=== PATIENT | male | born 1945 | race Caucasian/White ===

== ENCOUNTER → 2016-03-11 | Outpatient (CLI) | payer MEDICARE, OTHER ==
[2016-03-11 16:41] LABS: ALBUMIN 4.3 g/dL (3.5-5.0); BILIRUBIN,TOTAL 1.5 mg/dL (0.2-1.3); TOTAL PROTEIN 7.8 g/dL (6.3-8.2)
== END ==
LOC: OD 15:19
PROVIDERS: ATTEND Internal Medicine Gastroenterology
DX: R94.5 Abnormal results of liver function studies (principal)
CPT/HCPCS: 36415; 80076

== ENCOUNTER 2016-06-10 03:48 | Inpatient (IN) | payer MEDICARE, OTHER ==
[2016-06-10] MEDS ORDERED: NITROGLYCERIN/D5W 50 MG/250 ML RTUINJ IV ONE (04:00)
[2016-06-10] MEDS ORDERED: IPRATROPIUM/ALBUTEROL 0.5-2.5 MG/3 ML AMPUL NEB ONE ×4 (04:01→07:59)
[2016-06-10] MEDS ORDERED: NITROGLYCERIN/D5W 250 ML IV PRN (04:04)
[2016-06-10] MEDS ORDERED: MAGNESIUM SULFATE/D5W 2 GM/200 ML RTUPB IV ONE (04:05)
--- NOTE | 2016-06-10 04:08 | ER Document Report ---
ED Respiratory Problem - General Time seen by provider: 04:00 TRAVEL OUTSIDE OF THE [place] IN LAST 30 DAYS: No <MALCOLM CALDWELL - Last Filed: 06/10/16 07:53> <ROGERIO GALLEGOS - Last Filed: 06/10/16 14:49> - General Stated Complaint: BREATHING DIFFICULTY Notes: Patient is a 71-year-old male with a history of CHF and chronic kidney disease that comes emergency department by EMS for chief complaint of respiratory distress. Patient found with initial pulse oxygenation of 85% on room air. Patient reporting some cough, no fever, states that he rapidly started to become short of breath over the past few hours. He denies chest pain, vomiting. He denies history of pneumonia. He is a former smoker. He states he has been taking his diuretics. He denies ever being intubated. (MALCOLM CALDWELL) - Related Data Allergies/Adverse Reactions: adhesive [Adhesive] Adverse Reaction (Severe, Verified 06/10/16 09:16) Blisters Past Medical History - General Information source: Emergency Med Personnel - Social History Smoking Status: Former Smoker Lives with: Family Family History: CAD, Other - Past Medical History Cardiac Medical History: Reports: Hx Congestive Heart Failure, Hx Heart Attack - 2014 Bypass sugery, Hx Hypercholesterolemia, Hx Hypertension Denies: Hx Coronary Artery Disease Pulmonary Medical History: Denies: Hx Asthma, Hx Bronchitis, Hx COPD, Hx Pneumonia Neurological Medical History: Denies: Hx Cerebrovascular Accident, Hx Seizures Endocrine Medical History: Reports: Hx Diabetes Mellitus Type 2 Musculoskeltal Medical History: Denies Hx Arthritis Psychiatric Medical History: Denies: Hx Depression Past Surgical History: Reports: Hx Cardiac Surgery - bypass, Hx Oral Surgery - Immunizations Hx Diphtheria, Pertussis, Tetanus Vaccination: Yes Hx Pneumococcal Vaccination: 02/11/12 <MALCOLM CALDWELL - Last Filed: 06/10/16 07:53> Review of Systems - Review of Systems Constitutional: No symptoms reported EENT: No symptoms reported Cardiovascular: See HPI Respiratory: See HPI Gastrointestinal: No symptoms reported Genitourinary: No symptoms reported Male Genitourinary: No symptoms reported Musculoskeletal: No symptoms reported Skin: No symptoms reported Hematologic/Lymphatic: No symptoms reported Neurological/Psychological: No symptoms reported <MALCOLM CALDWELL - Last Filed: 06/10/16 07:53> Physical Exam - Vital signs Interpretation: Normal - General General appearance: Anxious In distress: Severe - Patient pale, diaphoretic, and obvious severe respiratory distress - HEENT Head: Normocephalic, Atraumatic Eyes: Normal Eyelashes: Normal Pupils: PERRL Pharynx: Normal Neck: Normal - Respiratory Respiratory status: Respiratory distress - Severe respiratory distress with tachypnea and very labored breathing Breath sounds: Decreased air movement, Rales, Rhonchi - Cardiovascular Rhythm: Regular Heart sounds: Normal auscultation, S1 appreciated, S2 appreciated Murmur: No - Abdominal Inspection: Normal Distension: No distension Bowel sounds: Normal Tenderness: Nontender. No: Tender, Guarding Organomegaly: No organomegaly - Back Back: Normal, Nontender - Extremities General upper extremity: Normal inspection, Nontender, Normal color, Normal ROM , Normal temperature General lower extremity: Normal inspection, Nontender, Normal color, Normal ROM , Normal temperature, Normal weight bearing. No: Juan's sign - Neurological Neuro grossly intact: Yes Cognition: Normal Orientation: AAOx4 [place] Coma Scale Eye Opening: Spontaneous Annemarie Coma Scale Verbal: Oriented [place] Coma Scale Motor: Obeys Commands [place] Coma Scale Total: 15 Speech: Normal Motor strength normal: LUE, RUE, LLE, RLE Sensory: Normal - Psychological Associated symptoms: Anxious - Skin Skin Moisture: Diaphoretic Skin Color: Pale <MALCOLM CALDWELL - Last Filed: 06/10/16 07:53> Course - Laboratory Result Diagrams: 06/10/16 04:00 06/10/16 04:00 <MALCOLM CALDWELL - Last Filed: 06/10/16 07:53> - Laboratory Result Diagrams: 06/10/16 04:00 06/10/16 04:00 <ROGERIO GALLEGOS N - Last Filed: 06/10/16 14:49> - Re-evaluation Re-evalutation: On initial evaluation patient diaphoretic, pale, in obvious respiratory distress. Patient hypertensive. Lungs with rhonchi and rales with decreased breath sounds throughout. Patient immediately placed on BiPAP, initiated nitroglycerin drip, starting magnesium and DuoNeb treatments, given Solu- Medrol. Patient is in critical condition, will monitor very closely. EKG showing borderline ST elevation in lead 2 in the inferior lead, this is isolated, no other ischemic findings. Workup pending. Reviewed with Dr. Gallegos. Dr. Gallegos updated and evaluated the patient at bedside. Patient is a 30 improving significantly on reevaluation, respirations decreased , respiratory effort has decreased, patient is still hypoxic. Chest x-ray with questionable pneumonia, Rales and rhonchi on exam initially consistent with flash pulmonary edema. No leukocytosis, chemistry generally at baseline, cardiac enzymes indeterminate. ABG obtained, shows respiratory acidosis with pH of only 7.19. On reevaluation again patient is significantly improved, respiratory distress is almost completely resolved, patient is stating that he feels much better. Antibiotics given, cultures pending. Patient reevaluated again, now has no respiratory distress, is comfortable appearing. Called and spoke with Dr. Lind, he states Dr. Velázquez will be taking call for the patient. Spoke with Dr. Velázquez, patient will be admitted to the hospital. (MALCOLM CALDWELL) 06/10/16 14:43 Late entry. I evaluated this patient at bedside in the ER. Patient initially pale, diaphoretic, and in significant respiratory distress with bilateral rales and also sounding somewhat tight with expiratory wheezes scattered throughout. Pt placed on BiPap and nitro drip, and neb treatments initiated, with rapid clinical improvement. Clinical history and exam/presentation most consistent with flash pulmonary edema, which patient has experienced in the past, yet cxr also concerning for R sided pneumonia and antibiotics initiated. Pt to be admitted to Dr. Velázquez. (ROGERIO GALLEGOS) - Vital Signs Vital signs: Temp Pulse Resp BP Pulse Ox 98.1 F 69 16 158/84 H 96 06/10/16 10:45 06/10/16 14:13 06/10/16 14:13 06/10/16 10:45 06/10/16 14:13 - Laboratory Laboratory results interpreted by ak: 06/10/16 06/10/16 06/10/16 04:00 04:00 04:00 Hgb 13.1 L RDW 14.5 H Carbonic Acid 1.60 H ABG pH 7.19 L* ABG pCO2 53.3 H ABG pO2 70.8 L ABG HCO3 19.7 L ABG Total CO2 21.3 L ABG O2 Saturation 89.9 L Sodium 145.6 H Potassium 5.2 H Chloride 109 H Carbon Dioxide 21 L BUN 35 H Creatinine 1.69 H Est GFR ( Amer) 49 L Est GFR (Non-Af Amer) 40 L Glucose 282 H Total Bilirubin 1.4 H Direct Bilirubin 0.8 H AST 81 H Alkaline Phosphatase 147 H Total Protein 9.0 H Critical Care Note - Critical Care Note Total time excluding time spent on procedures (mins): 45 - respiratory distress , pulmonary edema, pneumonia, respiratory acidosis <MALCOLM CALDWELL - Last Filed: 06/10/16 07:53> <ROGERIO GALLEGOS - Last Filed: 06/10/16 14:49> - Critical Care Note Comments: Please allow 45 minutes of critical care time for evaluation and treatment of patient with respiratory distress, treatment with BiPAP, nitroglycerin drip, magnesium, steroids, DuoNeb's, antibiotics, Lasix. Multiple re-evaluations, consultation and admission to the hospital. (MALCOLM CALDWELL) Discharge - Discharge Admitting Provider: [facility] Unit Admitted: IMCU <MALCOLM CALDWELL - Last Filed: 06/10/16 07:53> <ROGERIO GALLEGOS - Last Filed: 06/10/16 14:49> - Discharge Clinical Impression: Respiratory distress, Respiratory acidosis CHF exacerbation Qualifiers: Congestive heart failure type: unspecified congestive heart failure type Qualified Code(s): I50.9 - Heart failure, unspecified Pneumonia Qualifiers: Pneumonia type: due to unspecified organism Laterality: right Lung location: lower lobe of lung Qualified Code(s): J18.1 - Lobar pneumonia, unspecified organism Condition: Stable Disposition: ADMITTED INPATIENT
[2016-06-10] MEDS ORDERED: METHYLPREDNISOLONE INJ 125 MG/2 ML SDV IV ONE (04:15)
[2016-06-10] MEDS: MAGNESIUM SULFATE/D5W 100 ML IV SCH ×2 (04:18→04:23)
[2016-06-10 04:26] LABS: ARTERIAL BLOOD BASE EXCESS -8.9 mmol/L; ARTERIAL BLOOD O2 SATURATION 89.9 % (94-98)
[2016-06-10 04:27] LABS: ABSOLUTE BASOPHILS # (AUTO) 0.1 10^3/uL (0.0-0.2); ABSOLUTE EOSINOPHILS # (AUTO) 0.3 10^3/uL (0.0-0.6); ABSOLUTE MONOCYTES (AUTO) 0.8 10^3/uL (0.1-1.4); ABSOLUTE NEUT (AUTO) 4.4 10^3/uL (1.7-8.2); BASOPHILS % (AUTO) 0.8 % (0-2); HEMOGLOBIN 13.1 g/dL (13.5-17.0); HGB HCT DIFFERENCE 0.3; MEAN CORPUSCULAR HEMOGLOBIN 29.2 pg (27.0-33.4); MEAN CORPUSCULAR HGB CONC 33.5 g/dL (32.0-36.0); MEAN CORPUSCULAR VOLUME 87 fl (80-97); MONOCYTES % (AUTO) 8.4 % (3-13); RED BLOOD COUNT 4.47 10^6/uL (4.35-5.55); RED CELL DISTRIBUTION WIDTH 14.5 % (11.5-14.0); SEGMENTED NEUTROPHILS % (AUTO) 45.8 % (42-78); WHITE BLOOD COUNT 9.5 10^3/uL (4.0-10.5)
[2016-06-10] MEDS ORDERED: CEFTRIAXONE 1 GM/D5W RTU 50 ML IV ONE (04:31)
[2016-06-10] MEDS ORDERED: AZITHROMYCIN INJ 500 MG VIAL IV ONE (04:31)
[2016-06-10 04:37] LABS: ALANINE AMINOTRANSFERASE 65 U/L (21-72); ALBUMIN 4.4 g/dL (3.5-5.0); ALKALINE PHOSPHATASE 147 U/L (38-126); ANION GAP 16 (5-19); ASPARTATE AMINO TRANSFERASE 81 U/L (17-59); BILIRUBIN,DIRECT 0.8 mg/dL (0.0-0.4); BILIRUBIN,TOTAL 1.4 mg/dL (0.2-1.3); BLOOD UREA NITROGEN 35 mg/dL (7-20); CALCIUM 9.8 mg/dL (8.4-10.2); CARBON DIOXIDE 21 mmol/L (22-30); CHLORIDE 109 mmol/L (98-107); CREATINE KINASE 67 U/L (55-170); CREATININE RESULT 1.69 mg/dL (0.52-1.25); GLUCOSE 282 mg/dL (75-110); POTASSIUM 5.2 mmol/L (3.6-5.0); SODIUM 145.6 mmol/L (137-145)
[2016-06-10 04:49] LABS: TROPONIN I 0.02 ng/mL
[2016-06-10] MEDS ORDERED: FUROSEMIDE INJ/PF 40 MG/4 ML SDV IV ONE (07:19)
[2016-06-10] MEDS ORDERED: ACETAMINOPHEN 325 MG TABLET PO PRN (07:43)
[2016-06-10] MEDS ORDERED: DEXTROSE 50%-WATER 25 GM/50 ML DISP.SYRIN IV PRN ×2 (07:48)
[2016-06-10] MEDS ORDERED: GLUCAGON,HUMAN RECOMB 1 MG INJ IM PRN (07:48)
[2016-06-10] MEDS ORDERED: DEXTROSE 40% GEL 15 GM TUBE PO PRN ×2 (07:48)
--- NOTE | 2016-06-10 08:09 | EKG REPORT ---
SEVERITY:- ABNORMAL ECG - SINUS RHYTHM FIRST DEGREE AV BLOCK PROBABLE LEFT ATRIAL ABNORMALITY NONSPECIFIC INTRAVENTRICULAR CONDUCTION DELAY LVH WITH SECONDARY REPOLARIZATION ABNORMALITY CONSIDER ANTERIOR INFARCT : Confirmed by: Chapin Shaw MD 10-Jun-2016 08:08:29
[2016-06-10 08:40] LABS: CREATINE KINASE MB 1.06 ng/mL (<4.55)
[2016-06-10 08:44] LABS: TROPONIN I 0.043 ng/mL
[2016-06-10 09:02] LABS: ARTERIAL BLOOD BASE EXCESS -2.9 mmol/L; ARTERIAL BLOOD O2 SATURATION 99.5 % (94-98)
[2016-06-10] MEDS: IPRATROPIUM/ALBUTEROL 0.5-2.5 MG/3 ML AMPUL NEB SCH ×3 (09:44→20:44)
[2016-06-10] MEDS: INSULIN LISPRO 100 UNIT/ML 3 ML VIAL SUBCUT PRN ×4 (09:52→22:26)
[2016-06-10] MEDS: CEFEPIME 1 GM/D5W RTU 50 ML IV SCH ×2 (10:56→23:01)
[2016-06-10] MEDS: DOCUSATE SODIUM 100 MG CAPSULE PO SCH ×2 (10:58→17:09)
--- NOTE | 2016-06-10 12:34 | PDOC H&P ---
History of Present Illness Admission Date/PCP: 06/10/16 07:44 FOX BIRD MD Patient complains of: Shortness of the breath History of Present Illness: RONNIE MELGAR is a 71 year old male This is a 71-year-old male with a significant history of the pulmonary edema and congestive heart failure and coronary artery disease and type 2 diabetes mellitus for several hospital admissions for the flash pulmonary edema in the past came to the emergency department with the respiratory distress and the patient's initial pH was 7.19And patient was put on the BiPAP and the patient's response very wellPatients when I saw in the emergency departments are doing much better denied any chest pain denied any shortness of the breathPatient was given IV Lasix and IV antibiotic in the emergency departments and the patient sent patient's chest x-ray showing some right-sided pneumonia Patient was complaining of some little bit cough" cold-like symptoms for the last couple of days but no fever and patient's white count is also normal to. Patient also see her Dr. Zarate as outpatient and recently decreased the amiodarone 100 mg once a day due to the elevated liver functions Patient also see her Dr. Robin as outpatients for the GI problem and elevated LFT which is most consistent with the fatty liver and possible from the amiodarone Patient's currently denied any chest pain and denied any breathing problem in the trauma room in the emergency department Patient's white count is also normal I believe this is more consistent with the flaps pulmonary edema with the possible underlying mild be pneumonia we will treat the patient's with the plus pulmonary edema and heart failure and also covered with the antibiotic Past Medical History Cardiac Medical History: Reports: Congestive Heart Failure, Myocardial Infarction - 2013 Bypass sugery, Hyperlipidema, Hypertension Denies: Coronary Artery Disease Pulmonary Medical History: Reports: Respiratory Failure Denies: Asthma, Bronchitis, Chronic Obstructive Pulmonary Disease (COPD), Pneumonia Neurological Medical History: Denies: Seizures Endocrine Medical History: Reports: Diabetes Mellitus Type 2 Renal/ Medical History: Reports: Chronic Kidney Disease Renal/ History Note: Patient also currently see her Dr. Grant for chronic kidney disease GI Medical History: Reports: Gastroesophageal Reflux Disease GI History Note: Fatty liver Musculoskeltal Medical History: Denies: Arthritis Psychiatric Medical History: Denies: Depression Hematology: Denies: Anemia Social History Lives with: Family Smoking Status: Former Smoker Frequency of Alcohol Use: None Hx Recreational Drug Use: No Hx Prescription Drug Abuse: No - Advance Directive Resuscitation Status: Full Code Family History Family History: Reviewed & Not Pertinent, CAD, Other Parental Family History Reviewed: Yes Children Family History Reviewed: Yes Sibling(s) Family History Reviewed.: Yes Medication/Allergy Home Medications: Amiodarone HCl [Cordarone 200 mg Tablet] 100 mg PO DAILY 06/10/16 Apixaban [Eliquis 2.5 mg Tablet] 2.5 mg PO Q12 06/10/16 Aspirin [Aspirin EC] 81 mg PO DAILY 06/10/16 Brimonidine Tartrate/Timolol [Combigan 0.2%-0.5% Eye Drops] 1 drop OU DAILY 02/26 Carvedilol [Coreg 3.125 mg Tablet] 3.125 mg PO Q12 06/10/16 Docusate Sodium [Colace 100 mg Capsule] 100 mg PO DAILY 06/10/16 Insulin Aspart [Novolog Flexpen] 18 units SQ MEALS 06/10/16 Insulin Glargine,Hum.rec.anlog [Lantus Solostar] 60 units SQ QHS 06/10/16 Torsemide [Demadex 20 mg Tablet] 20 mg PO QAM 06/10/16 Valsartan [Diovan 80 mg Tablet] 80 mg PO DAILY 06/10/16 Allergies/Adverse Reactions: adhesive [Adhesive] Adverse Reaction (Severe, Verified 06/10/16 09:16) Blisters Review of Systems Constitutional: ABSENT: chills, fever(s), headache(s), weight gain, weight loss Eyes: ABSENT: visual disturbances Ears: ABSENT: hearing changes Cardiovascular: PRESENT: dyspnea on exertion. ABSENT: chest pain, edema, orthropnea, palpitations Respiratory: PRESENT: cough, dyspnea. ABSENT: hemoptysis Gastrointestinal: ABSENT: abdominal pain, constipation, diarrhea, hematemesis, hematochezia, nausea, vomiting Genitourinary: ABSENT: dysuria, hematuria Musculoskeletal: ABSENT: joint swelling Integumentary: ABSENT: rash, wounds Neurological: ABSENT: abnormal gait, abnormal speech, confusion, dizziness, focal weakness, syncope Psychiatric: ABSENT: anxiety, depression, homidical ideation, suicidal ideation Endocrine: ABSENT: cold intolerance, heat intolerance, menstrual abnormalities, polydipsia, polyuria Hematologic/Lymphatic: ABSENT: easy bleeding, easy bruising, lymphadenopathy Physical Exam Vital Signs: Temp Pulse Resp BP Pulse Ox 98.1 F 79 16 158/84 H 99 06/10/16 10:41 06/10/16 10:41 06/10/16 10:41 06/10/16 10:41 06/10/16 10:41 General appearance: PRESENT: no acute distress, well-developed, well-nourished Head exam: PRESENT: atraumatic, normocephalic Eye exam: PRESENT: conjunctiva pink, EOMI, PERRLA. ABSENT: scleral icterus Ear exam: PRESENT: normal external ear exam Mouth exam: PRESENT: moist, tongue midline Neck exam: PRESENT: full ROM. ABSENT: carotid bruit, JVD, lymphadenopathy, thyromegaly Respiratory exam: PRESENT: decreased breath sounds Cardiovascular exam: PRESENT: RRR. ABSENT: diastolic murmur, rubs, systolic murmur Pulses: PRESENT: normal dorsalis pedis pul, +2 pedal pulses bilateral Vascular exam: PRESENT: normal capillary refill GI/Abdominal exam: PRESENT: normal bowel sounds, soft. ABSENT: distended, guarding, mass, organolmegaly, rebound, tenderness Rectal exam: PRESENT: deferred Extremities exam: ABSENT: pedal edema Neurological exam: PRESENT: alert, awake, oriented to person, oriented to place , oriented to time, oriented to situation, CN II-XII grossly intact. ABSENT: motor sensory deficit Psychiatric exam: PRESENT: appropriate affect, normal mood. ABSENT: homicidal ideation, suicidal ideation Skin exam: PRESENT: dry, intact, warm. ABSENT: cyanosis, rash Results Laboratory Results: 06/10/16 08:50 Carbonic Acid 1.18 HCO3/H2CO3 Ratio 18:1 ABG pH 7.37 ABG pCO2 39.1 ABG pO2 231.3 H ABG HCO3 22.0 ABG O2 Saturation 99.5 H ABG Base Excess -2.9 FiO2 50% 06/10/16 06/10/16 08:05 08:05 Creatine Kinase 54 L CK-MB (CK-2) 1.06 Troponin I 0.043 Impressions: Chest X-Ray 06/10/16 04:03 IMPRESSION: RIGHT LOWER LOBE INFILTRATE CONCERNING FOR PNEUMONIA. Assessment & Plan - Diagnosis (1) Respiratory distress Is this a current diagnosis for this admission?: YesPlan: Most likely acute flash pulmonary edema as usual before patient's already started feeling better will continues to IV Lasix patient usually take a 60 mg of the Lasix total and homes (2) Pneumonia Qualifiers: Pneumonia type: due to unspecified organism Laterality: right Lung location: lower lobe of lung Qualified Code(s): J18.1 - Lobar pneumonia, unspecified organism Is this a current diagnosis for this admission?: YesPlan: Will start the patient on IV antibiotic and continues to monitor (3) Heart failure, systolic, with acute decompensation Plan: Start on IV Lasix and consult the cardiology (4) CAD (coronary artery disease) of artery bypass graft Qualifiers: [place] vs. transplanted heart: unspecified whether [place] or transplanted heart Is this a current diagnosis for this admission?: YesPlan: We will get the cardiac enzymes every 63 (5) CKD (chronic kidney disease) stage 3, GFR 30-59 ml/min Plan: Continues to monitor the patient's (6) Diabetes mellitus Qualifiers: Diabetes mellitus type: type 2 Diabetes mellitus complication status: with unspecified complications Is this a current diagnosis for this admission?: YesPlan: Continues on sliding scale (7) Hypertension Qualifiers: Hypertension type: essential hypertension Qualified Code(s): I10 - Essential (primary) hypertension Is this a current diagnosis for this admission?: Yes - Time Time Spent: 50 to 70 Minutes Medications reviewed and adjusted accordingly: Yes Anticipated discharge: Home Within: Other - Inpatient Certification Medical Necessity: Need Close Monitoring Due to Risk of Patient Decompensation Post Hospital Care: D/C Director Clinical Information Services Documentation - Plan Summary Plan Summary: Patient's pH is already improving will start the patient in IMCU and wean off of the BiPAP machine and continues to monitor the patient
--- NOTE | 2016-06-10 13:18 | PDOC CONSULTATION ---
Consultation Consult Date: 06/10/16 Attending physician:: FOX BIRD Consult reason:: Dyspnea History of Present Illness Admission Date/PCP: 06/10/16 07:44 FOX BIRD MD History of Present Illness: RONNIE MELGAR is a 71 year old male This is a 71-year-old male with a significant history of the pulmonary edema and congestive heart failure and coronary artery disease and type 2 diabetes mellitus for several hospital admissions for the flash pulmonary edema in the past came to the emergency department with the respiratory distress and the patient's initial pH was 7.19 his chest x-ray showing some right-sided pneumonia Dr. Zarate as outpatient and recently decreased the amiodarone 100 mg once a day due to the elevated liver functions. He states that onset of his complaints was a relatively rapid has had these problems before his cough is usually dry nonproductive but occasionally there is some clear phlegm he denies hemoptysis he states his PPD was negative however the dates unknown. He admits to exposure to passive smoke as a child as well as an adult he served [employer] admits to smoking 1 pack per day for 35 years but has not smoked in the last 20 years. He has 1 dog no recent travel he denies angina-like chest pain sleeps on 1-2 pillows denies PND nocturnal cough admits to some edema admits to snoring, nocturia and restless sleep but denies unrestful sleep or excessive daytime somnolence. Past Medical History Cardiac Medical History: Reports: Congestive Heart Failure, Myocardial Infarction - 2014 Bypass sugery, Hyperlipidema, Hypertension Denies: Coronary Artery Disease Pulmonary Medical History: Reports: Respiratory Failure Denies: Asthma, Bronchitis, Chronic Obstructive Pulmonary Disease (COPD), Pneumonia Neurological Medical History: Denies: Seizures Endocrine Medical History: Reports: Diabetes Mellitus Type 2 Renal/ Medical History: Reports: Chronic Kidney Disease GI Medical History: Reports: Gastroesophageal Reflux Disease Musculoskeltal Medical History: Denies: Arthritis Psychiatric Medical History: Denies: Depression Hematology: Denies: Anemia Social History Information Source: Patient, [facility] Records Lives with: Family Smoking Status: Former Smoker Cigarettes Packs Per Day: 1 Number of Years Smokin Last Time Smoked: 1991 Passive smoke exposure as: Both Frequency of Alcohol Use: None Hx Recreational Drug Use: No Drugs: None Hx Prescription Drug Abuse: No Do you have pets?: Yes Have you had any respiratory illnesses as a child?: No Have you been exposed to any sick contacts recently?: No Have you had any recent respiratory illnesses?: No Have you travelled outside of [place] in the past 12 months?: Yes - [place] for 2 week - Advance Directive Resuscitation Status: Full Code Family History Family History: Reviewed & Not Pertinent, CAD, Other Parental Family History Reviewed: Yes Children Family History Reviewed: Yes Sibling(s) Family History Reviewed.: Yes Medication/Allergy Home Medications: Amiodarone HCl [Cordarone 200 mg Tablet] 100 mg PO DAILY 06/10/16 Apixaban [Eliquis 2.5 mg Tablet] 2.5 mg PO Q12 06/10/16 Aspirin [Aspirin EC] 81 mg PO DAILY 06/10/16 Brimonidine Tartrate/Timolol [Combigan 0.2%-0.5% Eye Drops] 1 drop OU DAILY 02/26 Carvedilol [Coreg 3.125 mg Tablet] 3.125 mg PO Q12 06/10/16 Docusate Sodium [Colace 100 mg Capsule] 100 mg PO DAILY 06/10/16 Insulin Aspart [Novolog Flexpen] 18 units SQ MEALS 06/10/16 Insulin Glargine,Hum.rec.anlog [Lantus Solostar] 60 units SQ QHS 06/10/16 Torsemide [Demadex 20 mg Tablet] 20 mg PO QAM 06/10/16 Valsartan [Diovan 80 mg Tablet] 80 mg PO DAILY 06/10/16 Allergies/Adverse Reactions: adhesive [Adhesive] Adverse Reaction (Severe, Verified 06/10/16 09:16) Blisters Physical Exam Vital Signs: Temp Pulse Resp BP Pulse Ox 98.1 F 79 16 158/84 H 99 06/10/16 10:45 06/10/16 10:41 06/10/16 10:45 06/10/16 10:45 06/10/16 10:45 Intake & Output 06/09/16 06/10/16 06/11/16 06:59 06:59 06:59 Weight 120.202 kg General appearance: PRESENT: disheveled, mild distress, obese Head exam: PRESENT: atraumatic, normocephalic Eye exam: PRESENT: conjunctiva pale, EOMI Mouth exam: PRESENT: dry mucosa, neck supple Neck exam: ABSENT: carotid bruit, JVD, lymphadenopathy, thyromegaly Respiratory exam: PRESENT: decreased breath sounds, prolonged expiratory phas, rales, rhonchi, symmetrical Cardiovascular exam: PRESENT: RRR, +S1, +S2 Pulses: PRESENT: normal radial pulses GI/Abdominal exam: PRESENT: normal bowel sounds, soft. ABSENT: distended, guarding, mass, organolmegaly, rebound, tenderness Rectal exam: PRESENT: deferred Musculoskeletal exam: PRESENT: normal inspection Neurological exam: PRESENT: alert, awake Psychiatric exam: PRESENT: normal mood Skin exam: PRESENT: dry, warm Results Laboratory Results: 06/10/16 08:50 Carbonic Acid 1.18 HCO3/H2CO3 Ratio 18:1 ABG pH 7.37 ABG pCO2 39.1 ABG pO2 231.3 H ABG HCO3 22.0 ABG O2 Saturation 99.5 H ABG Base Excess -2.9 FiO2 50% 06/10/16 06/10/16 08:05 08:05 Creatine Kinase 54 L CK-MB (CK-2) 1.06 Troponin I 0.043 Impressions: Chest X-Ray 06/10/16 04:03 IMPRESSION: RIGHT LOWER LOBE INFILTRATE CONCERNING FOR PNEUMONIA. Assessment & Plan - Diagnosis (1) Respiratory distress Is this a current diagnosis for this admission?: YesPlan: Improved with CPAP and Lasix still somewhat labored (2) Flash pulmonary edema Is this a current diagnosis for this admission?: Yes (3) CAD (coronary artery disease) of artery bypass graft Qualifiers: [place] vs. transplanted heart: unspecified whether [place] or transplanted heart Associated angina: without angina Qualified Code(s): I25.810 - Atherosclerosis of coronary artery bypass graft(s) without angina pectoris Is this a current diagnosis for this admission?: Yes (4) Congestive cardiac failure Qualifiers: Congestive heart failure type: combined Is this a current diagnosis for this admission?: YesPlan: Improved with diuretic therapy (5) Diabetes mellitus Qualifiers: Diabetes mellitus type: type 2 Diabetes mellitus complication status: with ophthalmic complications Diabetic retinopathy severity: with unspecified retinopathy severity Is this a current diagnosis for this admission?: Yes (6) Hypertension Qualifiers: Hypertension type: essential hypertension Qualified Code(s): I10 - Essential (primary) hypertension Is this a current diagnosis for this admission?: Yes (7) Pneumonia Qualifiers: Pneumonia type: due to unspecified organism Laterality: right Lung location: lower lobe of lung Qualified Code(s): J18.1 - Lobar pneumonia, unspecified organism Is this a current diagnosis for this admission?: YesPlan: CXR is read as right lower lobe pneumonia (infiltrate). Patient does not have leukocytosis, left shift or fever
[2016-06-10] MEDS: FUROSEMIDE INJ/PF 40 MG/4 ML SDV IV SCH ×3 (14:05→23:19)
[2016-06-10] MEDS: INSULIN LISPRO 100 UNIT/ML 3 ML VIAL SUBCUT SCH (16:45)
[2016-06-10] MEDS ORDERED: (PENDING PHARMACY ID) (Insulin Aspart [Novolog Flexpen] 18 UNITS) SQ SCH (17:00)
[2016-06-10 17:15] LABS: CREATINE KINASE MB 1.27 ng/mL (<4.55); TROPONIN I 0.041 ng/mL
--- NOTE | 2016-06-10 19:57 | PDOC CONSULTATION ---
Consultation Consult Date: 06/10/16 Attending physician:: FOX BIRD Consult reason:: CHF History of Present Illness Admission Date/PCP: 06/10/16 07:44 FOX BIRD MD Patient complains of: Shortness of breath History of Present Illness: RONNIE MELGAR is a 71 year old male with a significant history of the pulmonary edema and congestive heart failure and coronary artery disease and type 2 diabetes mellitus for several hospital admissions for the flash pulmonary edema in the past came to the emergency department with the respiratory distress. The patient's initial pH was 7.19. Patient was put on the BiPAP and the patient responds very well. Patient was given IV Lasix and IV antibiotic in the emergency departments. Patient's chest x-ray showing right-sided infiltrate consistent with right-sided pneumonia. Patient was complaining of some little bit cough" cold-like symptoms for the last couple of days but no fever. Patient saw Dr. Zarate as outpatient and recently decreased the amiodarone 100 mg once a day due to the elevated liver functions. Patient also see her Dr. Robin as outpatients for the GI problem and elevated LFT which is most consistent with the fatty liver and possible from the amiodarone but more likely to be from obesity and sleep apnea syndrome. Patient's currently denied any chest pain and denied any breathing problem and looked comfortable when I saw him on the floor. Patient denies angina-like chest pain, sleeps on 1-2 pillows denies PND nocturnal cough admits to some edema admits to snoring, nocturia and restless sleep but denies unrestful sleep or excessive daytime somnolence. Patient does give history of sleep apnea syndrome and his last follow-up was with me in October 2015. Past Medical History Cardiac Medical History: Reports: Congestive Heart Failure, Myocardial Infarction - 2014 Bypass sugery, Hyperlipidema, Hypertension Denies: Coronary Artery Disease Pulmonary Medical History: Reports: Respiratory Failure Denies: Asthma, Bronchitis, Chronic Obstructive Pulmonary Disease (COPD), Pneumonia Neurological Medical History: Denies: Seizures Endocrine Medical History: Reports: Diabetes Mellitus Type 2 Renal/ Medical History: Reports: Chronic Kidney Disease GI Medical History: Reports: Gastroesophageal Reflux Disease Musculoskeltal Medical History: Denies: Arthritis Psychiatric Medical History: Denies: Depression Hematology: Denies: Anemia Past Surgical History Past Surgical History: Reports: Coronary Artery Bypass Graft Social History Information Source: Patient Lives with: Family Smoking Status: Former Smoker Cigarettes Packs Per Day: 1 Number of Years Smokin Last Time Smoked: 1991 Frequency of Alcohol Use: None Hx Recreational Drug Use: No Drugs: None Hx Prescription Drug Abuse: No - Advance Directive Resuscitation Status: Full Code Family History Family History: CAD, Other Parental Family History Reviewed: Yes Children Family History Reviewed: Yes Sibling(s) Family History Reviewed.: Yes Medication/Allergy Home Medications: Amiodarone HCl [Cordarone 200 mg Tablet] 100 mg PO DAILY 06/10/16 Apixaban [Eliquis 2.5 mg Tablet] 2.5 mg PO Q12 06/10/16 Aspirin [Aspirin EC] 81 mg PO DAILY 06/10/16 Brimonidine Tartrate/Timolol [Combigan 0.2%-0.5% Eye Drops] 1 drop OU DAILY 02/26 Carvedilol [Coreg 3.125 mg Tablet] 3.125 mg PO Q12 06/10/16 Docusate Sodium [Colace 100 mg Capsule] 100 mg PO DAILY 06/10/16 Insulin Aspart [Novolog Flexpen] 18 units SQ MEALS 06/10/16 Insulin Glargine,Hum.rec.anlog [Lantus Solostar] 60 units SQ QHS 06/10/16 Torsemide [Demadex 20 mg Tablet] 20 mg PO QAM 06/10/16 Valsartan [Diovan 80 mg Tablet] 80 mg PO DAILY 06/10/16 Allergies/Adverse Reactions: adhesive [Adhesive] Adverse Reaction (Severe, Verified 06/10/16 09:16) Blisters Review of Systems Review of Systems: Please see history of present illness and past medical history as wall. Constitutional: No fever or chills reported. Head : No recent chronic headaches, recent head injury. Eyes: No recent eye pain, diplopia, redness, discharge, acute visual changes. Ears: No recent chronic ear pain, acute hearing loss, ear discharge. Oral cavity: No recent ulcerations, bleeding, oral cavity discomfort. Neck: No recent acute neck pain reported. Hematologic: No recent easy bruising or bleeding or hematologic malignancy reported. Lymphatic: No recent lymphatic malignancy, chronic lymphadenopathy reported yet Cardiovascular system review: See history of present illness. Has history of intermittent palpitations. No syncope or near syncope. Respiratory system review: History of recent cough with clear productive sputum but no hemoptysis, blood clots in the lungs reported. Mild Shortness of breath on exertion Gastrointestinal system review: Negative for any recent acute or chronic abdominal pain, hematemesis, melena, recent change in bowel habits. Genitourinary system review: No recent acute or chronic hematuria, flank pain, UTI etc. reported. Skin system review: Negative for any recent abnormal bruising, no rash, no pruritus reported. Neurologic: No prior history of strokes, mini strokes, seizure disorder. Psychologic: No history of major psychosis or major depression reported. Musculoskeletal: Minor aches and pains reported. No acute joint swelling reported. Endocrine: No recent polyuria, polydipsia, recent heat or cold intolerance. Physical Exam Vital Signs: Temp Pulse Resp BP Pulse Ox 97.8 F 77 16 144/69 H 96 06/10/16 15:40 06/10/16 15:40 06/10/16 15:40 06/10/16 15:40 06/10/16 16:06 Intake & Output 06/09/16 06/10/16 06/11/16 06:59 06:59 06:59 Intake Total 1110 Output Total 2600 Balance -1490 Weight 120.202 kg Exam: GENERAL: well-nourished and in no acute distress. Alert and oriented x3 HEAD: Atraumatic, normocephalic. EYES: Pupils equal round and reactive to light, extraocular movements intact, sclera anicteric, conjunctiva are normal. ENT: TMs normal, nares patent, oropharynx clear without exudates. Moist mucous membranes. No oral ulcerations or bleeding gums noted NECK: supple without lymphadenopathy. Trachea is central. No cervical or axillary lymphadenopathy noted. Carotids are 2+, JVD WNL LUNGS: Respiration seems nonlabored, no significant accessory muscle action noted. Right basal crackles are noted. No wheezes rales or rhonchi noted. No significant dullness noted on percussion. CHEST: Palpation of the chest wall shows no significant chest wall tenderness. No other significant abnormalities noted. 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 ABDOMEN: Soft, no significant tenderness appreciated, normoactive bowel sounds. No guarding, no rebound. No rigidity noted . No masses appreciated. EXTREMITIES: Pedal pulses are 1-2+, no calf tenderness noted. No clubbing or cyanosis.trace to 1+ pedal edema noted NEUROLOGICAL: Focused neurological exam showed no significant neurologic deficit. Normal speech, no focal weakness appreciated. PSYCH: Normal mood, normal affect. Judgment and insight within normal limits. SKIN: No significant ecchymosis, rash, ulcerations or signs of pruritus noted. MUSCULOSKELETAL EXAM: No significant joint swelling noted. Results Laboratory Results: 06/10/16 08:50 Carbonic Acid 1.18 HCO3/H2CO3 Ratio 18:1 ABG pH 7.37 ABG pCO2 39.1 ABG pO2 231.3 H ABG HCO3 22.0 ABG O2 Saturation 99.5 H ABG Base Excess -2.9 FiO2 50% 06/10/16 06/10/16 06/10/16 08:05 08:05 16:05 Creatine Kinase 54 L 55 CK-MB (CK-2) 1.06 Troponin I 0.043 06/10/16 16:05 Creatine Kinase CK-MB (CK-2) 1.27 Troponin I 0.041 Impressions: Chest X-Ray 06/10/16 04:03 IMPRESSION: RIGHT LOWER LOBE INFILTRATE CONCERNING FOR PNEUMONIA. Assessment & Plan - Diagnosis (1) Heart failure, systolic, with acute decompensation Is this a current diagnosis for this admission?: Yes (2) Acute respiratory failure with hypoxia and hypercapnia Is this a current diagnosis for this admission?: Yes (3) Pneumonia Qualifiers: Pneumonia type: due to unspecified organism Laterality: right Lung location: lower lobe of lung Qualified Code(s): J18.1 - Lobar pneumonia, unspecified organism Is this a current diagnosis for this admission?: Yes (4) CAD (coronary artery disease) Qualifiers: Coronary Disease-Associated Artery/Lesion type: unspecified vessel or lesion type [place] vs. transplanted heart: [place] heart Associated angina: without angina Qualified Code(s): I25.10 - Atherosclerotic heart disease of [place] coronary artery without angina pectoris Is this a current diagnosis for this admission?: Yes (5) CKD (chronic kidney disease) stage 3, GFR 30-59 ml/min Is this a current diagnosis for this admission?: Yes (6) Congestive cardiac failure Qualifiers: Congestive heart failure type: combined Is this a current diagnosis for this admission?: Yes - Notes Notes: Acute congestive heart failure: Systolic. Precipitating factor not clear, possible aspiration pneumonia, possible cardiac dysrhythmia. Chest x-ray consistent with both asymmetric pulmonary edema and pneumonia. Chemical picture not clear in this regard. Continue diuretic therapy, repeat chest x- ray. If chest x-ray clears very quickly then it's probably asymmetric edema. A CT might help. Acute respiratory failure: Patient was noted to be severely hypoxic and hypercapnic. He also had very low pH. Patient showed quick improvement with bilevel therapy. Currently patient is just on some oxygen supplementation. Pneumonia: Chest x-ray picture consistent with pneumonia. Possible aspiration pneumonia since its right lower lobe. Chronic kidney disease: Currently stable. Coronary artery disease: No chest pain but transient ischemia is in differential diagnosis. Paroxysmal atrial fibrillation: Continue with chronic anticoagulation. Consider stopping amiodarone and go for rate control with beta blockers. I would recommend stopping amiodarone, starting patient on Ranexa. If patient has any recurrence of atrial fibrillation, consider ablation therapy versus just rate control and chronic anticoagulation. Will also recommend a 2-D echocardiogram if none has been performed in the last 6-12 months. This is because of acute CHF. - Time Time Spent: 50 to 70 Minutes Medications reviewed and adjusted accordingly: Yes - consider stopping amiodarone
[2016-06-10] MEDS: APIXABAN 2.5 MG TABLET PO SCH (22:22)
[2016-06-10] MEDS: CARVEDILOL 3.125 MG TABLET PO SCH (22:23)
[2016-06-10] MEDS: INSULIN GLARGINE,HUM.REC.ANLOG 300 UNIT/3 ML INSULN.PEN SUBCUT SCH (22:26)
[2016-06-10 22:46] LABS: CREATINE KINASE MB 1.65 ng/mL (<4.55); TROPONIN I 0.036 ng/mL
[2016-06-11] MEDS: FUROSEMIDE INJ/PF 40 MG/4 ML SDV IV SCH ×3 (05:58→22:07)
[2016-06-11 06:03] LABS: ABSOLUTE LYMPHOCYTES (AUTO) 1.2 10^3/uL (0.5-4.7); ABSOLUTE MONOCYTES (AUTO) 0.9 10^3/uL (0.1-1.4); ABSOLUTE NEUT (AUTO) 7.3 10^3/uL (1.7-8.2); BASOPHILS % (AUTO) 0.2 % (0-2); EOSINOPHILS % (AUTO) 0.1 % (0-6); HEMATOCRIT 35.4 % (37.9-51.0); HEMOGLOBIN 12.1 g/dL (13.5-17.0); HGB HCT DIFFERENCE 0.9; LYMPHOCYTES % (AUTO) 12.2 % (13-45); MEAN CORPUSCULAR HEMOGLOBIN 29.3 pg (27.0-33.4); MEAN CORPUSCULAR HGB CONC 34.1 g/dL (32.0-36.0); MEAN CORPUSCULAR VOLUME 86 fl (80-97); MONOCYTES % (AUTO) 10.1 % (3-13); RED BLOOD COUNT 4.12 10^6/uL (4.35-5.55); RED CELL DISTRIBUTION WIDTH 14.4 % (11.5-14.0); SEGMENTED NEUTROPHILS % (AUTO) 77.4 % (42-78); WHITE BLOOD COUNT 9.4 10^3/uL (4.0-10.5)
[2016-06-11 06:15] LABS: ANION GAP 17 (5-19); BLOOD UREA NITROGEN 54 mg/dL (7-20); CALCIUM 9.8 mg/dL (8.4-10.2); CARBON DIOXIDE 21 mmol/L (22-30); CHLORIDE 100 mmol/L (98-107); CREATININE RESULT 1.99 mg/dL (0.52-1.25); GLUCOSE 265 mg/dL (75-110); MAGNESIUM 2.2 mg/dL (1.6-2.3); POTASSIUM 4.6 mmol/L (3.6-5.0); SODIUM 137.9 mmol/L (137-145)
[2016-06-11] MEDS ORDERED: TORSEMIDE 20 MG TABLET PO SCH (08:00)
[2016-06-11] MEDS: IPRATROPIUM/ALBUTEROL 0.5-2.5 MG/3 ML AMPUL NEB SCH ×3 (08:06→20:37)
[2016-06-11] MEDS: INSULIN LISPRO 100 UNIT/ML 3 ML VIAL SUBCUT SCH ×3 (08:16→17:01)
[2016-06-11] MEDS: INSULIN LISPRO 100 UNIT/ML 3 ML VIAL SUBCUT PRN ×3 (08:17→17:01)
[2016-06-11] MEDS: APIXABAN 2.5 MG TABLET PO SCH ×2 (09:45→22:04)
[2016-06-11] MEDS: CEFEPIME 1 GM/D5W RTU 50 ML IV SCH ×2 (09:46→22:01)
[2016-06-11] MEDS: AZITHROMYCIN 250 MG TABLET PO SCH (09:47)
[2016-06-11] MEDS: VALSARTAN 80 MG TABLET PO SCH (09:48)
[2016-06-11] MEDS: ASPIRIN 81 MG TABLET, ENT COATED PO SCH (09:49)
[2016-06-11] MEDS: DOCUSATE SODIUM 100 MG CAPSULE PO SCH ×2 (09:49→17:03)
[2016-06-11] MEDS: CARVEDILOL 3.125 MG TABLET PO SCH ×2 (09:49→22:05)
--- NOTE | 2016-06-11 09:54 | PDOC PROGRESS REPORT ---
Subjective Progress Note for:: 06/11/16 Subjective:: Patient is feeling much better I think is back to the baselines all the respiratory distress is resolved and most likely is coming from the flash pulmonary edema does not sound like any pneumoniaPatients denied any chest pain denied any shortness of the breath Physical Exam Vital Signs: Temp Pulse Resp BP Pulse Ox 97.8 F 74 18 122/70 98 06/11/16 07:05 06/11/16 08:06 06/11/16 08:06 06/11/16 07:05 06/11/16 08:06 Intake & Output 06/10/16 06/11/16 06/12/16 06:59 06:59 06:59 Intake Total 1130 Output Total 5300 Balance -4170 Weight 120.3 kg General appearance: PRESENT: no acute distress, well-developed, well-nourished Head exam: PRESENT: atraumatic, normocephalic Eye exam: PRESENT: conjunctiva pink, EOMI, PERRLA. ABSENT: scleral icterus Ear exam: PRESENT: normal external ear exam Mouth exam: PRESENT: moist, tongue midline Neck exam: PRESENT: full ROM. ABSENT: carotid bruit, JVD, lymphadenopathy, thyromegaly Respiratory exam: PRESENT: clear to auscultation [place] Cardiovascular exam: PRESENT: RRR. ABSENT: diastolic murmur, rubs, systolic murmur Pulses: PRESENT: normal dorsalis pedis pul, +2 pedal pulses bilateral Vascular exam: PRESENT: normal capillary refill GI/Abdominal exam: PRESENT: normal bowel sounds, soft. ABSENT: distended, guarding, mass, organolmegaly, rebound, tenderness Rectal exam: PRESENT: deferred Neurological exam: PRESENT: alert, awake, oriented to person, oriented to place , oriented to time, oriented to situation, CN II-XII grossly intact. ABSENT: motor sensory deficit Psychiatric exam: PRESENT: appropriate affect, normal mood. ABSENT: homicidal ideation, suicidal ideation Skin exam: PRESENT: dry, intact, warm. ABSENT: cyanosis, rash Results Laboratory Results: 06/11/16 05:18 06/11/16 05:18 06/11/16 06/11/16 05:18 05:18 WBC 9.4 RBC 4.12 L Hgb 12.1 L Hct 35.4 L MCV 86 MCH 29.3 MCHC 34.1 RDW 14.4 H Plt Count 141 L Seg Neutrophils % 77.4 Lymphocytes % 12.2 L Monocytes % 10.1 Eosinophils % 0.1 Basophils % 0.2 Absolute Neutrophils 7.3 Absolute Lymphocytes 1.2 Absolute Monocytes 0.9 Absolute Eosinophils 0.0 Absolute Basophils 0.0 Sodium 137.9 Potassium 4.6 Chloride 100 Carbon Dioxide 21 L Anion Gap 17 BUN 54 H Creatinine 1.99 H Est GFR ( Amer) 40 L Est GFR (Non-Af Amer) 33 L Glucose 265 H Calcium 9.8 Magnesium 2.2 06/10/16 06/10/16 06/10/16 08:05 08:05 16:05 Creatine Kinase 54 L 55 CK-MB (CK-2) 1.06 Troponin I 0.043 NT-Pro-B Natriuret Pep 06/10/16 06/10/16 06/10/16 16:05 22:08 22:08 Creatine Kinase 63 CK-MB (CK-2) 1.27 1.65 Troponin I 0.041 0.036 NT-Pro-B Natriuret Pep 06/11/16 05:18 Creatine Kinase CK-MB (CK-2) Troponin I NT-Pro-B Natriuret Pep 4420 H Assessment & Plan - Diagnosis (1) Respiratory distress Is this a current diagnosis for this admission?: YesPlan: Most likely from the flash pulmonary edema is currently all resolved (2) Pneumonia Qualifiers: Pneumonia type: due to unspecified organism Laterality: right Lung location: lower lobe of lung Qualified Code(s): J18.1 - Lobar pneumonia, unspecified organism Is this a current diagnosis for this admission?: YesPlan: Patient's white count is normal I do not think so patient have a pneumonia the chest x-ray is reviewed the pneumonia will give a little p.o. antibiotic course for 7 days (3) Heart failure, systolic, with acute decompensation Is this a current diagnosis for this admission?: YesPlan: Start on IV Lasix and consult the cardiology Will cut down the Lasix 40 mg to 20 mg IV q. 8 and switch to the p.o. Lasix tomorrow (4) CAD (coronary artery disease) of artery bypass graft Qualifiers: [place] vs. transplanted heart: unspecified whether [place] or transplanted heart Associated angina: without angina Qualified Code(s): I25.810 - Atherosclerosis of coronary artery bypass graft(s) without angina pectoris Is this a current diagnosis for this admission?: YesPlan: We will get the cardiac enzymes every 63 (5) CKD (chronic kidney disease) stage 3, GFR 30-59 ml/min Is this a current diagnosis for this admission?: YesPlan: Will decrease the Lasix today (6) Diabetes mellitus Qualifiers: Diabetes mellitus type: type 2 Diabetes mellitus complication status: with ophthalmic complications Diabetic retinopathy severity: with unspecified retinopathy severity Is this a current diagnosis for this admission?: YesPlan: Continues on sliding scale (7) Hypertension Qualifiers: Hypertension type: essential hypertension Qualified Code(s): I10 - Essential (primary) hypertension Is this a current diagnosis for this admission?: Yes - Time Time Spent with patient: 15-24 minutes Medications reviewed and adjusted accordingly: Yes Anticipated discharge: Home Within: within 48 hours - Inpatient Certification Medical Necessity: Need Close Monitoring Due to Risk of Patient Decompensation Post Hospital Care: D/C [employer] Documentation - Plan Summary Plan Summary: Continues adjustment of the medications as able continues to current other medications get the chest x-ray today
[2016-06-11] MEDS ORDERED: DOCUSATE SODIUM 100 MG CAPSULE PO SCH (10:00)
[2016-06-11] MEDS ORDERED: AMIODARONE HCL 200 MG TABLET PO SCH (10:00)
--- NOTE | 2016-06-11 19:21 | PDOC PROGRESS REPORT ---
Subjective Progress Note for:: 06/11/16 Subjective:: Patient seems to be doing better with gradual improvement. Pt is denying any chest arm or neck discomfort. Patient denying any PND, orthopnea. Patient denied any sustained palpitations, dizziness, syncope, near syncope. Patient denying any fever chills. Patient denying any other significant discomfort. Patient claims that he had some difficulty with CPAP use therefore has not used it in several months. Patient will need a titration study Patient is maintaining sinus rhythm. Review of systems: Rest review of systems negative. Medications: Medications have been reviewed. Physical Exam Vital Signs: Temp Pulse Resp BP Pulse Ox 97.9 F 67 18 93/57 L 98 06/11/16 16:32 06/11/16 16:32 06/11/16 16:32 06/11/16 16:32 06/11/16 16:32 Intake & Output 06/10/16 06/11/16 06/12/16 06:59 06:59 06:59 Intake Total 1130 929 Output Total 5300 1200 Balance -4170 -271 Weight 120.3 kg Exam: GENERAL: well-nourished and in no acute distress. Alert and oriented x3 HEAD: Atraumatic, normocephalic. EYES: Pupils equal round and reactive to light, extraocular movements intact, sclera anicteric, conjunctiva are normal. ENT: TMs normal, nares patent, oropharynx clear without exudates. Moist mucous membranes. No oral ulcerations or bleeding gums noted NECK: supple without lymphadenopathy. Trachea is central. No cervical or axillary lymphadenopathy noted. Carotids are 2+, JVD WNL LUNGS: Respiration seems nonlabored, no significant accessory muscle action noted. Breath sounds clear to auscultation bilaterally and equal noted. No wheezes rales or rhonchi noted. No significant dullness noted on percussion. CHEST: Palpation of the chest wall shows no significant chest wall tenderness. No other significant abnormalities noted. 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 ABDOMEN: Soft, no significant tenderness appreciated, normoactive bowel sounds. No guarding, no rebound. No rigidity noted . No masses appreciated. EXTREMITIES: Pedal pulses are 1-2+, no calf tenderness noted. No clubbing or cyanosis.trace to 1+ pedal edema noted NEUROLOGICAL: Focused neurological exam showed no significant neurologic deficit. Normal speech, no focal weakness appreciated. PSYCH: Normal mood, normal affect. Judgment and insight within normal limits. SKIN: No significant ecchymosis, rash, ulcerations or signs of pruritus noted. MUSCULOSKELETAL EXAM: No significant joint swelling noted. Results Laboratory Results: 06/11/16 05:18 06/11/16 05:18 06/11/16 06/11/16 05:18 05:18 WBC 9.4 RBC 4.12 L Hgb 12.1 L Hct 35.4 L MCV 86 MCH 29.3 MCHC 34.1 RDW 14.4 H Plt Count 141 L Seg Neutrophils % 77.4 Lymphocytes % 12.2 L Monocytes % 10.1 Eosinophils % 0.1 Basophils % 0.2 Absolute Neutrophils 7.3 Absolute Lymphocytes 1.2 Absolute Monocytes 0.9 Absolute Eosinophils 0.0 Absolute Basophils 0.0 Sodium 137.9 Potassium 4.6 Chloride 100 Carbon Dioxide 21 L Anion Gap 17 BUN 54 H Creatinine 1.99 H Est GFR ( Amer) 40 L Est GFR (Non-Af Amer) 33 L Glucose 265 H Calcium 9.8 Magnesium 2.2 06/10/16 06/10/16 06/10/16 08:05 08:05 16:05 Creatine Kinase 54 L 55 CK-MB (CK-2) 1.06 Troponin I 0.043 NT-Pro-B Natriuret Pep 06/10/16 06/10/16 06/10/16 16:05 22:08 22:08 Creatine Kinase 63 CK-MB (CK-2) 1.27 1.65 Troponin I 0.041 0.036 NT-Pro-B Natriuret Pep 06/11/16 05:18 Creatine Kinase CK-MB (CK-2) Troponin I NT-Pro-B Natriuret Pep 4420 H Impressions: Chest X-Ray 06/11/16 00:00 IMPRESSION: NO SIGNIFICANT RADIOGRAPHIC FINDING IN THE CHEST. Assessment & Plan - Diagnosis (1) Heart failure, systolic, with acute decompensation Is this a current diagnosis for this admission?: Yes (2) Acute respiratory failure with hypoxia and hypercapnia Is this a current diagnosis for this admission?: Yes (3) Pneumonia Qualifiers: Pneumonia type: due to unspecified organism Laterality: right Lung location: lower lobe of lung Qualified Code(s): J18.1 - Lobar pneumonia, unspecified organism Is this a current diagnosis for this admission?: Yes (4) CAD (coronary artery disease) Qualifiers: Coronary Disease-Associated Artery/Lesion type: unspecified vessel or lesion type [place] vs. transplanted heart: [place] heart Associated angina: without angina Qualified Code(s): I25.10 - Atherosclerotic heart disease of [place] coronary artery without angina pectoris Is this a current diagnosis for this admission?: Yes (5) CKD (chronic kidney disease) stage 3, GFR 30-59 ml/min Is this a current diagnosis for this admission?: Yes (6) Congestive cardiac failure Qualifiers: Congestive heart failure type: combined Is this a current diagnosis for this admission?: Yes - Notes Notes: Acute congestive heart failure: Systolic. Precipitating factor not clear, possible aspiration pneumonia, possible cardiac dysrhythmia. Chest x-ray consistent with both asymmetric pulmonary edema and pneumonia on admission. Repeat chest x-ray shows quick clearing of infiltrate therefore most likely was asymmetric pulmonary edema. However may continue course of antibiotics as pneumonia cannot be entirely ruled out. Acute respiratory failure: Patient was noted to be severely hypoxic and hypercapnic. He also had very low pH. Patient showed quick improvement with bilevel therapy. Currently patient is just on some oxygen supplementation. Patient will benefit from a repeat titration study as an outpatient. Pneumonia: Chest x-ray picture initially consistent with pneumonia. Subsequently there was quick clearance of infiltrate which suggests that Patient main fact have asymmetric pulmonary edema. Chronic kidney disease: Currently stable. Coronary artery disease: No chest pain but transient ischemia is in differential diagnosis. Paroxysmal atrial fibrillation: Continue with chronic anticoagulation. After discussion with Dr. Zarate, will stop amiodarone and start patient on Ranexa. I would stop amiodarone, starting patient on Ranexa. If patient has any recurrence of atrial fibrillation, consider ablation therapy versus just rate control and chronic anticoagulation. Will also recommend a 2-D echocardiogram if none has been performed in the last 6-12 months. This is because of acute CHF. - Time Time with patient: Greater than 35 minutes Medications reviewed and adjusted accordingly: Yes - stop amiodarone and start Ranexa.
--- NOTE | 2016-06-11 20:23 | PDOC PROGRESS REPORT ---
Subjective Progress Note for:: 06/11/16 Subjective:: feeling better Physical Exam Vital Signs: Temp Pulse Resp BP Pulse Ox 97.9 F 67 18 93/57 L 98 06/11/16 16:32 06/11/16 16:32 06/11/16 16:32 06/11/16 16:32 06/11/16 16:32 Intake & Output 06/10/16 06/11/16 06/12/16 06:59 06:59 06:59 Intake Total 1130 929 Output Total 5300 1200 Balance -4170 -271 Weight 120.3 kg General appearance: PRESENT: no acute distress, well-developed, well-nourished Head exam: PRESENT: atraumatic, normocephalic Eye exam: PRESENT: conjunctiva pale, EOMI Mouth exam: PRESENT: moist, neck supple Neck exam: ABSENT: carotid bruit, JVD, lymphadenopathy, thyromegaly Respiratory exam: PRESENT: prolonged expiratory phas, rhonchi, symmetrical, unlabored, other Cardiovascular exam: PRESENT: RRR, +S1 Pulses: PRESENT: normal radial pulses GI/Abdominal exam: PRESENT: normal bowel sounds, soft. ABSENT: distended, guarding, mass, organolmegaly, rebound, tenderness Rectal exam: PRESENT: deferred Musculoskeletal exam: PRESENT: normal inspection Neurological exam: PRESENT: alert, awake Psychiatric exam: PRESENT: normal mood Skin exam: PRESENT: dry, warm Results Laboratory Results: 06/11/16 05:18 06/11/16 05:18 06/11/16 06/11/16 05:18 05:18 WBC 9.4 RBC 4.12 L Hgb 12.1 L Hct 35.4 L MCV 86 MCH 29.3 MCHC 34.1 RDW 14.4 H Plt Count 141 L Seg Neutrophils % 77.4 Lymphocytes % 12.2 L Monocytes % 10.1 Eosinophils % 0.1 Basophils % 0.2 Absolute Neutrophils 7.3 Absolute Lymphocytes 1.2 Absolute Monocytes 0.9 Absolute Eosinophils 0.0 Absolute Basophils 0.0 Sodium 137.9 Potassium 4.6 Chloride 100 Carbon Dioxide 21 L Anion Gap 17 BUN 54 H Creatinine 1.99 H Est GFR ( Amer) 40 L Est GFR (Non-Af Amer) 33 L Glucose 265 H Calcium 9.8 Magnesium 2.2 06/10/16 06/10/16 06/10/16 08:05 08:05 16:05 Creatine Kinase 54 L 55 CK-MB (CK-2) 1.06 Troponin I 0.043 NT-Pro-B Natriuret Pep 06/10/16 06/10/16 06/10/16 16:05 22:08 22:08 Creatine Kinase 63 CK-MB (CK-2) 1.27 1.65 Troponin I 0.041 0.036 NT-Pro-B Natriuret Pep 06/11/16 05:18 Creatine Kinase CK-MB (CK-2) Troponin I NT-Pro-B Natriuret Pep 4420 H Impressions: Chest X-Ray 06/11/16 00:00 IMPRESSION: NO SIGNIFICANT RADIOGRAPHIC FINDING IN THE CHEST. Assessment & Plan - Diagnosis (1) Respiratory distress Is this a current diagnosis for this admission?: YesPlan: Improved off cpap decrease FIO2 (2) Flash pulmonary edema Is this a current diagnosis for this admission?: Yes (3) CAD (coronary artery disease) of artery bypass graft Qualifiers: [place] vs. transplanted heart: unspecified whether [place] or transplanted heart Associated angina: without angina Qualified Code(s): I25.810 - Atherosclerosis of coronary artery bypass graft(s) without angina pectoris Is this a current diagnosis for this admission?: Yes (4) Congestive cardiac failure Qualifiers: Congestive heart failure type: combined Is this a current diagnosis for this admission?: Yes (5) Diabetes mellitus Qualifiers: Diabetes mellitus type: type 2 Diabetes mellitus complication status: with ophthalmic complications Diabetic retinopathy severity: with unspecified retinopathy severity Is this a current diagnosis for this admission?: Yes (6) Hypertension Qualifiers: Hypertension type: essential hypertension Qualified Code(s): I10 - Essential (primary) hypertension Is this a current diagnosis for this admission?: Yes (7) Pneumonia Qualifiers: Pneumonia type: due to unspecified organism Laterality: right Lung location: lower lobe of lung Qualified Code(s): J18.1 - Lobar pneumonia, unspecified organism Is this a current diagnosis for this admission?: Yes
[2016-06-11] MEDS: INSULIN GLARGINE,HUM.REC.ANLOG 300 UNIT/3 ML INSULN.PEN SUBCUT SCH (22:02)
[2016-06-11] MEDS: RANOLAZINE 500 MG TAB.SR.12H PO SCH (22:19)
[2016-06-12] MEDS: FUROSEMIDE INJ/PF 40 MG/4 ML SDV IV SCH (06:05)
[2016-06-12 06:47] LABS: ABSOLUTE BASOPHILS # (AUTO) 0.1 10^3/uL (0.0-0.2); ABSOLUTE EOSINOPHILS # (AUTO) 0.1 10^3/uL (0.0-0.6); ABSOLUTE LYMPHOCYTES (AUTO) 1.4 10^3/uL (0.5-4.7); ABSOLUTE MONOCYTES (AUTO) 0.7 10^3/uL (0.1-1.4); ABSOLUTE NEUT (AUTO) 4.3 10^3/uL (1.7-8.2); BASOPHILS % (AUTO) 0.8 % (0-2); EOSINOPHILS % (AUTO) 2.2 % (0-6); HEMATOCRIT 34.9 % (37.9-51.0); HEMOGLOBIN 12.3 g/dL (13.5-17.0); LYMPHOCYTES % (AUTO) 20.9 % (13-45); MEAN CORPUSCULAR HEMOGLOBIN 29.8 pg (27.0-33.4); MEAN CORPUSCULAR HGB CONC 35.1 g/dL (32.0-36.0); MEAN CORPUSCULAR VOLUME 85 fl (80-97); MONOCYTES % (AUTO) 10.5 % (3-13); RED BLOOD COUNT 4.12 10^6/uL (4.35-5.55); RED CELL DISTRIBUTION WIDTH 14.4 % (11.5-14.0); SEGMENTED NEUTROPHILS % (AUTO) 65.6 % (42-78); WHITE BLOOD COUNT 6.6 10^3/uL (4.0-10.5)
[2016-06-12 07:13] LABS: ANION GAP 15 (5-19); BLOOD UREA NITROGEN 78 mg/dL (7-20); CARBON DIOXIDE 22 mmol/L (22-30); CHLORIDE 102 mmol/L (98-107); CREATININE RESULT 2.83 mg/dL (0.52-1.25); GLUCOSE 110 mg/dL (75-110); MAGNESIUM 2.3 mg/dL (1.6-2.3); POTASSIUM 4.5 mmol/L (3.6-5.0); SODIUM 139.2 mmol/L (137-145)
[2016-06-12] MEDS: INSULIN LISPRO 100 UNIT/ML 3 ML VIAL SUBCUT SCH ×3 (07:45→16:43)
[2016-06-12] MEDS: IPRATROPIUM/ALBUTEROL 0.5-2.5 MG/3 ML AMPUL NEB SCH ×3 (08:31→20:24)
[2016-06-12] MEDS: AZITHROMYCIN 250 MG TABLET PO SCH (09:34)
[2016-06-12] MEDS: APIXABAN 2.5 MG TABLET PO SCH ×2 (09:34→22:49)
[2016-06-12] MEDS: DOCUSATE SODIUM 100 MG CAPSULE PO SCH ×2 (09:34→17:06)
[2016-06-12] MEDS: CARVEDILOL 3.125 MG TABLET PO SCH ×2 (09:35→22:49)
[2016-06-12] MEDS: VALSARTAN 80 MG TABLET PO SCH (09:35)
[2016-06-12] MEDS: ASPIRIN 81 MG TABLET, ENT COATED PO SCH (09:36)
[2016-06-12] MEDS: TIMOLOL MALEATE 0.5% OPH SOLN 5 ML OU SCH (09:36)
[2016-06-12] MEDS: RANOLAZINE 500 MG TAB.SR.12H PO SCH ×2 (09:36→22:49)
[2016-06-12] MEDS: BRIMONIDINE TARTRATE 0.2% OPH SOLN 5 ML OU SCH (09:37)
[2016-06-12] MEDS ORDERED: TORSEMIDE 20 MG TABLET PO SCH (10:00)
[2016-06-12] MEDS: INSULIN LISPRO 100 UNIT/ML 3 ML VIAL SUBCUT PRN (11:42)
--- NOTE | 2016-06-12 12:24 | PDOC PROGRESS REPORT ---
Subjective Progress Note for:: 06/12/16 Subjective:: Patient is feeling much better back to the baseline patient's chest x-rays back to the normal I think most likely a flash pulmonary edema. Patient's denied any chest pain denied any shortness of the breath patients walk on the hallway without any problems.Patient's otherwise seen by the cardiology and stop the amiodarone and put on Ranexa Physical Exam Vital Signs: Temp Pulse Resp BP Pulse Ox 98.1 F 76 18 95/58 L 98 06/12/16 07:26 06/12/16 08:45 06/12/16 08:32 06/12/16 07:26 06/12/16 08:32 Intake & Output 06/11/16 06/12/16 06/13/16 06:59 06:59 06:59 Intake Total 1130 999 Output Total 5300 2700 Balance -4170 -1701 Weight 120.3 kg 121.1 kg General appearance: PRESENT: no acute distress, well-developed, well-nourished Head exam: PRESENT: atraumatic, normocephalic Eye exam: PRESENT: conjunctiva pink, EOMI, PERRLA. ABSENT: scleral icterus Ear exam: PRESENT: normal external ear exam Mouth exam: PRESENT: moist, tongue midline Neck exam: PRESENT: full ROM. ABSENT: carotid bruit, JVD, lymphadenopathy, thyromegaly Respiratory exam: PRESENT: clear to auscultation margarita Cardiovascular exam: PRESENT: RRR. ABSENT: diastolic murmur, rubs, systolic murmur Pulses: PRESENT: normal dorsalis pedis pul, +2 pedal pulses bilateral Vascular exam: PRESENT: normal capillary refill GI/Abdominal exam: PRESENT: normal bowel sounds, soft. ABSENT: distended, guarding, mass, organolmegaly, rebound, tenderness Rectal exam: PRESENT: deferred Neurological exam: PRESENT: alert, awake, oriented to person, oriented to place , oriented to time, oriented to situation, CN II-XII grossly intact. ABSENT: motor sensory deficit Psychiatric exam: PRESENT: appropriate affect, normal mood. ABSENT: homicidal ideation, suicidal ideation Skin exam: PRESENT: dry, intact, warm. ABSENT: cyanosis, rash Results Laboratory Results: 06/12/16 06:28 06/12/16 06:28 06/12/16 06/12/16 06:28 06:28 WBC 6.6 RBC 4.12 L Hgb 12.3 L Hct 34.9 L MCV 85 MCH 29.8 MCHC 35.1 RDW 14.4 H Plt Count 132 L Seg Neutrophils % 65.6 Lymphocytes % 20.9 Monocytes % 10.5 Eosinophils % 2.2 Basophils % 0.8 Absolute Neutrophils 4.3 Absolute Lymphocytes 1.4 Absolute Monocytes 0.7 Absolute Eosinophils 0.1 Absolute Basophils 0.1 Sodium 139.2 Potassium 4.5 Chloride 102 Carbon Dioxide 22 Anion Gap 15 BUN 78 H Creatinine 2.83 H Est GFR ( Amer) 27 L Est GFR (Non-Af Amer) 22 L Glucose 110 Calcium 10.0 Magnesium 2.3 06/10/16 06/10/16 06/10/16 08:05 08:05 16:05 Creatine Kinase 54 L 55 CK-MB (CK-2) 1.06 Troponin I 0.043 NT-Pro-B Natriuret Pep 06/10/16 06/10/16 06/10/16 16:05 22:08 22:08 Creatine Kinase 63 CK-MB (CK-2) 1.27 1.65 Troponin I 0.041 0.036 NT-Pro-B Natriuret Pep 06/11/16 06/12/16 05:18 06:28 Creatine Kinase CK-MB (CK-2) Troponin I NT-Pro-B Natriuret Pep 4420 H 1590 H Impressions: Chest X-Ray 06/11/16 00:00 IMPRESSION: NO SIGNIFICANT RADIOGRAPHIC FINDING IN THE CHEST. Assessment & Plan - Diagnosis (1) Respiratory distress Is this a current diagnosis for this admission?: NoPlan: All resolved (2) Pneumonia Qualifiers: Pneumonia type: due to unspecified organism Laterality: right Lung location: lower lobe of lung Qualified Code(s): J18.1 - Lobar pneumonia, unspecified organism Is this a current diagnosis for this admission?: YesPlan: Will stop the other IV antibiotic and continues to p.o. Zithromax (3) Heart failure, systolic, with acute decompensation Is this a current diagnosis for this admission?: YesPlan: We will stop the IV Lasix and put the patient's back to the Demadex (4) CAD (coronary artery disease) of artery bypass graft Qualifiers: [place] vs. transplanted heart: unspecified whether [place] or transplanted heart Associated angina: without angina Qualified Code(s): I25.810 - Atherosclerosis of coronary artery bypass graft(s) without angina pectoris Is this a current diagnosis for this admission?: YesPlan: We will get the cardiac enzymes every 63 (5) CKD (chronic kidney disease) stage 3, GFR 30-59 ml/min Is this a current diagnosis for this admission?: YesPlan: Will decrease the Lasix today (6) Diabetes mellitus Qualifiers: Diabetes mellitus type: type 2 Diabetes mellitus complication status: with ophthalmic complications Diabetic retinopathy severity: with unspecified retinopathy severity Is this a current diagnosis for this admission?: YesPlan: Continues on sliding scale (7) Hypertension Qualifiers: Hypertension type: essential hypertension Qualified Code(s): I10 - Essential (primary) hypertension Is this a current diagnosis for this admission?: Yes - Time Time Spent with patient: 15-24 minutes Medications reviewed and adjusted accordingly: Yes Anticipated discharge: Home Within: within 24 hours - Inpatient Certification Medical Necessity: Need Close Monitoring Due to Risk of Patient Decompensation Post Hospital Care: D/C [employer] Checker Documentation - Plan Summary Plan Summary: Will switch back to the p.o. medications at the patient's remained stable will discharge the patient in the morning
--- NOTE | 2016-06-12 12:55 | PDOC PROGRESS REPORT ---
Subjective Progress Note for:: 06/12/16 Subjective:: Patient seems to be doing better with significant improvement. Pt is denying any chest arm or neck discomfort. Patient denying any PND, orthopnea. Patient denied any sustained palpitations, dizziness, syncope, near syncope. Patient denying any fever chills. Patient denying any other significant discomfort. Patient claims that he had some difficulty with CPAP use therefore has not used it in several months. Patient today is willing to schedule a titration study Patient is maintaining sinus rhythm. Review of systems: Rest review of systems negative. Medications: Medications have been reviewed. Physical Exam Vital Signs: Temp Pulse Resp BP Pulse Ox 98.1 F 76 18 95/58 L 98 06/12/16 07:26 06/12/16 08:45 06/12/16 08:32 06/12/16 07:26 06/12/16 08:32 Intake & Output 06/11/16 06/12/16 06/13/16 06:59 06:59 06:59 Intake Total 1130 999 Output Total 5300 2700 Balance -4170 -1701 Weight 120.3 kg 121.1 kg Exam: GENERAL: well-nourished and in no acute distress. Alert and oriented x3 HEAD: Atraumatic, normocephalic. EYES: Pupils equal round and reactive to light, extraocular movements intact, sclera anicteric, conjunctiva are normal. ENT: TMs normal, nares patent, oropharynx clear without exudates. Moist mucous membranes. No oral ulcerations or bleeding gums noted NECK: supple without lymphadenopathy. Trachea is central. No cervical or axillary lymphadenopathy noted. Carotids are 2+, JVD WNL LUNGS: Respiration seems nonlabored, no significant accessory muscle action noted. Breath sounds clear to auscultation bilaterally and equal noted. No wheezes rales or rhonchi noted. No significant dullness noted on percussion. CHEST: Palpation of the chest wall shows no significant chest wall tenderness. No other significant abnormalities noted. 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 ABDOMEN: Soft, no significant tenderness appreciated, normoactive bowel sounds. No guarding, no rebound. No rigidity noted . No masses appreciated. EXTREMITIES: Pedal pulses are 1-2+, no calf tenderness noted. No clubbing or cyanosis.trace pedal edema noted NEUROLOGICAL: Focused neurological exam showed no significant neurologic deficit. Normal speech, no focal weakness appreciated. PSYCH: Normal mood, normal affect. Judgment and insight within normal limits. SKIN: No significant ecchymosis, rash, ulcerations or signs of pruritus noted. MUSCULOSKELETAL EXAM: No significant joint swelling noted. Results Laboratory Results: 06/12/16 06:28 06/12/16 06:28 06/12/16 06/12/16 06:28 06:28 WBC 6.6 RBC 4.12 L Hgb 12.3 L Hct 34.9 L MCV 85 MCH 29.8 MCHC 35.1 RDW 14.4 H Plt Count 132 L Seg Neutrophils % 65.6 Lymphocytes % 20.9 Monocytes % 10.5 Eosinophils % 2.2 Basophils % 0.8 Absolute Neutrophils 4.3 Absolute Lymphocytes 1.4 Absolute Monocytes 0.7 Absolute Eosinophils 0.1 Absolute Basophils 0.1 Sodium 139.2 Potassium 4.5 Chloride 102 Carbon Dioxide 22 Anion Gap 15 BUN 78 H Creatinine 2.83 H Est GFR ( Amer) 27 L Est GFR (Non-Af Amer) 22 L Glucose 110 Calcium 10.0 Magnesium 2.3 06/10/16 06/10/16 06/10/16 08:05 08:05 16:05 Creatine Kinase 54 L 55 CK-MB (CK-2) 1.06 Troponin I 0.043 NT-Pro-B Natriuret Pep 06/10/16 06/10/16 06/10/16 16:05 22:08 22:08 Creatine Kinase 63 CK-MB (CK-2) 1.27 1.65 Troponin I 0.041 0.036 NT-Pro-B Natriuret Pep 06/11/16 06/12/16 05:18 06:28 Creatine Kinase CK-MB (CK-2) Troponin I NT-Pro-B Natriuret Pep 4420 H 1590 H Impressions: Chest X-Ray 06/11/16 00:00 IMPRESSION: NO SIGNIFICANT RADIOGRAPHIC FINDING IN THE CHEST. Assessment & Plan - Diagnosis (1) Heart failure, systolic, with acute decompensation Is this a current diagnosis for this admission?: Yes (2) Acute respiratory failure with hypoxia and hypercapnia Is this a current diagnosis for this admission?: Yes (3) Pneumonia Qualifiers: Pneumonia type: due to unspecified organism Laterality: right Lung location: lower lobe of lung Qualified Code(s): J18.1 - Lobar pneumonia, unspecified organism Is this a current diagnosis for this admission?: Yes (4) CAD (coronary artery disease) Qualifiers: Coronary Disease-Associated Artery/Lesion type: unspecified vessel or lesion type [place] vs. transplanted heart: [place] heart Associated angina: without angina Qualified Code(s): I25.10 - Atherosclerotic heart disease of [place] coronary artery without angina pectoris Is this a current diagnosis for this admission?: Yes (5) CKD (chronic kidney disease) stage 3, GFR 30-59 ml/min Is this a current diagnosis for this admission?: Yes (6) Congestive cardiac failure Qualifiers: Congestive heart failure type: combined Is this a current diagnosis for this admission?: Yes - Notes Notes: Congestive heart failure: Acute on chronic systolic. Patient has shown significant improvement. Patient on a stable medical regimen. Patient is euvolemic and seems compensated. Acute respiratory failure with hypoxemia and hypercapnia: This has improved. Discussed that he will benefit from going back on CPAP/BiPAP therapy. Pneumonia: Resolved. Continue and complete course of antibiotic. Coronary artery disease: Symptomatically stable. Have placed patient on Ranexa. Chronic kidney disease: Renal functions are worse. Patient is euvolemic and therefore have reduced Demadex to 10 mg by mouth daily Patient has been encouraged in increasing his physical activity, weight loss. Patient to follow-up with me for his sleep apnea issues. - Time Time with patient: 15-25 minutes - CODE STATUS was discussed, patient remains full code. Surrogate decision-maker unchanged. Multiple medical problems were addressed.More than 50% of the time spent coordinating care, discussing management plans with involved caregivers. Management plans discussed with involved personnels. Medical decision making was of moderate to high complexity , patient's has multiple severe comorbidities. Medications reviewed and adjusted accordingly: Yes - Patient tolerating Ranexa. Stopped amiodarone yesterday.
--- NOTE | 2016-06-12 14:51 | PDOC PROGRESS REPORT ---
Subjective Progress Note for:: 06/12/16 Subjective:: feeling better Physical Exam Vital Signs: Temp Pulse Resp BP Pulse Ox 97.6 F 76 18 100/71 99 06/12/16 04:42 06/12/16 06:44 06/12/16 04:42 06/12/16 04:42 06/12/16 04:42 Intake & Output 06/11/16 06/12/16 06/13/16 06:59 06:59 06:59 Intake Total 1130 999 Output Total 5300 2700 Balance -4170 -1701 Weight 120.3 kg 121.1 kg General appearance: PRESENT: no acute distress, cooperative, well-developed, well-nourished Head exam: PRESENT: atraumatic, normocephalic Eye exam: PRESENT: conjunctiva pale, EOMI Mouth exam: PRESENT: moist, neck supple Neck exam: ABSENT: carotid bruit, JVD, lymphadenopathy, thyromegaly Respiratory exam: PRESENT: decreased breath sounds, prolonged expiratory phas, rhonchi - Right lateral and posterior chest, unlabored Cardiovascular exam: PRESENT: RRR, +S1, +S2 Pulses: PRESENT: normal radial pulses GI/Abdominal exam: PRESENT: normal bowel sounds, soft. ABSENT: distended, guarding, mass, organolmegaly, rebound, tenderness Rectal exam: PRESENT: deferred Musculoskeletal exam: PRESENT: normal inspection Neurological exam: PRESENT: alert, awake Psychiatric exam: PRESENT: normal mood Skin exam: PRESENT: dry, warm Results Laboratory Results: 06/12/16 06:28 06/12/16 06:28 06/12/16 06/12/16 06:28 06:28 WBC 6.6 RBC 4.12 L Hgb 12.3 L Hct 34.9 L MCV 85 MCH 29.8 MCHC 35.1 RDW 14.4 H Plt Count 132 L Seg Neutrophils % 65.6 Lymphocytes % 20.9 Monocytes % 10.5 Eosinophils % 2.2 Basophils % 0.8 Absolute Neutrophils 4.3 Absolute Lymphocytes 1.4 Absolute Monocytes 0.7 Absolute Eosinophils 0.1 Absolute Basophils 0.1 Sodium 139.2 Potassium 4.5 Chloride 102 Carbon Dioxide 22 Anion Gap 15 BUN 78 H Creatinine 2.83 H Est GFR ( Amer) 27 L Est GFR (Non-Af Amer) 22 L Glucose 110 Calcium 10.0 Magnesium 2.3 06/10/16 06/10/16 06/10/16 08:05 08:05 16:05 Creatine Kinase 54 L 55 CK-MB (CK-2) 1.06 Troponin I 0.043 NT-Pro-B Natriuret Pep 06/10/16 06/10/16 06/10/16 16:05 22:08 22:08 Creatine Kinase 63 CK-MB (CK-2) 1.27 1.65 Troponin I 0.041 0.036 NT-Pro-B Natriuret Pep 06/11/16 06/12/16 05:18 06:28 Creatine Kinase CK-MB (CK-2) Troponin I NT-Pro-B Natriuret Pep 4420 H 1590 H Impressions: Chest X-Ray 06/11/16 00:00 IMPRESSION: NO SIGNIFICANT RADIOGRAPHIC FINDING IN THE CHEST. Assessment & Plan - Diagnosis (1) Respiratory distress Is this a current diagnosis for this admission?: No (2) Flash pulmonary edema Is this a current diagnosis for this admission?: No (3) CAD (coronary artery disease) of artery bypass graft Qualifiers: [place] vs. transplanted heart: unspecified whether [place] or transplanted heart Associated angina: without angina Qualified Code(s): I25.810 - Atherosclerosis of coronary artery bypass graft(s) without angina pectoris Is this a current diagnosis for this admission?: Yes (4) Congestive cardiac failure Qualifiers: Congestive heart failure type: combined Is this a current diagnosis for this admission?: Yes (5) Diabetes mellitus Qualifiers: Diabetes mellitus type: type 2 Diabetes mellitus complication status: with ophthalmic complications Diabetic retinopathy severity: with unspecified retinopathy severity Is this a current diagnosis for this admission?: Yes (6) Hypertension Qualifiers: Hypertension type: essential hypertension Qualified Code(s): I10 - Essential (primary) hypertension Is this a current diagnosis for this admission?: Yes (7) Pneumonia Qualifiers: Pneumonia type: due to unspecified organism Laterality: right Lung location: lower lobe of lung Qualified Code(s): J18.1 - Lobar pneumonia, unspecified organism Is this a current diagnosis for this admission?: Yes (8) Chronic kidney disease Qualifiers: Chronic kidney disease stage: stage 3 (moderate) Qualified Code(s): N18.3 - Chronic kidney disease, stage 3 (moderate) Is this a current diagnosis for this admission?: YesPlan: Labs- All tests 24 hr 06/10/16 06/11/16 06/12/16 04:00 05:18 06:28 BUN 35 H 54 H 78 H Creatinine 1.69 H 1.99 H 2.83 H
[2016-06-12] MEDS: INSULIN GLARGINE,HUM.REC.ANLOG 300 UNIT/3 ML INSULN.PEN SUBCUT SCH (22:48)
[2016-06-13 07:08] LABS: ABSOLUTE EOSINOPHILS # (AUTO) 0.2 10^3/uL (0.0-0.6); ABSOLUTE LYMPHOCYTES (AUTO) 1.4 10^3/uL (0.5-4.7); ABSOLUTE MONOCYTES (AUTO) 0.7 10^3/uL (0.1-1.4); ABSOLUTE NEUT (AUTO) 3.3 10^3/uL (1.7-8.2); BASOPHILS % (AUTO) 0.5 % (0-2); EOSINOPHILS % (AUTO) 3.9 % (0-6); HEMATOCRIT 36.7 % (37.9-51.0); HEMOGLOBIN 12.5 g/dL (13.5-17.0); HGB HCT DIFFERENCE 0.8; LYMPHOCYTES % (AUTO) 24.8 % (13-45); MEAN CORPUSCULAR HGB CONC 34.1 g/dL (32.0-36.0); MEAN CORPUSCULAR VOLUME 85 fl (80-97); MONOCYTES % (AUTO) 12.3 % (3-13); RED BLOOD COUNT 4.32 10^6/uL (4.35-5.55); RED CELL DISTRIBUTION WIDTH 14.2 % (11.5-14.0); SEGMENTED NEUTROPHILS % (AUTO) 58.5 % (42-78); WHITE BLOOD COUNT 5.7 10^3/uL (4.0-10.5)
[2016-06-13 07:42] LABS: ANION GAP 16 (5-19); BLOOD UREA NITROGEN 88 mg/dL (7-20); CALCIUM 9.7 mg/dL (8.4-10.2); CARBON DIOXIDE 20 mmol/L (22-30); CHLORIDE 100 mmol/L (98-107); GLUCOSE 112 mg/dL (75-110); MAGNESIUM 2.3 mg/dL (1.6-2.3); POTASSIUM 4.8 mmol/L (3.6-5.0); SODIUM 136.2 mmol/L (137-145)
[2016-06-13] MEDS: INSULIN LISPRO 100 UNIT/ML 3 ML VIAL SUBCUT SCH ×3 (07:57→16:59)
[2016-06-13] MEDS: IPRATROPIUM/ALBUTEROL 0.5-2.5 MG/3 ML AMPUL NEB SCH ×3 (08:29→19:38)
[2016-06-13] MEDS: AZITHROMYCIN 250 MG TABLET PO SCH (09:23)
[2016-06-13] MEDS: APIXABAN 2.5 MG TABLET PO SCH ×2 (09:23→22:46)
[2016-06-13] MEDS: RANOLAZINE 500 MG TAB.SR.12H PO SCH ×2 (09:23→22:46)
[2016-06-13] MEDS: ASPIRIN 81 MG TABLET, ENT COATED PO SCH (09:23)
[2016-06-13] MEDS: DOCUSATE SODIUM 100 MG CAPSULE PO SCH ×2 (09:23→17:00)
[2016-06-13] MEDS: CARVEDILOL 3.125 MG TABLET PO SCH ×2 (09:24→22:45)
[2016-06-13] MEDS: TORSEMIDE 20 MG TABLET PO SCH (09:27)
[2016-06-13] MEDS: TIMOLOL MALEATE 0.5% OPH SOLN 5 ML OU SCH (09:27)
[2016-06-13] MEDS: BRIMONIDINE TARTRATE 0.2% OPH SOLN 5 ML OU SCH (09:27)
--- NOTE | 2016-06-13 15:48 | PDOC PROGRESS REPORT ---
Subjective Progress Note for:: 06/13/16 Subjective:: Patient is currently doing well patients denied any chest pain denied any shortness of the breath.Patient's walk in the hallway without any problemsPatient's back to the normal. Patient's the only thing is abnormal is a BUN and creatinine was high and most likely a from over diuretics Physical Exam Vital Signs: Temp Pulse Resp BP Pulse Ox 97.7 F 70 16 110/69 98 06/13/16 10:58 06/13/16 14:10 06/13/16 14:10 06/13/16 10:58 06/13/16 14:10 Intake & Output 06/12/16 06/13/16 06/14/16 06:59 06:59 06:59 Intake Total 999 2254 358 Output Total 2700 1675 Balance -1701 579 358 Weight 121.1 kg 120.7 kg General appearance: PRESENT: no acute distress, well-developed, well-nourished Head exam: PRESENT: atraumatic, normocephalic Eye exam: PRESENT: conjunctiva pink, EOMI, PERRLA. ABSENT: scleral icterus Ear exam: PRESENT: normal external ear exam Mouth exam: PRESENT: moist, tongue midline Neck exam: PRESENT: full ROM. ABSENT: carotid bruit, JVD, lymphadenopathy, thyromegaly Respiratory exam: PRESENT: clear to auscultation margarita Cardiovascular exam: PRESENT: RRR. ABSENT: diastolic murmur, rubs, systolic murmur Pulses: PRESENT: normal dorsalis pedis pul, +2 pedal pulses bilateral Vascular exam: PRESENT: normal capillary refill GI/Abdominal exam: PRESENT: normal bowel sounds, soft. ABSENT: distended, guarding, mass, organolmegaly, rebound, tenderness Rectal exam: PRESENT: deferred Neurological exam: PRESENT: alert, awake, oriented to person, oriented to place , oriented to time, oriented to situation, CN II-XII grossly intact. ABSENT: motor sensory deficit Psychiatric exam: PRESENT: appropriate affect, normal mood. ABSENT: homicidal ideation, suicidal ideation Skin exam: PRESENT: dry, intact, warm. ABSENT: cyanosis, rash Results Laboratory Results: 06/13/16 06:23 06/13/16 06:23 06/13/16 06/13/16 06:23 06:23 WBC 5.7 RBC 4.32 L Hgb 12.5 L Hct 36.7 L MCV 85 MCH 29.0 MCHC 34.1 RDW 14.2 H Plt Count 140 L Seg Neutrophils % 58.5 Lymphocytes % 24.8 Monocytes % 12.3 Eosinophils % 3.9 Basophils % 0.5 Absolute Neutrophils 3.3 Absolute Lymphocytes 1.4 Absolute Monocytes 0.7 Absolute Eosinophils 0.2 Absolute Basophils 0.0 Sodium 136.2 L Potassium 4.8 Chloride 100 Carbon Dioxide 20 L Anion Gap 16 BUN 88 H Creatinine 3.00 H Est GFR ( Amer) 25 L Est GFR (Non-Af Amer) 21 L Glucose 112 H Calcium 9.7 Magnesium 2.3 06/10/16 06/10/16 06/10/16 08:05 08:05 16:05 Creatine Kinase 54 L 55 CK-MB (CK-2) 1.06 Troponin I 0.043 NT-Pro-B Natriuret Pep 06/10/16 06/10/16 06/10/16 16:05 22:08 22:08 Creatine Kinase 63 CK-MB (CK-2) 1.27 1.65 Troponin I 0.041 0.036 NT-Pro-B Natriuret Pep 06/11/16 06/12/16 06/13/16 05:18 06:28 06:23 Creatine Kinase CK-MB (CK-2) Troponin I NT-Pro-B Natriuret Pep 4420 H 1590 H 688 Impressions: Chest X-Ray 06/11/16 00:00 IMPRESSION: NO SIGNIFICANT RADIOGRAPHIC FINDING IN THE CHEST. Assessment & Plan - Diagnosis (1) Respiratory distress Is this a current diagnosis for this admission?: NoPlan: All resolved from the flash pulmonary edema (2) Pneumonia Qualifiers: Pneumonia type: due to unspecified organism Laterality: right Lung location: lower lobe of lung Qualified Code(s): J18.1 - Lobar pneumonia, unspecified organism Is this a current diagnosis for this admission?: YesPlan: Will stop the other IV antibiotic and continues to p.o. Zithromax (3) Heart failure, systolic, with acute decompensation Is this a current diagnosis for this admission?: YesPlan: We will stop the IV Lasix and put the patient's back to the Demadex (4) CAD (coronary artery disease) of artery bypass graft Qualifiers: [place] vs. transplanted heart: unspecified whether [place] or transplanted heart Associated angina: without angina Qualified Code(s): I25.810 - Atherosclerosis of coronary artery bypass graft(s) without angina pectoris Is this a current diagnosis for this admission?: YesPlan: We will get the cardiac enzymes every 63 (5) CKD (chronic kidney disease) stage 3, GFR 30-59 ml/min Is this a current diagnosis for this admission?: YesPlan: Worsening the kidney functions we hold the Demadex and hold the Diovan and will given normal saline 50 cc IV per hour for 12 hours (6) Diabetes mellitus Qualifiers: Diabetes mellitus type: type 2 Diabetes mellitus complication status: with ophthalmic complications Diabetic retinopathy severity: with unspecified retinopathy severity Is this a current diagnosis for this admission?: YesPlan: Continues on sliding scale (7) Hypertension Qualifiers: Hypertension type: essential hypertension Qualified Code(s): I10 - Essential (primary) hypertension Is this a current diagnosis for this admission?: Yes - Time Time Spent with patient: 15-24 minutes Medications reviewed and adjusted accordingly: Yes Anticipated discharge: Home Within: within 24 hours - Inpatient Certification Medical Necessity: Need Close Monitoring Due to Risk of Patient Decompensation 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
[2016-06-13] MEDS: INSULIN LISPRO 100 UNIT/ML 3 ML VIAL SUBCUT PRN (17:00)
[2016-06-13] MEDS ORDERED: NORMAL SALINE 1000 ML 1,000 ML IV PRN (17:18)
[2016-06-13] MEDS ORDERED: 1/2 NORMAL SALINE 1,000 ML IV PRN (17:31)
--- NOTE | 2016-06-13 20:17 | PDOC PROGRESS REPORT ---
Subjective Progress Note for:: 06/13/16 Subjective:: Patient seems to be doing better with significant improvement. Patient was noted to be walking the hallway yesterday evening. Pt is denying any chest arm or neck discomfort. Patient denying any PND, orthopnea. Patient denied any sustained palpitations, dizziness, syncope, near syncope. Patient denying any fever chills. Patient denying any other significant discomfort. Lab work shows worsening renal function therefore Patient discharge was postponed. Diuretics are being held. Review of systems: Rest review of systems negative. Medications: Medications have been reviewed. Physical Exam Vital Signs: Temp Pulse Resp BP Pulse Ox 97.2 F 76 18 110/61 100 06/13/16 16:12 06/13/16 16:12 06/13/16 16:12 06/13/16 16:12 06/13/16 16:12 Intake & Output 06/12/16 06/13/16 06/14/16 06:59 06:59 06:59 Intake Total 999 2254 1291 Output Total 2700 1675 Balance -3233 278 5415 Weight 121.1 kg 120.7 kg Exam: GENERAL: well-nourished and in no acute distress. Alert and oriented x3 HEAD: Atraumatic, normocephalic. EYES: Pupils equal round and reactive to light, extraocular movements intact, sclera anicteric, conjunctiva are normal. ENT: TMs normal, nares patent, oropharynx clear without exudates. Moist mucous membranes. No oral ulcerations or bleeding gums noted NECK: supple without lymphadenopathy. Trachea is central. No cervical or axillary lymphadenopathy noted. Carotids are 2+, JVD WNL LUNGS: Respiration seems nonlabored, no significant accessory muscle action noted. Breath sounds clear to auscultation bilaterally and equal noted. No wheezes rales or rhonchi noted. No significant dullness noted on percussion. CHEST: Palpation of the chest wall shows no significant chest wall tenderness. No other significant abnormalities noted. HEART: [place] [employer], No PSH, 1/6 LOIS aortic area, 1/6 aranda systolic murmur mitral area, no rubs, no gallops. ABDOMEN: Soft, no significant tenderness appreciated, normoactive bowel sounds. No guarding, no rebound. No rigidity noted . No masses appreciated. EXTREMITIES: Pedal pulses are 1-2+, no calf tenderness noted. No clubbing or cyanosis.trace to 1+ pedal edema noted NEUROLOGICAL: Focused neurological exam showed no significant neurologic deficit. Normal speech, no focal weakness appreciated. PSYCH: Normal mood, normal affect. Judgment and insight within normal limits. SKIN: No significant ecchymosis, rash, ulcerations or signs of pruritus noted. MUSCULOSKELETAL EXAM: No significant joint swelling noted. Results Laboratory Results: 06/13/16 06:23 06/13/16 06:23 06/13/16 06/13/16 06:23 06:23 WBC 5.7 RBC 4.32 L Hgb 12.5 L Hct 36.7 L MCV 85 MCH 29.0 MCHC 34.1 RDW 14.2 H Plt Count 140 L Seg Neutrophils % 58.5 Lymphocytes % 24.8 Monocytes % 12.3 Eosinophils % 3.9 Basophils % 0.5 Absolute Neutrophils 3.3 Absolute Lymphocytes 1.4 Absolute Monocytes 0.7 Absolute Eosinophils 0.2 Absolute Basophils 0.0 Sodium 136.2 L Potassium 4.8 Chloride 100 Carbon Dioxide 20 L Anion Gap 16 BUN 88 H Creatinine 3.00 H Est GFR ( Amer) 25 L Est GFR (Non-Af Amer) 21 L Glucose 112 H Calcium 9.7 Magnesium 2.3 06/10/16 06/10/16 06/10/16 08:05 08:05 16:05 Creatine Kinase 54 L 55 CK-MB (CK-2) 1.06 Troponin I 0.043 NT-Pro-B Natriuret Pep 06/10/16 06/10/16 06/10/16 16:05 22:08 22:08 Creatine Kinase 63 CK-MB (CK-2) 1.27 1.65 Troponin I 0.041 0.036 NT-Pro-B Natriuret Pep 06/11/16 06/12/16 06/13/16 05:18 06:28 06:23 Creatine Kinase CK-MB (CK-2) Troponin I NT-Pro-B Natriuret Pep 4420 H 1590 H 688 Impressions: Chest X-Ray 06/11/16 00:00 IMPRESSION: NO SIGNIFICANT RADIOGRAPHIC FINDING IN THE CHEST. Assessment & Plan - Diagnosis (1) Heart failure, systolic, with acute decompensation Is this a current diagnosis for this admission?: Yes (2) Acute respiratory failure with hypoxia and hypercapnia Is this a current diagnosis for this admission?: Yes (3) Pneumonia Qualifiers: Pneumonia type: due to unspecified organism Laterality: right Lung location: lower lobe of lung Qualified Code(s): J18.1 - Lobar pneumonia, unspecified organism Is this a current diagnosis for this admission?: Yes (4) CAD (coronary artery disease) Qualifiers: Coronary Disease-Associated Artery/Lesion type: unspecified vessel or lesion type [place] vs. transplanted heart: [place] heart Associated angina: without angina Qualified Code(s): I25.10 - Atherosclerotic heart disease of [place] coronary artery without angina pectoris Is this a current diagnosis for this admission?: Yes (5) CKD (chronic kidney disease) stage 3, GFR 30-59 ml/min Is this a current diagnosis for this admission?: Yes (6) Congestive cardiac failure Qualifiers: Congestive heart failure type: combined Is this a current diagnosis for this admission?: Yes - Notes Notes: Congestive heart failure: Acute on chronic systolic. Patient has shown significant improvement. Patient on a stable medical regimen. Patient is euvolemic and seems compensated. Patient may be actually somewhat volume depleted. Agree with holding diuretics. Recommend discharging patient on 10 mg of torsemide. Acute respiratory failure with hypoxemia and hypercapnia: This has improved. Discussed that he will benefit from going back on CPAP/BiPAP therapy. Pneumonia: Resolved. Continue and complete course of antibiotic. Coronary artery disease: Symptomatically stable. Have placed patient on Ranexa. Elevation seems to be tolerating this area did Chronic kidney disease: Renal functions are worse. Patient is euvolemic and could possibly be mildly volume depleted. Agree with holding diuretics for 1 day. Patient has been encouraged in increasing his physical activity, weight loss. Patient to follow-up with me for his sleep apnea issues. - Time Time with patient: 15-25 minutes - More than 50% of the time spent coordinating care, discussing management plans with involved caregivers. Management plans discussed with involved personnels. Medical decision making was of moderate to high complexity, patient's has multiple severe comorbidities.CODE STATUS was discussed, patient remains full code. Surrogate decision-maker not identified. Multiple medical problems were addressed.
[2016-06-13] MEDS: INSULIN GLARGINE,HUM.REC.ANLOG 300 UNIT/3 ML INSULN.PEN SUBCUT SCH (22:49)
[2016-06-14 04:44] LABS: ABSOLUTE EOSINOPHILS # (AUTO) 0.2 10^3/uL (0.0-0.6); ABSOLUTE LYMPHOCYTES (AUTO) 1.3 10^3/uL (0.5-4.7); ABSOLUTE MONOCYTES (AUTO) 0.7 10^3/uL (0.1-1.4); ABSOLUTE NEUT (AUTO) 2.9 10^3/uL (1.7-8.2); BASOPHILS % (AUTO) 0.7 % (0-2); EOSINOPHILS % (AUTO) 4.5 % (0-6); HEMATOCRIT 34.5 % (37.9-51.0); HEMOGLOBIN 11.7 g/dL (13.5-17.0); HGB HCT DIFFERENCE 0.6; LYMPHOCYTES % (AUTO) 24.9 % (13-45); MEAN CORPUSCULAR HEMOGLOBIN 29.5 pg (27.0-33.4); MEAN CORPUSCULAR VOLUME 87 fl (80-97); MONOCYTES % (AUTO) 14.2 % (3-13); RED BLOOD COUNT 3.97 10^6/uL (4.35-5.55); RED CELL DISTRIBUTION WIDTH 13.9 % (11.5-14.0); SEGMENTED NEUTROPHILS % (AUTO) 55.7 % (42-78); WHITE BLOOD COUNT 5.2 10^3/uL (4.0-10.5)
[2016-06-14 04:59] LABS: ANION GAP 15 (5-19); BLOOD UREA NITROGEN 93 mg/dL (7-20); CALCIUM 9.4 mg/dL (8.4-10.2); CARBON DIOXIDE 21 mmol/L (22-30); CHLORIDE 100 mmol/L (98-107); CREATININE RESULT 3.17 mg/dL (0.52-1.25); GLUCOSE 115 mg/dL (75-110); POTASSIUM 4.7 mmol/L (3.6-5.0); SODIUM 135.9 mmol/L (137-145)
[2016-06-14] MEDS: INSULIN LISPRO 100 UNIT/ML 3 ML VIAL SUBCUT SCH ×3 (08:06→17:04)
[2016-06-14] MEDS: IPRATROPIUM/ALBUTEROL 0.5-2.5 MG/3 ML AMPUL NEB SCH ×3 (08:36→20:27)
--- NOTE | 2016-06-14 09:44 | PDOC PROGRESS REPORT ---
Subjective Progress Note for:: 06/14/16 Subjective:: Patient is feeling much better patients denied any chest pain denied any shortness of the breath patient on the walk in the hallway without any problems.Patient's BUN is 97 and creatinine is also go up patients received the 50 cc of the IV fluid for 12 hours yesterday and all the Demadex was hold and I one was hold Physical Exam Vital Signs: Temp Pulse Resp BP Pulse Ox 97.7 F 65 16 132/71 H 99 06/14/16 07:17 06/14/16 07:17 06/14/16 07:17 06/14/16 07:17 06/14/16 07:17 Intake & Output 06/13/16 06/14/16 06/15/16 06:59 06:59 06:59 Intake Total 2254 2066 Output Total 1675 800 Balance 579 1266 Weight 120.7 kg 120.9 kg General appearance: PRESENT: no acute distress, well-developed, well-nourished Head exam: PRESENT: atraumatic, normocephalic Eye exam: PRESENT: conjunctiva pink, EOMI, PERRLA. ABSENT: scleral icterus Ear exam: PRESENT: normal external ear exam Mouth exam: PRESENT: moist, tongue midline Neck exam: PRESENT: full ROM. ABSENT: carotid bruit, JVD, lymphadenopathy, thyromegaly Respiratory exam: PRESENT: clear to auscultation margarita Cardiovascular exam: PRESENT: RRR. ABSENT: diastolic murmur, rubs, systolic murmur Pulses: PRESENT: normal dorsalis pedis pul, +2 pedal pulses bilateral Vascular exam: PRESENT: normal capillary refill GI/Abdominal exam: PRESENT: normal bowel sounds, soft. ABSENT: distended, guarding, mass, organolmegaly, rebound, tenderness Rectal exam: PRESENT: deferred Neurological exam: PRESENT: alert, awake, oriented to person, oriented to place , oriented to time, oriented to situation, CN II-XII grossly intact. ABSENT: motor sensory deficit Psychiatric exam: PRESENT: appropriate affect, normal mood. ABSENT: homicidal ideation, suicidal ideation Skin exam: PRESENT: dry, intact, warm. ABSENT: cyanosis, rash Results Laboratory Results: 06/14/16 04:03 06/14/16 04:03 06/14/16 06/14/16 04:03 04:03 WBC 5.2 RBC 3.97 L Hgb 11.7 L Hct 34.5 L MCV 87 MCH 29.5 MCHC 34.0 RDW 13.9 Plt Count 128 L Seg Neutrophils % 55.7 Lymphocytes % 24.9 Monocytes % 14.2 H Eosinophils % 4.5 Basophils % 0.7 Absolute Neutrophils 2.9 Absolute Lymphocytes 1.3 Absolute Monocytes 0.7 Absolute Eosinophils 0.2 Absolute Basophils 0.0 Sodium 135.9 L Potassium 4.7 Chloride 100 Carbon Dioxide 21 L Anion Gap 15 BUN 93 H Creatinine 3.17 H Est GFR ( Amer) 24 L Est GFR (Non-Af Amer) 20 L Glucose 115 H Calcium 9.4 06/10/16 06/10/16 06/10/16 08:05 08:05 16:05 Creatine Kinase 54 L 55 CK-MB (CK-2) 1.06 Troponin I 0.043 NT-Pro-B Natriuret Pep 06/10/16 06/10/16 06/10/16 16:05 22:08 22:08 Creatine Kinase 63 CK-MB (CK-2) 1.27 1.65 Troponin I 0.041 0.036 NT-Pro-B Natriuret Pep 06/11/16 06/12/16 06/13/16 05:18 06:28 06:23 Creatine Kinase CK-MB (CK-2) Troponin I NT-Pro-B Natriuret Pep 4420 H 1590 H 688 Impressions: Chest X-Ray 06/11/16 00:00 IMPRESSION: NO SIGNIFICANT RADIOGRAPHIC FINDING IN THE CHEST. Assessment & Plan - Diagnosis (1) Respiratory distress Is this a current diagnosis for this admission?: NoPlan: All resolved (2) Pneumonia Qualifiers: Pneumonia type: due to unspecified organism Laterality: right Lung location: lower lobe of lung Qualified Code(s): J18.1 - Lobar pneumonia, unspecified organism Is this a current diagnosis for this admission?: YesPlan: Will stop the other IV antibiotic and continues to p.o. Zithromax (3) Heart failure, systolic, with acute decompensation Is this a current diagnosis for this admission?: YesPlan: We will stop the IV Lasix and put the patient's back to the Demadex (4) CAD (coronary artery disease) of artery bypass graft Qualifiers: [place] vs. transplanted heart: unspecified whether [place] or transplanted heart Associated angina: without angina Qualified Code(s): I25.810 - Atherosclerosis of coronary artery bypass graft(s) without angina pectoris Is this a current diagnosis for this admission?: YesPlan: We will get the cardiac enzymes every 63 (5) CKD (chronic kidney disease) stage 3, GFR 30-59 ml/min Is this a current diagnosis for this admission?: YesPlan: Worsening the kidney functions I believe is most likely over diuretics will currently hold the Diovan and hold the Demadex will try to give him another 12 hours fluid IV and consult Dr. Patrick Grant will patient see as outpatients (6) Diabetes mellitus Qualifiers: Diabetes mellitus type: type 2 Diabetes mellitus complication status: with ophthalmic complications Diabetic retinopathy severity: with unspecified retinopathy severity Is this a current diagnosis for this admission?: YesPlan: Continues on sliding scale (7) Hypertension Qualifiers: Hypertension type: essential hypertension Qualified Code(s): I10 - Essential (primary) hypertension Is this a current diagnosis for this admission?: Yes - Time Time Spent with patient: 15-24 minutes Medications reviewed and adjusted accordingly: Yes Anticipated discharge: Home Within: within 24 hours - Inpatient Certification Medical Necessity: Need Close Monitoring Due to Risk of Patient Decompensation 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
[2016-06-14] MEDS: BRIMONIDINE TARTRATE 0.2% OPH SOLN 5 ML OU SCH (09:51)
[2016-06-14] MEDS: TIMOLOL MALEATE 0.5% OPH SOLN 5 ML OU SCH (09:51)
[2016-06-14] MEDS: APIXABAN 2.5 MG TABLET PO SCH ×2 (09:53→21:10)
[2016-06-14] MEDS: AZITHROMYCIN 250 MG TABLET PO SCH (09:55)
[2016-06-14] MEDS: RANOLAZINE 500 MG TAB.SR.12H PO SCH ×2 (09:55→21:10)
[2016-06-14] MEDS: CARVEDILOL 3.125 MG TABLET PO SCH ×2 (09:55→21:10)
[2016-06-14] MEDS: ASPIRIN 81 MG TABLET, ENT COATED PO SCH (09:55)
[2016-06-14] MEDS: DOCUSATE SODIUM 100 MG CAPSULE PO SCH ×2 (09:55→17:05)
[2016-06-14] MEDS: INSULIN LISPRO 100 UNIT/ML 3 ML VIAL SUBCUT PRN (11:49)
--- NOTE | 2016-06-14 15:08 | PDOC PROGRESS REPORT ---
Subjective Progress Note for:: 06/14/16 Subjective:: No respiratory complaints feeling much better Physical Exam Vital Signs: Temp Pulse Resp BP Pulse Ox 97.7 F 73 17 132/71 H 99 06/14/16 07:17 06/14/16 14:20 06/14/16 14:20 06/14/16 07:17 06/14/16 07:17 Intake & Output 06/13/16 06/14/16 06/15/16 06:59 06:59 06:59 Intake Total 2254 2066 Output Total 1675 800 Balance 579 1266 Weight 120.7 kg 120.9 kg General appearance: PRESENT: no acute distress, obese, well-developed Head exam: PRESENT: atraumatic, normocephalic Eye exam: PRESENT: conjunctiva pale, EOMI Mouth exam: PRESENT: moist, neck supple Neck exam: ABSENT: carotid bruit, JVD, lymphadenopathy, thyromegaly Respiratory exam: PRESENT: decreased breath sounds, prolonged expiratory phas, rhonchi, symmetrical, unlabored Cardiovascular exam: PRESENT: RRR, +S1, +S2 Pulses: PRESENT: normal radial pulses GI/Abdominal exam: PRESENT: normal bowel sounds, soft. ABSENT: distended, guarding, mass, organolmegaly, rebound, tenderness Rectal exam: PRESENT: deferred Gentrourinary exam: PRESENT: indwelling catheter Musculoskeletal exam: PRESENT: normal inspection Neurological exam: PRESENT: alert, awake Psychiatric exam: PRESENT: normal mood Skin exam: PRESENT: dry, warm Results Laboratory Results: 06/14/16 04:03 06/14/16 04:03 06/14/16 06/14/16 04:03 04:03 WBC 5.2 RBC 3.97 L Hgb 11.7 L Hct 34.5 L MCV 87 MCH 29.5 MCHC 34.0 RDW 13.9 Plt Count 128 L Seg Neutrophils % 55.7 Lymphocytes % 24.9 Monocytes % 14.2 H Eosinophils % 4.5 Basophils % 0.7 Absolute Neutrophils 2.9 Absolute Lymphocytes 1.3 Absolute Monocytes 0.7 Absolute Eosinophils 0.2 Absolute Basophils 0.0 Sodium 135.9 L Potassium 4.7 Chloride 100 Carbon Dioxide 21 L Anion Gap 15 BUN 93 H Creatinine 3.17 H Est GFR ( Amer) 24 L Est GFR (Non-Af Amer) 20 L Glucose 115 H Calcium 9.4 06/10/16 06/10/16 06/10/16 08:05 08:05 16:05 Creatine Kinase 54 L 55 CK-MB (CK-2) 1.06 Troponin I 0.043 NT-Pro-B Natriuret Pep 06/10/16 06/10/16 06/10/16 16:05 22:08 22:08 Creatine Kinase 63 CK-MB (CK-2) 1.27 1.65 Troponin I 0.041 0.036 NT-Pro-B Natriuret Pep 06/11/16 06/12/16 06/13/16 05:18 06:28 06:23 Creatine Kinase CK-MB (CK-2) Troponin I NT-Pro-B Natriuret Pep 4420 H 1590 H 688 Impressions: Chest X-Ray 06/11/16 00:00 IMPRESSION: NO SIGNIFICANT RADIOGRAPHIC FINDING IN THE CHEST. Assessment & Plan - Diagnosis (1) Respiratory distress Is this a current diagnosis for this admission?: No (2) Flash pulmonary edema Is this a current diagnosis for this admission?: No (3) CAD (coronary artery disease) of artery bypass graft Qualifiers: [place] vs. transplanted heart: unspecified whether [place] or transplanted heart Associated angina: without angina Qualified Code(s): I25.810 - Atherosclerosis of coronary artery bypass graft(s) without angina pectoris Is this a current diagnosis for this admission?: Yes (4) Congestive cardiac failure Qualifiers: Congestive heart failure type: combined Is this a current diagnosis for this admission?: Yes (5) Diabetes mellitus Qualifiers: Diabetes mellitus type: type 2 Diabetes mellitus complication status: with ophthalmic complications Diabetic retinopathy severity: with unspecified retinopathy severity Is this a current diagnosis for this admission?: Yes (6) Hypertension Qualifiers: Hypertension type: essential hypertension Qualified Code(s): I10 - Essential (primary) hypertension Is this a current diagnosis for this admission?: Yes (7) Pneumonia Qualifiers: Pneumonia type: due to unspecified organism Laterality: right Lung location: lower lobe of lung Qualified Code(s): J18.1 - Lobar pneumonia, unspecified organism Is this a current diagnosis for this admission?: Yes (8) Chronic kidney disease Qualifiers: Chronic kidney disease stage: stage 3 (moderate) Qualified Code(s): N18.3 - Chronic kidney disease, stage 3 (moderate) Is this a current diagnosis for this admission?: Yes
--- NOTE | 2016-06-14 18:41 | PDOC CONSULTATION ---
Consultation Consult Date: 06/14/16 Consult reason:: BROOKS History of Present Illness Admission Date/PCP: 06/10/16 07:44 FOX BIRD MD History of Present Illness: RONNIE MELGAR is a 71 year old male with a significant history of the pulmonary edema and congestive heart failure and coronary artery disease and type 2 diabetes mellitus for several hospital admissions for the flash pulmonary edema in the past came to the emergency department with the respiratory distress. Patient was put on the BiPAP and the patient responds very well. Patient was given IV Lasix and IV antibiotic in the emergency departments. Patient's chest x-ray showing right-sided infiltrate consistent with right-sided pneumonia. Patient was complaining of some little bit cough" cold-like symptoms for the last couple of days but no fever. Patient saw Dr. Zarate as outpatient and recently decreased the amiodarone 100 mg once a day due to the elevated liver functions. Patient also see her Dr. Robin as outpatients for the GI problem and elevated LFT which is most consistent with the fatty liver and possible from the amiodarone but more likely to be from obesity and sleep apnea syndrome. Patient's currently denied any chest pain and denied any breathing problem and looked comfortable when I saw him on the floor. Patient denies angina-like chest pain, sleeps on 1-2 pillows denies PND nocturnal cough admits to some edema admits to snoring, nocturia and restless sleep but denies unrestful sleep or excessive daytime somnolence. Patient does give history of sleep apnea syndrome and his last follow-up was with me in October 2015. Past Medical History Cardiac Medical History: Reports: Hyperlipidemia, Hypertension-primary, Myocardial Infarction - 2014 Bypass sugery Denies: Coronary Artery Disease Pulmonary Medical History: Reports: Respiratory Failure Denies: Asthma, Bronchitis, Chronic Obstructive Pulmonary Disease (COPD), Pneumonia Neurological Medical History: Denies: Seizures Endocrine Medical History: Reports: Diabetes Mellitus Type 2 Renal/ Medical History: Reports: Chronic Kidney Disease Stage III GI Medical History: Reports: Gastroesophageal Reflux Disease Musculoskeltal Medical History: Denies: Arthritis Psychiatric Medical History: Denies: Depression Past Surgical History Past Surgical History: Reports: Coronary Artery Bypass Graft Social History Lives with: Family Smoking Status: Former Smoker Cigarettes Packs Per Day: 1 Number of Years Smokin Last Time Smoked: 1991 Frequency of Alcohol Use: None Hx Recreational Drug Use: No Drugs: None Hx Prescription Drug Abuse: No - Advance Directive Resuscitation Status: Full Code Family History Parental Family History Reviewed: No Children Family History Reviewed: No Sibling(s) Family History Reviewed.: No Medication/Allergy Home Medications: Apixaban [Eliquis 2.5 mg Tablet] 2.5 mg PO Q12 06/10/16 Aspirin [Aspirin EC] 81 mg PO DAILY 06/10/16 Brimonidine Tartrate/Timolol [Combigan 0.2%-0.5% Eye Drops] 1 drop OU DAILY 02/26 Carvedilol [Coreg 3.125 mg Tablet] 3.125 mg PO Q12 06/10/16 Docusate Sodium [Colace 100 mg Capsule] 100 mg PO DAILY 06/10/16 Torsemide [Demadex 20 mg Tablet] 20 mg PO QAM 06/10/16 Insulin Glargine,Hum.rec.anlog [Lantus Insulin 100 Unit/mL] 30 unit SUBCUT QHS # 0 insuln.pen 06/18/16 Insulin Lispro [Humalog Insulin (Lispro) 100 unit/mL] 9 unit SUBCUT MEALS #0 unit 06/18/16 Ranolazine [Ranexa 500 mg Tab.sr] 500 mg PO Q12 #60 tab.sr.12h 06/18/16 Allergies/Adverse Reactions: adhesive [Adhesive] Adverse Reaction (Severe, Verified 06/10/16 09:16) Blisters Physical Exam Vital Signs: Temp Pulse Resp BP Pulse Ox 97.5 F 61 20 109/61 98 06/14/16 16:29 06/14/16 16:29 06/14/16 16:29 06/14/16 16:29 06/14/16 16:29 Intake & Output 06/13/16 06/14/16 06/15/16 06:59 06:59 06:59 Intake Total 2254 2066 412 Output Total 1675 800 Balance 579 1266 412 Weight 120.7 kg 120.9 kg General appearance: PRESENT: no acute distress Eye exam: PRESENT: conjunctiva pink, EOMI, PERRLA. ABSENT: nystagmus Ear exam: PRESENT: normal external ear exam Neck exam: ABSENT: JVD, lymphadenopathy, meningismus, tenderness, thyromegaly, tracheal deviation Respiratory exam: PRESENT: clear to auscultation margarita. ABSENT: crackles, rhonchi Cardiovascular exam: PRESENT: +S1, +S2 GI/Abdominal exam: PRESENT: normal bowel sounds, soft. ABSENT: organomegaly, tenderness Extremities exam: ABSENT: pedal edema Results Laboratory Results: 06/14/16 04:03 06/14/16 04:03 06/14/16 06/14/16 04:03 04:03 WBC 5.2 RBC 3.97 L Hgb 11.7 L Hct 34.5 L MCV 87 MCH 29.5 MCHC 34.0 RDW 13.9 Plt Count 128 L Seg Neutrophils % 55.7 Lymphocytes % 24.9 Monocytes % 14.2 H Eosinophils % 4.5 Basophils % 0.7 Absolute Neutrophils 2.9 Absolute Lymphocytes 1.3 Absolute Monocytes 0.7 Absolute Eosinophils 0.2 Absolute Basophils 0.0 Sodium 135.9 L Potassium 4.7 Chloride 100 Carbon Dioxide 21 L Anion Gap 15 BUN 93 H Creatinine 3.17 H Est GFR ( Amer) 24 L Est GFR (Non-Af Amer) 20 L Glucose 115 H Calcium 9.4 06/10/16 06/10/16 06/10/16 08:05 08:05 16:05 Creatine Kinase 54 L 55 CK-MB (CK-2) 1.06 Troponin I 0.043 NT-Pro-B Natriuret Pep 06/10/16 06/10/16 06/10/16 16:05 22:08 22:08 Creatine Kinase 63 CK-MB (CK-2) 1.27 1.65 Troponin I 0.041 0.036 NT-Pro-B Natriuret Pep 06/11/16 06/12/16 06/13/16 05:18 06:28 06:23 Creatine Kinase CK-MB (CK-2) Troponin I NT-Pro-B Natriuret Pep 4420 H 1590 H 688 Impressions: Chest X-Ray 06/11/16 00:00 IMPRESSION: NO SIGNIFICANT RADIOGRAPHIC FINDING IN THE CHEST. Assessment & Plan - Diagnosis (1) BROOKS (acute kidney injury) Plan: Overdiuresed.Currently being fluid repleted.Follow with labs. (2) Acute respiratory failure with hypoxia and hypercapnia Is this a current diagnosis for this admission?: Yes (3) CHF exacerbation Qualifiers: Congestive heart failure type: unspecified congestive heart failure type Qualified Code(s): I50.9 - Heart failure, unspecified (4) Diabetes mellitus Qualifiers: Diabetes mellitus type: type 2 Diabetes mellitus complication status: with ophthalmic complications Diabetic retinopathy severity: with unspecified retinopathy severity Is this a current diagnosis for this admission?: Yes (5) Hypertension Qualifiers: Hypertension type: essential hypertension Qualified Code(s): I10 - Essential (primary) hypertension Is this a current diagnosis for this admission?: Yes
--- NOTE | 2016-06-14 19:58 | PDOC PROGRESS REPORT ---
Subjective Progress Note for:: 06/14/16 Subjective:: Pt is denying any chest arm or neck discomfort. Patient denying any PND, orthopnea. Patient denied any sustained palpitations, dizziness, syncope, near syncope. Patient denying any fever chills. Patient denying any other significant discomfort. Lab work shows worsening renal function therefore Patient discharge was postponed. Diuretics are being held. Patient today started on IV fluids at 50 mL/h. Review of systems: Rest review of systems negative. Medications: Medications have been reviewed. Physical Exam Vital Signs: Temp Pulse Resp BP Pulse Ox 97.5 F 61 20 109/61 98 06/14/16 16:29 06/14/16 16:29 06/14/16 16:29 06/14/16 16:29 06/14/16 16:29 Intake & Output 06/13/16 06/14/16 06/15/16 06:59 06:59 06:59 Intake Total 2254 2066 1977 Output Total 1675 800 100 Balance 579 1266 1877 Weight 120.7 kg 120.9 kg Exam: GENERAL: well-nourished and in no acute distress. Alert and oriented x3 HEAD: Atraumatic, normocephalic. EYES: Pupils equal round and reactive to light, extraocular movements intact, sclera anicteric, conjunctiva are normal. ENT: TMs normal, nares patent, oropharynx clear without exudates. Moist mucous membranes. No oral ulcerations or bleeding gums noted NECK: supple without lymphadenopathy. Trachea is central. No cervical or axillary lymphadenopathy noted. Carotids are 2+, JVD WNL LUNGS: Respiration seems nonlabored, no significant accessory muscle action noted. Breath sounds clear to auscultation bilaterally and equal noted. No wheezes rales or rhonchi noted. No significant dullness noted on percussion. CHEST: Palpation of the chest wall shows no significant chest wall tenderness. No other significant abnormalities noted. HEART: [place]IC, No PSH, 1/6 LOIS aortic area, 1/6 aranda systolic murmur mitral area, no rubs, no gallops. ABDOMEN: Soft, no significant tenderness appreciated, normoactive bowel sounds. No guarding, no rebound. No rigidity noted . No masses appreciated. EXTREMITIES: Pedal pulses are 1-2+, no calf tenderness noted. No clubbing or cyanosis.1+ pedal edema noted NEUROLOGICAL: Focused neurological exam showed no significant neurologic deficit. Normal speech, no focal weakness appreciated. PSYCH: Normal mood, normal affect. Judgment and insight within normal limits. SKIN: No significant ecchymosis, rash, ulcerations or signs of pruritus noted. MUSCULOSKELETAL EXAM: No significant joint swelling noted. Results Laboratory Results: 06/14/16 04:03 06/14/16 04:03 06/14/16 06/14/16 04:03 04:03 WBC 5.2 RBC 3.97 L Hgb 11.7 L Hct 34.5 L MCV 87 MCH 29.5 MCHC 34.0 RDW 13.9 Plt Count 128 L Seg Neutrophils % 55.7 Lymphocytes % 24.9 Monocytes % 14.2 H Eosinophils % 4.5 Basophils % 0.7 Absolute Neutrophils 2.9 Absolute Lymphocytes 1.3 Absolute Monocytes 0.7 Absolute Eosinophils 0.2 Absolute Basophils 0.0 Sodium 135.9 L Potassium 4.7 Chloride 100 Carbon Dioxide 21 L Anion Gap 15 BUN 93 H Creatinine 3.17 H Est GFR ( Amer) 24 L Est GFR (Non-Af Amer) 20 L Glucose 115 H Calcium 9.4 06/10/16 06/10/16 06/10/16 08:05 08:05 16:05 Creatine Kinase 54 L 55 CK-MB (CK-2) 1.06 Troponin I 0.043 NT-Pro-B Natriuret Pep 06/10/16 06/10/16 06/10/16 16:05 22:08 22:08 Creatine Kinase 63 CK-MB (CK-2) 1.27 1.65 Troponin I 0.041 0.036 NT-Pro-B Natriuret Pep 06/11/16 06/12/16 06/13/16 05:18 06:28 06:23 Creatine Kinase CK-MB (CK-2) Troponin I NT-Pro-B Natriuret Pep 4420 H 1590 H 688 Impressions: Chest X-Ray 06/11/16 00:00 IMPRESSION: NO SIGNIFICANT RADIOGRAPHIC FINDING IN THE CHEST. Assessment & Plan - Diagnosis (1) Heart failure, systolic, with acute decompensation Is this a current diagnosis for this admission?: Yes (2) Acute respiratory failure with hypoxia and hypercapnia Is this a current diagnosis for this admission?: Yes (3) Pneumonia Qualifiers: Qualified Code(s): J18.1 - Lobar pneumonia, unspecified organism Is this a current diagnosis for this admission?: Yes (4) CAD (coronary artery disease) Qualifiers: Qualified Code(s): I25.10 - Atherosclerotic heart disease of [place] coronary artery without angina pectoris Is this a current diagnosis for this admission?: Yes (5) CKD (chronic kidney disease) stage 3, GFR 30-59 ml/min Is this a current diagnosis for this admission?: Yes (6) Congestive cardiac failure Is this a current diagnosis for this admission?: Yes - Notes Notes: Patient noted to have worsening renal function. Clinically patient seems euvolemic but could be over diuresed. Agree with IV fluids. Will observe very closely for any fluid overload. CHF seems compensated. CAD: Currently symptomatically stable. Pneumonia: Improved. Patient has been afebrile for last several days. Respiratory failure: Improved. Patient seems to be stable from cardiac standpoint. Check patient in a.m. to make sure there is no fluid overload. - Time Time with patient: 15-25 minutes - CODE STATUS was discussed, patient remains full code. Surrogate decision-maker unchanged. Multiple medical problems were addressed.More than 50% of the time spent coordinating care, discussing management plans with involved caregivers. Management plans discussed with involved personnels. Medical decision making was of moderate to high complexity , patient's has multiple severe comorbidities. Medications reviewed and adjusted accordingly: Yes
[2016-06-14] MEDS: INSULIN GLARGINE,HUM.REC.ANLOG 300 UNIT/3 ML INSULN.PEN SUBCUT SCH (21:12)
[2016-06-15 06:15] LABS: ANION GAP 12 (5-19); BLOOD UREA NITROGEN 82 mg/dL (7-20); CALCIUM 9.2 mg/dL (8.4-10.2); CARBON DIOXIDE 19 mmol/L (22-30); CHLORIDE 105 mmol/L (98-107); CREATININE RESULT 2.67 mg/dL (0.52-1.25); GLUCOSE 89 mg/dL (75-110); POTASSIUM 4.7 mmol/L (3.6-5.0); SODIUM 136.3 mmol/L (137-145)
[2016-06-15] MEDS: INSULIN LISPRO 100 UNIT/ML 3 ML VIAL SUBCUT SCH ×3 (07:49→17:00)
[2016-06-15] MEDS: IPRATROPIUM/ALBUTEROL 0.5-2.5 MG/3 ML AMPUL NEB SCH ×3 (08:25→19:58)
[2016-06-15] MEDS: APIXABAN 2.5 MG TABLET PO SCH ×2 (10:26→22:09)
[2016-06-15] MEDS: ASPIRIN 81 MG TABLET, ENT COATED PO SCH (10:26)
[2016-06-15] MEDS: RANOLAZINE 500 MG TAB.SR.12H PO SCH ×2 (10:26→22:07)
[2016-06-15] MEDS: CARVEDILOL 3.125 MG TABLET PO SCH ×2 (10:26→22:07)
[2016-06-15] MEDS: AZITHROMYCIN 250 MG TABLET PO SCH (10:26)
[2016-06-15] MEDS: DOCUSATE SODIUM 100 MG CAPSULE PO SCH ×2 (10:27→17:21)
[2016-06-15] MEDS: BRIMONIDINE TARTRATE 0.2% OPH SOLN 5 ML OU SCH (10:27)
[2016-06-15] MEDS: TIMOLOL MALEATE 0.5% OPH SOLN 5 ML OU SCH (10:27)
[2016-06-15] MEDS: TORSEMIDE 20 MG TABLET PO SCH (11:20)
--- NOTE | 2016-06-15 13:30 | PDOC PROGRESS REPORT ---
Subjective Progress Note for:: 06/15/16 Subjective:: Patient seems to be doing better. Patient was noted to be walking the hallway earlier today. Pt is denying any chest arm or neck discomfort. Patient denying any PND, orthopnea. Patient denied any sustained palpitations, dizziness, syncope, near syncope. Patient denying any fever chills. Patient denying any other significant discomfort. Lab work shows improving renal function. If patient discharged today, have recommended to start Demadex at 10 mg by mouth daily from tomorrow. Review of systems: Rest review of systems negative. Medications: Medications have been reviewed. Physical Exam Vital Signs: Temp Pulse Resp BP Pulse Ox 97.3 F 65 16 130/63 H 99 06/15/16 11:30 06/15/16 11:30 06/15/16 11:30 06/15/16 11:30 06/15/16 11:30 Intake & Output 06/14/16 06/15/16 06/16/16 06:59 06:59 06:59 Intake Total 2066 3357 Output Total 800 1825 Balance 1266 1532 Weight 120.9 kg 127.1 kg Exam: GENERAL: well-nourished and in no acute distress. Alert and oriented x3 HEAD: Atraumatic, normocephalic. EYES: Pupils equal round and reactive to light, extraocular movements intact, sclera anicteric, conjunctiva are normal. ENT: TMs normal, nares patent, oropharynx clear without exudates. Moist mucous membranes. No oral ulcerations or bleeding gums noted NECK: supple without lymphadenopathy. Trachea is central. No cervical or axillary lymphadenopathy noted. Carotids are 2+, JVD WNL LUNGS: Respiration seems nonlabored, no significant accessory muscle action noted. Breath sounds clear to auscultation bilaterally and equal noted. No wheezes rales or rhonchi noted. No significant dullness noted on percussion. CHEST: Palpation of the chest wall shows no significant chest wall tenderness. No other significant abnormalities noted. HEART: [place] [employer]ENDER, No PSH, 1/6 LOIS aortic area, 1/6 aranda systolic murmur mitral area, no rubs, no gallops. ABDOMEN: Soft, no significant tenderness appreciated, normoactive bowel sounds. No guarding, no rebound. No rigidity noted . No masses appreciated. EXTREMITIES: Pedal pulses are 1-2+, no calf tenderness noted. No clubbing or cyanosis.trace to 1+ pedal edema noted NEUROLOGICAL: Focused neurological exam showed no significant neurologic deficit. Normal speech, no focal weakness appreciated. PSYCH: Normal mood, normal affect. Judgment and insight within normal limits. SKIN: No significant ecchymosis, rash, ulcerations or signs of pruritus noted. MUSCULOSKELETAL EXAM: No significant joint swelling noted. Results Laboratory Results: 06/14/16 04:03 06/15/16 05:30 06/15/16 05:30 Sodium 136.3 L Potassium 4.7 Chloride 105 Carbon Dioxide 19 L Anion Gap 12 BUN 82 H Creatinine 2.67 H Est GFR ( Amer) 29 L Est GFR (Non-Af Amer) 24 L Glucose 89 Calcium 9.2 06/10/16 06/10/16 06/10/16 08:05 08:05 16:05 Creatine Kinase 54 L 55 CK-MB (CK-2) 1.06 Troponin I 0.043 NT-Pro-B Natriuret Pep 06/10/16 06/10/16 06/10/16 16:05 22:08 22:08 Creatine Kinase 63 CK-MB (CK-2) 1.27 1.65 Troponin I 0.041 0.036 NT-Pro-B Natriuret Pep 06/11/16 06/12/16 06/13/16 05:18 06:28 06:23 Creatine Kinase CK-MB (CK-2) Troponin I NT-Pro-B Natriuret Pep 4420 H 1590 H 688 Impressions: Chest X-Ray 06/11/16 00:00 IMPRESSION: NO SIGNIFICANT RADIOGRAPHIC FINDING IN THE CHEST. Assessment & Plan - Diagnosis (1) Heart failure, systolic, with acute decompensation Is this a current diagnosis for this admission?: Yes (2) Acute respiratory failure with hypoxia and hypercapnia Is this a current diagnosis for this admission?: Yes (3) Pneumonia Qualifiers: Pneumonia type: due to unspecified organism Laterality: right Lung location: lower lobe of lung Qualified Code(s): J18.1 - Lobar pneumonia, unspecified organism Is this a current diagnosis for this admission?: Yes (4) CAD (coronary artery disease) Qualifiers: Coronary Disease-Associated Artery/Lesion type: unspecified vessel or lesion type [place] vs. transplanted heart: [place] heart Associated angina: without angina Qualified Code(s): I25.10 - Atherosclerotic heart disease of [place] coronary artery without angina pectoris Is this a current diagnosis for this admission?: Yes (5) CKD (chronic kidney disease) stage 3, GFR 30-59 ml/min Is this a current diagnosis for this admission?: Yes (6) Congestive cardiac failure Qualifiers: Congestive heart failure type: combined Is this a current diagnosis for this admission?: Yes - Notes Notes: Patient noted to have improving renal function. Clinically patient seems euvolemic. Have recommended to the patient to restart Demadex at 10 mg by mouth daily from tomorrow. CHF seems compensated. CAD: Currently symptomatically stable. Pneumonia: Improved. Patient has been afebrile for last several days. Respiratory failure: Improved. Patient seems to be stable from cardiac standpoint. We will sign off.. - Time Time with patient: 15-25 minutes - CODE STATUS was discussed, patient remains full code. Surrogate decision-maker unchanged. Multiple medical problems were addressed.More than 50% of the time spent coordinating care, discussing management plans with involved caregivers. Management plans discussed with involved personnels. Medical decision making was of moderate complexity, patient's has multiple severe comorbidities. Medications reviewed and adjusted accordingly: Yes
--- NOTE | 2016-06-15 13:32 | PDOC PROGRESS REPORT ---
Subjective Progress Note for:: 06/15/16 Subjective:: Patient denied any chest pain, difficult with breathing, nausea, vomiting, or abdominal pain. No fever or chills. Physical Exam Vital Signs: Temp Pulse Resp BP Pulse Ox 97.3 F 65 16 130/63 H 99 06/15/16 11:30 06/15/16 11:30 06/15/16 11:30 06/15/16 11:30 06/15/16 11:30 Intake & Output 06/14/16 06/15/16 06/16/16 06:59 06:59 06:59 Intake Total 2066 3357 Output Total 800 1825 Balance 1266 1532 Weight 120.9 kg 127.1 kg Physical Exam: General appearance: PRESENT: no acute distress, well-developed, well-nourished Head exam: PRESENT: atraumatic, normocephalic Eye exam: PRESENT: conjunctiva pink, EOMI, PERRLA. ABSENT: scleral icterus Ear exam: PRESENT: normal external ear exam Mouth exam: PRESENT: moist, tongue midline Neck exam: PRESENT: full ROM. ABSENT: carotid bruit, JVD, lymphadenopathy, thyromegaly Respiratory exam: PRESENT: clear to auscultation margarita Cardiovascular exam: PRESENT: RRR. ABSENT: diastolic murmur, rubs, systolic murmur GI/Abdominal exam: PRESENT: normal bowel sounds, soft. ABSENT: distended, guarding, mass, organomegaly, rebound, tenderness Neurological exam: PRESENT: alert, awake, oriented to person, oriented to place , oriented to time, oriented to situation, CN II-XII grossly intact. ABSENT: motor sensory deficit Psychiatric exam: PRESENT: appropriate affect, normal mood. ABSENT: homicidal ideation, suicidal ideation Skin exam: PRESENT: dry, intact, warm. ABSENT: cyanosis, rash Results Laboratory Results: 06/14/16 04:03 06/15/16 05:30 06/15/16 05:30 Sodium 136.3 L Potassium 4.7 Chloride 105 Carbon Dioxide 19 L Anion Gap 12 BUN 82 H Creatinine 2.67 H Est GFR ( Amer) 29 L Est GFR (Non-Af Amer) 24 L Glucose 89 Calcium 9.2 06/10/16 06/10/16 06/10/16 08:05 08:05 16:05 Creatine Kinase 54 L 55 CK-MB (CK-2) 1.06 Troponin I 0.043 NT-Pro-B Natriuret Pep 06/10/16 06/10/16 06/10/16 16:05 22:08 22:08 Creatine Kinase 63 CK-MB (CK-2) 1.27 1.65 Troponin I 0.041 0.036 NT-Pro-B Natriuret Pep 06/11/16 06/12/16 06/13/16 05:18 06:28 06:23 Creatine Kinase CK-MB (CK-2) Troponin I NT-Pro-B Natriuret Pep 4420 H 1590 H 688 Impressions: Chest X-Ray 06/11/16 00:00 IMPRESSION: NO SIGNIFICANT RADIOGRAPHIC FINDING IN THE CHEST. Assessment & Plan - Diagnosis (1) BROOKS (acute kidney injury) Is this a current diagnosis for this admission?: YesPlan: Continue current supportive therapy. (2) Acute respiratory failure with hypoxia and hypercapnia Is this a current diagnosis for this admission?: YesPlan: Continue current medication management. (3) Hypertension Qualifiers: Hypertension type: essential hypertension Qualified Code(s): I10 - Essential (primary) hypertension Is this a current diagnosis for this admission?: YesPlan: Continue current medication management. (4) Chronic kidney disease Qualifiers: Qualified Code(s): N18.3 - Chronic kidney disease, stage 3 (moderate) Is this a current diagnosis for this admission?: YesPlan: Continue current medication management. - Time Time Spent with patient: 25-34 minutes Medications reviewed and adjusted accordingly: Yes Anticipated discharge: Home with Homehealth Within: Other - Inpatient Certification Based on my medical assessment, after consideration of the patient's comorbidities, presenting symptoms, or acuity I expect that the services needed warrant INPATIENT care.: Yes I certify that my determination is in accordance with my understanding of Medicare's requirements for reasonable and necessary INPATIENT services [42 CFR 412.3e].: Yes Medical Necessity: Need Close Monitoring Due to Risk of Patient Decompensation, Need For IV Fluids, Need For Continuous Telemetry Monitoring, Risk of Complication if Not Cared For in Hospital Post Hospital Care: D/C [employer] Developer Documentation - Plan Summary Plan Summary: See covering attending physician orders.
[2016-06-15] MEDS: INSULIN GLARGINE,HUM.REC.ANLOG 300 UNIT/3 ML INSULN.PEN SUBCUT SCH (22:09)
[2016-06-16 06:58] LABS: ANION GAP 12 (5-19); BLOOD UREA NITROGEN 79 mg/dL (7-20); CALCIUM 9.3 mg/dL (8.4-10.2); CARBON DIOXIDE 22 mmol/L (22-30); CHLORIDE 101 mmol/L (98-107); CREATININE RESULT 2.75 mg/dL (0.52-1.25); GLUCOSE 101 mg/dL (75-110); POTASSIUM 4.9 mmol/L (3.6-5.0)
[2016-06-16] MEDS: INSULIN LISPRO 100 UNIT/ML 3 ML VIAL SUBCUT SCH ×3 (07:54→17:15)
[2016-06-16] MEDS: IPRATROPIUM/ALBUTEROL 0.5-2.5 MG/3 ML AMPUL NEB SCH ×3 (08:20→20:07)
[2016-06-16] MEDS: APIXABAN 2.5 MG TABLET PO SCH ×2 (09:35→22:06)
[2016-06-16] MEDS: AZITHROMYCIN 250 MG TABLET PO SCH (09:35)
[2016-06-16] MEDS: DOCUSATE SODIUM 100 MG CAPSULE PO SCH ×2 (09:36→17:15)
[2016-06-16] MEDS: RANOLAZINE 500 MG TAB.SR.12H PO SCH ×2 (09:36→22:06)
[2016-06-16] MEDS: ASPIRIN 81 MG TABLET, ENT COATED PO SCH (09:36)
[2016-06-16] MEDS: CARVEDILOL 3.125 MG TABLET PO SCH ×2 (09:37→22:06)
[2016-06-16] MEDS: TIMOLOL MALEATE 0.5% OPH SOLN 5 ML OU SCH (09:37)
[2016-06-16] MEDS: BRIMONIDINE TARTRATE 0.2% OPH SOLN 5 ML OU SCH (09:37)
--- NOTE | 2016-06-16 13:58 | PDOC PROGRESS REPORT ---
Subjective Progress Note for:: 06/16/16 Subjective:: Patient denied any chest pain, difficult with breathing, nausea, vomiting, or abdominal pain. No fever or chills. Physical Exam Vital Signs: Temp Pulse Resp BP Pulse Ox 97.8 F 66 14 126/68 H 98 06/16/16 07:14 06/16/16 08:20 06/16/16 08:20 06/16/16 07:14 06/16/16 08:20 Intake & Output 06/15/16 06/16/16 06/17/16 06:59 06:59 06:59 Intake Total 3357 1303 Output Total 1825 2350 Balance 1532 -1047 Weight 127.1 kg 120.5 kg Physical Exam: General appearance: PRESENT: no acute distress, well-developed, well-nourished Head exam: PRESENT: atraumatic, normocephalic Eye exam: PRESENT: conjunctiva pink, EOMI, PERRLA. ABSENT: scleral icterus Ear exam: PRESENT: normal external ear exam Mouth exam: PRESENT: moist, tongue midline Neck exam: PRESENT: full ROM. ABSENT: carotid bruit, JVD, lymphadenopathy, thyromegaly Respiratory exam: PRESENT: clear to auscultation margarita Cardiovascular exam: PRESENT: RRR. ABSENT: diastolic murmur, rubs, systolic murmur GI/Abdominal exam: PRESENT: normal bowel sounds, soft. ABSENT: distended, guarding, mass, organomegaly, rebound, tenderness Neurological exam: PRESENT: alert, awake, oriented to person, oriented to place , oriented to time, oriented to situation, CN II-XII grossly intact. ABSENT: motor sensory deficit Psychiatric exam: PRESENT: appropriate affect, normal mood. ABSENT: homicidal ideation, suicidal ideation Skin exam: PRESENT: dry, intact, warm. ABSENT: cyanosis, rash Results Laboratory Results: 06/14/16 04:03 06/16/16 05:43 06/16/16 05:43 Sodium 135.0 L Potassium 4.9 Chloride 101 Carbon Dioxide 22 Anion Gap 12 BUN 79 H Creatinine 2.75 H Est GFR ( Amer) 28 L Est GFR (Non-Af Amer) 23 L Glucose 101 Calcium 9.3 06/10/16 06/10/16 06/10/16 08:05 08:05 16:05 Creatine Kinase 54 L 55 CK-MB (CK-2) 1.06 Troponin I 0.043 NT-Pro-B Natriuret Pep 06/10/16 06/10/16 06/10/16 16:05 22:08 22:08 Creatine Kinase 63 CK-MB (CK-2) 1.27 1.65 Troponin I 0.041 0.036 NT-Pro-B Natriuret Pep 06/11/16 06/12/16 06/13/16 05:18 06:28 06:23 Creatine Kinase CK-MB (CK-2) Troponin I NT-Pro-B Natriuret Pep 4420 H 1590 H 688 Impressions: Chest X-Ray 06/11/16 00:00 IMPRESSION: NO SIGNIFICANT RADIOGRAPHIC FINDING IN THE CHEST. Assessment & Plan - Diagnosis (1) BROOKS (acute kidney injury) Is this a current diagnosis for this admission?: Yes (2) Acute respiratory failure with hypoxia and hypercapnia Is this a current diagnosis for this admission?: Yes (3) Hypertension Qualifiers: Hypertension type: essential hypertension Qualified Code(s): I10 - Essential (primary) hypertension Is this a current diagnosis for this admission?: Yes (4) Chronic kidney disease Qualifiers: Chronic kidney disease stage: stage 3 (moderate) Qualified Code(s): N18.3 - Chronic kidney disease, stage 3 (moderate) Is this a current diagnosis for this admission?: Yes - Time Time Spent with patient: 25-34 minutes Medications reviewed and adjusted accordingly: Yes Anticipated discharge: Home with Homehealth Within: Other - Inpatient Certification Based on my medical assessment, after consideration of the patient's comorbidities, presenting symptoms, or acuity I expect that the services needed warrant INPATIENT care.: Yes I certify that my determination is in accordance with my understanding of Medicare's requirements for reasonable and necessary INPATIENT services [42 CFR 412.3e].: Yes Medical Necessity: Need Close Monitoring Due to Risk of Patient Decompensation, Need For Continuous Telemetry Monitoring, Risk of Complication if Not Cared For in Hospital Post Hospital Care: D/C Plaster Whittler Documentation - Plan Summary Plan Summary: See covering attending physician orders.
[2016-06-16] MEDS: INSULIN GLARGINE,HUM.REC.ANLOG 300 UNIT/3 ML INSULN.PEN SUBCUT SCH (22:06)
[2016-06-17] MEDS: INSULIN LISPRO 100 UNIT/ML 3 ML VIAL SUBCUT SCH ×3 (07:39→17:36)
[2016-06-17] MEDS: IPRATROPIUM/ALBUTEROL 0.5-2.5 MG/3 ML AMPUL NEB SCH ×3 (08:08→20:02)
[2016-06-17] MEDS: BRIMONIDINE TARTRATE 0.2% OPH SOLN 5 ML OU SCH (09:22)
[2016-06-17] MEDS: APIXABAN 2.5 MG TABLET PO SCH ×2 (09:22→21:28)
[2016-06-17] MEDS: TIMOLOL MALEATE 0.5% OPH SOLN 5 ML OU SCH (09:22)
[2016-06-17] MEDS: TORSEMIDE 20 MG TABLET PO SCH (09:23)
[2016-06-17] MEDS: DOCUSATE SODIUM 100 MG CAPSULE PO SCH ×2 (09:23→17:45)
[2016-06-17] MEDS: RANOLAZINE 500 MG TAB.SR.12H PO SCH ×2 (09:23→21:28)
[2016-06-17] MEDS: CARVEDILOL 3.125 MG TABLET PO SCH ×2 (09:23→21:28)
[2016-06-17] MEDS: AZITHROMYCIN 250 MG TABLET PO SCH (09:23)
[2016-06-17] MEDS: ASPIRIN 81 MG TABLET, ENT COATED PO SCH (09:23)
[2016-06-17 09:51] LABS: ANION GAP 12 (5-19); BLOOD UREA NITROGEN 67 mg/dL (7-20); CALCIUM 9.5 mg/dL (8.4-10.2); CARBON DIOXIDE 21 mmol/L (22-30); CHLORIDE 101 mmol/L (98-107); CREATININE RESULT 2.42 mg/dL (0.52-1.25); GLUCOSE 153 mg/dL (75-110); POTASSIUM 5.1 mmol/L (3.6-5.0); SODIUM 133.5 mmol/L (137-145)
--- NOTE | 2016-06-17 10:16 | PDOC PROGRESS REPORT ---
Subjective Progress Note for:: 06/17/16 Subjective:: Patient is feeling much better patient's kidney function is also improving patient to restart the Demadex. Denied any chest pain denied any shortness of the breath. Patient's blood sugar is running lower and Physical Exam Vital Signs: Temp Pulse Resp BP Pulse Ox 97.8 F 65 14 140/78 H 98 06/17/16 07:33 06/17/16 08:08 06/17/16 08:08 06/17/16 07:33 06/17/16 08:08 Intake & Output 06/16/16 06/17/16 06/18/16 06:59 06:59 06:59 Intake Total 1303 1589 Output Total 2350 1575 Balance -1047 14 Weight 120.5 kg 120 kg General appearance: PRESENT: no acute distress, well-developed, well-nourished Head exam: PRESENT: atraumatic, normocephalic Eye exam: PRESENT: conjunctiva pink, EOMI, PERRLA. ABSENT: scleral icterus Ear exam: PRESENT: normal external ear exam Mouth exam: PRESENT: moist, tongue midline Neck exam: PRESENT: full ROM. ABSENT: carotid bruit, JVD, lymphadenopathy, thyromegaly Respiratory exam: PRESENT: clear to auscultation margarita Cardiovascular exam: PRESENT: RRR. ABSENT: diastolic murmur, rubs, systolic murmur Pulses: PRESENT: normal [place] pedis pul, +2 pedal pulses bilateral Vascular exam: PRESENT: normal capillary refill GI/Abdominal exam: PRESENT: normal bowel sounds, soft. ABSENT: distended, guarding, mass, organolmegaly, rebound, tenderness Rectal exam: PRESENT: deferred Neurological exam: PRESENT: alert, awake, oriented to person, oriented to place , oriented to time, oriented to situation, CN II-XII grossly intact. ABSENT: motor sensory deficit Psychiatric exam: PRESENT: appropriate affect, normal mood. ABSENT: homicidal ideation, suicidal ideation Skin exam: PRESENT: dry, intact, warm. ABSENT: cyanosis, rash Results Laboratory Results: 06/14/16 04:03 06/17/16 09:10 06/17/16 09:10 Sodium 133.5 L Potassium 5.1 H Chloride 101 Carbon Dioxide 21 L Anion Gap 12 BUN 67 H Creatinine 2.42 H Est GFR ( Amer) 32 L Est GFR (Non-Af Amer) 27 L Glucose 153 H Calcium 9.5 06/10/16 06/10/16 06/10/16 08:05 08:05 16:05 Creatine Kinase 54 L 55 CK-MB (CK-2) 1.06 Troponin I 0.043 NT-Pro-B Natriuret Pep 06/10/16 06/10/16 06/10/16 16:05 22:08 22:08 Creatine Kinase 63 CK-MB (CK-2) 1.27 1.65 Troponin I 0.041 0.036 NT-Pro-B Natriuret Pep 06/11/16 06/12/16 06/13/16 05:18 06:28 06:23 Creatine Kinase CK-MB (CK-2) Troponin I NT-Pro-B Natriuret Pep 4420 H 1590 H 688 Impressions: Chest X-Ray 06/11/16 00:00 IMPRESSION: NO SIGNIFICANT RADIOGRAPHIC FINDING IN THE CHEST. Assessment & Plan - Diagnosis (1) Respiratory distress Is this a current diagnosis for this admission?: NoPlan: All resolved (2) Pneumonia Qualifiers: Pneumonia type: due to unspecified organism Laterality: right Lung location: lower lobe of lung Qualified Code(s): J18.1 - Lobar pneumonia, unspecified organism Is this a current diagnosis for this admission?: YesPlan: Will stop the other IV antibiotic and continues to p.o. Zithromax (3) Heart failure, systolic, with acute decompensation Is this a current diagnosis for this admission?: YesPlan: We will stop the IV Lasix and put the patient's back to the Demadex (4) CAD (coronary artery disease) of artery bypass graft Qualifiers: [place] vs. transplanted heart: unspecified whether [place] or transplanted heart Associated angina: without angina Qualified Code(s): I25.810 - Atherosclerosis of coronary artery bypass graft(s) without angina pectoris Is this a current diagnosis for this admission?: YesPlan: We will get the cardiac enzymes every 63 (5) CKD (chronic kidney disease) stage 3, GFR 30-59 ml/min Is this a current diagnosis for this admission?: YesPlan: All improving continues to monitor for another 24 hours and if is coming down the BUN and creatinine patients can discharge (6) Diabetes mellitus Qualifiers: Diabetes mellitus type: type 2 Diabetes mellitus complication status: with ophthalmic complications Diabetic retinopathy severity: with unspecified retinopathy severity Is this a current diagnosis for this admission?: YesPlan: Reduce the Lantus dose and reduce the pre-meal dose also (7) Hypertension Qualifiers: Hypertension type: essential hypertension Qualified Code(s): I10 - Essential (primary) hypertension Is this a current diagnosis for this admission?: Yes - Time Time Spent with patient: 15-24 minutes Medications reviewed and adjusted accordingly: Yes Anticipated discharge: Home Within: within 24 hours - Inpatient Certification Medical Necessity: Need Close Monitoring Due to Risk of Patient Decompensation Post Hospital Care: D/C Control Center Operator Documentation - Plan Summary Plan Summary: Adjust the insulin continues to current medications
[2016-06-17] MEDS ORDERED: INSULIN GLARGINE,HUM.REC.ANLOG 300 UNIT/3 ML INSULN.PEN SUBCUT SCH (10:30)
--- NOTE | 2016-06-17 14:13 | PDOC PROGRESS REPORT ---
Subjective Progress Note for:: 06/17/16 Subjective:: No respiratory complaints feeling much better Physical Exam Vital Signs: Temp Pulse Resp BP Pulse Ox 98.1 F 68 14 105/60 97 06/17/16 11:24 06/17/16 13:34 06/17/16 13:34 06/17/16 11:24 06/17/16 13:34 Intake & Output 06/16/16 06/17/16 06/18/16 06:59 06:59 06:59 Intake Total 1303 1589 Output Total 2350 1575 Balance -1047 14 Weight 120.5 kg 120 kg General appearance: PRESENT: no acute distress, cooperative, obese Head exam: PRESENT: atraumatic, normocephalic Eye exam: PRESENT: conjunctiva pale, EOMI Mouth exam: PRESENT: dry mucosa Neck exam: ABSENT: carotid bruit, JVD, lymphadenopathy, thyromegaly Respiratory exam: PRESENT: decreased breath sounds, prolonged expiratory phas, rhonchi, symmetrical, unlabored Cardiovascular exam: PRESENT: RRR, +S1, +S2 Pulses: PRESENT: normal radial pulses GI/Abdominal exam: PRESENT: normal bowel sounds, soft. ABSENT: distended, guarding, mass, organolmegaly, rebound, tenderness Rectal exam: PRESENT: deferred Musculoskeletal exam: PRESENT: normal inspection Neurological exam: PRESENT: alert, awake Psychiatric exam: PRESENT: normal mood Skin exam: PRESENT: dry, warm Results Laboratory Results: 06/14/16 04:03 06/17/16 09:10 06/17/16 09:10 Sodium 133.5 L Potassium 5.1 H Chloride 101 Carbon Dioxide 21 L Anion Gap 12 BUN 67 H Creatinine 2.42 H Est GFR ( Amer) 32 L Est GFR (Non-Af Amer) 27 L Glucose 153 H Calcium 9.5 06/10/16 06/10/16 06/10/16 08:05 08:05 16:05 Creatine Kinase 54 L 55 CK-MB (CK-2) 1.06 Troponin I 0.043 NT-Pro-B Natriuret Pep 06/10/16 06/10/16 06/10/16 16:05 22:08 22:08 Creatine Kinase 63 CK-MB (CK-2) 1.27 1.65 Troponin I 0.041 0.036 NT-Pro-B Natriuret Pep 06/11/16 06/12/16 06/13/16 05:18 06:28 06:23 Creatine Kinase CK-MB (CK-2) Troponin I NT-Pro-B Natriuret Pep 4420 H 1590 H 688 Impressions: Chest X-Ray 06/11/16 00:00 IMPRESSION: NO SIGNIFICANT RADIOGRAPHIC FINDING IN THE CHEST. Assessment & Plan - Diagnosis (1) Respiratory distress Is this a current diagnosis for this admission?: No (2) Flash pulmonary edema Is this a current diagnosis for this admission?: No (3) CAD (coronary artery disease) of artery bypass graft Qualifiers: [place] vs. transplanted heart: unspecified whether [place] or transplanted heart Associated angina: without angina Qualified Code(s): I25.810 - Atherosclerosis of coronary artery bypass graft(s) without angina pectoris Is this a current diagnosis for this admission?: YesPlan: Currently no complaints voiced (4) Congestive cardiac failure Qualifiers: Congestive heart failure type: combined Is this a current diagnosis for this admission?: YesPlan: Improved with diuretic therapy (5) Diabetes mellitus Qualifiers: Diabetes mellitus type: type 2 Diabetes mellitus complication status: with ophthalmic complications Diabetic retinopathy severity: with unspecified retinopathy severity Is this a current diagnosis for this admission?: Yes (6) Hypertension Qualifiers: Hypertension type: essential hypertension Qualified Code(s): I10 - Essential (primary) hypertension Is this a current diagnosis for this admission?: Yes (7) Pneumonia Qualifiers: Pneumonia type: due to unspecified organism Laterality: right Lung location: lower lobe of lung Qualified Code(s): J18.1 - Lobar pneumonia, unspecified organism Is this a current diagnosis for this admission?: Yes (8) Chronic kidney disease Qualifiers: Chronic kidney disease stage: stage 3 (moderate) Qualified Code(s): N18.3 - Chronic kidney disease, stage 3 (moderate) Is this a current diagnosis for this admission?: YesPlan: Labs- All tests 24 hr 06/10/16 06/11/16 06/12/16 04:00 05:18 06:28 BUN 35 H 54 H 78 H Creatinine 1.69 H 1.99 H 2.83 H 06/13/16 06/14/16 06/15/16 06:23 04:03 05:30 BUN 88 H 93 H 82 H Creatinine 3.00 H 3.17 H 2.67 H 06/16/16 06/17/16 05:43 09:10 BUN 79 H 67 H Creatinine 2.75 H 2.42 H Creatinine-BUNs trending downward - Plan Summary Plan Summary: Patient remains stable from a pulmonary point of view will sign off for now please do not hesitate to call if we can be of further assistance thank you
[2016-06-18] MEDS: INSULIN LISPRO 100 UNIT/ML 3 ML VIAL SUBCUT SCH (07:29)
[2016-06-18] MEDS: IPRATROPIUM/ALBUTEROL 0.5-2.5 MG/3 ML AMPUL NEB SCH (08:06)
[2016-06-18 08:32] VITALS: BP 158/84
[2016-06-18] MEDS: ASPIRIN 81 MG TABLET, ENT COATED PO SCH (10:05)
[2016-06-18] MEDS: BRIMONIDINE TARTRATE 0.2% OPH SOLN 5 ML OU SCH (10:05)
[2016-06-18] MEDS: CARVEDILOL 3.125 MG TABLET PO SCH (10:05)
[2016-06-18] MEDS: APIXABAN 2.5 MG TABLET PO SCH (10:05)
[2016-06-18] MEDS: TIMOLOL MALEATE 0.5% OPH SOLN 5 ML OU SCH (10:05)
[2016-06-18] MEDS: DOCUSATE SODIUM 100 MG CAPSULE PO SCH (10:06)
[2016-06-18] MEDS: RANOLAZINE 500 MG TAB.SR.12H PO SCH (10:06)
[2016-06-18] MEDS: TORSEMIDE 20 MG TABLET PO SCH (10:06)
--- NOTE | 2016-06-18 15:20 | PDOC PROGRESS REPORT ---
Subjective Progress Note for:: 06/18/16 Subjective:: No respiratory complaints Physical Exam Vital Signs: Temp Pulse Resp BP Pulse Ox 98.2 F 71 20 158/84 H 99 06/18/16 09:05 06/18/16 09:05 06/18/16 09:05 06/18/16 09:05 06/18/16 09:05 Intake & Output 06/17/16 06/18/16 06/19/16 06:59 06:59 06:59 Intake Total 1589 540 Output Total 1575 400 Balance 14 140 Weight 120 kg 119.2 kg General appearance: PRESENT: no acute distress, cooperative, obese, well- developed Head exam: PRESENT: atraumatic, normocephalic Eye exam: PRESENT: conjunctiva pale Mouth exam: PRESENT: moist, neck supple Neck exam: PRESENT: carotid bruit Respiratory exam: PRESENT: prolonged expiratory phas, symmetrical, unlabored Cardiovascular exam: PRESENT: RRR, +S1, +S2 Pulses: PRESENT: normal radial pulses GI/Abdominal exam: PRESENT: normal bowel sounds, soft. ABSENT: distended, guarding, mass, organolmegaly, rebound, tenderness Rectal exam: PRESENT: deferred Musculoskeletal exam: PRESENT: normal inspection Neurological exam: PRESENT: alert, awake Psychiatric exam: PRESENT: normal mood Skin exam: PRESENT: dry, warm Results Laboratory Results: 06/14/16 04:03 06/17/16 09:10 06/10/16 06/10/16 06/10/16 08:05 08:05 16:05 Creatine Kinase 54 L 55 CK-MB (CK-2) 1.06 Troponin I 0.043 NT-Pro-B Natriuret Pep 06/10/16 06/10/16 06/10/16 16:05 22:08 22:08 Creatine Kinase 63 CK-MB (CK-2) 1.27 1.65 Troponin I 0.041 0.036 NT-Pro-B Natriuret Pep 06/11/16 06/12/16 06/13/16 05:18 06:28 06:23 Creatine Kinase CK-MB (CK-2) Troponin I NT-Pro-B Natriuret Pep 4420 H 1590 H 688 Impressions: Chest X-Ray 06/11/16 00:00 IMPRESSION: NO SIGNIFICANT RADIOGRAPHIC FINDING IN THE CHEST. Assessment & Plan - Diagnosis (1) Respiratory distress Is this a current diagnosis for this admission?: No (2) Flash pulmonary edema Is this a current diagnosis for this admission?: No (3) CAD (coronary artery disease) of artery bypass graft Qualifiers: [place] vs. transplanted heart: unspecified whether [place] or transplanted heart Associated angina: without angina Qualified Code(s): I25.810 - Atherosclerosis of coronary artery bypass graft(s) without angina pectoris Is this a current diagnosis for this admission?: Yes (4) Congestive cardiac failure Qualifiers: Congestive heart failure type: combined Is this a current diagnosis for this admission?: Yes (5) Diabetes mellitus Qualifiers: Diabetes mellitus type: type 2 Diabetes mellitus complication status: with ophthalmic complications Diabetic retinopathy severity: with unspecified retinopathy severity Is this a current diagnosis for this admission?: Yes (6) Hypertension Qualifiers: Hypertension type: essential hypertension Qualified Code(s): I10 - Essential (primary) hypertension Is this a current diagnosis for this admission?: Yes (7) Pneumonia Qualifiers: Pneumonia type: due to unspecified organism Laterality: right Lung location: lower lobe of lung Qualified Code(s): J18.1 - Lobar pneumonia, unspecified organism Is this a current diagnosis for this admission?: Yes (8) Chronic kidney disease Qualifiers: Chronic kidney disease stage: stage 3 (moderate) Qualified Code(s): N18.3 - Chronic kidney disease, stage 3 (moderate) Is this a current diagnosis for this admission?: Yes
--- NOTE | 2016-06-19 13:04 | PDOC DISCHARGE SUMMARY ---
General - Admit/Disc Date/PCP Admission Date/Primary Care Provider: 06/10/16 07:44 FOX BIRD MD Discharge Date: 06/19/16 - Discharge Diagnosis (1) Respiratory distress Is this a current diagnosis for this admission?: NoSummary: resolvedFrom the acute flash pulmonary edema (2) Pneumonia Is this a current diagnosis for this admission?: YesSummary: Resolved (3) Heart failure, systolic, with acute decompensation Is this a current diagnosis for this admission?: YesSummary: Currently all stable (4) CAD (coronary artery disease) of artery bypass graft Is this a current diagnosis for this admission?: YesSummary: Currently stable (5) CKD (chronic kidney disease) stage 3, GFR 30-59 ml/min Is this a current diagnosis for this admission?: YesSummary: Creatinine was 2.27 (6) Diabetes mellitus Is this a current diagnosis for this admission?: YesSummary: Stable adjust the insulin dose (7) Hypertension Is this a current diagnosis for this admission?: YesSummary: Stable on discharge - Additional Information Resuscitation Status: Full Code Discharge Activity: Activity As Tolerated, Balance Activity w/Rest, Keep Legs Elevated, Weigh Daily Home Medications: Apixaban [Eliquis 2.5 mg Tablet] 2.5 mg PO Q12 06/10/16 Aspirin [Aspirin EC] 81 mg PO DAILY 06/10/16 Brimonidine Tartrate/Timolol [Combigan 0.2%-0.5% Eye Drops] 1 drop OU DAILY 02/26 Carvedilol [Coreg 3.125 mg Tablet] 3.125 mg PO Q12 06/10/16 Docusate Sodium [Colace 100 mg Capsule] 100 mg PO DAILY 06/10/16 Torsemide [Demadex 20 mg Tablet] 20 mg PO QAM 06/10/16 Insulin Glargine,Hum.rec.anlog [Lantus Insulin 100 Unit/mL] 30 unit SUBCUT QHS # 0 insuln.pen 06/18/16 Insulin Lispro [Humalog Insulin (Lispro) 100 unit/mL] 9 unit SUBCUT MEALS #0 unit 06/18/16 Ranolazine [Ranexa 500 mg Tab.sr] 500 mg PO Q12 #60 tab.sr.12h 05/09/17 History of Present Illness History of Present Illness: RONNIE MELGAR is a 71 year old male This is a 71-year-old male with a significant history of the pulmonary edema and congestive heart failure and coronary artery disease and type 2 diabetes mellitus for several hospital admissions for the flash pulmonary edema in the past came to the emergency department with the respiratory distress and the patient's initial pH was 7.19And patient was put on the BiPAP and the patient's response very wellPatients when I saw in the emergency departments are doing much better denied any chest pain denied any shortness of the breathPatient was given IV Lasix and IV antibiotic in the emergency departments and the patient sent patient's chest x-ray showing some right-sided pneumonia Patient was complaining of some little bit cough" cold-like symptoms for the last couple of days but no fever and patient's white count is also normal to. Patient also see her Dr. Zarate as outpatient and recently decreased the amiodarone 100 mg once a day due to the elevated liver functions Patient also see her Dr. Robin as outpatients for the GI problem and elevated LFT which is most consistent with the fatty liver and possible from the amiodarone Patient's currently denied any chest pain and denied any breathing problem in the trauma room in the emergency department Patient's white count is also normal I believe this is more consistent with the flaps pulmonary edema with the possible underlying mild be pneumonia we will treat the patient's with the plus pulmonary edema and heart failure and also covered with the antibiotic Hospital Course Hospital Course: This is a 71-year-old male with a significant history of the chronic A. fib congestive heart failure hypertensions and type 2 diabetes came to the emergency department with the respiratory distress and diagnosed with the flash pulmonary edemaWhich patient have a several times before and patient initially was put on the BiPAP and the Lasix and the cardiology was consulted and the pulmonary was consulted. Patient is otherwise responds very well within the 24 hours back to the baseline but the patient's kidney function is more worsening and hold the diuretics for a few days and Dr. Grant was consulted and given IV fluid and patient's back to the kidney functions in the 2 rangPatient's otherwise remained stable the chest x-ray is all clear no sign of any pneumonia patient seen by the cardiology Dr. Rodriguez And a follow as outpatients Physical Exam Vital Signs: Temp Pulse Resp BP Pulse Ox 98.2 F 71 20 158/84 H 99 06/18/16 09:05 06/18/16 09:05 06/18/16 09:05 06/18/16 09:05 06/18/16 09:05 Intake & Output 06/18/16 06/19/16 06/20/16 06:59 06:59 06:59 Intake Total 540 Output Total 400 Balance 140 Weight 119.2 kg General appearance: PRESENT: no acute distress, well-developed, well-nourished Head exam: PRESENT: atraumatic, normocephalic Eye exam: PRESENT: conjunctiva pink, EOMI, PERRLA. ABSENT: scleral icterus Ear exam: PRESENT: normal external ear exam Mouth exam: PRESENT: moist, tongue midline Neck exam: PRESENT: full ROM. ABSENT: carotid bruit, JVD, lymphadenopathy, thyromegaly Respiratory exam: PRESENT: clear to auscultation margarita Cardiovascular exam: PRESENT: RRR. ABSENT: diastolic murmur, rubs, systolic murmur Pulses: PRESENT: normal dorsalis pedis pul, +2 pedal pulses bilateral Vascular exam: PRESENT: normal capillary refill GI/Abdominal exam: PRESENT: normal bowel sounds, soft. ABSENT: distended, guarding, mass, organolmegaly, rebound, tenderness Rectal exam: PRESENT: deferred Neurological exam: PRESENT: alert, awake, oriented to person, oriented to place , oriented to time, oriented to situation, CN II-XII grossly intact. ABSENT: motor sensory deficit Psychiatric exam: PRESENT: appropriate affect, normal mood. ABSENT: homicidal ideation, suicidal ideation Skin exam: PRESENT: dry, intact, warm. ABSENT: cyanosis, rash Results Laboratory Results: 06/14/16 04:03 06/17/16 09:10 06/10/16 06/10/16 06/10/16 08:05 08:05 16:05 Creatine Kinase 54 L 55 CK-MB (CK-2) 1.06 Troponin I 0.043 NT-Pro-B Natriuret Pep 06/10/16 06/10/16 06/10/16 16:05 22:08 22:08 Creatine Kinase 63 CK-MB (CK-2) 1.27 1.65 Troponin I 0.041 0.036 NT-Pro-B Natriuret Pep 06/11/16 06/12/16 06/13/16 05:18 06:28 06:23 Creatine Kinase CK-MB (CK-2) Troponin I NT-Pro-B Natriuret Pep 4420 H 1590 H 688 Impressions: Chest X-Ray 06/11/16 00:00 IMPRESSION: NO SIGNIFICANT RADIOGRAPHIC FINDING IN THE CHEST. Plan Time Spent: Greater than 30 Minutes - Patient's currently discharged home with the hold the Diovan and patient's amiodarone was DC and patient was put on Ranexa and to follow as outpatients. Will check the patient's Chem-7 in 1 week
== END 2016-06-18 10:52 | disposition home or self-care (01) | DRG 291 ==
LOC: ER 03:48 → UNDOADMIN 07:38 → EH 07:38 → 3W 10:35
PROVIDERS: ADMIT Family Medicine; ATTEND Family Medicine
PROC: 5A09457 Assistance with Respiratory Ventilation, 24-96 Consecutive Hours, Continuous Positive Airway Pressure (ICD-10-PCS; principal; 2016-06-10)
PROC: 3E0F73Z Introduction of Anti-inflammatory into Respiratory Tract, Via Natural or Artificial Opening (ICD-10-PCS; 2016-06-10)
DX: I13.0 Hypertensive heart and chronic kidney disease with heart failure and stage 1 through stage 4 chronic kidney disease, or unspecified chronic kidney disease (principal); J18.1 Lobar pneumonia, unspecified organism; I50.23 Acute on chronic systolic (congestive) heart failure; J96.01 Acute respiratory failure with hypoxia; J96.02 Acute respiratory failure with hypercapnia; N17.9 Acute kidney failure, unspecified; I25.810 Atherosclerosis of coronary artery bypass graft(s) without angina pectoris; E11.22 Type 2 diabetes mellitus with diabetic chronic kidney disease; N18.3 Chronic kidney disease, stage 3 (moderate); K76.0 Fatty (change of) liver, not elsewhere classified; I48.0 Paroxysmal atrial fibrillation; K21.9 Gastro-esophageal reflux disease without esophagitis; E11.319 Type 2 diabetes mellitus with unspecified diabetic retinopathy without macular edema; I25.2 Old myocardial infarction; Z95.1 Presence of aortocoronary bypass graft; Z79.82 Long term (current) use of aspirin; Z79.4 Long term (current) use of insulin; Z79.899 Other long term (current) drug therapy; Z87.891 Personal history of nicotine dependence; Z82.49 Family history of ischemic heart disease and other diseases of the circulatory system
CPT/HCPCS: 36415; 36600; 71010; 71020; 80048; 80053; 82550; 82553; 82803; 82962; 83735; 83880; 84484; 85025; 87040; 93005; 93010; 94640; 94660; 96365; 96368; 96375; 99291; J0456; J0692; J0696; J1815; J1940; J2930; J3475; J3490; J7620

== ENCOUNTER 2016-07-13 08:36 | Emergency (ER) | payer MEDICARE, OTHER ==
--- NOTE | 2016-07-13 09:47 | RADIOLOGY REPORT (SQ) ---
EXAM DESCRIPTION: CHEST SINGLE VIEW COMPLETED DATE/TIME: 07/13/2016 9:10 am REASON FOR STUDY: bed 10 cp COMPARISON: Chest films 06/07/2015, 06/10/2016, 06/11/2016 EXAM PARAMETERS: NUMBER OF VIEWS: One view. TECHNIQUE: Single frontal radiographic view of the chest acquired. RADIATION DOSE: NA LIMITATIONS: None. FINDINGS: LUNGS AND PLEURA: No opacities, masses or pneumothorax. No pleural effusion. MEDIASTINUM AND HILAR STRUCTURES: No masses. Contour normal. HEART AND VASCULAR STRUCTURES: Borderline stable cardiomegaly. Old sternotomy for CABG 8 BONES: No acute findings. HARDWARE: None in the chest. OTHER: No other significant finding. IMPRESSION: NO ACUTE RADIOGRAPHIC FINDING IN THE CHEST. TECHNICAL DOCUMENTATION: JOB ID: [id number]
[2016-07-13 10:10] LABS: ABSOLUTE EOSINOPHILS # (AUTO) 0.1 10^3/uL (0.0-0.6); ABSOLUTE MONOCYTES (AUTO) 0.5 10^3/uL (0.1-1.4); ABSOLUTE NEUT (AUTO) 2.9 10^3/uL (1.7-8.2); BASOPHILS % (AUTO) 0.9 % (0-2); EOSINOPHILS % (AUTO) 2.7 % (0-6); HEMATOCRIT 37.3 % (37.9-51.0); HEMOGLOBIN 12.5 g/dL (13.5-17.0); HGB HCT DIFFERENCE 0.2; LYMPHOCYTES % (AUTO) 21.5 % (13-45); MEAN CORPUSCULAR HEMOGLOBIN 28.8 pg (27.0-33.4); MEAN CORPUSCULAR HGB CONC 33.5 g/dL (32.0-36.0); MEAN CORPUSCULAR VOLUME 86 fl (80-97); MONOCYTES % (AUTO) 10.7 % (3-13); RED BLOOD COUNT 4.33 10^6/uL (4.35-5.55); RED CELL DISTRIBUTION WIDTH 14.3 % (11.5-14.0); SEGMENTED NEUTROPHILS % (AUTO) 64.2 % (42-78); WHITE BLOOD COUNT 4.5 10^3/uL (4.0-10.5)
[2016-07-13 10:23] LABS: ALANINE AMINOTRANSFERASE 50 U/L (21-72); ALBUMIN 4.1 g/dL (3.5-5.0); ALKALINE PHOSPHATASE 73 U/L (38-126); ANION GAP 13 (5-19); ASPARTATE AMINO TRANSFERASE 63 U/L (17-59); BILIRUBIN,DIRECT 0.6 mg/dL (0.0-0.4); BILIRUBIN,TOTAL 1.1 mg/dL (0.2-1.3); BLOOD UREA NITROGEN 36 mg/dL (7-20); CALCIUM 9.5 mg/dL (8.4-10.2); CARBON DIOXIDE 22 mmol/L (22-30); CHLORIDE 104 mmol/L (98-107); CREATINE KINASE 78 U/L (55-170); CREATININE RESULT 1.83 mg/dL (0.52-1.25); GLUCOSE 180 mg/dL (75-110); POTASSIUM 4.1 mmol/L (3.6-5.0); SODIUM 138.8 mmol/L (137-145); TOTAL PROTEIN 7.8 g/dL (6.3-8.2)
[2016-07-13 10:41] LABS: CREATINE KINASE MB 0.96 ng/mL (<4.55); TROPONIN I 0.013 ng/mL
--- NOTE | 2016-07-13 10:45 | EKG REPORT ---
SEVERITY:- ABNORMAL ECG - SINUS RHYTHM FIRST DEGREE AV BLOCK LEFT BUNDLE BRANCH BLOCK : Confirmed by: Tejas Cordova 13-Jul-2016 10:44:52
[2016-07-13] MEDS ORDERED: RANOLAZINE 500 MG TAB.SR.12H PO ONE (10:52)
[2016-07-13] MEDS ORDERED: APIXABAN 2.5 MG TABLET PO ONE (10:52)
[2016-07-13] MEDS ORDERED: CARVEDILOL 3.125 MG TABLET PO ONE (10:52)
[2016-07-13 14:03] VITALS: BP 127/63
--- NOTE | 2016-07-13 14:16 | ER Document Report ---
ED General - General Chief Complaint: Chest Pain > 30 Stated Complaint: CHEST PAIN Time Seen by Provider: 07/13/16 09:53 TRAVEL OUTSIDE OF THE [place] IN LAST 30 DAYS: No - HPI Patient complains to provider of: Chest pain Notes: Patient is coming in for evaluation left upper chest pain. Patient states has a history of CABG stent placement. Patient states normally has his pain and the left upper chest around shoulder pain occurred again a day no other abnormal fax however decided to come to the ER to be checked out. Patient denies fever chills nausea vomiting shortness of breath diaphoresis diarrhea. Patient denies any trauma to the left upper chest. Pain started this morning around 6 or 7:00 - Related Data Allergies/Adverse Reactions: adhesive [Adhesive] Adverse Reaction (Severe, Verified 06/10/16 09:16) Blisters Past Medical History - Social History Smoking Status: Never Smoker Frequency of alcohol use: None Drug Abuse: None Family History: CAD, Other - Past Medical History Cardiac Medical History: Reports: Hx Congestive Heart Failure, Hx Heart Attack - 2014 Bypass sugery, Hx Hypercholesterolemia, Hx Hypertension Denies: Hx Coronary Artery Disease Pulmonary Medical History: Reports: Hx Respiratory Failure Denies: Hx Asthma, Hx Bronchitis, Hx COPD, Hx Pneumonia Neurological Medical History: Denies: Hx Cerebrovascular Accident, Hx Seizures Endocrine Medical History: Reports: Hx Diabetes Mellitus Type 2 GI Medical History: Reports: Hx Gastroesophageal Reflux Disease Musculoskeltal Medical History: Denies Hx Arthritis Psychiatric Medical History: Denies: Hx Depression Past Surgical History: Reports: Hx Cardiac Surgery - bypass, Hx Coronary Artery Bypass Graft, Hx Oral Surgery - Immunizations Hx Diphtheria, Pertussis, Tetanus Vaccination: Yes Hx Pneumococcal Vaccination: 02/11/12 Review of Systems - Review of Systems Constitutional: No symptoms reported EENT: No symptoms reported Cardiovascular: Chest pain Respiratory: No symptoms reported Gastrointestinal: No symptoms reported Genitourinary: No symptoms reported Male Genitourinary: No symptoms reported Musculoskeletal: No symptoms reported Skin: No symptoms reported Hematologic/Lymphatic: No symptoms reported Neurological/Psychological: No symptoms reported -: Yes All other systems reviewed and negative Physical Exam - Vital signs Vitals: Temp Resp BP Pulse Ox 98 F 16 166/90 H 98 07/13/16 08:43 07/13/16 08:43 07/13/16 08:43 07/13/16 08:43 Interpretation: Normal - General General appearance: Appears well, Alert - HEENT Head: Normocephalic, Atraumatic Eyes: Normal Pupils: PERRL - Respiratory Respiratory status: No respiratory distress Chest status: Nontender Breath sounds: Normal Chest palpation: Normal - Cardiovascular Rhythm: Regular Heart sounds: Normal auscultation Murmur: No - Abdominal Inspection: Normal Distension: No distension Bowel sounds: Normal Tenderness: Nontender Organomegaly: No organomegaly - Back Back: Normal, Nontender - Extremities General upper extremity: Normal inspection, Nontender, Normal color, Normal ROM , Normal temperature General lower extremity: Normal inspection, Nontender, Normal color, Normal ROM , Normal temperature, Normal weight bearing. No: Juan's sign - Neurological Neuro grossly intact: Yes Cognition: Normal Orientation: AAOx4 [place] Coma Scale Eye Opening: Spontaneous [place] Coma Scale Verbal: Oriented [place] Coma Scale Motor: Obeys Commands Annemarie Coma Scale Total: 15 Speech: Normal Motor strength normal: LUE, RUE, LLE, RLE Sensory: Normal - Psychological Associated symptoms: Normal affect, Normal mood - Skin Skin Temperature: Warm Skin Moisture: Dry Skin Color: Normal Course - Re-evaluation Re-evalutation: 07/13/16 15:38 : The patient has atypical chest pain as the patient's chest pain is not suggestive of pulmonary embolus, cardiac ischemia, aortic dissection, or other serious etiology. Given the extremely low risk of these diagnoses further testing and evaluation for these possibilities does not appear to be indicated at this time. The patient has been instructed to return if the symptoms worsen or change in any way. - Vital Signs Vital signs: Temp Pulse Resp BP Pulse Ox 98 F 16 135/72 H 97 07/13/16 08:43 07/13/16 12:01 07/13/16 12:01 07/13/16 12:01 - Laboratory Result Diagrams: 07/13/16 09:56 07/13/16 09:56 Laboratory results interpreted by me: 07/13/16 07/13/16 09:56 09:56 RBC 4.33 L Hgb 12.5 L Hct 37.3 L RDW 14.3 H Plt Count 110 L BUN 36 H Creatinine 1.83 H Est GFR ( Amer) 45 L Est GFR (Non-Af Amer) 37 L Glucose 180 H Direct Bilirubin 0.6 H AST 63 H Discharge - Discharge Clinical Impression: upper chest pain Condition: Good Disposition: HOME, SELF-CARE Instructions: Chest Pain of Unclear Cause ([facility]), Chest Wall Pain ([facility]) Additional Instructions: Follow-up with your primary care physician. Continue your home prescribed medications. Return to the ER symptoms worsen. Referrals: FOX BIRD MD [Primary Care Provider] - Follow up in 3-5 days
== END 2016-07-13 14:14 | disposition home or self-care (01) ==
LOC: ER 08:36
DX: R07.9 Chest pain, unspecified (principal); E78.00 Pure hypercholesterolemia, unspecified; I50.9 Heart failure, unspecified; M25.512 Pain in left shoulder; K21.9 Gastro-esophageal reflux disease without esophagitis; E11.9 Type 2 diabetes mellitus without complications; Z95.1 Presence of aortocoronary bypass graft; I25.2 Old myocardial infarction
CPT/HCPCS: 93005; 99285; 36415; 82553; 82550; 85025; 80053; 84484; 71010; 93010; A9270 ×3

== ENCOUNTER → 2016-07-30 | Outpatient (CLI) | payer MEDICARE, OTHER ==
[2016-07-30 12:49] LABS: HEMATOCRIT 38.9 % (37.9-51.0); HEMOGLOBIN 12.8 g/dL (13.5-17.0); HGB HCT DIFFERENCE -0.5; MEAN CORPUSCULAR HEMOGLOBIN 28.8 pg (27.0-33.4); MEAN CORPUSCULAR HGB CONC 32.8 g/dL (32.0-36.0); MEAN CORPUSCULAR VOLUME 88 fl (80-97); RED BLOOD COUNT 4.44 10^6/uL (4.35-5.55); RED CELL DISTRIBUTION WIDTH 14.5 % (11.5-14.0); WHITE BLOOD COUNT 5.3 10^3/uL (4.0-10.5)
[2016-07-30 13:17] LABS: ANION GAP 15 (5-19); BLOOD UREA NITROGEN 37 mg/dL (7-20); CALCIUM 9.5 mg/dL (8.4-10.2); CARBON DIOXIDE 21 mmol/L (22-30); CHLORIDE 104 mmol/L (98-107); CREATININE RESULT 1.61 mg/dL (0.52-1.25); GLUCOSE 135 mg/dL (75-110); POTASSIUM 4.4 mmol/L (3.6-5.0)
[2016-07-31 10:44] LABS: APPEARANCE,URINE CLEAR; BILIRUBIN,URINE NEGATIVE (NEGATIVE); GLUCOSE, URINE NEGATIVE (NEGATIVE); KETONES,URINE NEGATIVE (NEGATIVE); LEUKOCYTE ESTERASE,URINE NEGATIVE (NEGATIVE); NITRITE,URINE NEGATIVE (NEGATIVE); PROTEIN,URINE NEGATIVE (NEGATIVE); URINE SPECIFIC GRAVITY 1.011; UROBILINOGEN,URINE NEGATIVE mg/dL (<2.0)
== END ==
LOC: OD 11:51
PROVIDERS: ATTEND Internal Medicine Nephrology
DX: E11.22 Type 2 diabetes mellitus with diabetic chronic kidney disease (principal); N18.3 Chronic kidney disease, stage 3 (moderate); I50.9 Heart failure, unspecified; E87.5 Hyperkalemia
CPT/HCPCS: 36415; 80048; 81001; 85027

== ENCOUNTER 2016-09-23 04:05 | Inpatient (IN) | payer MEDICARE, OTHER ==
[2016-09-23] MEDS ORDERED: ALBUTEROL SULFATE 0.083% NEB 2.5 MG/3 ML AMPUL NEB ONE (04:10)
[2016-09-23] MEDS ORDERED: MAGNESIUM SULFATE/D5W 0 GM/0 ML RTUPB IV ONE (04:10)
[2016-09-23] MEDS ORDERED: IPRATROPIUM/ALBUTEROL 0.5-2.5 MG/3 ML AMPUL NEB ONE (04:10)
[2016-09-23] MEDS ORDERED: METHYLPREDNISOLONE INJ 125 MG/2 ML SDV ONE (04:11)
[2016-09-23] MEDS ORDERED: MAGNESIUM SULFATE/D5W 100 ML IV ONE (04:17)
[2016-09-23] MEDS ORDERED: FUROSEMIDE INJ/PF 40 MG/4 ML SDV IV ONE (04:19)
[2016-09-23 04:37] LABS: ARTERIAL BLOOD BASE EXCESS -4.3 mmol/L; ARTERIAL BLOOD O2 SATURATION 97.9 % (94-98)
--- NOTE | 2016-09-23 04:46 | RADIOLOGY REPORT (SQ) ---
EXAM DESCRIPTION: CHEST SINGLE VIEW COMPLETED DATE/TIME: 09/23/2016 4:19 am REASON FOR STUDY: chf, sob COMPARISON: 07/13/2016. EXAM PARAMETERS: NUMBER OF VIEWS: One view. TECHNIQUE: Single frontal radiographic view of the chest acquired. RADIATION DOSE: NA LIMITATIONS: None. FINDINGS: LUNGS AND PLEURA: Moderate interstitial markings, increased. MEDIASTINUM AND HILAR STRUCTURES: No masses. Contour normal. HEART AND VASCULAR STRUCTURES: Mild enlargement of the cardiac silhouette. BONES: No acute findings. HARDWARE: Median sternotomy. OTHER: No other significant finding. IMPRESSION: [id number] CHF pattern. TECHNICAL DOCUMENTATION: JOB ID: [id number]
--- NOTE | 2016-09-23 04:58 | ER Document Report ---
ED Respiratory Problem - General Chief Complaint: Breathing Difficulty Stated Complaint: DIFFICULTY BREATHING Time Seen by Provider: 09/23/16 04:11 Mode of Arrival: Medic Information source: Patient Notes: Patient is a 71-year-old male with CHF, history of a heart attack 3 years ago who presents to the ER today via EMS for difficulty breathing since last night. Patient was trying to sleep but states that he was too short of breath to sleep. He denies any chest pain at this time. He denies any swelling to his legs. He denies any wheezing. He is taking a "water pill" daily. TRAVEL OUTSIDE OF THE [place] IN LAST 30 DAYS: No - Related Data Allergies/Adverse Reactions: adhesive [Adhesive] Adverse Reaction (Severe, Verified 06/10/16 09:16) Blisters Past Medical History - General Information source: Patient - Social History Smoking Status: Never Smoker Family History: CAD, Other - Past Medical History Cardiac Medical History: Reports: Hx Congestive Heart Failure, Hx Heart Attack - 2014 Bypass sugery, Hx Hypercholesterolemia, Hx Hypertension Denies: Hx Coronary Artery Disease Pulmonary Medical History: Reports: Hx Respiratory Failure Denies: Hx Asthma, Hx Bronchitis, Hx COPD, Hx Pneumonia Neurological Medical History: Denies: Hx Cerebrovascular Accident, Hx Seizures Endocrine Medical History: Reports: Hx Diabetes Mellitus Type 2 GI Medical History: Reports: Hx Gastroesophageal Reflux Disease Musculoskeltal Medical History: Denies Hx Arthritis Psychiatric Medical History: Denies: Hx Depression Past Surgical History: Reports: Hx Cardiac Surgery - bypass, Hx Coronary Artery Bypass Graft, Hx Oral Surgery - Immunizations Hx Diphtheria, Pertussis, Tetanus Vaccination: Yes Hx Pneumococcal Vaccination: 02/11/12 Review of Systems - Review of Systems Constitutional: No symptoms reported EENT: No symptoms reported Cardiovascular: No symptoms reported Respiratory: See HPI Gastrointestinal: No symptoms reported Genitourinary: No symptoms reported Male Genitourinary: No symptoms reported Musculoskeletal: No symptoms reported Skin: No symptoms reported Hematologic/Lymphatic: No symptoms reported Neurological/Psychological: No symptoms reported Physical Exam - Vital signs Vitals: Pulse Ox 95 09/23/16 04:07 - Notes Notes: PHYSICAL EXAMINATION: GENERAL: respiratory distress, working hard to breathe HEAD: Atraumatic, normocephalic. EYES: Pupils equal round and reactive to light, extraocular movements intact, sclera anicteric, conjunctiva are normal. ENT: airway patent NECK: Normal range of motion, supple without lymphadenopathy LUNGS: rales throughout, No wheezes or rhonchi. HEART: Regular rate and rhythm without murmurs ABDOMEN: Soft, no tenderness. No guarding, no rebound EXTREMITIES: Normal range of motion, no pitting edema. No cyanosis. NEUROLOGICAL: Cranial nerves grossly intact. Normal sensory/motor exams. PSYCH: Normal mood, normal affect. SKIN: Warm, Dry, normal turgor, no rashes or lesions noted Course - Re-evaluation Re-evalutation: 09/23/16 05:55 pt has mild-moderate CHF exacerbation with congestion on x ray. lasix 40 IV given. pt on bipap, tolerating well, feels better, pH is 7.35 on ABG and pO2 and pCO2 are fine. Dr. Velázquez, pt's pcp agrees to admit to [facility] at this time. labwork pending. 09/23/16 06:31 troponin normal, BNP 1800. - Vital Signs Vital signs: Temp Pulse Resp BP Pulse Ox 20 141/86 H 100 09/23/16 06:16 09/23/16 06:16 09/23/16 06:16 - Laboratory Result Diagrams: 09/23/16 04:45 09/23/16 04:45 Laboratory results interpreted by me: 09/23/16 09/23/16 09/23/16 04:25 04:45 04:45 ABG pO2 112.1 H ABG Total CO2 21.9 L BUN 40 H Creatinine 1.96 H Est GFR ( Amer) 41 L Est GFR (Non-Af Amer) 34 L Glucose 206 H Direct Bilirubin 0.6 H Creatine Kinase 54 L NT-Pro-B Natriuret Pep 1800 H Total Protein 8.4 H Discharge - Discharge Clinical Impression: CHF exacerbation Qualifiers: Congestive heart failure type: unspecified congestive heart failure type Qualified Code(s): I50.9 - Heart failure, unspecified Condition: Fair Disposition: ADMITTED INPATIENT Admitting Provider: Eber Unit Admitted: [facility]
[2016-09-23 05:11] LABS: ALANINE AMINOTRANSFERASE 22 U/L (21-72); ALBUMIN 4.4 g/dL (3.5-5.0); ALKALINE PHOSPHATASE 106 U/L (38-126); ANION GAP 12 (5-19); ASPARTATE AMINO TRANSFERASE 40 U/L (17-59); BILIRUBIN,DIRECT 0.6 mg/dL (0.0-0.4); BILIRUBIN,TOTAL 1.1 mg/dL (0.2-1.3); BLOOD UREA NITROGEN 40 mg/dL (7-20); CALCIUM 9.3 mg/dL (8.4-10.2); CARBON DIOXIDE 23 mmol/L (22-30); CHLORIDE 107 mmol/L (98-107); CREATINE KINASE 54 U/L (55-170); CREATININE RESULT 1.96 mg/dL (0.52-1.25); GLUCOSE 206 mg/dL (75-110); POTASSIUM 4.5 mmol/L (3.6-5.0); SODIUM 141.5 mmol/L (137-145); TOTAL PROTEIN 8.4 g/dL (6.3-8.2)
[2016-09-23 05:23] LABS: CREATINE KINASE MB 1.05 ng/mL (<4.55); TROPONIN I < 0.012 ng/mL
[2016-09-23] MEDS ORDERED: ACETAMINOPHEN 325 MG TABLET PO PRN (07:18)
[2016-09-23] MEDS ORDERED: IPRATROPIUM/ALBUTEROL 0.5-2.5 MG/3 ML AMPUL NEB PRN (07:18)
[2016-09-23] MEDS ORDERED: DEXTROSE 40% GEL 15 GM TUBE PO PRN ×2 (07:22)
[2016-09-23] MEDS ORDERED: GLUCAGON,HUMAN RECOMB 1 MG INJ IM PRN (07:22)
[2016-09-23] MEDS ORDERED: DEXTROSE 50%-WATER 25 GM/50 ML DISP.SYRIN IV PRN ×2 (07:22)
--- NOTE | 2016-09-23 07:52 | EKG REPORT ---
SEVERITY:- ABNORMAL ECG - SINUS RHYTHM FIRST DEGREE AV BLOCK PROBABLE LEFT ATRIAL ABNORMALITY CONSIDER ANTERIOR INFARCT NONSPECIFIC ST-T CHANGES LATERAL LEADS. : Confirmed by: Chapin Shaw MD 23-Sep-2016 07:52:11
[2016-09-23] MEDS: INSULIN LISPRO 100 UNIT/ML 3 ML VIAL SUBCUT PRN ×3 (08:16→22:24)
[2016-09-23 08:45] LABS: ABSOLUTE EOSINOPHILS # (AUTO) 0.1 10^3/uL (0.0-0.6); ABSOLUTE LYMPHOCYTES (AUTO) 1.1 10^3/uL (0.5-4.7); ABSOLUTE MONOCYTES (AUTO) 0.5 10^3/uL (0.1-1.4); ABSOLUTE NEUT (AUTO) 7.2 10^3/uL (1.7-8.2); BASOPHILS % (AUTO) 0.4 % (0-2); EOSINOPHILS % (AUTO) 0.9 % (0-6); HEMATOCRIT 37.5 % (37.9-51.0); HEMOGLOBIN 12.6 g/dL (13.5-17.0); HGB HCT DIFFERENCE 0.3; LYMPHOCYTES % (AUTO) 12.2 % (13-45); MEAN CORPUSCULAR HEMOGLOBIN 30.4 pg (27.0-33.4); MEAN CORPUSCULAR HGB CONC 33.6 g/dL (32.0-36.0); MEAN CORPUSCULAR VOLUME 90 fl (80-97); RED BLOOD COUNT 4.16 10^6/uL (4.35-5.55); SEGMENTED NEUTROPHILS % (AUTO) 80.5 % (42-78); WHITE BLOOD COUNT 8.9 10^3/uL (4.0-10.5)
--- NOTE | 2016-09-23 12:40 | PDOC H&P ---
History of Present Illness Admission Date/PCP: 09/23/16 07:18 FOX BIRD MD Patient complains of: Shortness of the breath History of Present Illness: RONNIE MELGAR is a 71 year old male This 71-year-old male with a significant history of flash pulmonary edema and a several hospital admissions with the history of the congestive heart failureAnd a coronary disease and a chronic kidney disease with the multiple other comorbidityCame to the emergency department with the complaint of shortness of the breath at night and called the EMS and the ER patients pretty much all stable except patient was some mild CHF patient initially put on the BiPAPBut patient's finasteride doing much better compared to the before hospital admissions. Patient's denied any chest pain denied any shortness of the breath Patient also see a cardiology and nephrology as outpatient Patients denied any chest pain denied any cough Past Medical History Cardiac Medical History: Reports: Congestive Heart Failure, Myocardial Infarction - 2013 Bypass sugery, Hyperlipidema, Hypertension Denies: Coronary Artery Disease Pulmonary Medical History: Reports: Respiratory Failure Denies: Asthma, Bronchitis, Chronic Obstructive Pulmonary Disease (COPD), Pneumonia Neurological Medical History: Denies: Seizures Endocrine Medical History: Reports: Diabetes Mellitus Type 2 GI Medical History: Reports: Gastroesophageal Reflux Disease Musculoskeltal Medical History: Denies: Arthritis Psychiatric Medical History: Denies: Depression Hematology: Denies: Anemia Past Surgical History Past Surgical History: Reports: Coronary Artery Bypass Graft Social History Smoking Status: Former Smoker Last Time Smoked: 1991 Frequency of Alcohol Use: None Hx Recreational Drug Use: No Drugs: None Hx Prescription Drug Abuse: No - Advance Directive Resuscitation Status: Full Code Family History Family History: Reviewed & Not Pertinent, CAD, Other Parental Family History Reviewed: Yes Children Family History Reviewed: Yes Sibling(s) Family History Reviewed.: Yes Medication/Allergy Home Medications: Apixaban [Eliquis 2.5 mg Tablet] 2.5 mg PO Q12 09/23/16 Aspirin [Aspirin EC] 81 mg PO DAILY 09/23/16 Brimonidine Tartrate/Timolol [Combigan 0.2%-0.5% Eye Drops] 1 drop OU BID Carvedilol [Coreg 3.125 mg Tablet] 3.125 mg PO Q12 09/23/16 Docusate Sodium [Colace 100 mg Capsule] 100 mg PO DAILY 09/23/16 Insulin Aspart [Novolog Flexpen] 10 unit SQ MEALS 09/23/16 Insulin Glargine,Hum.rec.anlog [Lantus Solostar] 30 unit SQ QHS 09/23/16 Ranolazine [Ranexa 500 mg Tab.sr] 500 mg PO Q12 09/23/16 Torsemide [Demadex 20 mg Tablet] 10 mg PO QAM 09/23/16 Allergies/Adverse Reactions: adhesive [Adhesive] Adverse Reaction (Severe, Verified 06/10/16 09:16) Blisters Review of Systems Constitutional: ABSENT: chills, fever(s), headache(s), weight gain, weight loss Eyes: ABSENT: visual disturbances Ears: ABSENT: hearing changes Cardiovascular: PRESENT: dyspnea on exertion. ABSENT: chest pain, edema, orthropnea, palpitations Respiratory: PRESENT: dyspnea. ABSENT: cough, hemoptysis Gastrointestinal: ABSENT: abdominal pain, constipation, diarrhea, hematemesis, hematochezia, nausea, vomiting Genitourinary: ABSENT: dysuria, hematuria Musculoskeletal: ABSENT: joint swelling Integumentary: ABSENT: rash, wounds Neurological: ABSENT: abnormal gait, abnormal speech, confusion, dizziness, focal weakness, syncope Psychiatric: ABSENT: anxiety, depression, homidical ideation, suicidal ideation Endocrine: ABSENT: cold intolerance, heat intolerance, menstrual abnormalities, polydipsia, polyuria Hematologic/Lymphatic: ABSENT: easy bleeding, easy bruising, lymphadenopathy Physical Exam Vital Signs: Temp Pulse Resp BP Pulse Ox 98.0 F 96 18 118/67 100 09/23/16 11:21 09/23/16 11:22 09/23/16 11:22 09/23/16 11:21 09/23/16 11:22 General appearance: PRESENT: no acute distress, well-developed, well-nourished Head exam: PRESENT: atraumatic, normocephalic Eye exam: PRESENT: conjunctiva pink, EOMI, PERRLA. ABSENT: scleral icterus Ear exam: PRESENT: normal external ear exam Mouth exam: PRESENT: moist, tongue midline Neck exam: PRESENT: full ROM. ABSENT: carotid bruit, JVD, lymphadenopathy, thyromegaly Respiratory exam: PRESENT: clear to auscultation [place] Cardiovascular exam: PRESENT: RRR. ABSENT: diastolic murmur, rubs, systolic murmur Pulses: PRESENT: normal dorsalis pedis pul, +2 pedal pulses bilateral Vascular exam: PRESENT: normal capillary refill GI/Abdominal exam: PRESENT: normal bowel sounds, soft. ABSENT: distended, guarding, mass, organolmegaly, rebound, tenderness Rectal exam: PRESENT: deferred Extremities exam: ABSENT: pedal edema Neurological exam: PRESENT: alert, awake, oriented to person, oriented to place , oriented to time, oriented to situation, CN II-XII grossly intact. ABSENT: motor sensory deficit Psychiatric exam: PRESENT: appropriate affect, normal mood. ABSENT: homicidal ideation, suicidal ideation Skin exam: PRESENT: dry, intact, warm. ABSENT: cyanosis, rash Results Laboratory Results: 09/23/16 08:11 09/23/16 08:11 WBC 8.9 RBC 4.16 L Hgb 12.6 L Hct 37.5 L MCV 90 MCH 30.4 MCHC 33.6 RDW 14.0 Plt Count 143 L Seg Neutrophils % 80.5 H Lymphocytes % 12.2 L Monocytes % 6.0 Eosinophils % 0.9 Basophils % 0.4 Absolute Neutrophils 7.2 Absolute Lymphocytes 1.1 Absolute Monocytes 0.5 Absolute Eosinophils 0.1 Absolute Basophils 0.0 09/23/16 09/23/16 08:11 08:11 Creatine Kinase 50 L Troponin I 0.027 Impressions: Chest X-Ray 09/23/16 04:13 IMPRESSION: [id number] CHF pattern. Assessment & Plan - Diagnosis (1) Flash pulmonary edema Is this a current diagnosis for this admission?: YesPlan: Currently all resolved (2) Heart failure, systolic, with acute decompensation Is this a current diagnosis for this admission?: YesPlan: Currently stable continues to Lasix (3) Chronic kidney disease Qualifiers: Chronic kidney disease stage: stage 3 (moderate) Qualified Code(s): N18.3 - Chronic kidney disease, stage 3 (moderate) (4) Respiratory distress Is this a current diagnosis for this admission?: YesPlan: Continue monitor the kidney functions (5) CAD (coronary artery disease) of artery bypass graft Qualifiers: [place] vs. transplanted heart: unspecified whether [place] or transplanted heart Associated angina: without angina Qualified Code(s): I25.810 - Atherosclerosis of coronary artery bypass graft(s) without angina pectoris Is this a current diagnosis for this admission?: YesPlan: Will do the serial cardiac enzymes and consult the cardiology (6) Diabetes mellitus Qualifiers: Diabetes mellitus type: type 2 Diabetes mellitus complication status: with ophthalmic complications Diabetic retinopathy severity: with unspecified retinopathy severity Is this a current diagnosis for this admission?: YesPlan: Continues current medication (7) Hypertension Qualifiers: Hypertension type: essential hypertension Qualified Code(s): I10 - Essential (primary) hypertension Is this a current diagnosis for this admission?: YesPlan: Stable - Time Time Spent: 30 to 50 Minutes Medications reviewed and adjusted accordingly: Yes Anticipated discharge: Home Within: within 24 hours - Inpatient Certification Medical Necessity: Need Close Monitoring Due to Risk of Patient Decompensation Post Hospital Care: D/C Methods Study Analyst Documentation - Plan Summary Plan Summary: Admit the patient in IMCU see the MD orders
[2016-09-23] MEDS ORDERED: FUROSEMIDE INJ/PF 40 MG/4 ML SDV IV SCH ×3 (14:00→22:00)
--- NOTE | 2016-09-23 15:37 | CONSULTATION REPORT E ---
Consultation Report NAME: RONNIE MELGAR : 1945 AGE: 71Y DATE: 09/23/2016 ROOM: 307 A TO: JOSE A MCKEON M.D. FROM: TORSTEN BIRD M.D. Requesting Physician REASON FOR CONSULTATION: Acute onset of congestive heart failure. HISTORY: The patient is a moderately obese male with a known history of coronary artery disease, history of ND, history of coronary artery bypass graft surgery, history of congestive heart failure, history of cardiomyopathy, history of hypertension, diabetes mellitus, and obstructive sleep apnea who states that he had sudden onset of shortness of breath yesterday, PND, orthopnea, and some leg edema. He denies any chest pain or palpitations. The patient could not sleep and hence came to the emergency room where he was given diuretics intravenously and oxygen, and the patient subsequently diuresed and now is feeling much better without any PND, orthopnea or leg edema. He denies any chest pain or discomfort. At present there is no shortness of breath. There is no TIA or CVA symptoms. The patient is on chronic anticoagulation therapy for suspected LV thrombus. PAST MEDICAL HISTORY: Positive for history of coronary artery disease. In July of 2013 the patient sustained a myocardial infarction and subsequently underwent coronary artery bypass graft surgery. He also has a history of multiple admissions for congestive heart failure, which is like a flash pulmonary event. His renal artery Dopplers were negative for renal artery stenosis. He has a history of cardiomyopathy with moderately reduced function; earlier it was 40%. His 09/06/16 LV Lexiscan Cardiolite stress test showed dilated ischemic cardiomyopathy with a left ventricular ejection fraction of 35%. There was a small area of reversible ischemia in the LV apex and there was an inferoapical infarct. His echocardiogram showed an LV ejection fraction of 30% with multiple wall motion abnormalities, [id number] mitral regurgitation, and mild tricuspid regurgitation. 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 He also has a history of paroxysmal atrial fibrillation. He has a history of diabetes mellitus but no thyroid disease. He also has a history of obstructive sleep apnea and also COPD and does use CPAP. He also has a history of hypertension. The patient has chronic kidney disease, stage 3. There is no history of anxiety or depression. PRIOR SURGICAL HISTORY: Positive for coronary artery disease for which he had coronary artery bypass graft surgery, cholecystectomy, cardiac catheterization in the past prior to coronary artery bypass graft surgery after the ND, and he has a history of stent placement. ALLERGIES: The patient has no known allergies except for ADHESIVE TAPE. CODE STATUS: THE PATIENT IS A FULL CODE. His is the surrogate healthcare decision maker. SOCIAL HISTORY: The patient does not smoke. He quit smoking a long time ago. There is no history of ETOH abuse. FAMILY HISTORY: Negative for coronary artery disease or sudden . REVIEW OF SYSTEMS: CONSTITUTIONAL: No history of fevers, chills or rigors. No history of fatigue or weakness. EYES: No history of amblyopia or diplopia. No history of amaurosis fugax. EARS: No history of hearing loss. No history of vertigo. No history of tinnitus. NOSE: No history of hay fever. No history of nose bleeds. No history of nasal polyps. MOUTH: No history of altered taste sensation. No history of ulcers in the mouth. No bleeding from the gums. THROAT: No odynophagia or dysphagia. No history of recurrent sore throats. SKIN: No history of skin rashes. No history of petechia or ecchymosis. No history of pruritus. No history of yellowish discoloration of the skin. No history of skin cancer. NECK: No enlarged lymph nodes. No history of goiter. No neck pain. LUNGS: No history of cough or wheezing. No sputum production. Note, the patient did have orthopnea and PND and also shortness of breath. CARDIAC: History of coronary artery disease, history of ND in the past, history of stent placement subsequently. Patient had coronary artery bypass graft surgery. History of moderately reduced cardiomyopathy with LV ejection fraction of 35%. History of multiple episodes of congestive heart failure with flash pulmonary edema, and the patient's renal artery Dopplers are negative for renal artery stenosis. He has a history of hypertension. Recent symptoms of PND and orthopnea. He states that his blood pressure was not high when he had the symptoms of sudden onset of shortness of breath. He has a history of paroxysmal atrial fibrillation. No recent symptoms of palpitations. He has some mild leg edema which has now resolved. No history of syncope. History of LV clot with no peripheral embolization. Patient on anticoagulation. CENTRAL NERVOUS SYSTEM: No history of TIA or CVA. History of sleep apnea, on CPAP. No history of headaches, migraines or seizures. ENDOCRINE: No history of thyroid disease. The patient has a history of diabetes mellitus, type 2, with renal complications. No history of polydipsia or polyuria. No history of heat or cold intolerance. GASTROINTESTINAL: Past history of cholelithiasis without cholecystitis, status post cholecystectomy. No history of fatty food intolerance. No history of GI bleed. No history of jaundice. The patient in the past had abnormal liver function tests. The patient was on a statin as well as amiodarone, which have been stopped. No history of altered bowel movements. RENAL: History of chronic kidney disease, stage 3. No history of symptoms of UTI. No history of hematuria, pyuria or dysuria. No symptoms of enlarged prostate. PSYCHIATRIC: No history of anxiety or depression. No history of suicidal ideation. No history of homicidal ideation. MUSCULOSKELETAL: Denies any history of arthritis or collagen-vascular disease. METABOLIC: History of hyperlipidemia. No history of gout. History of obesity present. VASCULAR: No history of calf or buttock claudication. No history of DVT. HEMATOLOGICAL: No history of bleeding diathesis. No history of clotting disorders. MEDICATIONS: 1. Tylenol 650 mg p.o. every 4 hours p.r.n. 2. Albuterol nebulizer treatment 2.5 mg x1. 3. He is on Eliquis 2.5 mg p.o. every 12 hours. 4. Aspirin 81 mg p.o. daily. 5. He is on Alphagan 0.2% ophthalmic solution 1 drop both eyes b.i.d. 6. He is on timolol (Timoptic) 1 drop both eyes every 12 hours. 7. He is on Coreg 3.125 mg p.o. every 12 hours. 8. He is on hypoglycemic precautions with glucose 40% gel 15 g and 30 g p.o. p.r.n. hypoglycemia. 9. He is on dextrose 50% 12.5 g and 25 g IV p.r.n. hypoglycemia. 10. He is on Colace 100 mg p.o. daily. 11. He is on Lasix 40 mg IV x1 and 20 mg IV every 12 hours. 12. He is on Glucagon 1 mg IM p.r.n. 13. He did get magnesium sulfate 1 g IV piggyback x1. 14. He is on Lantus insulin 30 units subcutaneously at bedtime. 15. He is on Accu-Cheks before meals, t.i.d. and at bedtime with sliding scale regular insulin coverage. 16. He is on insulin lispro 10 units subcutaneously with meals. 17. He is on ipratropium/albuterol 3 mL nebulizer treatment every 6 hours p.r.n. 18. He is on methylprednisolone 125 mg intravenously x1. 19. He is on Ranexa 500 mg p.o. every 12 hours. PHYSICAL EXAMINATION: GENERAL: The patient is moderately obese, at present in no acute distress. He is able to lie down flat without any symptoms. VITAL SIGNS: He is afebrile with a temperature of 98 degrees Fahrenheit. Pulse is 58 beats per minute. Blood pressure 118/67. Respirations are 20 per minute. O2 sats *------*. HEENT: Head - Atraumatic, normocephalic. Eyes - Pupils are equal, round, regular, reactive to light and accommodation. Extraocular movements are normal. There is no conjunctival pallor. There is no scleral icterus. Ears - Tympanic membranes are intact. External auditory canals are clear. Nose - There is no deviated nasal septum. There is no inflammation of the nasal mucous membranes. Mouth - Mucous membranes of the mouth are moist. Tongue is moist. There are no ulcers. There is no bleeding from the gums. Throat - There is no redness of the oropharynx. There are no exudates in the throat. SKIN: There are no skin rashes. There is no petechia or ecchymosis. There are no skin lesions. NECK: Supple. There is no JVD. Carotids are equal. There is no bruit. There is no goiter. Trachea is central. LUNGS: Show diminished air entry, prolonged excursion on auscultation, without any rhonchi, rales or wheezing. On palpation, there is no chest wall tenderness. On percussion, there is hyperresonance. Note, there are no rales of CHF at present. HEART: S1 and S2 is heard. There is no S3 gallop. There is no S4 gallop. There is a systolic murmur at the left sternal border and the apex. There is no rub. ABDOMEN: Soft, nontender. There is no hepatosplenomegaly. Bowel sounds are well heard. There are no tender areas or masses. EXTREMITIES: Femorals are diminished. There are no femoral bruits. There is at present no pedal edema. Leg pulses are diminished. There is no DVT or cellulitis. There is no calf tenderness. There is no cyanosis or clubbing. CENTRAL NERVOUS SYSTEM: The patient is conscious, awake, alert, oriented x3 with no focal deficits. PSYCHIATRIC: The patient does not appear to be anxious or depressed. His judgement and insight are intact. His affect is normal. DIAGNOSTICS: The patient's white count is 8900, hemoglobin is 12.6, hematocrit is 37.5, and his platelet count is 143,000. The patient's cardiac enzymes are negative x2. The patient's sodium is 141.5, potassium 4.5, chloride 107, CO2 is 23. The patient's BUN is 40, creatinine is 1.96, and his GFR is reduced at 34, which is chronic kidney disease, stage 3. His glucose is 206. His liver function tests are now normal, except for slightly elevated direct bilirubin of 0.6. His NT-proBNP is 1800. His albumin is 4.4, total protein is 8.4. His lactic acid is 1.1. His glucose is 197. His ABG shows a pH of 7.35, PCO2 is 38.2, PO2 is 112.1, his O2 sats are *------* on an FIO2 of 40%. The patient's EKG shows sinus rhythm, first-degree AV block, probable left atrial abnormality, old anterior infarct, nonspecific ST/T changes in lateral leads. The patient's chest x-ray shows [id number] CHF pattern with cardiomegaly. IMPRESSION: 1. Acute on chronic systolic heart failure, at present compensated, seems more like a flash pulmonary edema, although there are some signs of right heart failure also. 2. Coronary artery disease, stable with no anginal symptoms. 3. Cardiomyopathy with moderately reduced LV systolic function, at present compensated. No evidence of heart failure at present. The heart failure on admission has resolved. 4. Chronic kidney disease, stage 3. 5. Hypertension. 6. Diabetes mellitus. 7. COPD. 8. Hyperlipidemia. 9. Obstructive sleep apnea, wearing CPAP at night. 10. Paroxysmal atrial fibrillation, now in sinus rhythm. 11. Mild obesity. 12. History of suspected LV thrombus. Patient is on anticoagulation. 13. Chronic systolic heart failure with moderately reduced LV ejection fraction. RECOMMENDATIONS: Continue current treatment. The patient is stable. Will follow the patient. Discussed the patient's stress test and echocardiogram with the patient. The patient will be followed up in the office with referral at his tertiary center of choice for an AICD since the patient meets the MADIT II criteria. Note, the patient was seen at 11:20 a.m. Forty minutes were spent on the patient, more than 50% of the time spent in direct patient care. His medications have been reviewed and discussed with the attending physician on the case. Note, complex medical decision making involved in this case in view of the necessity for AICD referral and also continuing the patient's current medication. The patient's cardiac status is stable. The patient has had multiple admissions for this flash pulmonary edema/congestive heart failure. We will follow the patient up in the office. Will sign off the case. Discussed with Dr. Torsten Bird. In view of the patient's blood pressure being 118 and the patient's renal failure, we will try a very small dose of hydralazine. Note, hydralazine has been added. DICTATING PHYSICIAN: JOSE A MCKEON M.D. [id number] PHY#: [id number] ID: [id number] JOB#: [id number] ACCT: [id number] cc:JOSE A MCKEON M.D. >
[2016-09-23] MEDS ORDERED: (PENDING PHARMACY ID) (Insulin Aspart [Novolog Flexpen] 10 UNIT) SQ SCH (17:00)
[2016-09-23] MEDS: FUROSEMIDE INJ/PF 20 MG/2 ML SDV IV SCH (17:43)
[2016-09-23] MEDS: INSULIN LISPRO 100 UNIT/ML 3 ML VIAL SUBCUT SCH (17:46)
[2016-09-23] MEDS ORDERED: TIMOLOL MALEATE 0.5% OPH SOLN 5 ML OU SCH (18:00)
[2016-09-23] MEDS ORDERED: BRIMONIDINE TARTRATE 0.2% OPH SOLN 5 ML OU SCH ×2 (18:00)
[2016-09-23] MEDS: HYDRALAZINE HCL 10 MG TABLET PO SCH (21:29)
[2016-09-23] MEDS ORDERED: INSULIN GLARGINE,HUM.REC.ANLOG 300 UNIT/3 ML INSULN.PEN SUBCUT SCH (22:00)
[2016-09-23] MEDS ORDERED: APIXABAN 2.5 MG TABLET PO SCH (22:00)
[2016-09-23] MEDS ORDERED: RANOLAZINE 500 MG TAB.SR.12H PO SCH (22:00)
[2016-09-23] MEDS ORDERED: CARVEDILOL 3.125 MG TABLET PO SCH (22:00)
[2016-09-24 04:56] LABS: ABSOLUTE EOSINOPHILS # (AUTO) 0.2 10^3/uL (0.0-0.6); ABSOLUTE LYMPHOCYTES (AUTO) 1.1 10^3/uL (0.5-4.7); ABSOLUTE MONOCYTES (AUTO) 0.5 10^3/uL (0.1-1.4); ABSOLUTE NEUT (AUTO) 3.2 10^3/uL (1.7-8.2); BASOPHILS % (AUTO) 0.7 % (0-2); EOSINOPHILS % (AUTO) 4.6 % (0-6); HEMATOCRIT 32.8 % (37.9-51.0); HEMOGLOBIN 11.4 g/dL (13.5-17.0); HGB HCT DIFFERENCE 1.4; LYMPHOCYTES % (AUTO) 21.9 % (13-45); MEAN CORPUSCULAR HEMOGLOBIN 30.9 pg (27.0-33.4); MEAN CORPUSCULAR HGB CONC 34.6 g/dL (32.0-36.0); MEAN CORPUSCULAR VOLUME 89 fl (80-97); MONOCYTES % (AUTO) 10.3 % (3-13); RED BLOOD COUNT 3.67 10^6/uL (4.35-5.55); RED CELL DISTRIBUTION WIDTH 13.9 % (11.5-14.0); SEGMENTED NEUTROPHILS % (AUTO) 62.5 % (42-78); WHITE BLOOD COUNT 5.2 10^3/uL (4.0-10.5)
[2016-09-24 05:14] LABS: ANION GAP 12 (5-19); BLOOD UREA NITROGEN 43 mg/dL (7-20); CARBON DIOXIDE 22 mmol/L (22-30); CHLORIDE 106 mmol/L (98-107); CREATININE RESULT 1.56 mg/dL (0.52-1.25); GLUCOSE 117 mg/dL (75-110); SODIUM 140.2 mmol/L (137-145)
[2016-09-24] MEDS: FUROSEMIDE INJ/PF 20 MG/2 ML SDV IV SCH (05:53)
[2016-09-24] MEDS: HYDRALAZINE HCL 10 MG TABLET PO SCH (05:57)
[2016-09-24] MEDS: INSULIN LISPRO 100 UNIT/ML 3 ML VIAL SUBCUT SCH (08:04)
--- NOTE | 2016-09-24 08:26 | RADIOLOGY REPORT (SQ) ---
EXAM DESCRIPTION: CHEST PA/LAT COMPLETED DATE/TIME: 09/24/2016 7:40 am REASON FOR STUDY: chf COMPARISON: 06/11/2016 TECHNIQUE: Frontal and lateral radiographic views of the chest acquired. NUMBER OF VIEWS: Two view. LIMITATIONS: None. FINDINGS: LUNGS AND PLEURA: No opacities, masses or pneumothorax. No pleural effusion. MEDIASTINUM AND HILAR STRUCTURES: Stable operative changes. HEART AND VASCULAR STRUCTURES: Heart normal size. No evidence for failure. BONES: No acute findings. HARDWARE: Wire sutures mediastinum OTHER: No other significant finding. IMPRESSION: Nothing acute. TECHNICAL DOCUMENTATION: JOB ID: [id number] [employer]- All Rights Reserved
[2016-09-24 08:42] VITALS: BP 127/71
[2016-09-24] MEDS ORDERED: ASPIRIN 81 MG TABLET, ENT COATED PO SCH (10:00)
[2016-09-24] MEDS ORDERED: DOCUSATE SODIUM 100 MG CAPSULE PO SCH (10:00)
--- NOTE | 2016-09-24 12:20 | PDOC DISCHARGE SUMMARY ---
General - Admit/Disc Date/PCP Admission Date/Primary Care Provider: 09/23/16 07:18 FOX BIRD MD Discharge Date: 09/24/16 - Discharge Diagnosis (1) Flash pulmonary edema Is this a current diagnosis for this admission?: YesSummary: Currently all resolved (2) Heart failure, systolic, with acute decompensation Is this a current diagnosis for this admission?: YesSummary: Continues to current medications as per discussed with the Dr. Zarate increase the torsemide 20 mg (3) Chronic kidney disease Summary: Creatinine is 1.43 normally run between 1.6-1.7Patient also see her Dr. Grant as outpatient (4) Respiratory distress Is this a current diagnosis for this admission?: YesSummary: Due to the flash pulmonary edema currently all resolved (5) CAD (coronary artery disease) of artery bypass graft Is this a current diagnosis for this admission?: YesSummary: Negative for any acute coronary syndrome (6) Diabetes mellitus Is this a current diagnosis for this admission?: YesSummary: Continues current medication (7) Hypertension Is this a current diagnosis for this admission?: YesSummary: Currently all stable - Additional Information Resuscitation Status: Full Code Discharge Diet: Cardiac, Diabetic Discharge Activity: Activity As Tolerated, Balance Activity w/Rest, Weigh Daily Home Medications: Apixaban [Eliquis 2.5 mg Tablet] 2.5 mg PO Q12 09/23/16 Aspirin [Aspirin EC] 81 mg PO DAILY 09/23/16 Brimonidine Tartrate/Timolol [Combigan 0.2%-0.5% Eye Drops] 1 drop OU BID Carvedilol [Coreg 3.125 mg Tablet] 3.125 mg PO Q12 09/23/16 Docusate Sodium [Colace 100 mg Capsule] 100 mg PO DAILY 09/23/16 Insulin Aspart [Novolog Flexpen] 10 unit SQ MEALS 09/23/16 Insulin Glargine,Hum.rec.anlog [Lantus Solostar] 30 unit SQ QHS 09/23/16 Ranolazine [Ranexa 500 mg Tab.sr] 500 mg PO Q12 09/23/16 Torsemide [Demadex 20 mg Tablet] 20 mg PO QAM #0 09/24/16 History of Present Illness History of Present Illness: RONNIE MELGAR is a 71 year old male This 71-year-old male with a significant history of flash pulmonary edema and a several hospital admissions with the history of the congestive heart failureAnd a coronary disease and a chronic kidney disease with the multiple other comorbidityCame to the emergency department with the complaint of shortness of the breath at night and called the EMS and the ER patients pretty much all stable except patient was some mild CHF patient initially put on the BiPAPBut patient's finasteride doing much better compared to the before hospital admissions. Patient's denied any chest pain denied any shortness of the breath Patient also see a cardiology and nephrology as outpatient Patients denied any chest pain denied any cough Hospital Course Hospital Course: This is a 71-year-old male present in the emergency department with the complaint of shortness of the breath and the flash pulmonary edema patient was giving IV Lasix and put on a BiPAPAnd patient's response very well patient initial chest x-ray so the congestive heart failure and a repeat chest x-ray is all resolved patient's back to the normal patient seen by the cardiology and all stable and increased the torsemide 20 mg. Patient otherwise p.o. intake is good patient's move in the hallway without any problems and patient's discharge home with the stable condition and a follow as outpatient Physical Exam Vital Signs: Temp Pulse Resp BP Pulse Ox 98.0 F 75 20 152/84 H 98 09/24/16 08:32 09/24/16 08:32 09/24/16 08:32 09/24/16 08:32 09/24/16 08:32 Intake & Output 09/23/16 09/24/16 09/25/16 06:59 06:59 06:59 Intake Total 1288 Output Total 1975 Balance -687 Weight 110 kg General appearance: PRESENT: no acute distress, well-developed, well-nourished Head exam: PRESENT: atraumatic, normocephalic Eye exam: PRESENT: conjunctiva pink, EOMI, PERRLA. ABSENT: scleral icterus Ear exam: PRESENT: normal external ear exam Mouth exam: PRESENT: moist, tongue midline Neck exam: PRESENT: full ROM. ABSENT: carotid bruit, JVD, lymphadenopathy, thyromegaly Respiratory exam: PRESENT: clear to auscultation margarita Cardiovascular exam: PRESENT: RRR. ABSENT: diastolic murmur, rubs, systolic murmur Pulses: PRESENT: normal dorsalis pedis pul, +2 pedal pulses bilateral Vascular exam: PRESENT: normal capillary refill GI/Abdominal exam: PRESENT: normal bowel sounds, soft. ABSENT: distended, guarding, mass, organolmegaly, rebound, tenderness Rectal exam: PRESENT: deferred Neurological exam: PRESENT: alert, awake, oriented to person, oriented to place , oriented to time, oriented to situation, CN II-XII grossly intact. ABSENT: motor sensory deficit Psychiatric exam: PRESENT: appropriate affect, normal mood. ABSENT: homicidal ideation, suicidal ideation Skin exam: PRESENT: dry, intact, warm. ABSENT: cyanosis, rash Results Laboratory Results: 09/24/16 04:37 09/24/16 04:37 09/24/16 09/24/16 04:37 04:37 WBC 5.2 RBC 3.67 L Hgb 11.4 L Hct 32.8 L MCV 89 MCH 30.9 MCHC 34.6 RDW 13.9 Plt Count 124 L Seg Neutrophils % 62.5 Lymphocytes % 21.9 Monocytes % 10.3 Eosinophils % 4.6 Basophils % 0.7 Absolute Neutrophils 3.2 Absolute Lymphocytes 1.1 Absolute Monocytes 0.5 Absolute Eosinophils 0.2 Absolute Basophils 0.0 Sodium 140.2 Potassium 4.0 Chloride 106 Carbon Dioxide 22 Anion Gap 12 BUN 43 H Creatinine 1.56 H Est GFR ( Amer) 54 L Est GFR (Non-Af Amer) 44 L Glucose 117 H Calcium 9.0 09/23/16 09/23/16 09/23/16 08:11 08:11 15:45 Creatine Kinase 50 L 45 L Troponin I 0.027 NT-Pro-B Natriuret Pep 09/23/16 09/23/16 09/23/16 15:45 20:40 20:40 Creatine Kinase 42 L Troponin I 0.037 0.031 NT-Pro-B Natriuret Pep 09/24/16 04:37 Creatine Kinase Troponin I NT-Pro-B Natriuret Pep 2540 H Impressions: Chest X-Ray 09/24/16 06:00 IMPRESSION: Nothing acute. Plan Time Spent: Greater than 30 Minutes - Following office in 1 week repeat the Chem -7 and continues to see the Dr. seth next week
== END 2016-09-24 09:28 | disposition home or self-care (01) | DRG 291 ==
LOC: ER 04:05 → EH 05:36 → UNDOADMIN 05:36 → 3N 06:58 → EH 06:58 → 3N 07:18
PROVIDERS: ADMIT Family Medicine; ATTEND Family Medicine
DX: I13.0 Hypertensive heart and chronic kidney disease with heart failure and stage 1 through stage 4 chronic kidney disease, or unspecified chronic kidney disease (principal); I50.23 Acute on chronic systolic (congestive) heart failure; E11.22 Type 2 diabetes mellitus with diabetic chronic kidney disease; N18.3 Chronic kidney disease, stage 3 (moderate); I25.5 Ischemic cardiomyopathy; I48.0 Paroxysmal atrial fibrillation; J44.9 Chronic obstructive pulmonary disease, unspecified; E78.5 Hyperlipidemia, unspecified; G47.33 Obstructive sleep apnea (adult) (pediatric); I25.10 Atherosclerotic heart disease of native coronary artery without angina pectoris; Z79.4 Long term (current) use of insulin; Z79.02 Long term (current) use of antithrombotics/antiplatelets; Z79.82 Long term (current) use of aspirin; Z79.899 Other long term (current) drug therapy; Z95.1 Presence of aortocoronary bypass graft; I25.2 Old myocardial infarction; Z87.891 Personal history of nicotine dependence; Z95.5 Presence of coronary angioplasty implant and graft; E66.9 Obesity, unspecified; Z68.36 Body mass index [BMI] 36.0-36.9, adult
CPT/HCPCS: 36415; 36600; 71010; 71020; 80048; 80053; 82550; 82553; 82803; 82962; 83605; 83880; 84484; 85025; 93005; 93010; 94660; 96365; 96375; 99291; J1815; J1940; J3475; J3490

== ENCOUNTER → 2017-01-06 | Outpatient (CLI) | payer MEDICARE, OTHER ==
--- NOTE | 2017-01-06 11:29 | RADIOLOGY REPORT (SQ) ---
April EXAM DESCRIPTION: U/S ABDOMEN LIMITED W/O DOP COMPLETED DATE/TIME: 01/06/2017 10:41 am REASON FOR STUDY: K76.0 FATTY (CHANGE OF) LIVER, NOT ELSEWHERE CLASSIFIED R16.0 HEPATOMEGALY, K76.0 FATTY (CHANGE OF) LIVER, NOT ELSEWHERE CLASSIFIED R16.0 HEPATOMEGALY, NOT ELSEWHERE CLASSIFIED COMPARISON: 2015 TECHNIQUE: Dynamic and static grayscale images acquired of the abdomen and recorded on PACS. Additio nal selected color Doppler and spectral images recorded. LIMITATIONS: None. FINDINGS: PANCREAS: No masses. Visualized pancreatic duct normal caliber. LIVER: 20 cm. Diffusely echogenic. LIVER VASCULATURE: Normal directional flow of the main portal vein and hepatic veins. GALLBLADDER: Surgically absent. ULTRASOUND-DETECTED BRADSHAW'S SIGN: Not applicable. INTRAHEPATIC DUCTS AND COMMON DUCT: CBD and intrahepatic ducts normal caliber. No filling defects. INFERIOR VENA CAVA: Normal flow. AORTA: No aneurysm. RIGHT KIDNEY: Normal size, 10 cm. Normal echogenicity. No solid or suspicious masses. Small upper p ole cyst. No hydronephrosis. No calcifications. PERITONEAL AND RIGHT PLEURAL SPACE: No ascites or effusions. OTHER: No other significant findings. IMPRESSION: Hepatomegaly with fatty infiltration of the liver. Status postcholecystectomy. No duct al dilatation. TECHNICAL DOCUMENTATION: JOB ID: [id number] [employer]- All Rights Reserved
== END ==
LOC: RAD 09:42
PROVIDERS: ATTEND Internal Medicine Gastroenterology
DX: K76.0 Fatty (change of) liver, not elsewhere classified (principal); R16.0 Hepatomegaly, not elsewhere classified
CPT/HCPCS: 76705

== ENCOUNTER → 2017-02-25 | Outpatient (CLI) | payer MEDICARE, OTHER ==
[2017-02-25 15:03] LABS: HEMATOCRIT 35.6 % (37.9-51.0); HEMOGLOBIN 12.2 g/dL (13.5-17.0); MEAN CORPUSCULAR HEMOGLOBIN 29.9 pg (27.0-33.4); MEAN CORPUSCULAR HGB CONC 34.1 g/dL (32.0-36.0); MEAN CORPUSCULAR VOLUME 88 fl (80-97); PLATELET COUNT 139 10^3/uL (150-450); RED BLOOD COUNT 4.07 10^6/uL (4.35-5.55); RED CELL DISTRIBUTION WIDTH 13.2 % (11.5-14.0); WHITE BLOOD COUNT 7.9 10^3/uL (4.0-10.5)
[2017-02-25 15:30] LABS: ANION GAP 16 (5-19); BLOOD UREA NITROGEN 42 mg/dL (7-20); CALCIUM 10.2 mg/dL (8.4-10.2); CARBON DIOXIDE 25 mmol/L (22-30); CHLORIDE 103 mmol/L (98-107); GLUCOSE 120 mg/dL (75-110); POTASSIUM 4.9 mmol/L (3.6-5.0); SODIUM 143.5 mmol/L (137-145)
== END ==
LOC: OD 14:22
PROVIDERS: ATTEND Internal Medicine Nephrology
DX: E11.22 Type 2 diabetes mellitus with diabetic chronic kidney disease (principal); I12.9 Hypertensive chronic kidney disease with stage 1 through stage 4 chronic kidney disease, or unspecified chronic kidney disease; N18.3 Chronic kidney disease, stage 3 (moderate); E87.5 Hyperkalemia
CPT/HCPCS: 36415; 80048; 85027

== ENCOUNTER 2017-03-05 08:52 | Inpatient (IN) | payer MEDICARE, OTHER ==
[2017-03-05] MEDS ORDERED: ASPIRIN 81 MG TABLET, CHEWABLE PO ONE (08:58)
[2017-03-05 09:19] LABS: ABSOLUTE BASOPHILS # (AUTO) 0.1 10^3/uL (0.0-0.2); ABSOLUTE EOSINOPHILS # (AUTO) 0.5 10^3/uL (0.0-0.6); ABSOLUTE MONOCYTES (AUTO) 0.7 10^3/uL (0.1-1.4); ABSOLUTE NEUT (AUTO) 7.1 10^3/uL (1.7-8.2); BASOPHILS % (AUTO) 0.5 % (0-2); EOSINOPHILS % (AUTO) 4.5 % (0-6); HEMATOCRIT 38.1 % (37.9-51.0); HEMOGLOBIN 12.6 g/dL (13.5-17.0); LYMPHOCYTES % (AUTO) 26.4 % (13-45); MEAN CORPUSCULAR HEMOGLOBIN 29.8 pg (27.0-33.4); MEAN CORPUSCULAR HGB CONC 33.1 g/dL (32.0-36.0); MEAN CORPUSCULAR VOLUME 90 fl (80-97); MONOCYTES % (AUTO) 6.4 % (3-13); PLATELET COUNT 182 10^3/uL (150-450); RED BLOOD COUNT 4.23 10^6/uL (4.35-5.55); RED CELL DISTRIBUTION WIDTH 13.3 % (11.5-14.0); SEGMENTED NEUTROPHILS % (AUTO) 62.2 % (42-78); TOTAL CELLS COUNTED % (AUTO) 100 %; WHITE BLOOD COUNT 11.5 10^3/uL (4.0-10.5)
--- NOTE | 2017-03-05 09:44 | RADIOLOGY REPORT (SQ) ---
EXAM DESCRIPTION: CHEST SINGLE VIEW COMPLETED DATE/TIME: 03/05/2017 9:35 am REASON FOR STUDY: sob COMPARISON: Chest films 06/07/2015, 06/10/2016, 07/13/2016, 09/24/2016 EXAM PARAMETERS: NUMBER OF VIEWS: One view. TECHNIQUE: Single frontal radiographic view of the chest acquired. RADIATION DOSE: NA LIMITATIONS: Lordotic AP portable chest film, large patient FINDINGS: LUNGS AND PLEURA: There are Navdeep lines at both bases from mild interstitial edema. Trac e pleural effusions could not be excluded. No fluffy alveolar infiltrates worrisome for primary cecilia r pulmonary edema or pneumonia. No pneumothorax. MEDIASTINUM AND HILAR STRUCTURES: No masses. Contour normal. HEART AND VASCULAR STRUCTURES: Heart size accentuated by lordotic technique. Old sternotomy for CABG BONES: No acute findings. HARDWARE: Left-sided dual lead pacemaker OTHER: No other significant finding. IMPRESSION: Interstitial edema with Navdeep lines at both bases. Trace pleural effusions may be pres ent TECHNICAL DOCUMENTATION: JOB ID: [id number] [employer]- All Rights Reserved
[2017-03-05 09:45] LABS: ALANINE AMINOTRANSFERASE 16 U/L (21-72); ALBUMIN 4.8 g/dL (3.5-5.0); ALKALINE PHOSPHATASE 91 U/L (38-126); ANION GAP 13 (5-19); ASPARTATE AMINO TRANSFERASE 33 U/L (17-59); BILIRUBIN,DIRECT 0.5 mg/dL (0.0-0.4); BLOOD UREA NITROGEN 39 mg/dL (7-20); CALCIUM 9.8 mg/dL (8.4-10.2); CARBON DIOXIDE 21 mmol/L (22-30); CHLORIDE 107 mmol/L (98-107); CREATINE KINASE 77 U/L (55-170); GLUCOSE 300 mg/dL (75-110); SODIUM 141.1 mmol/L (137-145); TOTAL PROTEIN 8.7 g/dL (6.3-8.2)
[2017-03-05] MEDS ORDERED: FUROSEMIDE INJ/PF 40 MG/4 ML SDV IV ONE ×2 (09:48→12:04)
[2017-03-05 09:58] LABS: CREATINE KINASE MB 1.15 ng/mL (<4.55)
[2017-03-05 10:00] LABS: TROPONIN I 0.035 ng/mL
[2017-03-05 11:10] LABS: VENOUS BLOOD BASE EXCESS -0.8 mmol/L; VENOUS BLOOD HCO3 27.7 mmol/L (20-32); VENOUS BLOOD PCO2 64.1 mmHg (35-63); VENOUS BLOOD PH 7.25 (7.30-7.42)
[2017-03-05] MEDS ORDERED: ACETAMINOPHEN 325 MG TABLET PO PRN (11:37)
[2017-03-05] MEDS ORDERED: IPRATROPIUM/ALBUTEROL 0.5-2.5 MG/3 ML AMPUL NEB PRN (11:37)
[2017-03-05 13:12] LABS: CREATINE KINASE MB 1.14 ng/mL (<4.55)
[2017-03-05 13:16] LABS: TROPONIN I 0.035 ng/mL
[2017-03-05] MEDS: FUROSEMIDE INJ/PF 40 MG/4 ML SDV IV SCH ×2 (14:44→22:59)
[2017-03-05] MEDS ORDERED: DEXTROSE 40% GEL 15 GM TUBE PO PRN ×3 (15:10→15:19)
[2017-03-05] MEDS ORDERED: GLUCAGON,HUMAN RECOMB 1 MG INJ IM PRN ×2 (15:10→15:19)
[2017-03-05] MEDS ORDERED: DEXTROSE 50%-WATER 25 GM/50 ML DISP.SYRIN IV PRN ×2 (15:10)
[2017-03-05] MEDS ORDERED: INSULIN LISPRO 100 UNIT/ML 3 ML VIAL SUBCUT PRN (15:10)
--- NOTE | 2017-03-05 15:11 | PDOC H&P ---
History of Present Illness Admission Date/PCP: Mckinley GRANT MD Patient complains of: Shortness of the breath History of Present Illness: RONNIE MELGAR is a 72 year old male This is a 72-year-old male presenting the emergency department with a complaint of difficulty in breathing since last 24 hours Initially patient was in a mild respiratory distress and patient was put on the BiPAP and currently doing fair and give IV Lasix 40 mg which produced a more than half little of the fluid Patient was significant history of the congestive heart failure with a several hospital admissions for the first pulmonary edema and respiratory distress Patient also have a chronic kidney disease currently see a Dr. Grant and patient also see a Dr. Zarate for a cardiology standpoint Past Medical History Cardiac Medical History: Reports: Congestive Heart Failure, Myocardial Infarction - 2013 Bypass sugery, Hyperlipidema, Hypertension Denies: Coronary Artery Disease Pulmonary Medical History: Reports: Respiratory Failure Denies: Asthma, Bronchitis, Chronic Obstructive Pulmonary Disease (COPD), Pneumonia Neurological Medical History: Denies: Seizures Endocrine Medical History: Reports: Diabetes Mellitus Type 2 Renal/ Medical History: Reports: Chronic Kidney Disease GI Medical History: Reports: Gastroesophageal Reflux Disease Musculoskeltal Medical History: Denies: Arthritis Psychiatric Medical History: Denies: Depression Hematology: Denies: Anemia Past Surgical History Past Surgical History: Reports: Cholecystectomy, Coronary Artery Bypass Graft Social History Smoking Status: Never Smoker Frequency of Alcohol Use: None Hx Recreational Drug Use: No Drugs: None Hx Prescription Drug Abuse: No Family History Family History: Reviewed & Not Pertinent, CAD, Other Parental Family History Reviewed: Yes Children Family History Reviewed: Yes Sibling(s) Family History Reviewed.: Yes Medication/Allergy Home Medications: Apixaban [Eliquis 2.5 mg Tablet] 2.5 mg PO Q12 09/23/16 Aspirin [Aspirin EC] 81 mg PO DAILY 09/23/16 Brimonidine Tartrate/Timolol [Combigan 0.2%-0.5% Eye Drops] 1 drop OU BID Carvedilol [Coreg 3.125 mg Tablet] 3.125 mg PO Q12 09/23/16 Docusate Sodium [Colace 100 mg Capsule] 100 mg PO DAILY 09/23/16 Insulin Aspart [Novolog Flexpen] 10 unit SQ MEALS 09/23/16 Insulin Glargine,Hum.rec.anlog [Lantus Solostar] 30 unit SQ QHS 09/23/16 Ranolazine [Ranexa 500 mg Tab.sr] 500 mg PO Q12 09/23/16 Torsemide [Demadex 20 mg Tablet] 20 mg PO QAM #0 09/24/16 Allergies/Adverse Reactions: adhesive [Adhesive] Adverse Reaction (Severe, Verified 03/05/17 08:54) Blisters Review of Systems All systems: as per H Constitutional: ABSENT: chills, fever(s), headache(s), weight gain, weight loss Eyes: ABSENT: visual disturbances Ears: ABSENT: hearing changes Cardiovascular: PRESENT: dyspnea on exertion. ABSENT: chest pain, edema, orthropnea, palpitations Respiratory: PRESENT: dyspnea. ABSENT: cough, hemoptysis Gastrointestinal: ABSENT: abdominal pain, constipation, diarrhea, hematemesis, hematochezia, nausea, vomiting Genitourinary: ABSENT: dysuria, hematuria Musculoskeletal: ABSENT: joint swelling Integumentary: ABSENT: rash, wounds Neurological: ABSENT: abnormal gait, abnormal speech, confusion, dizziness, focal weakness, syncope Psychiatric: ABSENT: anxiety, depression, homidical ideation, suicidal ideation Endocrine: ABSENT: cold intolerance, heat intolerance, menstrual abnormalities, polydipsia, polyuria Hematologic/Lymphatic: ABSENT: easy bleeding, easy bruising, lymphadenopathy Physical Exam Vital Signs: Temp Pulse Resp BP Pulse Ox 26 H 141/89 H 100 03/05/17 11:01 03/05/17 11:01 03/05/17 11:01 Intake & Output 03/04/17 03/05/17 03/06/17 06:59 06:59 06:59 Weight 121.109 kg General appearance: PRESENT: mild distress, well-developed, well-nourished Head exam: PRESENT: atraumatic, normocephalic Eye exam: PRESENT: conjunctiva pink, EOMI, PERRLA. ABSENT: scleral icterus Ear exam: PRESENT: normal external ear exam Mouth exam: PRESENT: moist, tongue midline Neck exam: PRESENT: full ROM. ABSENT: carotid bruit, JVD, lymphadenopathy, thyromegaly Respiratory exam: PRESENT: decreased breath sounds Cardiovascular exam: PRESENT: RRR. ABSENT: diastolic murmur, rubs, systolic murmur Pulses: PRESENT: normal dorsalis pedis pul, +2 pedal pulses bilateral Vascular exam: PRESENT: normal capillary refill GI/Abdominal exam: PRESENT: normal bowel sounds, soft. ABSENT: distended, guarding, mass, organolmegaly, rebound, tenderness Rectal exam: PRESENT: deferred Extremities exam: ABSENT: full ROM, left AKA, right AKA, left BKA, right BKA, calf tenderness, joint swelling, pedal edema, tenderness, other Neurological exam: PRESENT: alert, awake, oriented to person, oriented to place , oriented to time, oriented to situation, CN II-XII grossly intact. ABSENT: motor sensory deficit Psychiatric exam: PRESENT: appropriate affect, normal mood. ABSENT: homicidal ideation, suicidal ideation Skin exam: PRESENT: dry, intact, warm. ABSENT: cyanosis, rash Results Laboratory Results: 03/05/17 09:07 03/05/17 09:07 03/05/17 03/05/17 03/05/17 09:07 09:07 10:47 WBC 11.5 H RBC 4.23 L Hgb 12.6 L Hct 38.1 MCV 90 MCH 29.8 MCHC 33.1 RDW 13.3 Plt Count 182 Seg Neutrophils % 62.2 Lymphocytes % 26.4 Monocytes % 6.4 Eosinophils % 4.5 Basophils % 0.5 Absolute Neutrophils 7.1 Absolute Lymphocytes 3.0 Absolute Monocytes 0.7 Absolute Eosinophils 0.5 Absolute Basophils 0.1 VBG pH 7.25 L VBG pCO2 64.1 H VBG HCO3 27.7 VBG Base Excess -0.8 Sodium 141.1 Potassium 5.0 Chloride 107 Carbon Dioxide 21 L Anion Gap 13 BUN 39 H Creatinine 1.89 H Est GFR ( Amer) 43 L Est GFR (Non-Af Amer) 35 L Glucose 300 H Calcium 9.8 Total Bilirubin 1.0 AST 33 ALT 16 L Alkaline Phosphatase 91 Total Protein 8.7 H Albumin 4.8 03/05/17 03/05/17 09:07 09:07 Creatine Kinase 77 CK-MB (CK-2) 1.15 Troponin I 0.035 NT-Pro-B Natriuret Pep 1950 H Impressions: Chest X-Ray 03/05/17 08:58 IMPRESSION: Interstitial edema with Navdeep lines at both bases. Trace pleural effusions may be present Assessment & Plan - Diagnosis (1) Acute respiratory failure with hypoxia and hypercapnia Is this a current diagnosis for this admission?: Yes Plan: Currently put the patient on a BiPAP most likely due to the flash pulmonary edema (2) CHF exacerbation Qualifiers: Congestive heart failure type: combined Qualified Code(s): I50.43 - Acute on chronic combined systolic (congestive) and diastolic (congestive) heart failure Is this a current diagnosis for this admission?: Yes Plan: Start the patient on IV Lasix consult the cardiology rule out acute coronary syndromes (3) Chronic kidney disease Qualifiers: Chronic kidney disease stage: stage 3 (moderate) Qualified Code(s): N18.3 - Chronic kidney disease, stage 3 (moderate) Is this a current diagnosis for this admission?: Yes Plan: She is currently see her Dr. Grant will continues to monitor the patient's kidney functions (4) Flash pulmonary edema Is this a current diagnosis for this admission?: Yes Plan: Patient's already produced 1/2 L of the fluid with 40 mg Lasix will another dose of the Lasix and continues to monitor the patient (5) CAD (coronary artery disease) of artery bypass graft Qualifiers: Associated angina: without angina Is this a current diagnosis for this admission?: Yes Plan: Will rule out acute coronary syndromes consult the cardiology (6) Diabetes mellitus Qualifiers: Diabetes mellitus type: type 2 Diabetes mellitus senior care insulin use: with senior care use Is this a current diagnosis for this admission?: Yes Plan: Continues a sliding scale (7) Hypertension Qualifiers: Hypertension type: essential hypertension Qualified Code(s): I10 - Essential (primary) hypertension Is this a current diagnosis for this admission?: Yes Plan: Continues to current medication (8) Obstructive sleep apnea Is this a current diagnosis for this admission?: Yes Plan: Continues use a CPAP at night (9) Chronic atrial fibrillation Is this a current diagnosis for this admission?: Yes Plan: Currently on Eliquis (10) COPD (chronic obstructive pulmonary disease) Qualifiers: COPD type: chronic bronchitis Is this a current diagnosis for this admission?: Yes Plan: Continues use the nebulizer treatments - Time Time Spent: 50 to 70 Minutes Medications reviewed and adjusted accordingly: Yes Anticipated discharge: Home Within: Other - Inpatient Certification Medical Necessity: Need Close Monitoring Due to Risk of Patient Decompensation Post Hospital Care: D/C Radioisotope Technician Documentation - Plan Summary Plan Summary: Admit the patient in IMCU put the patient on the BiPAP and IV Lasix consult the cardiology rule out acute coronary syndromes
[2017-03-05] MEDS ORDERED: DEXTROSE 50%-WATER SYRINGE 25 GM/50 ML DOSE IV PRN (15:19)
[2017-03-05] MEDS ORDERED: DEXTROSE 50%-WATER SYRINGE 12.5 GM/25 ML DOSE IV PRN (15:19)
[2017-03-05] MEDS ORDERED: DEXTROSE 40% GEL 15 GM TUBE X 2 PO PRN (15:19)
--- NOTE | 2017-03-05 15:39 | ER Document Report ---
ED General - General Chief Complaint: Breathing Difficulty Stated Complaint: BREATHING DIFFICULTY Time Seen by Provider: 03/05/17 08:57 TRAVEL OUTSIDE OF THE [place] IN LAST 30 DAYS: No - HPI Patient complains to provider of: Difficulty breathing Notes: Patient coming in for evaluation of difficulty breathing patient has a history of CHF recently traveled from [place] to the area currently has been alkaline for approximately 1 week. Upon evaluation patient states shortness of breath acutely started approximate 20 minutes prior to his arrival. Patient denies any chest pain fevers chills nausea vomiting diarrhea. Patient states compliant with medications. Patient is diaphoretic and cold upon my evaluation quickly transitioned the patient to BiPAP - Related Data Allergies/Adverse Reactions: adhesive [Adhesive] Adverse Reaction (Severe, Verified 03/05/17 08:54) Blisters Past Medical History - Social History Smoking Status: Never Smoker Chew tobacco use (# tins/day): No Frequency of alcohol use: None Drug Abuse: None Family History: Reviewed & Not Pertinent, CAD, Other Patient has suicidal ideation: No Patient has homicidal ideation: No - Past Medical History Cardiac Medical History: Reports: Hx Congestive Heart Failure, Hx Heart Attack - 2013 Bypass sugery, Hx Hypercholesterolemia, Hx Hypertension Denies: Hx Coronary Artery Disease Pulmonary Medical History: Reports: Hx Respiratory Failure Denies: Hx Asthma, Hx Bronchitis, Hx COPD, Hx Pneumonia Neurological Medical History: Denies: Hx Cerebrovascular Accident, Hx Seizures Endocrine Medical History: Reports: Hx Diabetes Mellitus Type 2 Renal/ Medical History: Denies: Hx Peritoneal Dialysis GI Medical History: Reports: Hx Gastroesophageal Reflux Disease Musculoskeltal Medical History: Denies Hx Arthritis Psychiatric Medical History: Denies: Hx Depression Past Surgical History: Reports: Hx Cardiac Surgery - bypass, pacemaker placed 2016, Hx Cholecystectomy, Hx Coronary Artery Bypass Graft, Hx Oral Surgery - Immunizations Hx Diphtheria, Pertussis, Tetanus Vaccination: Yes History of Pneumococcal Vaccine: Yes Hx Pneumococcal Vaccination: 07/11/13 Review of Systems - Review of Systems Constitutional: No symptoms reported EENT: No symptoms reported Cardiovascular: No symptoms reported Respiratory: Short of breath Gastrointestinal: No symptoms reported Genitourinary: No symptoms reported Male Genitourinary: No symptoms reported Musculoskeletal: No symptoms reported Skin: No symptoms reported Hematologic/Lymphatic: No symptoms reported Neurological/Psychological: No symptoms reported -: Yes All other systems reviewed and negative Physical Exam - Vital signs Vitals: Pulse Ox 98 03/05/17 09:00 Interpretation: Normal - General General appearance: Other - Pale diaphoretic In distress: Moderate - HEENT Head: Normocephalic, Atraumatic Eyes: Normal Conjunctiva: Normal Cornea: Normal Pupils: PERRL - Respiratory Respiratory status: Respiratory distress Chest status: Nontender Breath sounds: Rales Chest palpation: Normal - Cardiovascular Rhythm: Regular Heart sounds: Normal auscultation Murmur: No - Abdominal Inspection: Normal Distension: No distension Bowel sounds: Normal Tenderness: Nontender Organomegaly: No organomegaly - Back Back: Normal, Nontender - Extremities General upper extremity: Normal inspection, Nontender, Normal color, Normal ROM , Normal temperature General lower extremity: Normal inspection, Nontender, Normal color, Normal ROM , Normal temperature, Normal weight bearing. No: Juan's sign - Neurological Neuro grossly intact: Yes Cognition: Normal Orientation: AAOx4 Annemarie Coma Scale Eye Opening: Spontaneous [place] Coma Scale Verbal: Oriented [place] Coma Scale Motor: Obeys Commands [place] Coma Scale Total: 15 Speech: Normal Motor strength normal: LUE, RUE, LLE, RLE Sensory: Normal - Psychological Associated symptoms: Normal affect, Normal mood - Skin Skin Temperature: Cool Skin Moisture: Dry Skin Color: Pale Course - Re-evaluation Re-evalutation: 03/05/17 15:38 Patient with a CHF exacerbation more likely pulmonary edema/pulmonary edema. Patient with improvement after BiPAP and Lasix. Patient's case was discussed with the PCP agrees to admission IMCU. - Vital Signs Vital signs: Temp Pulse Resp BP Pulse Ox 98.2 F 17 134/86 H 100 03/05/17 14:01 03/05/17 14:01 03/05/17 14:01 03/05/17 14:40 - Laboratory Result Diagrams: 03/05/17 09:07 03/05/17 09:07 Laboratory results interpreted by me: 03/05/17 03/05/17 03/05/17 09:07 09:07 09:07 WBC 11.5 H RBC 4.23 L Hgb 12.6 L VBG pH VBG pCO2 Carbon Dioxide 21 L BUN 39 H Creatinine 1.89 H Est GFR ( Amer) 43 L Est GFR (Non-Af Amer) 35 L Glucose 300 H Direct Bilirubin 0.5 H ALT 16 L NT-Pro-B Natriuret Pep 1950 H Total Protein 8.7 H TSH 03/05/17 03/05/17 09:07 10:47 WBC RBC Hgb VBG pH 7.25 L VBG pCO2 64.1 H Carbon Dioxide BUN Creatinine Est GFR ( Amer) Est GFR (Non-Af Amer) Glucose Direct Bilirubin ALT NT-Pro-B Natriuret Pep Total Protein TSH 6.06 H Critical Care Note - Critical Care Note Total time excluding time spent on procedures (mins): 35 Comments: Multiple evaluations for CHF exacerbation requiring BiPAP
[2017-03-05] MEDS: APIXABAN 5 MG TABLET PO SCH (18:09)
[2017-03-05 18:35] LABS: CREATINE KINASE MB 1.18 ng/mL (<4.55); TROPONIN I 0.05 ng/mL
--- NOTE | 2017-03-05 19:44 | PDOC CONSULTATION ---
Consultation Consult Date: 03/05/17 Attending physician:: FOX BIRD Consult reason:: Shortness of breath History of Present Illness Admission Date/PCP: 03/05/17 12:16 Mckinley GRANT MD Patient complains of: Shortness of breath History of Present Illness: RONNIE MELGAR is a 72 year old male This is a 72-year-old male presenting the emergency department with a complaint of difficulty in breathing since last 24 hours Initially patient was in a mild respiratory distress and patient was put on the BiPAP and currently doing fair and give IV Lasix 40 mg which produced a more than half litre of the fluid Patient was significant history of the congestive heart failure with a several hospital admissions for the first pulmonary edema and respiratory distress Patient also have a chronic kidney disease currently see a Dr. Grant and patient also see a Dr. Zarate for a cardiology standpoint. I have been asked to evaluate patient because of history of CHF and frequent admissions. This history was reviewed and confirmed. Patient on questioning denied any chest pain. Patient denied any sustained palpitations, recent syncope or near syncope. Past Medical History Cardiac Medical History: Reports: Congestive Heart Failure, Myocardial Infarction - 2013 Bypass sugery, Hyperlipidema, Hypertension Denies: Coronary Artery Disease Pulmonary Medical History: Reports: Respiratory Failure Denies: Asthma, Bronchitis, Chronic Obstructive Pulmonary Disease (COPD), Pneumonia Neurological Medical History: Denies: Seizures Endocrine Medical History: Reports: Diabetes Mellitus Type 2 Renal/ Medical History: Reports: Chronic Kidney Disease GI Medical History: Reports: Gastroesophageal Reflux Disease Musculoskeltal Medical History: Denies: Arthritis Psychiatric Medical History: Denies: Depression Hematology: Denies: Anemia Past Surgical History Past Surgical History: Reports: Cholecystectomy, Coronary Artery Bypass Graft Social History Information Source: Patient Smoking Status: Never Smoker Last Time Smoked: 20 years ago Frequency of Alcohol Use: None Hx Recreational Drug Use: No Drugs: None Hx Prescription Drug Abuse: No - Advance Directive Resuscitation Status: Full Code Family History Family History: Reviewed & Not Pertinent, CAD, Other Parental Family History Reviewed: Yes Children Family History Reviewed: Yes Sibling(s) Family History Reviewed.: Yes Medication/Allergy Home Medications: Apixaban [Eliquis 5 mg Tablet] 5 mg PO BID 03/05/17 Aspirin [Aspirin 81 mg Chewable Tablet] 81 mg PO DAILY 03/05/17 Atorvastatin Calcium [Lipitor 20 mg Tablet] 10 mg PO DAILY 03/05/17 Carvedilol [Coreg 3.125 mg Tablet] 3.125 mg PO Q12 03/05/17 Insulin Aspart [Novolog Flexpen] 0 unit SUBCUT .SLD SCALE 03/05/17 Insulin Glargine,Hum.rec.anlog [Lantus Solostar] 30 unit SQ DAILY 03/05/17 Losartan Potassium [Cozaar 25 mg Tablet] 25 mg PO DAILY 03/05/17 Ranolazine [Ranexa 500 mg Tab.sr] 500 mg PO Q12 03/05/17 Torsemide [Demadex 20 mg Tablet] 20 mg PO DAILY 03/05/17 Allergies/Adverse Reactions: adhesive [Adhesive] Adverse Reaction (Severe, Verified 03/05/17 08:54) Blisters Review of Systems Review of Systems: Please see history of present illness and past medical history as wall. Constitutional: No fever or chills reported. Head : No recent chronic headaches, recent head injury. Eyes: No recent eye pain, diplopia, redness, discharge, acute visual changes. Ears: No recent chronic ear pain, acute hearing loss, ear discharge. Oral cavity: No recent ulcerations, bleeding, oral cavity discomfort. Neck: No recent acute neck pain reported. Hematologic: No recent easy bruising or bleeding or hematologic malignancy reported. Lymphatic: No recent lymphatic malignancy, chronic lymphadenopathy reported yet Cardiovascular system review: See history of present illness. Respiratory system review: Positive for progressive shortness of breath. Denies hemoptysis, blood clots in the lungs reported. Mild Shortness of breath on exertion Gastrointestinal system review: Negative for any recent acute or chronic abdominal pain, hematemesis, melena, recent change in bowel habits. Genitourinary system review: No recent acute or chronic hematuria, flank pain, UTI etc. reported. Skin system review: Negative for any recent abnormal bruising, no rash, no pruritus reported. Neurologic: No prior history of strokes, mini strokes, seizure disorder. Psychologic: No history of major psychosis or major depression reported. Musculoskeletal: Minor aches and pains reported. No acute joint swelling reported. Endocrine: No recent polyuria, polydipsia, recent heat or cold intolerance. Physical Exam Vital Signs: Temp Pulse Resp BP Pulse Ox 98.6 F 69 16 125/73 100 03/05/17 15:57 03/05/17 15:57 03/05/17 15:57 03/05/17 15:57 03/05/17 15:57 Intake & Output 03/04/17 03/05/17 03/06/17 06:59 06:59 06:59 Intake Total 20 Output Total 650 Balance -630 Weight 115.5 kg Exam: GENERAL: well-nourished and in no acute distress. Alert and oriented x3 HEAD: Atraumatic, normocephalic. EYES: Pupils equal round and reactive to light, extraocular movements intact, sclera anicteric, conjunctiva are normal. ENT: TMs normal, nares patent, oropharynx clear without exudates. Moist mucous membranes. No oral ulcerations or bleeding gums noted NECK: supple without lymphadenopathy. Trachea is central. No cervical or axillary lymphadenopathy noted. Carotids are 2+, JVD WNL LUNGS: Respiration seems nonlabored, no significant accessory muscle action noted. Breath sounds clear to auscultation bilaterally and equal noted. No wheezes rales or rhonchi noted. No significant dullness noted on percussion. CHEST: Palpation of the chest wall shows no significant chest wall tenderness. No other significant abnormalities noted. 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 ABDOMEN: Soft, no significant tenderness appreciated, normoactive bowel sounds. No guarding, no rebound. No rigidity noted . No masses appreciated. EXTREMITIES: Pedal pulses are 1-2+, no calf tenderness noted. No clubbing or cyanosis.trace to 1+ pedal edema noted NEUROLOGICAL: Focused neurological exam showed no significant neurologic deficit. Normal speech, no focal weakness appreciated. PSYCH: Normal mood, normal affect. Judgment and insight within normal limits. SKIN: No significant ecchymosis, rash, ulcerations or signs of pruritus noted. MUSCULOSKELETAL EXAM: No significant joint swelling noted. Results Laboratory Results: 03/05/17 03/05/17 03/05/17 12:27 12:27 17:50 Creatine Kinase 65 59 CK-MB (CK-2) 1.14 Troponin I 0.035 03/05/17 17:50 Creatine Kinase CK-MB (CK-2) 1.18 Troponin I 0.050 EKG Comments: Sinus rhythm with frequent VPCs. No acute ST-T wave changes noted. Nonspecific IVCD noted. Impressions: Chest X-Ray 03/05/17 08:58 IMPRESSION: Interstitial edema with Navdeep lines at both bases. Trace pleural effusions may be present Assessment & Plan - Diagnosis (1) Congestive cardiac failure Qualifiers: Congestive heart failure type: combined (2) CAD (coronary artery disease) of artery bypass graft Qualifiers: Associated angina: without angina Is this a current diagnosis for this admission?: Yes (3) COPD (chronic obstructive pulmonary disease) Qualifiers: COPD type: chronic bronchitis Is this a current diagnosis for this admission?: Yes (4) Chronic kidney disease Qualifiers: Chronic kidney disease stage: stage 3 (moderate) Qualified Code(s): N18.3 - Chronic kidney disease, stage 3 (moderate) Is this a current diagnosis for this admission?: Yes (5) Diabetes mellitus Qualifiers: Diabetes mellitus type: type 2 Diabetes mellitus snf insulin use: with snf use Is this a current diagnosis for this admission?: Yes (6) Hypertension Qualifiers: Hypertension type: essential hypertension Qualified Code(s): I10 - Essential (primary) hypertension Is this a current diagnosis for this admission?: Yes (7) Paroxysmal atrial fibrillation Is this a current diagnosis for this admission?: No (8) Cardiac pacemaker in situ Is this a current diagnosis for this admission?: No (9) Sleep apnea syndrome Qualifiers: Sleep apnea type: unspecified type Qualified Code(s): G47.30 - Sleep apnea , unspecified Is this a current diagnosis for this admission?: Yes - Notes Notes: Congestive heart failure: Patient noted to have significant cardiomegaly along with pulmonary venous congestion. BNP also elevated. Patient felt symptomatically better with IV Lasix and BiPAP therapy. Response suggest CHF. Continue IV diuretics. Chart review shows no recent echocardiogram in the last 2 years. Will go ahead and obtain that. CAD: Patient status post CABG. Currently stable without any angina. COPD: Continue bronchodilators, oxygen supplementation and other therapy as needed for this condition. Chronic kidney disease: Currently stable. Diabetes: Currently well managed by respiratory practitioner. Hypertension: Reasonably well controlled. Blood pressure goal in this patient is 135/85 or less. This was discussed with the patient. Currently blood pressure under reasonable control. Better medication for this patient are MAURICE inhibitor/ARB/beta veronica etc. discussed side effects of uncontrolled hypertension and also severe hypotension.. Pacemaker in situ: Currently patient not pacemaker dependent. Currently patient maintaining sinus rhythm. History of atrial fibrillation: Patient currently maintaining sinus rhythm with frequent PVCs. Continue Eliquis. Recommend beta veronica for rate control and also digoxin for rate control. Patient currently on small dose of amiodarone. Sleep apnea syndrome: Patient gives history of sleep apnea. He was supposed to see me as an outpatient. - Time Time Spent: 30 to 50 Minutes - CODE STATUS was discussed, patient remains full code. Surrogate decision-maker unchanged. Multiple medical problems were addressed. More than 50% of the time spent coordinating care, discussing management plans with involved caregivers. Management plans discussed with involved personnels. Medical decision making was of moderate to high complexity , patient's has multiple comorbidities. Medications reviewed and adjusted accordingly: Yes
[2017-03-05] MEDS: RANOLAZINE 500 MG TAB.SR.12H PO SCH (22:59)
[2017-03-05] MEDS: ATORVASTATIN CALCIUM 10 MG TABLET PO SCH (22:59)
[2017-03-05] MEDS: INSULIN REG, HUMAN 100 UNIT/ML 3 ML VIAL (PYX) SUBCUT PRN (22:59)
[2017-03-05] MEDS: CARVEDILOL 3.125 MG TABLET PO SCH (22:59)
[2017-03-06 00:26] LABS: CREATINE KINASE MB 1.48 ng/mL (<4.55); TROPONIN I 0.055 ng/mL
[2017-03-06 06:22] LABS: ABSOLUTE EOSINOPHILS # (AUTO) 0.3 10^3/uL (0.0-0.6); ABSOLUTE LYMPHOCYTES (AUTO) 1.3 10^3/uL (0.5-4.7); ABSOLUTE MONOCYTES (AUTO) 0.6 10^3/uL (0.1-1.4); BASOPHILS % (AUTO) 0.5 % (0-2); EOSINOPHILS % (AUTO) 3.9 % (0-6); HEMATOCRIT 32.4 % (37.9-51.0); HEMOGLOBIN 11.2 g/dL (13.5-17.0); LYMPHOCYTES % (AUTO) 17.5 % (13-45); MEAN CORPUSCULAR HEMOGLOBIN 30.2 pg (27.0-33.4); MEAN CORPUSCULAR HGB CONC 34.7 g/dL (32.0-36.0); MEAN CORPUSCULAR VOLUME 87 fl (80-97); MONOCYTES % (AUTO) 8.2 % (3-13); PLATELET COUNT 124 10^3/uL (150-450); RED BLOOD COUNT 3.71 10^6/uL (4.35-5.55); RED CELL DISTRIBUTION WIDTH 13.6 % (11.5-14.0); SEGMENTED NEUTROPHILS % (AUTO) 69.9 % (42-78); TOTAL CELLS COUNTED % (AUTO) 100 %; WHITE BLOOD COUNT 7.2 10^3/uL (4.0-10.5)
[2017-03-06] MEDS: FUROSEMIDE INJ/PF 40 MG/4 ML SDV IV SCH ×3 (06:35→21:45)
[2017-03-06 06:49] LABS: ALANINE AMINOTRANSFERASE 29 U/L (21-72); ALBUMIN 4.1 g/dL (3.5-5.0); ALKALINE PHOSPHATASE 65 U/L (38-126); ANION GAP 12 (5-19); ASPARTATE AMINO TRANSFERASE 20 U/L (17-59); BILIRUBIN,DIRECT 0.3 mg/dL (0.0-0.4); BLOOD UREA NITROGEN 48 mg/dL (7-20); CALCIUM 9.4 mg/dL (8.4-10.2); CARBON DIOXIDE 24 mmol/L (22-30); CHLORIDE 103 mmol/L (98-107); GLUCOSE 172 mg/dL (75-110); POTASSIUM 4.2 mmol/L (3.6-5.0); SODIUM 138.9 mmol/L (137-145)
--- NOTE | 2017-03-06 07:17 | PDOC PROGRESS REPORT ---
Subjective Progress Note for:: 03/06/17 Subjective:: Patient is feeling much better back to the baseline's he is denied any chest pain denied any shortness of the breath Since seen by the cardiology and suggest to continue simple medications order the echocardiogram Again noticed the patient was admitting the [facility] last month same reason and seen by the cardiology for the same purpose Reason For Visit: ACUTE CHF Physical Exam Vital Signs: Temp Pulse Resp BP Pulse Ox 98.5 F 71 16 117/63 100 03/06/17 03:51 03/06/17 05:50 03/06/17 03:51 03/06/17 05:50 03/06/17 03:51 Intake & Output 03/05/17 03/06/17 03/07/17 06:59 06:59 06:59 Intake Total 457 Output Total 2030 Balance -1573 Weight 114.4 kg General appearance: PRESENT: no acute distress, well-developed, well-nourished Head exam: PRESENT: atraumatic, normocephalic Eye exam: PRESENT: conjunctiva pink, EOMI, PERRLA. ABSENT: scleral icterus Ear exam: PRESENT: normal external ear exam Mouth exam: PRESENT: moist, tongue midline Neck exam: PRESENT: full ROM. ABSENT: carotid bruit, JVD, lymphadenopathy, thyromegaly Respiratory exam: PRESENT: clear to auscultation margarita Cardiovascular exam: PRESENT: RRR. ABSENT: diastolic murmur, rubs, systolic murmur Pulses: PRESENT: normal dorsalis pedis pul, +2 pedal pulses bilateral Vascular exam: PRESENT: normal capillary refill GI/Abdominal exam: PRESENT: normal bowel sounds, soft. ABSENT: distended, guarding, mass, organolmegaly, rebound, tenderness Rectal exam: PRESENT: deferred Extremities exam: ABSENT: pedal edema Musculoskeletal exam: PRESENT: ambulatory Neurological exam: PRESENT: alert, awake, oriented to person, oriented to place , oriented to time, oriented to situation, CN II-XII grossly intact. ABSENT: motor sensory deficit Psychiatric exam: PRESENT: appropriate affect, normal mood. ABSENT: homicidal ideation, suicidal ideation Skin exam: PRESENT: dry, intact, warm. ABSENT: cyanosis, rash Results Laboratory Results: 03/06/17 05:38 03/06/17 05:38 03/06/17 03/06/17 05:38 05:38 WBC 7.2 RBC 3.71 L Hgb 11.2 L Hct 32.4 L MCV 87 MCH 30.2 MCHC 34.7 RDW 13.6 Plt Count 124 L Seg Neutrophils % 69.9 Lymphocytes % 17.5 Monocytes % 8.2 Eosinophils % 3.9 Basophils % 0.5 Absolute Neutrophils 5.0 Absolute Lymphocytes 1.3 Absolute Monocytes 0.6 Absolute Eosinophils 0.3 Absolute Basophils 0.0 Sodium 138.9 Potassium 4.2 Chloride 103 Carbon Dioxide 24 Anion Gap 12 BUN 48 H Creatinine 1.90 H Est GFR ( Amer) 42 L Est GFR (Non-Af Amer) 35 L Glucose 172 H Calcium 9.4 Magnesium 2.0 Total Bilirubin 1.0 AST 20 ALT 29 Alkaline Phosphatase 65 Total Protein 7.0 Albumin 4.1 03/05/17 03/05/17 03/05/17 12:27 12:27 17:50 Creatine Kinase 65 59 CK-MB (CK-2) 1.14 Troponin I 0.035 NT-Pro-B Natriuret Pep 03/05/17 03/05/17 03/05/17 17:50 23:42 23:42 Creatine Kinase 67 CK-MB (CK-2) 1.18 1.48 Troponin I 0.050 0.055 NT-Pro-B Natriuret Pep 03/06/17 05:38 Creatine Kinase CK-MB (CK-2) Troponin I NT-Pro-B Natriuret Pep 3120 H Impressions: Chest X-Ray 03/05/17 08:58 IMPRESSION: Interstitial edema with Navdeep lines at both bases. Trace pleural effusions may be present Assessment & Plan - Diagnosis (1) Acute respiratory failure with hypoxia and hypercapnia Is this a current diagnosis for this admission?: Yes Plan: All resolved (2) CHF exacerbation Qualifiers: Congestive heart failure type: combined Qualified Code(s): I50.43 - Acute on chronic combined systolic (congestive) and diastolic (congestive) heart failure Is this a current diagnosis for this admission?: Yes Plan: Srinivasan Philippe (3) Chronic kidney disease Qualifiers: Chronic kidney disease stage: stage 3 (moderate) Qualified Code(s): N18.3 - Chronic kidney disease, stage 3 (moderate) Is this a current diagnosis for this admission?: Yes Plan: She is currently see her Dr. 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 insulin use: with truck terminal manager use Is this a current diagnosis for this admission?: Yes Plan: Continues a sliding scale (7) Hypertension Qualifiers: Hypertension type: essential hypertension Qualified Code(s): I10 - Essential (primary) hypertension Is this a current diagnosis for this admission?: Yes Plan: Continues to current medication (8) Obstructive sleep apnea Is this a current diagnosis for this admission?: Yes Plan: Continues use a CPAP at night (9) Chronic atrial fibrillation Is this a current diagnosis for this admission?: Yes Plan: Currently on Eliquis (10) COPD (chronic obstructive pulmonary disease) Qualifiers: COPD type: chronic bronchitis Is this a current diagnosis for this admission?: Yes Plan: Continues use the nebulizer treatments - Time Time Spent with patient: 15-24 minutes Medications reviewed and adjusted accordingly: Yes Anticipated discharge: Home Within: within 24 hours - Inpatient Certification Medical Necessity: Need Close Monitoring Due to Risk of Patient Decompensation Post Hospital Care: D/C Disc Jockey Documentation - Plan Summary Plan Summary: Currently doing well hopefully with the patient's remained stable we will switch IV to the p.o. diuretics and discharge home if is okay with the cardiology
[2017-03-06] MEDS: DOCUSATE SODIUM 100 MG CAPSULE PO SCH (09:08)
[2017-03-06] MEDS: RANOLAZINE 500 MG TAB.SR.12H PO SCH ×2 (09:09→21:45)
[2017-03-06] MEDS: CARVEDILOL 3.125 MG TABLET PO SCH ×2 (09:09→21:45)
[2017-03-06] MEDS: ASPIRIN 81 MG TABLET, CHEWABLE PO SCH (09:09)
[2017-03-06] MEDS: INSULIN GLARGINE,HUM.REC.ANLOG 300 UNIT/3 ML INSULN.PEN SUBCUT SCH (09:10)
[2017-03-06] MEDS: LOSARTAN POTASSIUM 25 MG TABLET PO SCH (09:10)
[2017-03-06] MEDS: APIXABAN 5 MG TABLET PO SCH ×2 (09:10→17:02)
--- NOTE | 2017-03-06 09:49 | RADIOLOGY REPORT (SQ) ---
EXAM DESCRIPTION: CHEST PA/LAT COMPLETED DATE/TIME: 03/06/2017 8:19 am REASON FOR STUDY: pulmonary edema COMPARISON: 03/05/2016. EXAM PARAMETERS: NUMBER OF VIEWS: two views TECHNIQUE: Digital Frontal and Lateral radiographic views of the chest acquired. RADIATION DOSE: NA LIMITATIONS: none FINDINGS: LUNGS AND PLEURA: Improved aeration, masses or pneumothorax. No pleural effusion. MEDIASTINUM AND HILAR STRUCTURES: No masses or contour abnormalities. HEART AND VASCULAR STRUCTURES: Heart normal size. No evidence for failure. BONES: No acute findings. HARDWARE: Sternotomy wires. Defibrillator. OTHER: No other significant finding. IMPRESSION: IMPROVED AERATION WITH DECREASE IN THE INTERSTITIAL EDEMA. TECHNICAL DOCUMENTATION: JOB ID: [id number] [employer]- All Rights Reserved
[2017-03-06] MEDS ORDERED: ATORVASTATIN CALCIUM 20 MG TABLET PO SCH (10:00)
[2017-03-06] MEDS ORDERED: TORSEMIDE 20 MG TABLET PO SCH (10:00)
--- NOTE | 2017-03-06 11:57 | EKG REPORT ---
SEVERITY:- ABNORMAL ECG - SINUS ARRHYTHMIA, RATE 77-108 MULTIFORM VENTRICULAR PREMATURE COMPLEXES FIRST DEGREE AV BLOCK NONSPECIFIC T ABNORMALITIES, LATERAL LEADS : Confirmed by: Tejas Cordova 06-Mar-2017 11:57:18
[2017-03-06] MEDS: INSULIN REG, HUMAN 100 UNIT/ML 3 ML VIAL (PYX) SUBCUT PRN ×3 (12:09→21:45)
--- NOTE | 2017-03-06 13:25 | PDOC CONSULTATION ---
Consultation Consult Date: 03/06/17 Consult reason:: acute on chronic kidney disease History of Present Illness Admission Date/PCP: 03/05/17 12:16 Mckinley GRANT MD History of Present Illness: RONNIE MELGAR is a 72 year old male This is a 72-year-old male with past history of CHF, pulmonary edema, respiratory distress and CKD 3. Followed by Dr. Zarate for his heart and followed by Dr. Grant for his kideny. He presenting the emergency department with a complaint of difficulty in breathing since last 24 hours. When he was on his way into [place] with son he started to feel short of breath. At that time he told his son that he need to go to the ER. During the week he had been having increase sob with exertion but never at rest. At the time did not have chest pain, a cough, fever or chills. He denied orthopnea or heart palpitations. In the ER he initially was in a mild respiratory distress and patient was put on the BiPAP and was doing fair. He was given IV Lasix 40 mg which produced a more than half litre of the fluid. He produced a total of 2 liters of urine yesterday. When labs were drawn they showed a creatinine of 1.8 from his baseline of 1.6 at last visit. At the time of his physical exam he was feeling much better and was no longer short of breath. Past Medical History Cardiac Medical History: Reports: Hyperlipidemia, Hypertension-primary, Myocardial Infarction - 2014 Bypass sugery Denies: Coronary Artery Disease Pulmonary Medical History: Reports: Respiratory Failure Denies: Asthma, Bronchitis, Chronic Obstructive Pulmonary Disease (COPD), Pneumonia Neurological Medical History: Denies: Seizures Endocrine Medical History: Reports: Diabetes Mellitus Type 2 Renal/ Medical History: Reports: Chronic Kidney Disease Stage III GI Medical History: Reports: Gastroesophageal Reflux Disease Musculoskeltal Medical History: Denies: Arthritis Psychiatric Medical History: Denies: Depression Past Surgical History Past Surgical History: Reports: Cholecystectomy, Coronary Artery Bypass Graft Social History Smoking Status: Never Smoker Last Time Smoked: 20 years ago Frequency of Alcohol Use: None Hx Recreational Drug Use: No Drugs: None Hx Prescription Drug Abuse: No - Advance Directive Resuscitation Status: Full Code Family History Parental Family History Reviewed: No Children Family History Reviewed: NA Sibling(s) Family History Reviewed.: NA Medication/Allergy Home Medications: Apixaban [Eliquis 5 mg Tablet] 5 mg PO BID 03/05/17 Aspirin [Aspirin 81 mg Chewable Tablet] 81 mg PO DAILY 03/05/17 Atorvastatin Calcium [Lipitor 20 mg Tablet] 10 mg PO DAILY 03/05/17 Carvedilol [Coreg 3.125 mg Tablet] 3.125 mg PO Q12 03/05/17 Insulin Aspart [Novolog Flexpen] 0 unit SUBCUT .SLD SCALE 03/05/17 Insulin Glargine,Hum.rec.anlog [Lantus Solostar] 30 unit SQ DAILY 03/05/17 Losartan Potassium [Cozaar 25 mg Tablet] 25 mg PO DAILY 03/05/17 Ranolazine [Ranexa 500 mg Tab.sr] 500 mg PO Q12 03/05/17 Torsemide [Demadex 20 mg Tablet] 20 mg PO DAILY 03/05/17 Allergies/Adverse Reactions: adhesive [Adhesive] Adverse Reaction (Severe, Verified 03/05/17 08:54) Blisters Review of Systems Constitutional: ABSENT: chills, fever(s), weakness Nose, Mouth, and Throat: ABSENT: sore throat Cardiovascular: PRESENT: dyspnea on exertion. ABSENT: chest pain, edema, orthropnea, palpitations Respiratory: PRESENT: dyspnea. ABSENT: cough, sputum Gastrointestinal: ABSENT: abdominal pain, constipation, diarrhea, nausea, vomiting Genitourinary: ABSENT: difficulty urinating, dysuria Musculoskeletal: ABSENT: joint swelling Neurological: ABSENT: weakness Physical Exam Vital Signs: Temp Pulse Resp BP Pulse Ox 98.0 F 79 16 128/72 H 99 03/06/17 11:04 03/06/17 11:04 03/06/17 11:04 03/06/17 11:04 03/06/17 11:04 Intake & Output 03/05/17 03/06/17 03/07/17 06:59 06:59 06:59 Intake Total 457 Output Total 2030 Balance -1573 Weight 114.4 kg General appearance: PRESENT: no acute distress, well-developed, well-nourished Neck exam: PRESENT: full ROM. ABSENT: JVD Respiratory exam: PRESENT: clear to auscultation margarita. ABSENT: accessory muscle use, crackles, rales, rhonchi, wheezes Cardiovascular exam: PRESENT: RRR, +S1, +S2 GI/Abdominal exam: PRESENT: soft. ABSENT: firm, guarding, mass, tenderness Extremities exam: PRESENT: pedal edema - -trace+. ABSENT: tenderness Musculoskeletal exam: PRESENT: normal inspection. ABSENT: tenderness Neurological exam: PRESENT: alert, awake, oriented to person, oriented to place , oriented to time, oriented to situation Psychiatric exam: PRESENT: appropriate affect, normal mood Skin exam: PRESENT: dry, intact, warm Results Laboratory Results: 03/06/17 05:38 03/06/17 05:38 03/06/17 03/06/17 05:38 05:38 WBC 7.2 RBC 3.71 L Hgb 11.2 L Hct 32.4 L MCV 87 MCH 30.2 MCHC 34.7 RDW 13.6 Plt Count 124 L Seg Neutrophils % 69.9 Lymphocytes % 17.5 Monocytes % 8.2 Eosinophils % 3.9 Basophils % 0.5 Absolute Neutrophils 5.0 Absolute Lymphocytes 1.3 Absolute Monocytes 0.6 Absolute Eosinophils 0.3 Absolute Basophils 0.0 Sodium 138.9 Potassium 4.2 Chloride 103 Carbon Dioxide 24 Anion Gap 12 BUN 48 H Creatinine 1.90 H Est GFR ( Amer) 42 L Est GFR (Non-Af Amer) 35 L Glucose 172 H Calcium 9.4 Magnesium 2.0 Total Bilirubin 1.0 AST 20 ALT 29 Alkaline Phosphatase 65 Total Protein 7.0 Albumin 4.1 03/05/17 03/05/17 03/05/17 12:27 12:27 17:50 Creatine Kinase 65 59 CK-MB (CK-2) 1.14 Troponin I 0.035 NT-Pro-B Natriuret Pep 03/05/17 03/05/17 03/05/17 17:50 23:42 23:42 Creatine Kinase 67 CK-MB (CK-2) 1.18 1.48 Troponin I 0.050 0.055 NT-Pro-B Natriuret Pep 03/06/17 05:38 Creatine Kinase CK-MB (CK-2) Troponin I NT-Pro-B Natriuret Pep 3120 H Impressions: Chest X-Ray 03/06/17 00:00 IMPRESSION: IMPROVED AERATION WITH DECREASE IN THE INTERSTITIAL EDEMA. Assessment & Plan - Diagnosis (1) Chronic kidney disease Qualifiers: Chronic kidney disease stage: stage 3 (moderate) Qualified Code(s): N18.3 - Chronic kidney disease, stage 3 (moderate) Is this a current diagnosis for this admission?: Yes Plan: Creatinine is about at baseline, just slightly elevated due to stress put on the kidneys from CHF. Does not look to be due to and infection or hypotension. He is urinating fine so it is not due to an obstruction. (2) CHF exacerbation Qualifiers: Congestive heart failure type: combined Qualified Code(s): I50.43 - Acute on chronic combined systolic (congestive) and diastolic (congestive) heart failure Is this a current diagnosis for this admission?: Yes Plan: looks to have resolved, switching form IV lasix to PO lasix. (3) Flash pulmonary edema Is this a current diagnosis for this admission?: Yes Plan: looks to have resolved (4) Hypertension Qualifiers: Hypertension type: essential hypertension Qualified Code(s): I10 - Essential (primary) hypertension Is this a current diagnosis for this admission?: Yes Plan: controlled on current blood pressure medications (5) Diabetes mellitus Qualifiers: Diabetes mellitus type: type 2 Diabetes mellitus buttermaker insulin use: with half-way use Is this a current diagnosis for this admission?: Yes (6) COPD (chronic obstructive pulmonary disease) Qualifiers: COPD type: chronic bronchitis Is this a current diagnosis for this admission?: Yes Plan: on nebulizers (7) Obstructive sleep apnea Is this a current diagnosis for this admission?: Yes Plan: uses CPAP, will be getting further evaluation as outpatient
--- NOTE | 2017-03-06 20:21 | PDOC PROGRESS REPORT ---
Subjective Progress Note for:: 03/06/17 Subjective:: Feels better. Denied any specific complaints. Patient seems to be doing better. Pt is denying any chest arm or neck discomfort. Patient denying any PND, orthopnea. Patient denied any sustained palpitations, dizziness, syncope, near syncope. Patient denying any fever chills. Patient denying any other significant discomfort. Patient is maintaining sinus rhythm. Review of systems: Rest review of systems negative. Medications: Medications have been reviewed. Reason For Visit: ACUTE CHF Physical Exam Vital Signs: Temp Pulse Resp BP Pulse Ox 98.0 F 69 16 110/71 99 03/06/17 16:02 03/06/17 19:00 03/06/17 16:02 03/06/17 16:02 03/06/17 16:02 Intake & Output 03/05/17 03/06/17 03/07/17 06:59 06:59 06:59 Intake Total 457 1774 Output Total 2030 Balance -1573 1774 Weight 114.4 kg Exam: GENERAL: well-nourished and in no acute distress. Alert and oriented x3 HEAD: Atraumatic, normocephalic. EYES: Pupils equal round and reactive to light, extraocular movements intact, sclera anicteric, conjunctiva are normal. ENT: TMs normal, nares patent, oropharynx clear without exudates. Moist mucous membranes. No oral ulcerations or bleeding gums noted NECK: supple without lymphadenopathy. Trachea is central. No cervical or axillary lymphadenopathy noted. Carotids are 2+, JVD WNL LUNGS: Respiration seems nonlabored, no significant accessory muscle action noted. Breath sounds clear to auscultation bilaterally and equal noted. No wheezes rales or rhonchi noted. No significant dullness noted on percussion. CHEST: Palpation of the chest wall shows no significant chest wall tenderness. No other significant abnormalities noted. HEART: [place] [employer], No PSH, 1/6 LOIS aortic area, 1/6 aranda systolic murmur mitral area, no rubs, no gallops. ABDOMEN: Soft, no significant tenderness appreciated, normoactive bowel sounds. No guarding, no rebound. No rigidity noted . No masses appreciated. EXTREMITIES: Pedal pulses are 1-2+, no calf tenderness noted. No clubbing or cyanosis.trace to 1+ pedal edema noted NEUROLOGICAL: Focused neurological exam showed no significant neurologic deficit. Normal speech, no focal weakness appreciated. PSYCH: Normal mood, normal affect. Judgment and insight within normal limits. SKIN: No significant ecchymosis, rash, ulcerations or signs of pruritus noted. MUSCULOSKELETAL EXAM: No significant joint swelling noted. Results Laboratory Results: 03/06/17 05:38 03/06/17 05:38 03/06/17 03/06/17 05:38 05:38 WBC 7.2 RBC 3.71 L Hgb 11.2 L Hct 32.4 L MCV 87 MCH 30.2 MCHC 34.7 RDW 13.6 Plt Count 124 L Seg Neutrophils % 69.9 Lymphocytes % 17.5 Monocytes % 8.2 Eosinophils % 3.9 Basophils % 0.5 Absolute Neutrophils 5.0 Absolute Lymphocytes 1.3 Absolute Monocytes 0.6 Absolute Eosinophils 0.3 Absolute Basophils 0.0 Sodium 138.9 Potassium 4.2 Chloride 103 Carbon Dioxide 24 Anion Gap 12 BUN 48 H Creatinine 1.90 H Est GFR ( Amer) 42 L Est GFR (Non-Af Amer) 35 L Glucose 172 H Calcium 9.4 Magnesium 2.0 Total Bilirubin 1.0 AST 20 ALT 29 Alkaline Phosphatase 65 Total Protein 7.0 Albumin 4.1 03/05/17 03/05/17 03/05/17 12:27 12:27 17:50 Creatine Kinase 65 59 CK-MB (CK-2) 1.14 Troponin I 0.035 NT-Pro-B Natriuret Pep 03/05/17 03/05/17 03/05/17 17:50 23:42 23:42 Creatine Kinase 67 CK-MB (CK-2) 1.18 1.48 Troponin I 0.050 0.055 NT-Pro-B Natriuret Pep 03/06/17 05:38 Creatine Kinase CK-MB (CK-2) Troponin I NT-Pro-B Natriuret Pep 3120 H EKG Comments: Sinus rhythm without any sustained tacky or bradycardia arrhythmias noted. Impressions: Chest X-Ray 03/06/17 00:00 IMPRESSION: IMPROVED AERATION WITH DECREASE IN THE INTERSTITIAL EDEMA. Assessment & Plan - Diagnosis (1) Congestive cardiac failure Qualifiers: Congestive heart failure type: combined (2) CAD (coronary artery disease) of artery bypass graft Qualifiers: Associated angina: without angina Is this a current diagnosis for this admission?: Yes (3) COPD (chronic obstructive pulmonary disease) Qualifiers: COPD type: chronic bronchitis Is this a current diagnosis for this admission?: Yes (4) Chronic kidney disease Qualifiers: Chronic kidney disease stage: stage 3 (moderate) Qualified Code(s): N18.3 - Chronic kidney disease, stage 3 (moderate) Is this a current diagnosis for this admission?: Yes (5) Diabetes mellitus Qualifiers: Diabetes mellitus type: type 2 Diabetes mellitus fci insulin use: with fci use Is this a current diagnosis for this admission?: Yes (6) Hypertension Qualifiers: Hypertension type: essential hypertension Qualified Code(s): I10 - Essential (primary) hypertension Is this a current diagnosis for this admission?: Yes (7) Paroxysmal atrial fibrillation Is this a current diagnosis for this admission?: No (8) Cardiac pacemaker in situ Is this a current diagnosis for this admission?: No (9) Sleep apnea syndrome Qualifiers: Sleep apnea type: unspecified type Qualified Code(s): G47.30 - Sleep apnea , unspecified Is this a current diagnosis for this admission?: Yes - Notes Notes: Patient wanting to be discharged. Patient does want to follow with me for his sleep apnea management. Patient claims he did have a nuclear stress test at Dr. Zarate's office 6 months ago which apparently was relatively unremarkable. Have discussed that it may be worthwhile to consider obtaining a 2D echo because of recurrent CHF. Discussed with Dr. Velázquez, who called me regarding sudden onset CHF in this patient. So far evaluations of precipitating cause of CHF is not clear. Patient does have history of chronic kidney disease. Discussed that it may be worthwhile to consider ruling out renal artery stenosis. I believe that patient probably has volume overload setting of significant diastolic dysfunction. Will follow with him. 2D echo which was ordered is still pending. - Time Time with patient: 15-25 minutes - CODE STATUS was discussed, patient remains full code. Surrogate decision-maker unchanged. Multiple medical problems were addressed. More than 50% of the time spent coordinating care, discussing management plans with involved caregivers. Management plans discussed with involved personnels. Medical decision making was of moderate to high complexity , patient's has multiple comorbidities. Medications reviewed and adjusted accordingly: Yes
[2017-03-06] MEDS: ATORVASTATIN CALCIUM 10 MG TABLET PO SCH (21:45)
[2017-03-07 05:23] LABS: ABSOLUTE EOSINOPHILS # (AUTO) 0.3 10^3/uL (0.0-0.6); ABSOLUTE LYMPHOCYTES (AUTO) 1.4 10^3/uL (0.5-4.7); ABSOLUTE MONOCYTES (AUTO) 0.7 10^3/uL (0.1-1.4); ABSOLUTE NEUT (AUTO) 4.8 10^3/uL (1.7-8.2); BASOPHILS % (AUTO) 0.6 % (0-2); EOSINOPHILS % (AUTO) 4.7 % (0-6); HEMATOCRIT 32.4 % (37.9-51.0); HEMOGLOBIN 11.1 g/dL (13.5-17.0); LYMPHOCYTES % (AUTO) 19.4 % (13-45); MEAN CORPUSCULAR HEMOGLOBIN 29.9 pg (27.0-33.4); MEAN CORPUSCULAR HGB CONC 34.3 g/dL (32.0-36.0); MEAN CORPUSCULAR VOLUME 87 fl (80-97); MONOCYTES % (AUTO) 9.8 % (3-13); PLATELET COUNT 125 10^3/uL (150-450); RED BLOOD COUNT 3.73 10^6/uL (4.35-5.55); RED CELL DISTRIBUTION WIDTH 12.9 % (11.5-14.0); SEGMENTED NEUTROPHILS % (AUTO) 65.5 % (42-78); TOTAL CELLS COUNTED % (AUTO) 100 %; WHITE BLOOD COUNT 7.3 10^3/uL (4.0-10.5)
[2017-03-07] MEDS: FUROSEMIDE INJ/PF 40 MG/4 ML SDV IV SCH (05:36)
[2017-03-07 05:59] LABS: ANION GAP 13 (5-19); BLOOD UREA NITROGEN 63 mg/dL (7-20); CALCIUM 9.4 mg/dL (8.4-10.2); CARBON DIOXIDE 23 mmol/L (22-30); CHLORIDE 102 mmol/L (98-107); GLUCOSE 140 mg/dL (75-110); MAGNESIUM 2.1 mg/dL (1.6-2.3); POTASSIUM 4.2 mmol/L (3.6-5.0); SODIUM 137.7 mmol/L (137-145)
[2017-03-07 08:31] VITALS: BP 119/59
--- NOTE | 2017-03-07 08:39 | RADIOLOGY REPORT (SQ) ---
EXAM DESCRIPTION: U/S LTD DUPLEX ART/ROWENA FLOW COMPLETED DATE/TIME: 03/06/2017 9:35 pm REASON FOR STUDY: Acute CKD COMPARISON: None. TECHNIQUE: Realtime and static grayscale images acquired. Selected color Doppler, velocities and spe ctral images recorded. LIMITATIONS: None. FINDINGS: RIGHT KIDNEY: RENAL ARTERY VELOCITIES: 15.3 cm/sec. Segmental artery velocity 18 cm/sec. RENAL VEIN: Color doppler flow present, patent. VELOCITY RATIO: 0.37. Normal waveforms. KIDNEY: Normal size. No significant pathology. LEFT KIDNEY: RENAL ARTERY VELOCITIES: 25 cm/sec. Segmental artery velocity 25 cm/sec. RENAL VEIN: Color doppler flow present, patent. VELOCITY RATIO: 0.6. Normal waveforms. KIDNEY: Normal size. No significant pathology. BLADDER: Normal. OTHER: No other significant finding. IMPRESSION: NO DOPPLER EVIDENCE OF HEMODYNAMICALLY SIGNIFICANT RENAL ARTERY STENOSIS. COMMENT: NORMAL RENAL ARTERY/AORTA VELOCITY RATIO IS LESS THAN OR EQUAL TO 3.5. TECHNICAL DOCUMENTATION: JOB ID: [id number] [employer]- All Rights Reserved
[2017-03-07] MEDS: LOSARTAN POTASSIUM 25 MG TABLET PO SCH (09:37)
[2017-03-07] MEDS: RANOLAZINE 500 MG TAB.SR.12H PO SCH (09:37)
[2017-03-07] MEDS: ASPIRIN 81 MG TABLET, CHEWABLE PO SCH (09:38)
[2017-03-07] MEDS: APIXABAN 5 MG TABLET PO SCH (09:38)
[2017-03-07] MEDS: DOCUSATE SODIUM 100 MG CAPSULE PO SCH (09:38)
[2017-03-07] MEDS: CARVEDILOL 3.125 MG TABLET PO SCH (09:38)
[2017-03-07] MEDS: INSULIN GLARGINE,HUM.REC.ANLOG 300 UNIT/3 ML INSULN.PEN SUBCUT SCH (09:40)
[2017-03-07] MEDS ORDERED: TORSEMIDE 20 MG TABLET PO SCH (10:00)
--- NOTE | 2017-03-07 12:36 | PDOC DISCHARGE SUMMARY ---
General - Admit/Disc Date/PCP Admission Date/Primary Care Provider: 03/05/17 12:16 Mckinley GRANT MD Discharge Date: 03/07/17 - Discharge Diagnosis (1) Acute respiratory failure with hypoxia and hypercapnia Is this a current diagnosis for this admission?: Yes Summary: Due to the flash pulmonary edema currently all resolved (2) CHF exacerbation Is this a current diagnosis for this admission?: Yes Summary: Currently all resolved (3) Chronic kidney disease Is this a current diagnosis for this admission?: Yes Summary: Patient's baseline creatinine is 2 and follow with the Dr. Grant as per discussed with Dr. Grant today (4) Flash pulmonary edema Is this a current diagnosis for this admission?: Yes Summary: Currently all resolved (5) CAD (coronary artery disease) of artery bypass graft Is this a current diagnosis for this admission?: Yes Summary: Follow with the cardiology is (6) Diabetes mellitus Is this a current diagnosis for this admission?: Yes Summary: Continues to current medication (7) Hypertension Is this a current diagnosis for this admission?: Yes Summary: Currently all stable (8) Obstructive sleep apnea Is this a current diagnosis for this admission?: Yes Summary: Patient's CPAP machine is not working follow outpatient sleep labs with the Dr. Cordova (9) Chronic atrial fibrillation Is this a current diagnosis for this admission?: Yes Summary: Pratik on EliquisNeed to readjust the dose per the kidney functions when we rechecked in the next week (10) COPD (chronic obstructive pulmonary disease) Is this a current diagnosis for this admission?: Yes Summary: Currently all stable - Additional Information Resuscitation Status: Full Code Discharge Diet: Cardiac, Diabetic Discharge Activity: Activity As Tolerated, Balance Activity w/Rest, Weigh Daily Home Medications: Apixaban [Eliquis 5 mg Tablet] 5 mg PO BID 03/05/17 Aspirin [Aspirin 81 mg Chewable Tablet] 81 mg PO DAILY 03/05/17 Atorvastatin Calcium [Lipitor 20 mg Tablet] 10 mg PO DAILY 03/05/17 Carvedilol [Coreg 3.125 mg Tablet] 3.125 mg PO Q12 03/05/17 Insulin Aspart [Novolog Flexpen] 0 unit SUBCUT .SLD SCALE 03/05/17 Insulin Glargine,Hum.rec.anlog [Lantus Solostar] 30 unit SQ DAILY 03/05/17 Losartan Potassium [Cozaar 25 mg Tablet] 25 mg PO DAILY 03/05/17 Ranolazine [Ranexa 500 mg Tab.sr] 500 mg PO Q12 03/05/17 Torsemide [Demadex 20 mg Tablet] 20 mg PO DAILY 03/05/17 History of Present Illness History of Present Illness: RONNIE MELGAR is a 72 year old male This is a 72-year-old male presenting the emergency department with a complaint of difficulty in breathing since last 24 hours Initially patient was in a mild respiratory distress and patient was put on the BiPAP and currently doing fair and give IV Lasix 40 mg which produced a more than half little of the fluid Patient was significant history of the congestive heart failure with a several hospital admissions for the first pulmonary edema and respiratory distress Patient also have a chronic kidney disease currently see a Dr. Grant and patient also see a Dr. Zarate for a cardiology standpoint Hospital Course Hospital Course: Patient was admitted because of the recurrent flash pulmonary edema with unclear etiology and patient was started on IV Lasix and a BiPAP and patients respond as usual very well and patients back to the baseline With this recurrent episode Dr. Cordova was consulted underwent the echocardiograms and according to the Dr. Cordova stable and follow-up outpatients cardiology and no sign of any acute coronary syndromes Patient also seen by nephrology Dr. Grant and suggested currently stable with the creatinine of around 2 and a follow-up outpatients Patient's otherwise back to the baseline patient's p.o. intake is good patient does not require any oxygen and patients move around in the hallway without any problems Patient's discharge home with the stable condition and following a one-week and will recheck the patient's BMP and if is still high may be reduced the Eliquis dose Physical Exam Vital Signs: Temp Pulse Resp BP Pulse Ox 98.4 F 78 18 119/59 L 98 03/07/17 12:09 03/07/17 12:09 03/07/17 12:09 03/07/17 07:51 03/07/17 12:09 Intake & Output 03/06/17 03/07/17 03/08/17 06:59 06:59 06:59 Intake Total 457 1804 Output Total 2030 5 Balance -1573 1799 Weight 114.4 kg 113.2 kg General appearance: PRESENT: no acute distress, well-developed, well-nourished Head exam: PRESENT: atraumatic, normocephalic Eye exam: PRESENT: conjunctiva pink, EOMI, PERRLA. ABSENT: scleral icterus Ear exam: PRESENT: normal external ear exam Mouth exam: PRESENT: moist, tongue midline Neck exam: PRESENT: full ROM. ABSENT: carotid bruit, JVD, lymphadenopathy, thyromegaly Respiratory exam: PRESENT: clear to auscultation margarita Cardiovascular exam: PRESENT: RRR. ABSENT: diastolic murmur, rubs, systolic murmur Pulses: PRESENT: normal dorsalis pedis pul, +2 pedal pulses bilateral Vascular exam: PRESENT: normal capillary refill GI/Abdominal exam: PRESENT: normal bowel sounds, soft. ABSENT: distended, guarding, mass, organolmegaly, rebound, tenderness Rectal exam: PRESENT: deferred Extremities exam: ABSENT: pedal edema Musculoskeletal exam: PRESENT: ambulatory Neurological exam: PRESENT: alert, awake, oriented to person, oriented to place , oriented to time, oriented to situation, CN II-XII grossly intact. ABSENT: motor sensory deficit Psychiatric exam: PRESENT: appropriate affect, normal mood. ABSENT: homicidal ideation, suicidal ideation Skin exam: PRESENT: dry, intact, warm. ABSENT: cyanosis, rash Results Laboratory Results: 03/07/17 04:37 03/07/17 04:37 03/07/17 03/07/17 04:37 04:37 WBC 7.3 RBC 3.73 L Hgb 11.1 L Hct 32.4 L MCV 87 MCH 29.9 MCHC 34.3 RDW 12.9 Plt Count 125 L Seg Neutrophils % 65.5 Lymphocytes % 19.4 Monocytes % 9.8 Eosinophils % 4.7 Basophils % 0.6 Absolute Neutrophils 4.8 Absolute Lymphocytes 1.4 Absolute Monocytes 0.7 Absolute Eosinophils 0.3 Absolute Basophils 0.0 Sodium 137.7 Potassium 4.2 Chloride 102 Carbon Dioxide 23 Anion Gap 13 BUN 63 H Creatinine 2.24 H Est GFR ( Amer) 35 L Est GFR (Non-Af Amer) 29 L Glucose 140 H Calcium 9.4 Magnesium 2.1 03/05/17 03/05/17 03/05/17 12:27 12:27 17:50 Creatine Kinase 65 59 CK-MB (CK-2) 1.14 Troponin I 0.035 NT-Pro-B Natriuret Pep 03/05/17 03/05/17 03/05/17 17:50 23:42 23:42 Creatine Kinase 67 CK-MB (CK-2) 1.18 1.48 Troponin I 0.050 0.055 NT-Pro-B Natriuret Pep 03/06/17 03/07/17 05:38 04:37 Creatine Kinase CK-MB (CK-2) Troponin I NT-Pro-B Natriuret Pep 3120 H 1250 H Impressions: Chest X-Ray 03/06/17 00:00 IMPRESSION: IMPROVED AERATION WITH DECREASE IN THE INTERSTITIAL EDEMA. Vascular Ultrasound 03/06/17 00:00 IMPRESSION: NO DOPPLER EVIDENCE OF HEMODYNAMICALLY SIGNIFICANT RENAL ARTERY STENOSIS. Plan Time Spent: Greater than 30 Minutes - Following office in 1 week recheck the Chem-700 Follow with the cardiology in a sleep lab and follow with the nephrology Discussed with the son regarding the patient's current conditions
--- NOTE | 2017-03-07 12:50 | PDOC PROGRESS REPORT ---
Subjective Progress Note for:: 03/07/17 Subjective:: Patient was seen sitting up in his chair. He said that he felt great. He denied any SOB, fevers, chills or swelling in his legs. He also denied any chest pain. Reason For Visit: ACUTE CHF Physical Exam Vital Signs: Temp Pulse Resp BP Pulse Ox 98.4 F 78 18 119/59 L 98 03/07/17 12:09 03/07/17 12:09 03/07/17 12:09 03/07/17 07:51 03/07/17 12:09 Intake & Output 03/06/17 03/07/17 03/08/17 06:59 06:59 06:59 Intake Total 457 1804 Output Total 2030 5 Balance -1573 1799 Weight 114.4 kg 113.2 kg General appearance: PRESENT: no acute distress, well-developed, well-nourished Neck exam: PRESENT: full ROM. ABSENT: JVD Respiratory exam: PRESENT: clear to auscultation margarita. ABSENT: accessory muscle use, crackles, rales, rhonchi, wheezes Cardiovascular exam: PRESENT: RRR, +S1, +S2 GI/Abdominal exam: PRESENT: soft. ABSENT: firm, guarding, mass, tenderness Extremities exam: ABSENT: pedal edema, tenderness Musculoskeletal exam: PRESENT: normal inspection. ABSENT: tenderness Neurological exam: PRESENT: alert, awake, oriented to person, oriented to place , oriented to time, oriented to situation Skin exam: PRESENT: dry, intact, warm Results Laboratory Results: 03/07/17 04:37 03/07/17 04:37 03/07/17 03/07/17 04:37 04:37 WBC 7.3 RBC 3.73 L Hgb 11.1 L Hct 32.4 L MCV 87 MCH 29.9 MCHC 34.3 RDW 12.9 Plt Count 125 L Seg Neutrophils % 65.5 Lymphocytes % 19.4 Monocytes % 9.8 Eosinophils % 4.7 Basophils % 0.6 Absolute Neutrophils 4.8 Absolute Lymphocytes 1.4 Absolute Monocytes 0.7 Absolute Eosinophils 0.3 Absolute Basophils 0.0 Sodium 137.7 Potassium 4.2 Chloride 102 Carbon Dioxide 23 Anion Gap 13 BUN 63 H Creatinine 2.24 H Est GFR ( Amer) 35 L Est GFR (Non-Af Amer) 29 L Glucose 140 H Calcium 9.4 Magnesium 2.1 03/05/17 03/05/17 03/05/17 12:27 12:27 17:50 Creatine Kinase 65 59 CK-MB (CK-2) 1.14 Troponin I 0.035 NT-Pro-B Natriuret Pep 03/05/17 03/05/17 03/05/17 17:50 23:42 23:42 Creatine Kinase 67 CK-MB (CK-2) 1.18 1.48 Troponin I 0.050 0.055 NT-Pro-B Natriuret Pep 03/06/17 03/07/17 05:38 04:37 Creatine Kinase CK-MB (CK-2) Troponin I NT-Pro-B Natriuret Pep 3120 H 1250 H Impressions: Chest X-Ray 03/06/17 00:00 IMPRESSION: IMPROVED AERATION WITH DECREASE IN THE INTERSTITIAL EDEMA. Vascular Ultrasound 03/06/17 00:00 IMPRESSION: NO DOPPLER EVIDENCE OF HEMODYNAMICALLY SIGNIFICANT RENAL ARTERY STENOSIS. Assessment & Plan - Diagnosis (1) Chronic kidney disease Qualifiers: Chronic kidney disease stage: stage 3 (moderate) Qualified Code(s): N18.3 - Chronic kidney disease, stage 3 (moderate) Is this a current diagnosis for this admission?: Yes Plan: creatinine slightly elevated, he looks to have no fluid on. Recommend holding lasix. He is stable for discharge from nephrology's standpoint. (2) CHF exacerbation Qualifiers: Congestive heart failure type: combined Qualified Code(s): I50.43 - Acute on chronic combined systolic (congestive) and diastolic (congestive) heart failure Is this a current diagnosis for this admission?: Yes Plan: looks to have resolved (3) Flash pulmonary edema Is this a current diagnosis for this admission?: Yes Plan: resolved (4) Hypertension Qualifiers: Hypertension type: essential hypertension Qualified Code(s): I10 - Essential (primary) hypertension Is this a current diagnosis for this admission?: Yes Plan: controlled (5) Diabetes mellitus Qualifiers: Diabetes mellitus type: type 2 Diabetes mellitus intermediate insulin use: with intermediate use Is this a current diagnosis for this admission?: Yes (6) COPD (chronic obstructive pulmonary disease) Qualifiers: COPD type: chronic bronchitis Is this a current diagnosis for this admission?: Yes (7) Obstructive sleep apnea Is this a current diagnosis for this admission?: Yes Plan: on cpap
--- NOTE | 2017-03-07 14:45 | PDOC PROGRESS REPORT ---
Subjective Progress Note for:: 03/07/17 Subjective:: Patient seems to be doing better. Requesting discharge and pending discharge.. Pt is denying any chest arm or neck discomfort. Patient denying any PND, orthopnea. Patient denied any sustained palpitations, dizziness, syncope, near syncope. Patient denying any fever chills. Patient denying any other significant discomfort. Patient is maintaining sinus rhythm. Review of systems: Rest review of systems negative. Medications: Medications have been reviewed. Reason For Visit: ACUTE CHF Physical Exam Vital Signs: Temp Pulse Resp BP Pulse Ox 98.4 F 78 18 119/59 L 98 03/07/17 12:09 03/07/17 12:09 03/07/17 12:09 03/07/17 07:51 03/07/17 12:09 Intake & Output 03/06/17 03/07/17 03/08/17 06:59 06:59 06:59 Intake Total 457 1804 Output Total 2030 5 Balance -1573 1799 Weight 114.4 kg 113.2 kg Exam: GENERAL: well-nourished and in no acute distress. Alert and oriented x3 HEAD: Atraumatic, normocephalic. EYES: Pupils equal round and reactive to light, extraocular movements intact, sclera anicteric, conjunctiva are normal. ENT: TMs normal, nares patent, oropharynx clear without exudates. Moist mucous membranes. No oral ulcerations or bleeding gums noted NECK: supple without lymphadenopathy. Trachea is central. No cervical or axillary lymphadenopathy noted. Carotids are 2+, JVD WNL LUNGS: Respiration seems nonlabored, no significant accessory muscle action noted. Breath sounds clear to auscultation bilaterally and equal noted. No wheezes rales or rhonchi noted. No significant dullness noted on percussion. CHEST: Palpation of the chest wall shows no significant chest wall tenderness. No other significant abnormalities noted. HEART: [place] [employer], No PSH, 1/6 LOIS aortic area, 1/6 aranda systolic murmur mitral area, no rubs, no gallops. ABDOMEN: Soft, no significant tenderness appreciated, normoactive bowel sounds. No guarding, no rebound. No rigidity noted . No masses appreciated. EXTREMITIES: Pedal pulses are 1-2+, no calf tenderness noted. No clubbing or cyanosis.trace to 1+ pedal edema noted NEUROLOGICAL: Focused neurological exam showed no significant neurologic deficit. Normal speech, no focal weakness appreciated. PSYCH: Normal mood, normal affect. Judgment and insight within normal limits. SKIN: No significant ecchymosis, rash, ulcerations or signs of pruritus noted. MUSCULOSKELETAL EXAM: No significant joint swelling noted. Results Laboratory Results: 03/07/17 04:37 03/07/17 04:37 03/07/17 03/07/17 04:37 04:37 WBC 7.3 RBC 3.73 L Hgb 11.1 L Hct 32.4 L MCV 87 MCH 29.9 MCHC 34.3 RDW 12.9 Plt Count 125 L Seg Neutrophils % 65.5 Lymphocytes % 19.4 Monocytes % 9.8 Eosinophils % 4.7 Basophils % 0.6 Absolute Neutrophils 4.8 Absolute Lymphocytes 1.4 Absolute Monocytes 0.7 Absolute Eosinophils 0.3 Absolute Basophils 0.0 Sodium 137.7 Potassium 4.2 Chloride 102 Carbon Dioxide 23 Anion Gap 13 BUN 63 H Creatinine 2.24 H Est GFR ( Amer) 35 L Est GFR (Non-Af Amer) 29 L Glucose 140 H Calcium 9.4 Magnesium 2.1 03/05/17 03/05/17 03/05/17 12:27 12:27 17:50 Creatine Kinase 65 59 CK-MB (CK-2) 1.14 Troponin I 0.035 NT-Pro-B Natriuret Pep 03/05/17 03/05/17 03/05/17 17:50 23:42 23:42 Creatine Kinase 67 CK-MB (CK-2) 1.18 1.48 Troponin I 0.050 0.055 NT-Pro-B Natriuret Pep 03/06/17 03/07/17 05:38 04:37 Creatine Kinase CK-MB (CK-2) Troponin I NT-Pro-B Natriuret Pep 3120 H 1250 H EKG Comments: Sinus rhythm, no sustained tachycardia or bradycardia arrhythmias noted. Impressions: Chest X-Ray 03/06/17 00:00 IMPRESSION: IMPROVED AERATION WITH DECREASE IN THE INTERSTITIAL EDEMA. Vascular Ultrasound 03/06/17 00:00 IMPRESSION: NO DOPPLER EVIDENCE OF HEMODYNAMICALLY SIGNIFICANT RENAL ARTERY STENOSIS. Assessment & Plan - Diagnosis (1) Congestive cardiac failure Qualifiers: Congestive heart failure type: combined (2) CAD (coronary artery disease) of artery bypass graft Qualifiers: Associated angina: without angina Is this a current diagnosis for this admission?: Yes (3) COPD (chronic obstructive pulmonary disease) Qualifiers: COPD type: chronic bronchitis Is this a current diagnosis for this admission?: Yes (4) Chronic kidney disease Qualifiers: Chronic kidney disease stage: stage 3 (moderate) Qualified Code(s): N18.3 - Chronic kidney disease, stage 3 (moderate) Is this a current diagnosis for this admission?: Yes (5) Diabetes mellitus Qualifiers: Diabetes mellitus type: type 2 Diabetes mellitus 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: with 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-way use Is this a current diagnosis for this admission?: Yes (6) Hypertension Qualifiers: Hypertension type: essential hypertension Qualified Code(s): I10 - Essential (primary) hypertension Is this a current diagnosis for this admission?: Yes (7) Paroxysmal atrial fibrillation Is this a current diagnosis for this admission?: No (8) Cardiac pacemaker in situ Is this a current diagnosis for this admission?: No (9) Sleep apnea syndrome Qualifiers: Sleep apnea type: unspecified type Qualified Code(s): G47.30 - Sleep apnea , unspecified Is this a current diagnosis for this admission?: Yes - Notes Notes: 2D Echo results reviewed. Congestive heart failure: Currently compensated. Patient medical regimen to be optimized. Patient can follow-up with with his primary care transplant coordinator. Discussed with Dr. Velázquez. CAD: Patient status post CABG. Currently stable without any angina. COPD: Continue bronchodilators, oxygen supplementation and other therapy as needed for this condition. Chronic kidney disease: Currently stable. Diabetes: Currently well managed by cns. Hypertension: Reasonably well controlled. Blood pressure goal in this patient is 135/85 or less. This was discussed with the patient. Currently blood pressure under reasonable control. Better medication for this patient are MAURICE inhibitor/ARB/beta veronica etc. discussed side effects of uncontrolled hypertension and also severe hypotension.. Pacemaker in situ: Currently patient not pacemaker dependent. Currently patient maintaining sinus rhythm. History of atrial fibrillation: Patient currently maintaining sinus rhythm with frequent PVCs. Continue Eliquis. Recommend beta veronica for rate control and also digoxin for rate control. Patient currently on small dose of amiodarone. Sleep apnea syndrome: Patient gives history of sleep apnea. He was supposed to see me as an outpatient. Patient encouraged to make an appointment for institution of CPAP therapy. - Time Time with patient: Greater than 35 minutes - CHF teaching instructions performed. Patient advised salt and fluid restriction. Advised CPAP compliance once CPAP therapy is reinstituted. Patient's medical regimen was reviewed. 2D echo results reviewed. Medications reviewed and adjusted accordingly: Yes
--- NOTE | 2017-03-07 20:01 | XCELERA REPORT ---
[address] [address] Transthoracic Echocardiogram Report Name: RONNIE MELGAR Age: 72 yrs Gender: Male : 1945 Patient Status: Inpatient Patient Location: [address] [place], [place] [address] Study Date: 03/07/2017 09:08 AM Height: 68 in Weight: 254 lb BSA: 2.3 m2 Procedure: A complete two-dimensional transthoracic echocardiogram was performed (2D, M-mode, spectral and color flow Doppler). The study was technically difficult with many images being suboptimal in quality. Reason For Study: CHF Ordering Physician: TEJAS MISTRY Performed By: Nolvia Winslow Interpretation Summary The study was technically difficult with many images being suboptimal in quality. The Ejection Fraction estimate is 35-40% Left ventricular systolic function is moderately reduced. Doppler measurements suggest reversible restrictive left ventricular relaxation, which is associated with grade III/IV or moderate diastolic dysfunction There is mild concentric left ventricular hypertrophy. The left ventricle is grossly normal size. Regional wall motion abnormalities cannot be excluded due to limited visualization. The right ventricle is mildly dilated. Right ventricular function cannot be assessed due to poor image quality. The right atrium is mildly dilated. The left atrium is mildly dilated. There is no mitral valve stenosis. There is a mild to moderate amount of mitral regurgitation No aortic regurgitation is present. There is no aortic valve stenosis There is a trace or physiologic amount of tricuspid regurgitation Tricuspid regurgitation jet envelope not well defined to measure RV systolic pressure accurately. The aortic root is not well visualized. The inferior vena cava was not well visualized There is no pericardial effusion. MMode/2D Measurements & Calculations RVDd: 2.8 cm LVIDd: 6.8 cm FS: 19.2 % Ao root diam: 2.9 cm IVSd: 1.1 cm LVIDs: 5.5 cm EDV(Teich): 242.5 ml LVPWd: 1.1 cm ESV(Teich): 149.2 ml Ao root area: 6.8 cm2 EF(Teich): 38.5 % LA dimension: 4.2 cm Doppler Measurements & Calculations MV E max jacinta: MV P1/2t max jacinta: Ao V2 max: LV V1 max P.7 cm/sec 135.7 cm/sec 167.7 cm/sec 3.9 mmHg MV A max jacinta: MV P1/2t: 40.4 msec Ao max PG: LV V1 max: 61.2 cm/sec 11.3 mmHg 98.7 cm/sec MV E/A: 2.2 MVA(P1/2t): 5.4 cm2 MV dec slope: 984.9 cm/sec2 PA V2 max: TR max jacinta: 94.8 cm/sec 265.6 cm/sec PA max P.6 mmHgTR max P.2 mmHg Left Ventricle The left ventricle is grossly normal size. There is mild concentric left ventricular hypertrophy. Left ventricular systolic function is moderately reduced. The Ejection Fraction estimate is 35-40%. Doppler measurements suggest reversible restrictive left ventricular relaxation, which is associated with grade III/IV or moderate diastolic dysfunction. Regional wall motion abnormalities cannot be excluded due to limited visualization. Right Ventricle The right ventricle is mildly dilated. Right ventricular function cannot be assessed due to poor image quality. Atria The right atrium is mildly dilated. The left atrium is mildly dilated. Interarterial septum not well visualized and not well dopplered. Cannot comment on ASD/PFO presence. Mitral Valve The mitral valve leaflets are sclerotic, but show no functional abnormalities. There is no mitral valve stenosis. There is a mild to moderate amount of mitral regurgitation. Aortic Valve The aortic valve is not well visualized secondary to technical limitations. There is no aortic valve stenosis. No aortic regurgitation is present. Tricuspid Valve The tricuspid valve is not well visualized secondary to technical limitations. There is no tricuspid stenosis. There is a trace or physiologic amount of tricuspid regurgitation. Tricuspid regurgitation jet envelope not well defined to measure RV systolic pressure accurately. Pulmonic Valve The pulmonic valve is not well visualized. Great Vessels The aortic root is not well visualized. The inferior vena cava was not well visualized. Effusions There is no pericardial effusion. : TEJAS MISTRY > Tejas Mistry
== END 2017-03-07 12:36 | disposition home or self-care (01) | DRG 189 ==
LOC: ER 08:52 → EH 12:16 → 3W 15:01
PROVIDERS: ADMIT Family Medicine; ATTEND Family Medicine
PROC: 5A09457 Assistance with Respiratory Ventilation, 24-96 Consecutive Hours, Continuous Positive Airway Pressure (ICD-10-PCS; principal; 2017-03-05)
DX: J96.02 Acute respiratory failure with hypercapnia (principal); I50.43 Acute on chronic combined systolic (congestive) and diastolic (congestive) heart failure; I25.810 Atherosclerosis of coronary artery bypass graft(s) without angina pectoris; I13.0 Hypertensive heart and chronic kidney disease with heart failure and stage 1 through stage 4 chronic kidney disease, or unspecified chronic kidney disease; E11.22 Type 2 diabetes mellitus with diabetic chronic kidney disease; N18.3 Chronic kidney disease, stage 3 (moderate); J96.01 Acute respiratory failure with hypoxia; I48.2 Chronic atrial fibrillation; J44.9 Chronic obstructive pulmonary disease, unspecified; E78.5 Hyperlipidemia, unspecified; K21.9 Gastro-esophageal reflux disease without esophagitis; G47.33 Obstructive sleep apnea (adult) (pediatric); Z79.02 Long term (current) use of antithrombotics/antiplatelets; Z79.4 Long term (current) use of insulin; Z79.82 Long term (current) use of aspirin; Z79.899 Other long term (current) drug therapy; I25.2 Old myocardial infarction; Z95.1 Presence of aortocoronary bypass graft; Z90.49 Acquired absence of other specified parts of digestive tract
CPT/HCPCS: 36415; 71045; 71046; 80048; 80053; 82550; 82553; 82803; 82962; 83735; 83880; 84443; 84484; 85025; 93005; 93010; 93306; 93976; 94660; 96374; 96376; 99291; J1815; J1940

== ENCOUNTER → 2017-03-17 | Outpatient (CLI) | payer MEDICARE, OTHER ==
[2017-03-17 12:13] LABS: APPEARANCE,URINE CLEAR; BILIRUBIN,URINE NEGATIVE (NEGATIVE); COLOR,URINE YELLOW; GLUCOSE, URINE NEGATIVE (NEGATIVE); KETONES,URINE NEGATIVE (NEGATIVE); LEUKOCYTE ESTERASE,URINE NEGATIVE (NEGATIVE); NITRITE,URINE NEGATIVE (NEGATIVE); PROTEIN,URINE NEGATIVE (NEGATIVE); URINE SPECIFIC GRAVITY 1.014; UROBILINOGEN,URINE NEGATIVE mg/dL (<2.0)
[2017-03-17 12:17] LABS: HEMATOCRIT 35.4 % (37.9-51.0); HEMOGLOBIN 12.1 g/dL (13.5-17.0); MEAN CORPUSCULAR HEMOGLOBIN 29.5 pg (27.0-33.4); MEAN CORPUSCULAR HGB CONC 34.1 g/dL (32.0-36.0); MEAN CORPUSCULAR VOLUME 87 fl (80-97); PLATELET COUNT 140 10^3/uL (150-450); RED BLOOD COUNT 4.09 10^6/uL (4.35-5.55); RED CELL DISTRIBUTION WIDTH 13.7 % (11.5-14.0)
[2017-03-17 12:39] LABS: ANION GAP 10 (5-19); BLOOD UREA NITROGEN 49 mg/dL (7-20); CALCIUM 10.3 mg/dL (8.4-10.2); CARBON DIOXIDE 23 mmol/L (22-30); CHLORIDE 106 mmol/L (98-107); GLUCOSE 187 mg/dL (75-110); POTASSIUM 4.7 mmol/L (3.6-5.0); SODIUM 138.9 mmol/L (137-145)
== END ==
LOC: OD 11:30
PROVIDERS: ATTEND Internal Medicine Nephrology
DX: N18.3 Chronic kidney disease, stage 3 (moderate) (principal); I50.9 Heart failure, unspecified; E11.9 Type 2 diabetes mellitus without complications
CPT/HCPCS: 36415; 80048; 81001; 85027

== ENCOUNTER 2017-06-18 08:13 | Inpatient (IN) | payer MEDICARE, OTHER ==
--- NOTE | 2017-06-18 08:26 | ER Document Report ---
ED General - General Stated Complaint: DIFFICULTY BREATHING Time Seen by Provider: 06/18/17 08:19 TRAVEL OUTSIDE OF THE [place] IN LAST 30 DAYS: No - HPI Notes: 72-year-old male with a known history of cardiomyopathy, heart failure, AICD and multiple other health problems who presents with dyspnea. Note history is limited given clinical condition, he presents via EMS on BiPAP. Patient describes a day or so possibly more of increasing dyspnea some moderate cough and not feeling well. Equivocal orthopnea, no increased lower extremity edema. He denies any cheri fever. No associated chest pain or discomfort. No other modifying factors, no other associated symptoms, no other provocative or palliative factors. He indicates things rapidly got worse this morning and EMS was called. On EMS arrival they indicate his O2 sat was 96%. However, they placed him on BiPAP because he indicated he had "gone down this pathway before". - Related Data Allergies/Adverse Reactions: adhesive [Adhesive] Adverse Reaction (Severe, Verified 06/18/17 08:42) Blisters Past Medical History - General Information source: Patient - Social History Smoking Status: Former Smoker Family History: Reviewed & Not Pertinent, CAD, Other - Past Medical History Cardiac Medical History: Reports: Hx Congestive Heart Failure, Hx Heart Attack - 2013 Bypass sugery, Hx Hypercholesterolemia, Hx Hypertension Denies: Hx Coronary Artery Disease Pulmonary Medical History: Reports: Hx Respiratory Failure Denies: Hx Asthma, Hx Bronchitis, Hx COPD, Hx Pneumonia Neurological Medical History: Denies: Hx Cerebrovascular Accident, Hx Seizures Endocrine Medical History: Reports: Hx Diabetes Mellitus Type 2 Renal/ Medical History: Denies: Hx Peritoneal Dialysis GI Medical History: Reports: Hx Gastroesophageal Reflux Disease Musculoskeltal Medical History: Denies Hx Arthritis Psychiatric Medical History: Denies: Hx Depression Past Surgical History: Reports: Hx Cardiac Surgery - bypass, pacemaker placed 2016, Hx Cholecystectomy, Hx Coronary Artery Bypass Graft, Hx Oral Surgery - Immunizations Hx Diphtheria, Pertussis, Tetanus Vaccination: Yes Hx Pneumococcal Vaccination: 07/11/13 Review of Systems - Review of Systems Notes: Review of systems as in the history of present illness, otherwise limited by clinical condition Physical Exam - Vital signs Vitals: Resp Pulse Ox 29 H 99 06/18/17 08:15 06/18/17 08:15 - Notes Notes: General: Well developed . Moderate distress. HEENT: Normocephalic, atraumatic. Pupils equal round reactive to light. No JVD. Chest: No trauma. Respiratory: Poor air exchange, scattered crackles and prolonged expiratory phase Cardiac: Regular rhythm. No murmurs or gallops. Abdomen: Soft, benign. Nondistended. Nontender. Back: No asymmetry or gross abnormality. Motor: Grossly normal power and tone. Neurologic: Alert, nonfocal. Cranial nerves II-12 are intact. Sensation intact. Vascular: Well perfused. Normal peripheral pulses. Skin: No petechiae or purpura. Course - Re-evaluation Re-evalutation: 06/18/17 08:25 This is an ill-appearing 72-year-old male with significant increased work of breathing, suspicious for underlying pneumonia or heart failure. May be a combination of both. I did transiently remove him from BiPAP, however, oxygen saturation began precipitously drop in his work of breathing is substantial. He is placed back on BiPAP with good effect. Plan to proceed with IV access, ECG, labs, x-ray, reevaluate. 06/18/17 11:06 Labs reviewed, unremarkable except for pre-existing renal insufficiency. Troponin is borderline. Cardiac BNP is markedly elevated. 12 Lead ECG Analysis A 12 lead ECG is obtained and shows a sinus rhythm, mildly widened QRS, normal QTC. There are nonspecific ST-T changes, no evidence of acute ischemic changes. Patient responded well to BiPAP. Received IV Lasix, transdermal nitrates for preload reduction. I spoke with Dr. Velázquez to arrange admission for continued evaluation and management. He is received aspirin. Critical Care Note Greater than 35 minutes of critical care time was spent with this patient. This includes serial evaluation of the patient as well as labs, radiographs and EKGs; discussion of the case with consultants and admitting physician. This does not include time spent performing procedures. - Vital Signs Vital signs: Temp Pulse Resp BP Pulse Ox 97.8 F 108 H 24 H 134/103 H 100 06/18/17 08:20 06/18/17 08:20 06/18/17 10:00 06/18/17 10:00 06/18/17 10:00 - Laboratory Result Diagrams: 06/18/17 08:40 06/18/17 08:40 Laboratory results interpreted by me: 06/18/17 06/18/17 06/18/17 08:40 08:40 08:40 RBC 4.06 L Hgb 12.0 L Hct 35.4 L RDW 14.5 H Plt Count 140 L Seg Neutrophils % 83.1 H Lymphocytes % 8.9 L Potassium 5.1 H BUN 43 H Creatinine 2.02 H Est GFR ( Amer) 40 L Est GFR (Non-Af Amer) 33 L Glucose 252 H ALT 20 L NT-Pro-B Natriuret Pep 2930 H Discharge - Discharge Clinical Impression: CHF (congestive heart failure) Qualifiers: Heart failure type: unspecified Heart failure chronicity: acute on chronic Qualified Code(s): I50.9 - Heart failure, unspecified Condition: Serious Disposition: ADMITTED OBSERVATION Admitting Provider: [facility] Unit Admitted: [facility]
[2017-06-18 09:03] LABS: ABSOLUTE EOSINOPHILS # (AUTO) 0.2 10^3/uL (0.0-0.6); ABSOLUTE LYMPHOCYTES (AUTO) 0.8 10^3/uL (0.5-4.7); ABSOLUTE MONOCYTES (AUTO) 0.5 10^3/uL (0.1-1.4); ABSOLUTE NEUT (AUTO) 7.6 10^3/uL (1.7-8.2); BASOPHILS % (AUTO) 0.3 % (0-2); EOSINOPHILS % (AUTO) 2.5 % (0-6); HEMATOCRIT 35.4 % (37.9-51.0); LYMPHOCYTES % (AUTO) 8.9 % (13-45); MEAN CORPUSCULAR HEMOGLOBIN 29.4 pg (27.0-33.4); MEAN CORPUSCULAR HGB CONC 33.7 g/dL (32.0-36.0); MEAN CORPUSCULAR VOLUME 87 fl (80-97); MONOCYTES % (AUTO) 5.2 % (3-13); PLATELET COUNT 140 10^3/uL (150-450); RED BLOOD COUNT 4.06 10^6/uL (4.35-5.55); RED CELL DISTRIBUTION WIDTH 14.5 % (11.5-14.0); SEGMENTED NEUTROPHILS % (AUTO) 83.1 % (42-78); TOTAL CELLS COUNTED % (AUTO) 100 %; WHITE BLOOD COUNT 9.1 10^3/uL (4.0-10.5)
--- NOTE | 2017-06-18 09:07 | RADIOLOGY REPORT (SQ) ---
EXAM DESCRIPTION: CHEST SINGLE VIEW COMPLETED DATE/TIME: 06/18/2017 8:53 am REASON FOR STUDY: Dyspnea COMPARISON: 05/19/2017 NUMBER OF VIEWS: One view. TECHNIQUE: Single frontal radiographic view of the chest acquired. LIMITATIONS: None. FINDINGS: LUNGS AND PLEURA: Chronic interstitial changes. No effusions. MEDIASTINUM AND HILAR STRUCTURES: No masses or contour abnormality. HEART AND VASCULATURE: Cardiac enlargement. Vascular congestion. BONES: No acute findings. HARDWARE: CABG. Pacemaker. OTHER: No other significant finding. IMPRESSION: CARDIAC ENLARGEMENT. VASCULAR CONGESTION. TECHNICAL DOCUMENTATION: JOB ID: [id number] [employer]- All Rights Reserved Reading location - IP/workstation name: [email or web address]
[2017-06-18 09:16] LABS: ALANINE AMINOTRANSFERASE 20 U/L (21-72); ALBUMIN 4.6 g/dL (3.5-5.0); ALKALINE PHOSPHATASE 96 U/L (38-126); ANION GAP 15 (5-19); ASPARTATE AMINO TRANSFERASE 20 U/L (17-59); BILIRUBIN,DIRECT 0.4 mg/dL (0.0-0.4); BILIRUBIN,TOTAL 1.1 mg/dL (0.2-1.3); BLOOD UREA NITROGEN 43 mg/dL (7-20); CALCIUM 9.4 mg/dL (8.4-10.2); CARBON DIOXIDE 25 mmol/L (22-30); CHLORIDE 103 mmol/L (98-107); GLUCOSE 252 mg/dL (75-110); POTASSIUM 5.1 mmol/L (3.6-5.0); SODIUM 142.7 mmol/L (137-145)
[2017-06-18 09:27] LABS: TROPONIN I 0.035 ng/mL
[2017-06-18] MEDS ORDERED: FUROSEMIDE INJ/PF 40 MG/4 ML SDV IV ONE ×2 (09:45→10:43)
[2017-06-18] MEDS ORDERED: NITROGLYCERIN 2% OINTMENT 1 GM PACKET TP ONE (09:45)
[2017-06-18] MEDS ORDERED: IPRATROPIUM/ALBUTEROL 0.5-2.5 MG/3 ML AMPUL NEB PRN (10:49)
[2017-06-18] MEDS ORDERED: ACETAMINOPHEN 325 MG TABLET PO PRN (10:49)
[2017-06-18] MEDS ORDERED: DEXTROSE 50%-WATER 25 GM/50 ML DISP.SYRIN IV PRN ×2 (10:54)
[2017-06-18] MEDS ORDERED: GLUCAGON,HUMAN RECOMB 1 MG INJ IM PRN (10:54)
[2017-06-18] MEDS ORDERED: DEXTROSE 40% GEL 15 GM TUBE PO PRN ×2 (10:54)
[2017-06-18 13:03] LABS: CREATINE KINASE MB 1.15 ng/mL (<4.55); TROPONIN I 0.042 ng/mL
--- NOTE | 2017-06-18 13:13 | PDOC H&P ---
History of Present Illness Admission Date/PCP: 06/18/17 11:02 FOX BIRD MD Patient complains of: Difficulty in breathing History of Present Illness: RONNIE MELGAR is a 72 year old male This is a 72-year-old male with a significant history of the systolic congestive heart failure chronic kidney disease and a several hospital admissions with a flash pulmonary edema came to the emergency department with a complaint of acute onset of difficulty in breathing with white sputum discharge with the coughAnd the patient's was initially put on the BiPAP and EMS and patient in the emergency department currently on a BiPAP and currently doing much better after receiving the Lasix total 80 mg in patients received a nitro Patient's currently when I saw her in the ER denied any chest pain and a much better Patient's currently not able to use a CPAP because machine is broke and currently working with the Dr. Cordova's office to get the new study done a new machineShe also part of her problems Patient seen by the Dr. Grant from chronic kidney disease an extensive workup done including the pulmonary hypertension's angina renal artery stenosis was all stable Past Medical History Cardiac Medical History: Reports: Congestive Heart Failure, Myocardial Infarction - 2013 Bypass sugery, Hyperlipidema, Hypertension Denies: Coronary Artery Disease Pulmonary Medical History: Reports: Respiratory Failure Denies: Asthma, Bronchitis, Chronic Obstructive Pulmonary Disease (COPD), Pneumonia Neurological Medical History: Denies: Seizures Endocrine Medical History: Reports: Diabetes Mellitus Type 2 GI Medical History: Reports: Gastroesophageal Reflux Disease Musculoskeltal Medical History: Denies: Arthritis Psychiatric Medical History: Denies: Depression Hematology: Denies: Anemia Past Surgical History Past Surgical History: Reports: Cholecystectomy, Coronary Artery Bypass Graft Social History Smoking Status: Former Smoker Frequency of Alcohol Use: None Hx Recreational Drug Use: No Drugs: None Hx Prescription Drug Abuse: No Family History Family History: Reviewed & Not Pertinent, CAD, Other Parental Family History Reviewed: Yes Children Family History Reviewed: Yes Sibling(s) Family History Reviewed.: Yes Medication/Allergy Home Medications: Atorvastatin Calcium [Lipitor 20 mg Tablet] 20 mg PO QHS 03/05/17 Carvedilol [Coreg 3.125 mg Tablet] 3.125 mg PO Q12 03/05/17 Insulin Aspart [Novolog Flexpen] See Protocol SUBCUT MEALS 03/05/17 Insulin Glargine,Hum.rec.anlog [Lantus Solostar] 30 unit SQ QHS 03/05/17 Losartan Potassium [Cozaar 25 mg Tablet] 25 mg PO DAILY 03/05/17 Ranolazine [Ranexa 500 mg Tab.sr] 500 mg PO Q12 03/05/17 Torsemide [Demadex 20 mg Tablet] 20 mg PO DAILY 03/05/17 Apixaban [Eliquis 2.5 mg Tablet] 2.5 mg PO Q12 05/18/17 Aspirin [Aspirin EC] 81 mg PO DAILY 05/18/17 Brimonidine Tartrate [Alphagan 0.2% Oph Soln 5 ml] 1 drop OU BID 05/18/17 Docusate Sodium [Colace 100 mg Capsule] 100 mg PO DAILY 05/18/17 Cephalexin Monohydrate [Keflex 500 mg Capsule] 500 mg PO TID #21 capsule Allergies/Adverse Reactions: adhesive [Adhesive] Adverse Reaction (Severe, Verified 06/18/17 08:42) Blisters Review of Systems Constitutional: ABSENT: chills, fever(s), headache(s), weight gain, weight loss Eyes: ABSENT: visual disturbances Ears: ABSENT: hearing changes Cardiovascular: PRESENT: dyspnea on exertion. ABSENT: chest pain, edema, orthropnea, palpitations Respiratory: PRESENT: cough. ABSENT: hemoptysis Gastrointestinal: ABSENT: abdominal pain, constipation, diarrhea, hematemesis, hematochezia, nausea, vomiting Genitourinary: ABSENT: dysuria, hematuria Musculoskeletal: ABSENT: joint swelling Integumentary: ABSENT: rash, wounds Neurological: ABSENT: abnormal gait, abnormal speech, confusion, dizziness, focal weakness, syncope Psychiatric: ABSENT: anxiety, depression, homidical ideation, suicidal ideation Endocrine: ABSENT: cold intolerance, heat intolerance, menstrual abnormalities, polydipsia, polyuria Hematologic/Lymphatic: ABSENT: easy bleeding, easy bruising, lymphadenopathy Physical Exam Vital Signs: Temp Pulse Resp BP Pulse Ox 97.8 F 108 H 20 134/103 H 100 06/18/17 08:20 06/18/17 08:20 06/18/17 11:29 06/18/17 10:00 06/18/17 11:29 Physical Exam: Currently on a BiPAP no acute distress is seen General appearance: PRESENT: no acute distress, well-developed, well-nourished Head exam: PRESENT: atraumatic, normocephalic Eye exam: PRESENT: conjunctiva pink, EOMI, PERRLA. ABSENT: scleral icterus Ear exam: PRESENT: normal external ear exam Mouth exam: PRESENT: moist, tongue midline Neck exam: PRESENT: full ROM. ABSENT: carotid bruit, JVD, lymphadenopathy, thyromegaly Respiratory exam: PRESENT: clear to auscultation margarita Cardiovascular exam: PRESENT: RRR. ABSENT: diastolic murmur, rubs, systolic murmur Pulses: PRESENT: normal dorsalis pedis pul, +2 pedal pulses bilateral Vascular exam: PRESENT: normal capillary refill GI/Abdominal exam: PRESENT: normal bowel sounds, soft. ABSENT: distended, guarding, mass, organolmegaly, rebound, tenderness Rectal exam: PRESENT: deferred Extremities exam: PRESENT: pedal edema Neurological exam: PRESENT: alert, awake, oriented to person, oriented to place , oriented to time, oriented to situation, CN II-XII grossly intact. ABSENT: motor sensory deficit Psychiatric exam: PRESENT: appropriate affect, normal mood. ABSENT: homicidal ideation, suicidal ideation Skin exam: PRESENT: dry, intact, warm. ABSENT: cyanosis, rash Results Laboratory Results: 06/18/17 11:26 Creatine Kinase 63 Impressions: Chest X-Ray 06/18/17 08:26 IMPRESSION: CARDIAC ENLARGEMENT. VASCULAR CONGESTION. Assessment & Plan - Diagnosis (1) Acute on chronic combined systolic (congestive) and diastolic (congestive) heart failure Is this a current diagnosis for this admission?: Yes Plan: Start the patient on IV Lasix (2) Acute respiratory failure with hypoxia and hypercapnia Is this a current diagnosis for this admission?: Yes Plan: Due to the flash pulmonary edemaCurrently doing well after the IV Lasix and currently on a BiPAP (3) COPD (chronic obstructive pulmonary disease) Qualifiers: COPD type: unspecified COPD Qualified Code(s): J44.9 - Chronic obstructive pulmonary disease, unspecified Is this a current diagnosis for this admission?: Yes Plan: Continues to nebulizer as needed treatments (4) Cardiac pacemaker in situ Is this a current diagnosis for this admission?: Yes Plan: His last Checkup of the pacemaker 2 months back's will consult the cardiology (5) Chronic atrial fibrillation Is this a current diagnosis for this admission?: Yes Plan: Currently on Eliquis (6) Chronic kidney disease Qualifiers: Chronic kidney disease stage: stage 3 (moderate) Is this a current diagnosis for this admission?: Yes Plan: Patient's currently stable creatinine (7) Diabetes mellitus type 2 in obese Is this a current diagnosis for this admission?: Yes Plan: Continues to current medication (8) Flash pulmonary edema Is this a current diagnosis for this admission?: Yes Plan: Continues IV Lasix (9) Obstructive sleep apnea Is this a current diagnosis for this admission?: Yes Plan: Discussed with the Dr. Cordova about the CPAP patient's CPAP is not working at home may contribute the patient's more shortness of the brain and first pulmonary edema (10) Hypertension Qualifiers: Hypertension type: essential hypertension Is this a current diagnosis for this admission?: Yes Plan: Continues to current medications - Time Time Spent: 30 to 50 Minutes Medications reviewed and adjusted accordingly: Yes Anticipated discharge: Home Within: Other - Inpatient Certification Medical Necessity: Need Close Monitoring Due to Risk of Patient Decompensation Post Hospital Care: D/C Curriculum And Assessment Coordinator Documentation - Plan Summary Plan Summary: Discussed with the patient and the son on the bedside in the ER consult the cardiology continues to monitor the patient will see other MD orders
[2017-06-18] MEDS: INSULIN LISPRO 100 UNIT/ML 3 ML VIAL SUBCUT PRN ×3 (13:58→21:19)
--- NOTE | 2017-06-18 14:01 | EKG REPORT ---
SEVERITY:- ABNORMAL ECG - SINUS TACHYCARDIA MULTIFORM VENTRICULAR PREMATURE COMPLEXES FIRST DEGREE AV BLOCK PROBABLE LEFT ATRIAL ABNORMALITY NONSPECIFIC INTRAVENTRICULAR CONDUCTION DELAY : Confirmed by: Chapin Shaw MD 18-Jun-2017 14:00:40
[2017-06-18] MEDS: FUROSEMIDE INJ/PF 40 MG/4 ML SDV IV SCH ×2 (14:51→21:19)
[2017-06-18 18:25] LABS: CREATINE KINASE MB 1.43 ng/mL (<4.55); TROPONIN I 0.053 ng/mL
[2017-06-18] MEDS: BRIMONIDINE TARTRATE 0.2% OPH SOLN 5 ML OU SCH (18:45)
[2017-06-18] MEDS: RANOLAZINE 500 MG TAB.SR.12H PO SCH (21:12)
[2017-06-18] MEDS: MELATONIN 3 MG TABLET PO SCH (21:13)
[2017-06-18] MEDS: ATORVASTATIN CALCIUM 20 MG TABLET PO SCH (21:13)
[2017-06-18] MEDS: CARVEDILOL 3.125 MG TABLET PO SCH (21:14)
[2017-06-18] MEDS: APIXABAN 2.5 MG TABLET PO SCH (21:18)
[2017-06-18] MEDS: INSULIN GLARGINE,HUM.REC.ANLOG 300 UNIT/3 ML INSULN.PEN SUBCUT SCH (21:18)
[2017-06-18 23:35] LABS: CREATINE KINASE MB 1.56 ng/mL (<4.55); TROPONIN I 0.069 ng/mL
[2017-06-19] MEDS: FUROSEMIDE INJ/PF 40 MG/4 ML SDV IV SCH (05:24)
[2017-06-19 06:41] LABS: ABSOLUTE EOSINOPHILS # (AUTO) 0.3 10^3/uL (0.0-0.6); ABSOLUTE LYMPHOCYTES (AUTO) 1.4 10^3/uL (0.5-4.7); ABSOLUTE MONOCYTES (AUTO) 0.6 10^3/uL (0.1-1.4); ABSOLUTE NEUT (AUTO) 4.7 10^3/uL (1.7-8.2); BASOPHILS % (AUTO) 0.6 % (0-2); EOSINOPHILS % (AUTO) 4.6 % (0-6); HEMATOCRIT 34.3 % (37.9-51.0); HEMOGLOBIN 11.8 g/dL (13.5-17.0); LYMPHOCYTES % (AUTO) 19.3 % (13-45); MEAN CORPUSCULAR HEMOGLOBIN 29.5 pg (27.0-33.4); MEAN CORPUSCULAR HGB CONC 34.5 g/dL (32.0-36.0); MEAN CORPUSCULAR VOLUME 86 fl (80-97); MONOCYTES % (AUTO) 8.6 % (3-13); PLATELET COUNT 145 10^3/uL (150-450); RED BLOOD COUNT 4.01 10^6/uL (4.35-5.55); RED CELL DISTRIBUTION WIDTH 14.5 % (11.5-14.0); SEGMENTED NEUTROPHILS % (AUTO) 66.9 % (42-78); TOTAL CELLS COUNTED % (AUTO) 100 %; WHITE BLOOD COUNT 7.1 10^3/uL (4.0-10.5)
[2017-06-19 06:48] LABS: ANION GAP 19 (5-19); BLOOD UREA NITROGEN 51 mg/dL (7-20); CARBON DIOXIDE 26 mmol/L (22-30); CHLORIDE 100 mmol/L (98-107); GLUCOSE 129 mg/dL (75-110); POTASSIUM 4.2 mmol/L (3.6-5.0); SODIUM 144.6 mmol/L (137-145)
[2017-06-19] MEDS: RANOLAZINE 500 MG TAB.SR.12H PO SCH ×2 (09:17→21:05)
[2017-06-19] MEDS: CARVEDILOL 3.125 MG TABLET PO SCH (09:18)
[2017-06-19] MEDS: ASPIRIN 81 MG TABLET, ENT COATED PO SCH (09:18)
[2017-06-19] MEDS: APIXABAN 2.5 MG TABLET PO SCH ×2 (09:18→21:08)
[2017-06-19] MEDS: DOCUSATE SODIUM 100 MG CAPSULE PO SCH (09:18)
[2017-06-19] MEDS: BRIMONIDINE TARTRATE 0.2% OPH SOLN 5 ML OU SCH ×2 (09:19→17:15)
[2017-06-19] MEDS ORDERED: LOSARTAN POTASSIUM 25 MG TABLET PO SCH (10:00)
--- NOTE | 2017-06-19 11:32 | RADIOLOGY REPORT (SQ) ---
EXAM DESCRIPTION: CHEST 2 VIEWS COMPLETED DATE/TIME: 06/19/2017 10:44 am REASON FOR STUDY: chf COMPARISON: 05/19/2017. EXAM PARAMETERS: NUMBER OF VIEWS: two views TECHNIQUE: Digital Frontal and Lateral radiographic views of the chest acquired. RADIATION DOSE: NA LIMITATIONS: none FINDINGS: LUNGS AND PLEURA: No opacities, masses or pneumothorax. No pleural effusion. MEDIASTINUM AND HILAR STRUCTURES: No masses or contour abnormalities. HEART AND VASCULAR STRUCTURES: Stable heart size. BONES: No acute findings. HARDWARE: CABG. Defibrillator. OTHER: No other significant finding. IMPRESSION: NO ACUTE RADIOGRAPHIC FINDING IN THE CHEST. TECHNICAL DOCUMENTATION: JOB ID: [id number] [employer]- All Rights Reserved Reading location - IP/workstation name: [email or web address]
--- NOTE | 2017-06-19 12:20 | PDOC CONSULTATION ---
Consultation Consult Date: 06/18/17 Attending physician:: FOX VELÁZQUEZ History of Present Illness Admission Date/PCP: 06/18/17 11:02 FOX VELÁZQUEZ MD Patient complains of: Shortness of breath, sudden onset History of Present Illness: RONNIE MELGAR is a 72 year old male with a significant history of the systolic congestive heart failure chronic kidney disease and a several hospital admissions with a flash pulmonary edema came to the emergency department with a complaint of acute onset of difficulty in breathing with white sputum discharge with the coughAnd the patient's was initially put on the BiPAP and EMS and patient in the emergency department currently on a BiPAP and currently doing much better after receiving the Lasix total 80 mg in patients received a nitro Patient's currently when I saw her in the ER denied any chest pain and a much better Patient's currently not able to use a CPAP because machine is broke and currently working with the Dr. Cordova's office to get the new study done a new machineShe also part of her problems Patient seen by the Dr. Grant from chronic kidney disease an extensive workup done including the pulmonary hypertension's angina renal artery stenosis was all stable. This history obtained by Dr. Velázquez was reviewed. Patient does have known history of coronary artery disease. Patient however denies any chest pain. Patient does not have nitroglycerin as an outpatient. Patient therefore did not use any sublingual nitroglycerin. Patient also suffers from obstructive sleep apnea and currently has been having problems with CPAP/BiPAP use. Patient denied any sustained palpitations, syncope, near syncope. Patient does tend to wake up short of breath at times. Past Medical History Cardiac Medical History: Reports: Congestive Heart Failure, Myocardial Infarction - 2013 Bypass sugery, Hyperlipidema, Hypertension Denies: Coronary Artery Disease Pulmonary Medical History: Reports: Respiratory Failure Denies: Asthma, Bronchitis, Chronic Obstructive Pulmonary Disease (COPD), Pneumonia Neurological Medical History: Denies: Seizures Endocrine Medical History: Reports: Diabetes Mellitus Type 2 GI Medical History: Reports: Gastroesophageal Reflux Disease Musculoskeltal Medical History: Denies: Arthritis Psychiatric Medical History: Denies: Depression Hematology: Denies: Anemia Past Surgical History Past Surgical History: Reports: Cholecystectomy, Coronary Artery Bypass Graft Social History Information Source: Patient Smoking Status: Former Smoker Last Time Smoked: 1994 Frequency of Alcohol Use: None Hx Recreational Drug Use: No Drugs: None Hx Prescription Drug Abuse: No - Advance Directive Resuscitation Status: Full Code Surrogate healthcare decision maker:: Patient's son is the surrogate decision-maker Family History Family History: Reviewed & Not Pertinent, CAD, Other Parental Family History Reviewed: Yes Children Family History Reviewed: Yes Sibling(s) Family History Reviewed.: Yes Medication/Allergy Home Medications: Atorvastatin Calcium [Lipitor 20 mg Tablet] 20 mg PO QHS 03/05/17 Carvedilol [Coreg 3.125 mg Tablet] 3.125 mg PO Q12 03/05/17 Insulin Aspart [Novolog Flexpen] 0 unit SQ .SLIDING SCALE 03/05/17 Insulin Glargine,Hum.rec.anlog [Lantus Solostar] 30 unit SQ QHS 03/05/17 Losartan Potassium [Cozaar 25 mg Tablet] 25 mg PO DAILY 03/05/17 Ranolazine [Ranexa 500 mg Tab.sr] 500 mg PO Q12 03/05/17 Torsemide [Demadex 20 mg Tablet] 20 mg PO DAILY 03/05/17 Apixaban [Eliquis 2.5 mg Tablet] 2.5 mg PO Q12 05/18/17 Aspirin [Aspirin EC] 81 mg PO DAILY 05/18/17 Brimonidine Tartrate [Alphagan 0.2% Oph Soln 5 ml] 1 drop OU BID 05/18/17 Docusate Sodium [Colace 100 mg Capsule] 100 mg PO DAILY 05/18/17 Melatonin 3 mg PO QHS 06/18/17 Allergies/Adverse Reactions: adhesive [Adhesive] Adverse Reaction (Severe, Verified 06/18/17 08:42) Blisters Review of Systems Review of Systems: Please see history of present illness and past medical history as wall. Constitutional: No fever or chills reported. Head : No recent chronic headaches, recent head injury. Eyes: No recent eye pain, diplopia, redness, discharge, acute visual changes. Ears: No recent chronic ear pain, acute hearing loss, ear discharge. Oral cavity: No recent ulcerations, bleeding, oral cavity discomfort. Neck: No recent acute neck pain reported. Hematologic: No recent easy bruising or bleeding. Lymphatic: No recent lymph node enlargement reported. Cardiovascular system review: See history of present illness. Respiratory system review: No hemoptysis or blood clots in the lungs reported. Mild Shortness of breath on exertion Gastrointestinal system review: Negative for any recent acute hematemesis, melena. Genitourinary system review: No recent acute or chronic hematuria, flank pain, UTI etc. reported. Skin system review: Negative for any recent abnormal bruising, no rash, no pruritus reported. Neurologic: No prior history of strokes, mini strokes, seizure disorder. Psychologic: No history of major psychosis or major depression reported. Musculoskeletal: Minor aches and pains reported. No acute joint swelling reported. Endocrine: No recent polyuria, polydipsia, recent heat or cold intolerance. Physical Exam Vital Signs: Temp Pulse Resp BP Pulse Ox 98.3 F 71 14 116/75 100 06/18/17 15:20 06/18/17 19:00 06/18/17 16:35 06/18/17 15:20 06/18/17 15:20 Intake & Output 06/17/17 06/18/17 06/19/17 06:59 06:59 06:59 Intake Total 160 Balance 160 Weight 115.3 kg Exam: GENERAL: well-nourished and in no acute distress. Alert and oriented x3 HEAD: Atraumatic, normocephalic. EYES: Pupils equal round and reactive to light, extraocular movements intact, sclera anicteric, conjunctiva are normal. ENT: TMs normal, nares patent, oropharynx clear without exudates. Moist mucous membranes. No oral ulcerations or bleeding gums noted NECK: supple without lymphadenopathy. Trachea is central. No cervical or axillary lymphadenopathy noted. Carotids are 2+, JVD WNL LUNGS: Respiration seems nonlabored, no significant accessory muscle action noted. Few bibasilar fine crackles are noted. No wheezes rales or rhonchi noted. No significant dullness noted on percussion. CHEST: Palpation of the chest wall shows no significant chest wall tenderness. 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 ABDOMEN: Soft, no significant tenderness appreciated, normoactive bowel sounds. No guarding, no rebound. No rigidity noted . No masses appreciated. EXTREMITIES: Pedal pulses are 1-2+, no calf tenderness noted. No clubbing or cyanosis. 1+ pedal edema noted NEUROLOGICAL: Focused neurological exam showed no significant neurologic deficit. Normal speech, no focal weakness appreciated. PSYCH: Normal mood, normal affect. Judgment and insight within normal limits. SKIN: No significant ecchymosis, skin is noted to be warm. MUSCULOSKELETAL EXAM: No significant acute joint swelling noted. Results Laboratory Results: 06/18/17 06/18/17 06/18/17 11:26 11:26 17:35 Creatine Kinase 63 57 CK-MB (CK-2) 1.15 Troponin I 0.042 06/18/17 17:35 Creatine Kinase CK-MB (CK-2) 1.43 Troponin I 0.053 EKG Comments: Sinus rhythm, nonspecific IVCD but no acute ST-T wave changes noted. APCs and VPCs noted. Impressions: Chest X-Ray 06/18/17 08:26 IMPRESSION: CARDIAC ENLARGEMENT. VASCULAR CONGESTION. Assessment & Plan - Diagnosis (1) Congestive cardiac failure Qualifiers: Heart failure type: unspecified Heart failure chronicity: acute on chronic Qualified Code(s): I50.9 - Heart failure, unspecified Is this a current diagnosis for this admission?: Yes (2) Obstructive sleep apnea Is this a current diagnosis for this admission?: Yes (3) Paroxysmal atrial fibrillation Is this a current diagnosis for this admission?: Yes (4) CAD (coronary artery disease) Qualifiers: Coronary Disease-Associated Artery/Lesion type: [place] artery [place] vs. transplanted heart: [place] heart Associated angina: without angina Qualified Code(s): I25.10 - Atherosclerotic heart disease of [place] coronary artery without angina pectoris Is this a current diagnosis for this admission?: Yes (5) Diabetes mellitus Qualifiers: Diabetes mellitus type: type 2 Diabetes mellitus termite control service representative insulin use: unspecified termite control service representative insulin use status Diabetes mellitus complication status : with unspecified complications Qualified Code(s): E11.8 - Type 2 diabetes mellitus with unspecified complications Is this a current diagnosis for this admission?: Yes (6) Hypertension Qualifiers: Hypertension type: essential hypertension Qualified Code(s): I10 - Essential (primary) hypertension Is this a current diagnosis for this admission?: Yes (7) Elevated troponin I level Is this a current diagnosis for this admission?: Yes (8) CKD (chronic kidney disease) stage 3, GFR 30-59 ml/min Is this a current diagnosis for this admission?: Yes - Notes Notes: Congestive heart failure: Acute on chronic, systolic/diastolic combined. Patient on diuretic therapy. Will optimize therapy for underlying systolic and diastolic dysfunction. Recommend entresto therapy, carvedilol therapy, low- dose digoxin if needed. Currently improved with diuretics. Diabetes: Being well managed by automatic fancy machine operator but will avoid any hypoglycemia or hyperglycemia. Paroxysmal atrial fibrillation: Continue chronic anticoagulation. Recommend rate control with beta-blockers preferred. Coronary artery disease: Patient has a history of sudden onset CHF. Possibility of ischemia induced. Will schedule patient for a nuclear stress test. Hypertension: Patient was noted to have significantly elevated blood pressure in the ER but possibly related to stress of pulmonary edema. Will try better control of blood pressure. Blood pressure goal is 135/85 or less. Elevated troponin I: Most likely related to CHF but as noted above patient will benefit from a nuclear stress test and this will be scheduled. Chronic kidney disease: Stage III patient sees Dr. Grant. Continue follow-up with him. - Time Time Spent: 30 to 50 Minutes - CODE STATUS was discussed, patient remains full code. Surrogate decision-maker unchanged. Multiple medical problems were addressed. More than 50% of the time spent coordinating care, discussing management plans with involved caregivers. Management plans discussed with involved personnels. Medical decision making was of moderate to high complexity , patient's has multiple comorbidities. Medications reviewed and adjusted accordingly: Yes
--- NOTE | 2017-06-19 12:26 | PDOC PROGRESS REPORT ---
Subjective Progress Note for:: 06/19/17 Subjective:: Patient complains of difficulty with BiPAP use this morning, waking up choking and with dry mouth. Patient claims same problem with his old home machine. Patient is actually scheduled for a titration study. Will try to bring it forward. Patient seems to be doing better. Pt is denying any chest arm or neck discomfort. Patient denying any PND, orthopnea. Patient denied any sustained palpitations, dizziness, syncope, near syncope. Patient denying any fever chills. Patient denying any other significant discomfort. Patient is maintaining sinus rhythm. Review of systems: Rest review of systems negative. Medications: Medications have been reviewed. Reason For Visit: ACUTE PULMONARY EDEMA Physical Exam Vital Signs: Temp Pulse Resp BP Pulse Ox 97.5 F 80 16 111/74 100 06/19/17 11:52 06/19/17 11:52 06/19/17 11:52 06/19/17 11:52 06/19/17 11:52 Intake & Output 06/18/17 06/19/17 06/20/17 06:59 06:59 06:59 Intake Total 170 475 Output Total 1450 1000 Balance -1280 -525 Weight 114.4 kg Exam: GENERAL: well-nourished and in no acute distress. Alert and oriented x3 HEAD: Atraumatic, normocephalic. EYES: Pupils equal round and reactive to light, extraocular movements intact, sclera anicteric, conjunctiva are normal. ENT: TMs normal, nares patent, oropharynx clear without exudates. Moist mucous membranes. No oral ulcerations or bleeding gums noted NECK: supple without lymphadenopathy. Trachea is central. No cervical or axillary lymphadenopathy noted. Carotids are 2+, JVD WNL LUNGS: Respiration seems nonlabored, no significant accessory muscle action noted. Breath sounds clear to auscultation bilaterally and equal noted. No wheezes rales or rhonchi noted. No significant dullness noted on percussion. CHEST: Palpation of the chest wall shows no significant chest wall tenderness. 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 ABDOMEN: Soft, no significant tenderness appreciated, normoactive bowel sounds. No guarding, no rebound. No rigidity noted . No masses appreciated. EXTREMITIES: Pedal pulses are 1-2+, no calf tenderness noted. No clubbing or cyanosis. negative pedal edema noted NEUROLOGICAL: Focused neurological exam showed no significant neurologic deficit. Normal speech, no focal weakness appreciated. PSYCH: Normal mood, normal affect. Judgment and insight within normal limits. SKIN: No significant ecchymosis, skin is noted to be warm. MUSCULOSKELETAL EXAM: No significant acute joint swelling noted. Results Laboratory Results: 06/19/17 05:34 06/19/17 05:34 06/19/17 06/19/17 05:34 05:34 WBC 7.1 RBC 4.01 L Hgb 11.8 L Hct 34.3 L MCV 86 MCH 29.5 MCHC 34.5 RDW 14.5 H Plt Count 145 L Seg Neutrophils % 66.9 Lymphocytes % 19.3 Monocytes % 8.6 Eosinophils % 4.6 Basophils % 0.6 Absolute Neutrophils 4.7 Absolute Lymphocytes 1.4 Absolute Monocytes 0.6 Absolute Eosinophils 0.3 Absolute Basophils 0.0 Sodium 144.6 Potassium 4.2 Chloride 100 Carbon Dioxide 26 Anion Gap 19 BUN 51 H Creatinine 2.06 H Est GFR ( Amer) 39 L Est GFR (Non-Af Amer) 32 L Glucose 129 H Calcium 10.0 Magnesium 2.3 06/18/17 06/18/17 06/18/17 11:26 11:26 17:35 Creatine Kinase 63 57 CK-MB (CK-2) 1.15 Troponin I 0.042 NT-Pro-B Natriuret Pep 06/18/17 06/18/17 06/18/17 17:35 22:48 22:48 Creatine Kinase 67 CK-MB (CK-2) 1.43 1.56 Troponin I 0.053 0.069 NT-Pro-B Natriuret Pep 06/19/17 05:34 Creatine Kinase CK-MB (CK-2) Troponin I NT-Pro-B Natriuret Pep 3470 H EKG Comments: Shows sinus rhythm without any sustained tachycardia or bradycardia. Impressions: Chest X-Ray 06/19/17 00:00 IMPRESSION: NO ACUTE RADIOGRAPHIC FINDING IN THE CHEST. Assessment & Plan - Diagnosis (1) Acute on chronic combined systolic (congestive) and diastolic (congestive) heart failure Is this a current diagnosis for this admission?: Yes (2) Elevated troponin I level Is this a current diagnosis for this admission?: Yes (3) COPD (chronic obstructive pulmonary disease) Qualifiers: COPD type: unspecified COPD Qualified Code(s): J44.9 - Chronic obstructive pulmonary disease, unspecified Is this a current diagnosis for this admission?: Yes (4) Obstructive sleep apnea Is this a current diagnosis for this admission?: Yes (5) Paroxysmal atrial fibrillation Is this a current diagnosis for this admission?: Yes (6) CAD (coronary artery disease) Qualifiers: Coronary Disease-Associated Artery/Lesion type: unspecified vessel or lesion type [place] vs. transplanted heart: [place] heart Associated angina: without angina Qualified Code(s): I25.10 - Atherosclerotic heart disease of [place] coronary artery without angina pectoris Is this a current diagnosis for this admission?: Yes (7) CKD (chronic kidney disease) stage 3, GFR 30-59 ml/min Is this a current diagnosis for this admission?: Yes (8) Diabetes mellitus Qualifiers: Diabetes mellitus type: type 2 Diabetes mellitus residential insulin use: unspecified residential insulin use status Diabetes mellitus complication status : with unspecified complications Qualified Code(s): E11.8 - Type 2 diabetes mellitus with unspecified complications Is this a current diagnosis for this admission?: Yes (9) Cardiac defibrillator in situ Is this a current diagnosis for this admission?: Yes - Notes Notes: CHF: Improved continue current management. Will try optimize underlying therapy today. Please see orders. Elevated troponin I: Possibly related to CHF. Since patient also presented with sudden onset CHF, will schedule patient for a nuclear stress test. COPD: Currently stable. Obstructive sleep apnea: Patient has difficulty tolerating CPAP therapy. Patient scheduled for a titration study. Coronary artery disease: Currently without chest pain. To be evaluated further with a nuclear stress test. Chronic kidney disease: Currently stable. Diabetes: Being well managed by Dr. Velázquez. Cardiac defibrillator in situ: Patient denies any recent defibrillator discharges. - Time Time with patient: Greater than 35 minutes - CODE STATUS was discussed, patient remains full code. Surrogate decision-maker unchanged. Multiple medical problems were addressed. More than 50% of the time spent coordinating care, discussing management plans with involved caregivers. Management plans discussed with involved personnels. Medical decision making was of moderate to high complexity, patient's has multiple comorbidities. Medications reviewed and adjusted accordingly: Yes
--- NOTE | 2017-06-19 12:26 | PDOC PROGRESS REPORT ---
Subjective Progress Note for:: 06/19/17 Subjective:: Patient is currently doing much better Patient's back to the baseline Since denied any chest pain denied any shortness of the breath Patient still unable to use the CPAP at night which making him more short of breath Reason For Visit: ACUTE PULMONARY EDEMA Physical Exam Vital Signs: Temp Pulse Resp BP Pulse Ox 97.5 F 80 16 111/74 95 06/19/17 11:52 06/19/17 11:52 06/19/17 11:52 06/19/17 11:52 06/19/17 12:19 Intake & Output 06/18/17 06/19/17 06/20/17 06:59 06:59 06:59 Intake Total 170 475 Output Total 1450 1000 Balance -1280 -525 Weight 114.4 kg General appearance: PRESENT: no acute distress, well-developed, well-nourished Head exam: PRESENT: atraumatic, normocephalic Eye exam: PRESENT: conjunctiva pink, EOMI, PERRLA. ABSENT: scleral icterus Ear exam: PRESENT: normal external ear exam Mouth exam: PRESENT: moist, tongue midline Neck exam: PRESENT: full ROM. ABSENT: carotid bruit, JVD, lymphadenopathy, thyromegaly Respiratory exam: PRESENT: clear to auscultation [place] Cardiovascular exam: PRESENT: RRR. ABSENT: diastolic murmur, rubs, systolic murmur Pulses: PRESENT: normal [place] pedis pul, +2 pedal pulses bilateral Vascular exam: PRESENT: normal capillary refill GI/Abdominal exam: PRESENT: normal bowel sounds, soft. ABSENT: distended, guarding, mass, organolmegaly, rebound, tenderness Rectal exam: PRESENT: deferred Extremities exam: ABSENT: pedal edema Musculoskeletal exam: PRESENT: ambulatory Neurological exam: PRESENT: alert, awake, oriented to person, oriented to place , oriented to time, oriented to situation, CN II-XII grossly intact. ABSENT: motor sensory deficit Psychiatric exam: PRESENT: appropriate affect, normal mood. ABSENT: homicidal ideation, suicidal ideation Skin exam: PRESENT: dry, intact, warm. ABSENT: cyanosis, rash Results Laboratory Results: 06/19/17 05:34 06/19/17 05:34 06/19/17 06/19/17 05:34 05:34 WBC 7.1 RBC 4.01 L Hgb 11.8 L Hct 34.3 L MCV 86 MCH 29.5 MCHC 34.5 RDW 14.5 H Plt Count 145 L Seg Neutrophils % 66.9 Lymphocytes % 19.3 Monocytes % 8.6 Eosinophils % 4.6 Basophils % 0.6 Absolute Neutrophils 4.7 Absolute Lymphocytes 1.4 Absolute Monocytes 0.6 Absolute Eosinophils 0.3 Absolute Basophils 0.0 Sodium 144.6 Potassium 4.2 Chloride 100 Carbon Dioxide 26 Anion Gap 19 BUN 51 H Creatinine 2.06 H Est GFR ( Amer) 39 L Est GFR (Non-Af Amer) 32 L Glucose 129 H Calcium 10.0 Magnesium 2.3 06/18/17 06/18/17 06/18/17 11:26 11:26 17:35 Creatine Kinase 63 57 CK-MB (CK-2) 1.15 Troponin I 0.042 NT-Pro-B Natriuret Pep 06/18/17 06/18/17 06/18/17 17:35 22:48 22:48 Creatine Kinase 67 CK-MB (CK-2) 1.43 1.56 Troponin I 0.053 0.069 NT-Pro-B Natriuret Pep 06/19/17 05:34 Creatine Kinase CK-MB (CK-2) Troponin I NT-Pro-B Natriuret Pep 3470 H Impressions: Chest X-Ray 06/19/17 00:00 IMPRESSION: NO ACUTE RADIOGRAPHIC FINDING IN THE CHEST. Assessment & Plan - Diagnosis (1) Acute on chronic combined systolic (congestive) and diastolic (congestive) heart failure Is this a current diagnosis for this admission?: Yes Plan: Currently DC the IV Lasix and start on the p.o. diuretics (2) Acute respiratory failure with hypoxia and hypercapnia Is this a current diagnosis for this admission?: Yes Plan: Currently all resolved (3) COPD (chronic obstructive pulmonary disease) Qualifiers: Qualified Code(s): J44.9 - Chronic obstructive pulmonary disease, unspecified Is this a current diagnosis for this admission?: Yes Plan: Continues to nebulizer as needed treatments (4) Cardiac pacemaker in situ Is this a current diagnosis for this admission?: Yes Plan: His last Checkup of the pacemaker 2 months back's will consult the cardiology (5) Chronic atrial fibrillation Is this a current diagnosis for this admission?: Yes (6) Chronic kidney disease Qualifiers: Qualified Code(s): N18.3 - Chronic kidney disease, stage 3 (moderate) Is this a current diagnosis for this admission?: Yes Plan: Patient's currently stable creatinine (7) Diabetes mellitus type 2 in obese Is this a current diagnosis for this admission?: Yes Plan: Continues to current medication (8) Flash pulmonary edema Is this a current diagnosis for this admission?: Yes Plan: Currently all resolved (9) Obstructive sleep apnea Is this a current diagnosis for this admission?: Yes Plan: Follow with the Dr. Cordova (10) Hypertension Qualifiers: Qualified Code(s): I10 - Essential (primary) hypertension Is this a current diagnosis for this admission?: Yes Plan: Continues to current medications - Time Time Spent with patient: 15-24 minutes Medications reviewed and adjusted accordingly: Yes Anticipated discharge: Home Within: Other - Inpatient Certification Medical Necessity: Need Close Monitoring Due to Risk of Patient Decompensation Post Hospital Care: D/C Android Architect Documentation - Plan Summary Plan Summary: stable
[2017-06-19] MEDS: INSULIN LISPRO 100 UNIT/ML 3 ML VIAL SUBCUT PRN (13:28)
[2017-06-19] MEDS: TORSEMIDE 20 MG TABLET PO SCH (17:12)
[2017-06-19] MEDS: MELATONIN 3 MG TABLET PO SCH (21:07)
[2017-06-19] MEDS: ATORVASTATIN CALCIUM 20 MG TABLET PO SCH (21:08)
[2017-06-19] MEDS: CARVEDILOL 6.25 MG TABLET PO SCH (21:09)
[2017-06-19] MEDS: INSULIN GLARGINE,HUM.REC.ANLOG 300 UNIT/3 ML INSULN.PEN SUBCUT SCH (21:14)
[2017-06-19] MEDS: SACUBITRIL/VALSARTAN 24 MG/26 MG TABLET PO SCH (21:14)
[2017-06-20 06:14] LABS: ABSOLUTE EOSINOPHILS # (AUTO) 0.3 10^3/uL (0.0-0.6); ABSOLUTE LYMPHOCYTES (AUTO) 1.4 10^3/uL (0.5-4.7); ABSOLUTE MONOCYTES (AUTO) 0.7 10^3/uL (0.1-1.4); ABSOLUTE NEUT (AUTO) 3.9 10^3/uL (1.7-8.2); BASOPHILS % (AUTO) 0.6 % (0-2); EOSINOPHILS % (AUTO) 4.8 % (0-6); HEMATOCRIT 32.7 % (37.9-51.0); HEMOGLOBIN 11.3 g/dL (13.5-17.0); MEAN CORPUSCULAR HEMOGLOBIN 29.4 pg (27.0-33.4); MEAN CORPUSCULAR HGB CONC 34.5 g/dL (32.0-36.0); MEAN CORPUSCULAR VOLUME 85 fl (80-97); PLATELET COUNT 138 10^3/uL (150-450); RED BLOOD COUNT 3.84 10^6/uL (4.35-5.55); RED CELL DISTRIBUTION WIDTH 14.3 % (11.5-14.0); SEGMENTED NEUTROPHILS % (AUTO) 61.6 % (42-78); TOTAL CELLS COUNTED % (AUTO) 100 %; WHITE BLOOD COUNT 6.3 10^3/uL (4.0-10.5)
[2017-06-20 07:08] LABS: ANION GAP 16 (5-19); BLOOD UREA NITROGEN 69 mg/dL (7-20); CALCIUM 9.4 mg/dL (8.4-10.2); CARBON DIOXIDE 26 mmol/L (22-30); CHLORIDE 100 mmol/L (98-107); GLUCOSE 134 mg/dL (75-110); POTASSIUM 3.8 mmol/L (3.6-5.0); SODIUM 141.5 mmol/L (137-145)
--- NOTE | 2017-06-20 09:50 | PDOC PROGRESS REPORT ---
Subjective Progress Note for:: 06/20/17 Subjective:: Patient is currently doing much better Patient's back to the baseline Scheduled for the stress test today Reason For Visit: ACUTE PULMONARY EDEMA Physical Exam Vital Signs: Temp Pulse Resp BP Pulse Ox 97.8 F 82 16 121/63 98 06/20/17 07:29 06/20/17 08:43 06/20/17 08:43 06/20/17 07:29 06/20/17 08:43 Intake & Output 06/19/17 06/20/17 06/21/17 06:59 06:59 06:59 Intake Total 170 1430 Output Total 1450 2750 Balance -1280 -1320 Weight 114.4 kg 114.8 kg General appearance: PRESENT: no acute distress, well-developed, well-nourished Head exam: PRESENT: atraumatic, normocephalic Eye exam: PRESENT: conjunctiva pink, EOMI, PERRLA. ABSENT: scleral icterus Ear exam: PRESENT: normal external ear exam Mouth exam: PRESENT: moist, tongue midline Neck exam: PRESENT: full ROM. ABSENT: carotid bruit, JVD, lymphadenopathy, thyromegaly Respiratory exam: PRESENT: clear to auscultation [place] Cardiovascular exam: PRESENT: RRR. ABSENT: diastolic murmur, rubs, systolic murmur Pulses: PRESENT: normal dorsalis pedis pul, +2 pedal pulses bilateral Vascular exam: PRESENT: normal capillary refill GI/Abdominal exam: PRESENT: normal bowel sounds, soft. ABSENT: distended, guarding, mass, organolmegaly, rebound, tenderness Rectal exam: PRESENT: deferred Extremities exam: ABSENT: pedal edema Musculoskeletal exam: PRESENT: ambulatory Neurological exam: PRESENT: alert, awake, oriented to person, oriented to place , oriented to time, oriented to situation, CN II-XII grossly intact. ABSENT: motor sensory deficit Psychiatric exam: PRESENT: appropriate affect, normal mood. ABSENT: homicidal ideation, suicidal ideation Skin exam: PRESENT: dry, intact, warm. ABSENT: cyanosis, rash Results Laboratory Results: 06/20/17 05:43 06/20/17 05:43 06/20/17 06/20/17 05:43 05:43 WBC 6.3 RBC 3.84 L Hgb 11.3 L Hct 32.7 L MCV 85 MCH 29.4 MCHC 34.5 RDW 14.3 H Plt Count 138 L Seg Neutrophils % 61.6 Lymphocytes % 22.0 Monocytes % 11.0 Eosinophils % 4.8 Basophils % 0.6 Absolute Neutrophils 3.9 Absolute Lymphocytes 1.4 Absolute Monocytes 0.7 Absolute Eosinophils 0.3 Absolute Basophils 0.0 Sodium 141.5 Potassium 3.8 Chloride 100 Carbon Dioxide 26 Anion Gap 16 BUN 69 H Creatinine 2.34 H Est GFR ( Amer) 33 L Est GFR (Non-Af Amer) 28 L Glucose 134 H Calcium 9.4 Magnesium 2.3 06/18/17 06/18/17 06/18/17 11:26 11:26 17:35 Creatine Kinase 63 57 CK-MB (CK-2) 1.15 Troponin I 0.042 NT-Pro-B Natriuret Pep 06/18/17 06/18/17 06/18/17 17:35 22:48 22:48 Creatine Kinase 67 CK-MB (CK-2) 1.43 1.56 Troponin I 0.053 0.069 NT-Pro-B Natriuret Pep 06/19/17 06/20/17 05:34 05:43 Creatine Kinase CK-MB (CK-2) Troponin I NT-Pro-B Natriuret Pep 3470 H 1410 H Impressions: Chest X-Ray 06/19/17 00:00 IMPRESSION: NO ACUTE RADIOGRAPHIC FINDING IN THE CHEST. Assessment & Plan - Diagnosis (1) Acute on chronic combined systolic (congestive) and diastolic (congestive) heart failure Is this a current diagnosis for this admission?: Yes Plan: Currently DC the IV Lasix and start on the p.o. diuretics (2) Acute respiratory failure with hypoxia and hypercapnia Is this a current diagnosis for this admission?: Yes Plan: Currently all resolved (3) COPD (chronic obstructive pulmonary disease) Qualifiers: COPD type: unspecified COPD Qualified Code(s): J44.9 - Chronic obstructive pulmonary disease, unspecified Is this a current diagnosis for this admission?: Yes Plan: Continues to nebulizer as needed treatments (4) Cardiac pacemaker in situ Is this a current diagnosis for this admission?: Yes Plan: His last Checkup of the pacemaker 2 months back's will consult the cardiology (5) Chronic atrial fibrillation Is this a current diagnosis for this admission?: Yes Plan: Currently on Eliquis (6) Chronic kidney disease Qualifiers: Chronic kidney disease stage: stage 3 (moderate) Is this a current diagnosis for this admission?: Yes Plan: Patient's currently stable creatinine (7) Diabetes mellitus type 2 in obese Is this a current diagnosis for this admission?: Yes Plan: Continues to current medication (8) Flash pulmonary edema Is this a current diagnosis for this admission?: Yes Plan: Currently all resolved (9) Obstructive sleep apnea Is this a current diagnosis for this admission?: Yes Plan: Follow with the Dr. Cordova (10) Hypertension Qualifiers: Hypertension type: essential hypertension Qualified Code(s): I10 - Essential (primary) hypertension Is this a current diagnosis for this admission?: Yes Plan: Continues to current medications - Time Time Spent with patient: 15-24 minutes Medications reviewed and adjusted accordingly: Yes Anticipated discharge: Home Within: within 24 hours - Inpatient Certification Medical Necessity: Need Close Monitoring Due to Risk of Patient Decompensation Post Hospital Care: D/C Portfolio Strategist Documentation - Plan Summary Plan Summary: Patient is going for the stress test today and if is negative hopefully patients can discharged home today and follow in 1 week to recheck the kidney functions
[2017-06-20] MEDS ORDERED: REGADENOSON INJ 0.4 MG/5 ML DISP.SYRIN IV ONE (10:00)
[2017-06-20] MEDS ORDERED: AMINOPHYLLINE INJ/PF 250 MG/10 ML SDV IV ONE (10:00)
[2017-06-20] MEDS: APIXABAN 2.5 MG TABLET PO SCH ×2 (10:10→22:25)
[2017-06-20] MEDS: SACUBITRIL/VALSARTAN 24 MG/26 MG TABLET PO SCH ×2 (10:11→22:24)
[2017-06-20] MEDS: ASPIRIN 81 MG TABLET, ENT COATED PO SCH (10:11)
[2017-06-20] MEDS: TORSEMIDE 20 MG TABLET PO SCH ×2 (10:11→17:12)
[2017-06-20] MEDS: BRIMONIDINE TARTRATE 0.2% OPH SOLN 5 ML OU SCH ×2 (10:12→17:12)
[2017-06-20] MEDS: CARVEDILOL 6.25 MG TABLET PO SCH ×2 (10:14→22:25)
[2017-06-20] MEDS: RANOLAZINE 500 MG TAB.SR.12H PO SCH ×2 (10:14→22:25)
[2017-06-20] MEDS: DOCUSATE SODIUM 100 MG CAPSULE PO SCH (10:16)
--- NOTE | 2017-06-20 11:27 | DRAGON STRESS TEST REPORT ---
INTRAVENOUS LEXISCAN CARDIOLITE STRESS TEST USING SINGLE PHOTON EMMISION COMPUTERIZED TOMOGRAPHIC. DATE OF PROCEDURE: June 20, 2017, INDICATION : CAD and recurrent CHF, shortness of breath CARDIAC RISK FACTORS: Diabetes, hypertension, dyslipidemia, known CAD with status post CABG RESTING EKG: Sinus rhythm, VPCs and nonspecific ST-T wave changes being noted. STRESS EKG: No significant ST segment changes noted with LexiScan bolus REASON FOR TERMINATION: Protocol. PROCEDURE REPORT: Baseline heart rate 97 beats per minute with blood pressure of 117/68. Patient had no significant complaints. Patient was bolused with Lexiscan 0.4 mg intravenously followed by saline bolus. Heart rate at 2 minutes post bolus 105 with a blood pressure of 120/74. 3 minutes post bolus heart rate 95 with blood pressure of 140/74. No significant EKG changes were noted. Patient had no significant complaints during the procedure or postprocedure. Patient injected with Aminophyllin 75 mg at 3 minutes or later after Lexiscan bolus. CONCLUSIONS: Normal EKG and hemodynamic response to IV LexiScan. NUCLEAR DATA: At rest the patient was given 16.25 millicuries of technetium 99 sestamibi injected intravenously. As per protocol rest gated SPECT images were obtained. On day of stress test, the patient was given intravenous LexiScan at a dose of 0.4 mg in 5 mL intravenously, followed by flush with normal saline. Subsequently the stress dose of 43.1 millicuries of technetium 99 sestamibi was injected intravenously. As per protocol stress gated images were obtained. NUCLEAR INTERPRETATION: Both raw and processed data were used for interpretation. Visual, qualitative, computer-generated quantitative data was used. There was good myocardial uptake of technetium compound. Motion artifact and soft tissue attenuations were noted. Increased visceral uptake was noted. Severe fixed defect noted in the LV apex and inferior wall of the left ventricle. In addition an area of mild fixed defect noted in the mid anterior wall. There is minimal area of surrounding ischemia. SDS of 3. EKG gated imaging showed LV EF at 18%, apical and inferior wall akinesia noted, rest and stress gated EF similar visually. T. I D. ratio was 0.98. Lung heart ratio noted to be within normal limits 0.41. No significant extracardiac and abnormal radiotracer activities were noted. RV free wall uptake was noted to be WNL. IMPRESSION: Also refer to comments under nuclear interpretation. Also test results needs to be interpreted in the context of pretest probability. 1. Severe fixed defect noted involving the LV apex, inferior wall and a mild fixed defect in the mid anterior wall. There is minimal area of surrounding ischemia, SDS of 3. 2. EKG gated imaging shows left ventricular ejection fraction of approx. 18 % apical and inferior wall akinesia noted. 3. Clinical correlation requested as occasionally balanced ischemia could be missed. In approximately 10% of the cases Lexiscan may not cause adequate vasodilatory stress. RECOMMENDATIONS: Aggressive risk factor modification and medical management. Further evaluation may be needed if continued symptoms or other high risk indicators are noted on clinical evaluation. Low threshold for heart catheterization. Close cardiology follow-up is also recommended. Clinical correlation with echocardiogram derived ejection fraction. Inability to exercise by itself can lead to increased cardiovascular event risks. Consider cardiology consultation and or follow-up if clinically indicated. I am available for cardiology evaluation and consultation if requested by the weight loss consultant, unless patient already has a jailer/training officer. WARD
[2017-06-20] MEDS: INSULIN LISPRO 100 UNIT/ML 3 ML VIAL SUBCUT PRN ×2 (13:00→17:12)
[2017-06-20] MEDS: MELATONIN 3 MG TABLET PO SCH (22:25)
[2017-06-20] MEDS: ATORVASTATIN CALCIUM 20 MG TABLET PO SCH (22:25)
[2017-06-20] MEDS: INSULIN GLARGINE,HUM.REC.ANLOG 300 UNIT/3 ML INSULN.PEN SUBCUT SCH (22:33)
[2017-06-21 05:04] LABS: ABSOLUTE EOSINOPHILS # (AUTO) 0.3 10^3/uL (0.0-0.6); ABSOLUTE LYMPHOCYTES (AUTO) 1.4 10^3/uL (0.5-4.7); ABSOLUTE MONOCYTES (AUTO) 0.6 10^3/uL (0.1-1.4); ABSOLUTE NEUT (AUTO) 3.9 10^3/uL (1.7-8.2); BASOPHILS % (AUTO) 0.6 % (0-2); EOSINOPHILS % (AUTO) 4.8 % (0-6); HEMATOCRIT 33.8 % (37.9-51.0); HEMOGLOBIN 11.7 g/dL (13.5-17.0); LYMPHOCYTES % (AUTO) 22.9 % (13-45); MEAN CORPUSCULAR HEMOGLOBIN 29.7 pg (27.0-33.4); MEAN CORPUSCULAR HGB CONC 34.6 g/dL (32.0-36.0); MEAN CORPUSCULAR VOLUME 86 fl (80-97); MONOCYTES % (AUTO) 9.5 % (3-13); PLATELET COUNT 151 10^3/uL (150-450); RED BLOOD COUNT 3.94 10^6/uL (4.35-5.55); RED CELL DISTRIBUTION WIDTH 14.3 % (11.5-14.0); SEGMENTED NEUTROPHILS % (AUTO) 62.2 % (42-78); TOTAL CELLS COUNTED % (AUTO) 100 %; WHITE BLOOD COUNT 6.3 10^3/uL (4.0-10.5)
[2017-06-21 05:30] LABS: ANION GAP 15 (5-19); BLOOD UREA NITROGEN 74 mg/dL (7-20); CALCIUM 9.5 mg/dL (8.4-10.2); CARBON DIOXIDE 24 mmol/L (22-30); CHLORIDE 102 mmol/L (98-107); GLUCOSE 119 mg/dL (75-110); POTASSIUM 3.9 mmol/L (3.6-5.0); SODIUM 140.5 mmol/L (137-145)
[2017-06-21] MEDS: BRIMONIDINE TARTRATE 0.2% OPH SOLN 5 ML OU SCH (10:12)
[2017-06-21] MEDS: CARVEDILOL 6.25 MG TABLET PO SCH (10:13)
[2017-06-21] MEDS: TORSEMIDE 20 MG TABLET PO SCH (10:13)
[2017-06-21] MEDS: APIXABAN 2.5 MG TABLET PO SCH (10:13)
[2017-06-21] MEDS: RANOLAZINE 500 MG TAB.SR.12H PO SCH (10:13)
[2017-06-21] MEDS: ASPIRIN 81 MG TABLET, ENT COATED PO SCH (10:13)
[2017-06-21] MEDS: SACUBITRIL/VALSARTAN 24 MG/26 MG TABLET PO SCH (10:13)
[2017-06-21] MEDS: DOCUSATE SODIUM 100 MG CAPSULE PO SCH (10:15)
[2017-06-21] MEDS: INSULIN LISPRO 100 UNIT/ML 3 ML VIAL SUBCUT PRN (12:13)
[2017-06-21 12:41] VITALS: BP 116/75
--- NOTE | 2017-06-21 12:58 | PDOC PROGRESS REPORT ---
Subjective Progress Note for:: 06/20/17 Subjective:: Earlier in the day, nuclear stress test procedure, risk benefits were discussed. Nightly underwent nuclear stress test without any complications. Patient was seen after the stress test to discuss the results. Patient seems to be doing better. Pt is denying any chest arm or neck discomfort. Patient denying any PND, orthopnea. Patient denied any sustained palpitations, dizziness, syncope, near syncope. Patient denying any fever chills. Patient denying any other significant discomfort. Patient is maintaining sinus rhythm. Occasional APCs and VPCs are noted. Rare ventricular paced beats noted. Review of systems: Rest review of systems negative. Medications: Medications have been reviewed. Reason For Visit: ACUTE PULMONARY EDEMA Physical Exam Vital Signs: Temp Pulse Resp BP Pulse Ox 97.7 F 63 17 101/62 100 06/20/17 19:23 06/20/17 19:23 06/20/17 19:23 06/20/17 19:23 06/20/17 19:23 Intake & Output 06/19/17 06/20/17 06/21/17 06:59 06:59 06:59 Intake Total 170 1430 910 Output Total 1450 2750 1100 Balance -1280 -1320 -190 Weight 114.4 kg 114.8 kg Exam: GENERAL: well-nourished and in no acute distress. Alert and oriented x3 HEAD: Atraumatic, normocephalic. EYES: Pupils equal round and reactive to light, extraocular movements intact, sclera anicteric, conjunctiva are normal. ENT: TMs normal, nares patent, oropharynx clear without exudates. Moist mucous membranes. No oral ulcerations or bleeding gums noted NECK: supple without lymphadenopathy. Trachea is central. No cervical or axillary lymphadenopathy noted. Carotids are 2+, JVD WNL LUNGS: Respiration seems nonlabored, no significant accessory muscle action noted. Breath sounds clear to auscultation bilaterally and equal noted. No wheezes rales or rhonchi noted. No significant dullness noted on percussion. CHEST: Palpation of the chest wall shows no significant chest wall tenderness. 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 ABDOMEN: Soft, no significant tenderness appreciated, normoactive bowel sounds. No guarding, no rebound. No rigidity noted . No masses appreciated. EXTREMITIES: Pedal pulses are 1-2+, no calf tenderness noted. No clubbing or cyanosis. Trace to 1+ pedal edema noted NEUROLOGICAL: Focused neurological exam showed no significant neurologic deficit. Normal speech, no focal weakness appreciated. PSYCH: Normal mood, normal affect. Judgment and insight within normal limits. SKIN: No significant ecchymosis, skin is noted to be warm. MUSCULOSKELETAL EXAM: No significant acute joint swelling noted. Results Laboratory Results: 06/20/17 05:43 06/20/17 05:43 06/20/17 06/20/17 05:43 05:43 WBC 6.3 RBC 3.84 L Hgb 11.3 L Hct 32.7 L MCV 85 MCH 29.4 MCHC 34.5 RDW 14.3 H Plt Count 138 L Seg Neutrophils % 61.6 Lymphocytes % 22.0 Monocytes % 11.0 Eosinophils % 4.8 Basophils % 0.6 Absolute Neutrophils 3.9 Absolute Lymphocytes 1.4 Absolute Monocytes 0.7 Absolute Eosinophils 0.3 Absolute Basophils 0.0 Sodium 141.5 Potassium 3.8 Chloride 100 Carbon Dioxide 26 Anion Gap 16 BUN 69 H Creatinine 2.34 H Est GFR ( Amer) 33 L Est GFR (Non-Af Amer) 28 L Glucose 134 H Calcium 9.4 Magnesium 2.3 06/18/17 16:15 Clean Catch Midstream Urine Culture - Final NO GROWTH 2 DAYS 06/18/17 06/18/17 06/18/17 11:26 11:26 17:35 Creatine Kinase 63 57 CK-MB (CK-2) 1.15 Troponin I 0.042 NT-Pro-B Natriuret Pep 06/18/17 06/18/17 06/18/17 17:35 22:48 22:48 Creatine Kinase 67 CK-MB (CK-2) 1.43 1.56 Troponin I 0.053 0.069 NT-Pro-B Natriuret Pep 06/19/17 06/20/17 05:34 05:43 Creatine Kinase CK-MB (CK-2) Troponin I NT-Pro-B Natriuret Pep 3470 H 1410 H EKG Comments: Telemetry shows predominantly sinus rhythm with frequent APCs and VPCs, rare ventricular paced beats. Impressions: Chest X-Ray 06/19/17 00:00 IMPRESSION: NO ACUTE RADIOGRAPHIC FINDING IN THE CHEST. Assessment & Plan - Diagnosis (1) Acute on chronic combined systolic (congestive) and diastolic (congestive) heart failure Is this a current diagnosis for this admission?: Yes (2) Elevated troponin I level Is this a current diagnosis for this admission?: Yes (3) COPD (chronic obstructive pulmonary disease) Qualifiers: COPD type: unspecified COPD Qualified Code(s): J44.9 - Chronic obstructive pulmonary disease, unspecified Is this a current diagnosis for this admission?: Yes (4) Obstructive sleep apnea Is this a current diagnosis for this admission?: Yes (5) Paroxysmal atrial fibrillation Is this a current diagnosis for this admission?: Yes (6) CAD (coronary artery disease) Qualifiers: Coronary Disease-Associated Artery/Lesion type: unspecified vessel or lesion type [place] vs. transplanted heart: [place] heart Associated angina: without angina Qualified Code(s): I25.10 - Atherosclerotic heart disease of [place] coronary artery without angina pectoris Is this a current diagnosis for this admission?: Yes (7) CKD (chronic kidney disease) stage 3, GFR 30-59 ml/min Is this a current diagnosis for this admission?: Yes (8) Diabetes mellitus Qualifiers: Diabetes mellitus type: type 2 Diabetes mellitus terminal carman insulin use: unspecified skilled nursing insulin use status Diabetes mellitus complication status : with unspecified complications Qualified Code(s): E11.8 - Type 2 diabetes mellitus with unspecified complications Is this a current diagnosis for this admission?: Yes (9) Cardiac defibrillator in situ Is this a current diagnosis for this admission?: Yes - Notes Notes: Nuclear stress test results were reviewed with the patient. It showed predominantly severe fixed defect involving the LV apex and inferior wall. EKG gated imaging shows significantly depressed LVEF. Patient's lab work reviewed. Patient has been having a rising BUN and creatinine but BNP level are not nicely coming down. Results of the nuclear stress test were discussed with the patient. Based on his renal dysfunction and also very small amount of transient perfusion defect, SDS of 3, and since patient not having any anginal symptoms, it was decided to pursue medical management. This was also related to Dr. Velázquez. After discussion with Dr. Velázquez, it was felt that patient should stay overnight for a repeat BNP level and a chemistry panel. If his renal functions are improving then to let him go over the weekend. Patient also would follow-up with me for sleep evaluation and a CPAP titration study. CHF: Improved continue current management. Will try optimize underlying therapy today. Please see orders. Elevated troponin I: Possibly related to CHF. Since patient also presented with sudden onset CHF, will schedule patient for a nuclear stress test. COPD: Currently stable. Obstructive sleep apnea: Patient has difficulty tolerating CPAP therapy. Patient scheduled for a titration study. Coronary artery disease: Currently without chest pain. To be evaluated further with a nuclear stress test. Chronic kidney disease: Currently stable. Diabetes: Being well managed by Dr. Velázquez. Cardiac defibrillator in situ: Patient denies any recent defibrillator discharges. - Time Time with patient: Greater than 35 minutes - Patient was seen multiple times. Total time exceeds 40 minutes. In the morning nuclear stress test procedure, risks benefits, alternatives were discussed. Patient seen during the stress test. Patient also seen after stress test when results were discussed with the patient in detail. Patient's questions were answered. Based on nuclear images and available clinical information would recommend aggressive risk factor modification and medical therapy. It may also be worthwhile to consider evaluation or empiric management of other causes of chest pain. Should no other cause be found and if persistent in having chest pain, then cardiac catheterization should be considered. Right now, recommendations are for aggressive risk factor modification and medical management. Medications reviewed and adjusted accordingly: Yes
--- NOTE | 2017-06-21 13:03 | PDOC PROGRESS REPORT ---
Subjective Progress Note for:: 06/21/17 Subjective:: Lab work reviewed. Renal functions are stabilized now and creatinine is better. BNP level is much more improved from before. Patient seems to be doing better. Pt is denying any chest arm or neck discomfort. Patient denying any PND, orthopnea. Patient denied any sustained palpitations, dizziness, syncope, near syncope. Patient denying any fever chills. Patient denying any other significant discomfort. Patient is maintaining sinus rhythm. Occasional APCs and VPCs are noted. Review of systems: Rest review of systems negative. Medications: Medications have been reviewed. Reason For Visit: ACUTE PULMONARY EDEMA Physical Exam Vital Signs: Temp Pulse Resp BP Pulse Ox 97.8 F 75 18 116/75 100 06/21/17 12:38 06/21/17 12:38 06/21/17 12:38 06/21/17 12:38 06/21/17 12:38 Intake & Output 06/20/17 06/21/17 06/22/17 06:59 06:59 06:59 Intake Total 1430 1120 237 Output Total 2750 2000 Balance -1320 -880 237 Weight 114.8 kg 113.9 kg Exam: GENERAL: well-nourished and in no acute distress. Alert and oriented x3 HEAD: Atraumatic, normocephalic. EYES: Pupils equal round and reactive to light, extraocular movements intact, sclera anicteric, conjunctiva are normal. ENT: TMs normal, nares patent, oropharynx clear without exudates. Moist mucous membranes. No oral ulcerations or bleeding gums noted NECK: supple without lymphadenopathy. Trachea is central. No cervical or axillary lymphadenopathy noted. Carotids are 2+, JVD WNL LUNGS: Respiration seems nonlabored, no significant accessory muscle action noted. Breath sounds clear to auscultation bilaterally and equal noted. No wheezes rales or rhonchi noted. No significant dullness noted on percussion. CHEST: Palpation of the chest wall shows no significant chest wall tenderness. 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 ABDOMEN: Soft, no significant tenderness appreciated, normoactive bowel sounds. No guarding, no rebound. No rigidity noted . No masses appreciated. EXTREMITIES: Pedal pulses are 1-2+, no calf tenderness noted. No clubbing or cyanosis. negative pedal edema noted NEUROLOGICAL: Focused neurological exam showed no significant neurologic deficit. Normal speech, no focal weakness appreciated. PSYCH: Normal mood, normal affect. Judgment and insight within normal limits. SKIN: No significant ecchymosis, skin is noted to be warm. MUSCULOSKELETAL EXAM: No significant acute joint swelling noted. Results Laboratory Results: 06/21/17 04:18 06/21/17 04:18 06/21/17 06/21/17 04:18 04:18 WBC 6.3 RBC 3.94 L Hgb 11.7 L Hct 33.8 L MCV 86 MCH 29.7 MCHC 34.6 RDW 14.3 H Plt Count 151 Seg Neutrophils % 62.2 Lymphocytes % 22.9 Monocytes % 9.5 Eosinophils % 4.8 Basophils % 0.6 Absolute Neutrophils 3.9 Absolute Lymphocytes 1.4 Absolute Monocytes 0.6 Absolute Eosinophils 0.3 Absolute Basophils 0.0 Sodium 140.5 Potassium 3.9 Chloride 102 Carbon Dioxide 24 Anion Gap 15 BUN 74 H Creatinine 2.28 H Est GFR ( Amer) 34 L Est GFR (Non-Af Amer) 28 L Glucose 119 H Calcium 9.5 Magnesium 2.3 06/18/17 16:15 Clean Catch Midstream Urine Culture - Final NO GROWTH 2 DAYS 06/18/17 06/18/17 06/18/17 11:26 11:26 17:35 Creatine Kinase 63 57 CK-MB (CK-2) 1.15 Troponin I 0.042 NT-Pro-B Natriuret Pep 06/18/17 06/18/17 06/18/17 17:35 22:48 22:48 Creatine Kinase 67 CK-MB (CK-2) 1.43 1.56 Troponin I 0.053 0.069 NT-Pro-B Natriuret Pep 06/19/17 06/20/17 06/21/17 05:34 05:43 04:18 Creatine Kinase CK-MB (CK-2) Troponin I NT-Pro-B Natriuret Pep 3470 H 1410 H 937 H EKG Comments: Telemetry strips shows sinus rhythm, no sustained tachy or bradycardia arrhythmia noted Impressions: Chest X-Ray 06/19/17 00:00 IMPRESSION: NO ACUTE RADIOGRAPHIC FINDING IN THE CHEST. Assessment & Plan - Diagnosis (1) Acute on chronic combined systolic (congestive) and diastolic (congestive) heart failure Is this a current diagnosis for this admission?: Yes (2) Elevated troponin I level Is this a current diagnosis for this admission?: Yes (3) COPD (chronic obstructive pulmonary disease) Qualifiers: COPD type: unspecified COPD Qualified Code(s): J44.9 - Chronic obstructive pulmonary disease, unspecified Is this a current diagnosis for this admission?: Yes (4) Obstructive sleep apnea Is this a current diagnosis for this admission?: Yes (5) Paroxysmal atrial fibrillation Is this a current diagnosis for this admission?: Yes (6) CAD (coronary artery disease) Qualifiers: Coronary Disease-Associated Artery/Lesion type: unspecified vessel or lesion type [place] vs. transplanted heart: [place] heart Associated angina: without angina Qualified Code(s): I25.10 - Atherosclerotic heart disease of [place] coronary artery without angina pectoris Is this a current diagnosis for this admission?: Yes (7) CKD (chronic kidney disease) stage 3, GFR 30-59 ml/min Is this a current diagnosis for this admission?: Yes (8) Diabetes mellitus Qualifiers: Diabetes mellitus type: type 2 Diabetes mellitus care home insulin use: unspecified care home insulin use status Diabetes mellitus complication status : with unspecified complications Qualified Code(s): E11.8 - Type 2 diabetes mellitus with unspecified complications Is this a current diagnosis for this admission?: Yes (9) Cardiac defibrillator in situ Is this a current diagnosis for this admission?: Yes - Notes Notes: CHF: Improved continue current management. BNP level much improved. Continue entresto therapy and other management.. Elevated troponin I: Possibly related to CHF. Since patient also presented with sudden onset CHF, nuclear stress test results were again reviewed with the patient. Patient being recommended medical management. COPD: Currently stable. Obstructive sleep apnea: Patient has difficulty tolerating CPAP therapy. Patient scheduled for a titration study. Coronary artery disease: Currently without chest pain. To be evaluated further with a nuclear stress test. Chronic kidney disease: Currently stable. Paroxysmal atrial fibrillation: Continue Eliquis in current doses. Patient to report any strokes or bleeding symptoms Diabetes: Being well managed by senior master scheduler and his partners. Cardiac defibrillator in situ: Patient denies any recent defibrillator discharges. - Time Time with patient: Greater than 35 minutes - CODE STATUS was discussed, patient remains full code.Multiple medical problems were addressed. More than 50% of the time spent coordinating care, discussing management plans with involved caregivers. Management plans discussed with involved personnels. Medical decision making was of moderate to high complexity, patient's has multiple comorbidities.
--- NOTE | 2017-06-21 14:00 | PDOC DISCHARGE SUMMARY ---
General - Admit/Disc Date/PCP Admission Date/Primary Care Provider: 06/18/17 11:02 FOX BIRD MD Discharge Date: 06/21/17 - Additional Information Resuscitation Status: Full Code Discharge Diet: Cardiac, Diabetic Discharge Activity: Activity As Tolerated, Balance Activity w/Rest, Weigh Daily Prescriptions: Carvedilol [Coreg 6.25 mg Tablet] 6.25 mg PO Q12 #60 tablet Sacubitril/Valsartan [Entresto 24 mg/26 mg Tablet] 1 tab PO Q12 #60 tablet Torsemide [Demadex 20 mg Tablet] 20 mg PO BID #60 tablet Home Medications: Atorvastatin Calcium [Lipitor 20 mg Tablet] 20 mg PO QHS 03/05/17 Insulin Aspart [Novolog Flexpen] 0 unit SQ .SLIDING SCALE 03/05/17 Insulin Glargine,Hum.rec.anlog [Lantus Solostar] 30 unit SQ QHS 03/05/17 Ranolazine [Ranexa 500 mg Tab.sr] 500 mg PO Q12 03/05/17 Apixaban [Eliquis 2.5 mg Tablet] 2.5 mg PO Q12 05/18/17 Aspirin [Aspirin EC] 81 mg PO DAILY 05/18/17 Brimonidine Tartrate [Alphagan 0.2% Oph Soln 5 ml] 1 drop OU BID 05/18/17 Docusate Sodium [Colace 100 mg Capsule] 100 mg PO DAILY 05/18/17 Melatonin 3 mg PO QHS 06/18/17 Carvedilol [Coreg 6.25 mg Tablet] 6.25 mg PO Q12 #60 tablet 06/21/17 Sacubitril/Valsartan [Entresto 24 mg/26 mg Tablet] 1 tab PO Q12 #60 tablet 06/21 Torsemide [Demadex 20 mg Tablet] 20 mg PO BID #60 tablet 06/21/17 History of Present Illness History of Present Illness: RONNIE MELGAR is a 72 year old male patient was admitted on 06/18/[address] Bird when he presented for evaluation of shortness of breath, he was diagnosed with acute hypoxemic respiratory failure due to acute systolic heart failure, breathing was supported with noninvasive positive pressure ventilation, BiPAP Hospital Course Hospital Course: Patient was admitted for the management of acute pulmonary edema, he was seen by Dr. Cordova, cardiology E underwent Lexiscan nuclear stress test using single photon emission computerized tomography, the test showed severe fixed defect involving the left apex, inferior wall, mid anterior wall minimal area of surrounding ischemia, the medication was adjusted, he was diuresed, he was also started on entresto, the Coreg dose was increased. Patient is stable enough for discharge, he was seen on rounds today, the chest is clear on auscultation Physical Exam Vital Signs: Temp Pulse Resp BP Pulse Ox 97.8 F 75 18 116/75 100 06/21/17 12:38 06/21/17 12:38 06/21/17 12:38 06/21/17 12:38 06/21/17 12:38 Intake & Output 06/20/17 06/21/17 06/22/17 06:59 06:59 06:59 Intake Total 1430 1120 237 Output Total 2750 2000 Balance -1320 -880 237 Weight 114.8 kg 113.9 kg General appearance: PRESENT: no acute distress, well-developed, well-nourished Head exam: PRESENT: atraumatic, normocephalic Eye exam: PRESENT: conjunctiva pink, EOMI, PERRLA Ear exam: PRESENT: normal external ear exam Mouth exam: PRESENT: moist, tongue midline Neck exam: PRESENT: full ROM Respiratory exam: PRESENT: clear to auscultation margarita Cardiovascular exam: PRESENT: RRR, +S1, +S2 Pulses: PRESENT: normal dorsalis pedis pul, +2 pedal pulses bilateral Vascular exam: PRESENT: normal capillary refill GI/Abdominal exam: PRESENT: normal bowel sounds, soft Rectal exam: PRESENT: deferred Neurological exam: PRESENT: alert, awake, oriented to person, oriented to place , oriented to time, oriented to situation, CN II-XII grossly intact Psychiatric exam: PRESENT: appropriate affect, normal mood Skin exam: PRESENT: dry, intact, warm Results Laboratory Results: 06/21/17 04:18 06/21/17 04:18 06/21/17 06/21/17 04:18 04:18 WBC 6.3 RBC 3.94 L Hgb 11.7 L Hct 33.8 L MCV 86 MCH 29.7 MCHC 34.6 RDW 14.3 H Plt Count 151 Seg Neutrophils % 62.2 Lymphocytes % 22.9 Monocytes % 9.5 Eosinophils % 4.8 Basophils % 0.6 Absolute Neutrophils 3.9 Absolute Lymphocytes 1.4 Absolute Monocytes 0.6 Absolute Eosinophils 0.3 Absolute Basophils 0.0 Sodium 140.5 Potassium 3.9 Chloride 102 Carbon Dioxide 24 Anion Gap 15 BUN 74 H Creatinine 2.28 H Est GFR ( Amer) 34 L Est GFR (Non-Af Amer) 28 L Glucose 119 H Calcium 9.5 Magnesium 2.3 06/18/17 16:15 Clean Catch Midstream Urine Culture - Final NO GROWTH 2 DAYS 06/18/17 06/18/17 06/18/17 11:26 11:26 17:35 Creatine Kinase 63 57 CK-MB (CK-2) 1.15 Troponin I 0.042 NT-Pro-B Natriuret Pep 06/18/17 06/18/17 06/18/17 17:35 22:48 22:48 Creatine Kinase 67 CK-MB (CK-2) 1.43 1.56 Troponin I 0.053 0.069 NT-Pro-B Natriuret Pep 06/19/17 06/20/17 06/21/17 05:34 05:43 04:18 Creatine Kinase CK-MB (CK-2) Troponin I NT-Pro-B Natriuret Pep 3470 H 1410 H 937 H Impressions: Chest X-Ray 06/19/17 00:00 IMPRESSION: NO ACUTE RADIOGRAPHIC FINDING IN THE CHEST. Qualifiers - * PATIENT BEING DISCHARGED WITH ANY OF THE FOLLOWING DIAGNOSIS: No
== END 2017-06-21 13:40 | disposition home or self-care (01) | DRG 291 ==
LOC: ER 08:13 → EH 11:02 → 3S 15:18
PROVIDERS: ADMIT Family Medicine; ATTEND Family Medicine
DX: I13.0 Hypertensive heart and chronic kidney disease with heart failure and stage 1 through stage 4 chronic kidney disease, or unspecified chronic kidney disease (principal); J96.01 Acute respiratory failure with hypoxia; J96.02 Acute respiratory failure with hypercapnia; I50.43 Acute on chronic combined systolic (congestive) and diastolic (congestive) heart failure; R79.89 Other specified abnormal findings of blood chemistry; N18.3 Chronic kidney disease, stage 3 (moderate); E11.22 Type 2 diabetes mellitus with diabetic chronic kidney disease; K21.9 Gastro-esophageal reflux disease without esophagitis; J44.9 Chronic obstructive pulmonary disease, unspecified; I48.2 Chronic atrial fibrillation; E78.00 Pure hypercholesterolemia, unspecified; I25.2 Old myocardial infarction; Z79.01 Long term (current) use of anticoagulants; Z79.4 Long term (current) use of insulin; Z79.899 Other long term (current) drug therapy; Z95.810 Presence of automatic (implantable) cardiac defibrillator; Z87.891 Personal history of nicotine dependence
CPT/HCPCS: 36415; 71045; 71046; 78452; 80048; 80053; 82550; 82553; 82962; 83735; 83880; 84443; 84484; 85025; 87040; 87086; 93005; 93010; 93017; 94660; 96374; 99291; A9500; J0280; J1815; J1940; J2785; J3490; Q9969

== ENCOUNTER → 2017-09-15 | Outpatient (CLI) | payer MEDICARE, OTHER ==
[2017-09-15 12:31] LABS: APPEARANCE,URINE CLEAR; BILIRUBIN,URINE NEGATIVE (NEGATIVE); COLOR,URINE STRAW; GLUCOSE, URINE NEGATIVE (NEGATIVE); KETONES,URINE NEGATIVE (NEGATIVE); LEUKOCYTE ESTERASE,URINE NEGATIVE (NEGATIVE); NITRITE,URINE NEGATIVE (NEGATIVE); PROTEIN,URINE NEGATIVE (NEGATIVE); URINE SPECIFIC GRAVITY 1.006; UROBILINOGEN,URINE NEGATIVE mg/dL (<2.0)
[2017-09-15 12:33] LABS: HEMATOCRIT 35.9 % (37.9-51.0); HEMOGLOBIN 12.1 g/dL (13.5-17.0); MEAN CORPUSCULAR HEMOGLOBIN 28.9 pg (27.0-33.4); MEAN CORPUSCULAR HGB CONC 33.6 g/dL (32.0-36.0); MEAN CORPUSCULAR VOLUME 86 fl (80-97); PLATELET COUNT 135 10^3/uL (150-450); RED BLOOD COUNT 4.17 10^6/uL (4.35-5.55); WHITE BLOOD COUNT 5.8 10^3/uL (4.0-10.5)
[2017-09-15 12:56] LABS: ANION GAP 14 (5-19); BLOOD UREA NITROGEN 48 mg/dL (7-20); CALCIUM 9.5 mg/dL (8.4-10.2); CARBON DIOXIDE 26 mmol/L (22-30); CHLORIDE 103 mmol/L (98-107); GLUCOSE 190 mg/dL (75-110); POTASSIUM 4.9 mmol/L (3.6-5.0)
== END ==
LOC: OD 11:36
PROVIDERS: ATTEND Internal Medicine Nephrology
DX: I12.9 Hypertensive chronic kidney disease with stage 1 through stage 4 chronic kidney disease, or unspecified chronic kidney disease (principal); N18.3 Chronic kidney disease, stage 3 (moderate); E87.5 Hyperkalemia; E66.9 Obesity, unspecified
CPT/HCPCS: 36415; 80048; 81001; 85027

== ENCOUNTER → 2017-12-15 | Outpatient (CLI) | payer MEDICARE, OTHER ==
[2017-12-15 16:07] LABS: HEMATOCRIT 35.3 % (37.9-51.0); HEMOGLOBIN 12.1 g/dL (13.5-17.0); MEAN CORPUSCULAR HEMOGLOBIN 29.5 pg (27.0-33.4); MEAN CORPUSCULAR HGB CONC 34.3 g/dL (32.0-36.0); MEAN CORPUSCULAR VOLUME 86 fl (80-97); PLATELET COUNT 152 10^3/uL (150-450); RED CELL DISTRIBUTION WIDTH 13.7 % (11.5-14.0); WHITE BLOOD COUNT 7.2 10^3/uL (4.0-10.5)
[2017-12-15 16:10] LABS: APPEARANCE,URINE CLEAR; BILIRUBIN,URINE NEGATIVE (NEGATIVE); COLOR,URINE STRAW; GLUCOSE, URINE NEGATIVE (NEGATIVE); KETONES,URINE NEGATIVE (NEGATIVE); LEUKOCYTE ESTERASE,URINE NEGATIVE (NEGATIVE); NITRITE,URINE NEGATIVE (NEGATIVE); PROTEIN,URINE NEGATIVE (NEGATIVE); URINE SPECIFIC GRAVITY 1.006; UROBILINOGEN,URINE NEGATIVE mg/dL (<2.0)
[2017-12-15 16:40] LABS: ANION GAP 14 (5-19); BLOOD UREA NITROGEN 60 mg/dL (7-20); CALCIUM 9.7 mg/dL (8.4-10.2); CARBON DIOXIDE 23 mmol/L (22-30); CHLORIDE 104 mmol/L (98-107); GLUCOSE 139 mg/dL (75-110); POTASSIUM 4.8 mmol/L (3.6-5.0); SODIUM 141.3 mmol/L (137-145)
[2017-12-17 12:38] LABS: CREATININE URINE 24.6 mg/dL (Not Estab.); MICROALBUMIN URINE 7.7 ug/mL (Not Estab.)
== END ==
LOC: OD 14:57
PROVIDERS: ATTEND Internal Medicine Nephrology
DX: I13.0 Hypertensive heart and chronic kidney disease with heart failure and stage 1 through stage 4 chronic kidney disease, or unspecified chronic kidney disease (principal); E11.22 Type 2 diabetes mellitus with diabetic chronic kidney disease; N18.3 Chronic kidney disease, stage 3 (moderate); I50.9 Heart failure, unspecified
CPT/HCPCS: 36415; 80048; 81001; 82043; 82570; 83735; 85027

== ENCOUNTER 2018-01-23 02:07 | Emergency (ER) | payer MEDICARE, OTHER ==
[2018-01-23] MEDS ORDERED: SACUBITRIL/VALSARTAN 24 MG/26 MG TABLET PO ONE (02:28)
--- NOTE | 2018-01-23 02:28 | ER Document Report ---
ED General - General Chief Complaint: Blood Pressure Problem Stated Complaint: POSSIBLE HIGH BLOOD PRESSURE Time Seen by Provider: 01/23/18 02:19 Notes: Patient is a pleasant 72-year-old male who presents because he has been out of his blood pressure medication for 5 days. He says that he does have the prescription and it was sent and the company that sends his medications have not sent his blood pressure medication. He said he received all his medications except for his blood pressure medication and his cholesterol medication. Medication he is on his Entresto. He takes twice a day. He says he does not have any associated symptoms Or he is anxious and nervous because his blood pressures been high. He denies any chest pain. No headache. No difficulty breathing. No leg weakness or numbness. No other complaints at this time. TRAVEL OUTSIDE OF THE [place] IN LAST 30 DAYS: No - Related Data Allergies/Adverse Reactions: adhesive [Adhesive] Adverse Reaction (Severe, Verified 06/18/17 08:42) Blisters Past Medical History - Social History Smoking Status: Former Smoker Chew tobacco use (# tins/day): No Frequency of alcohol use: None Drug Abuse: None Family History: Reviewed & Not Pertinent, CAD, Other Patient has suicidal ideation: No Patient has homicidal ideation: No - Past Medical History Cardiac Medical History: Reports: Hx Congestive Heart Failure, Hx Heart Attack - 2014 Bypass sugery, Hx Hypercholesterolemia, Hx Hypertension Denies: Hx Coronary Artery Disease Pulmonary Medical History: Reports: Hx Respiratory Failure Denies: Hx Asthma, Hx Bronchitis, Hx COPD, Hx Pneumonia Neurological Medical History: Denies: Hx Cerebrovascular Accident, Hx Seizures Endocrine Medical History: Reports: Hx Diabetes Mellitus Type 2 Renal/ Medical History: Denies: Hx Peritoneal Dialysis GI Medical History: Reports: Hx Gastroesophageal Reflux Disease Musculoskeletal Medical History: Denies Hx Arthritis Psychiatric Medical History: Denies: Hx Depression Past Surgical History: Reports: Hx Cardiac Surgery - bypass, pacemaker placed 2016, Hx Cholecystectomy, Hx Coronary Artery Bypass Graft, Hx Open Heart Surgery - CABG, Hx Oral Surgery - Immunizations Hx Diphtheria, Pertussis, Tetanus Vaccination: Yes Hx Pneumococcal Vaccination: 07/11/13 Review of Systems - Review of Systems Notes: My Normal Review Basic REVIEW OF SYSTEMS: CONSTITUTIONAL : Denies fever, chills, or sweats. Denies recent illness. CARDIOVASCULAR: Denies chest pain. RESPIRATORY: Denies cough, cold, or chest congestion. Denies shortness of breath, difficulty breathing, or wheezing. GASTROINTESTINAL: Denies abdominal pain. Denies nausea, vomiting, or diarrhea. NEUROLOGICAL: Denies altered mental status or loss of consciousness. Denies headache. Denies weakness or paralysis or loss of use of either side. Denies problems with gait or speech. Denies sensory or motor loss. PSYCHIATRIC: Very due to high blood pressure. ALL OTHER SYSTEMS REVIEWED AND NEGATIVE. Physical Exam - Vital signs Vitals: Resp Pulse Ox 21 H 95 01/23/18 02:17 01/23/18 02:17 - Notes Notes: General Appearance: Well nourished, alert, cooperative, no acute distress, no obvious discomfort. Well-appearing. Vitals: reviewed, See vital signs table. Head: no swelling or tenderness to the head Eyes: PERRL, EOMI, Conjuctiva clear Lungs: No wheezing, No rales, No rhonci, No accessory muscle use, good air exchange bilaterally. Heart: Tachycardic rate, Regular rythm, No murmur, no rub Abdomen: Normal BS, soft, No rigidity, No abdominal tenderness, No guarding, no rebound, Extremities: strength 5/5 in all extremities, good pulses in all extremities, no swelling or tenderness in the extremities, no edema. Skin: warm, dry, appropriate color, no rash Neuro: speech clear, oriented x 3, normal affect, responds appropriately to questions. Cranial nerves II through XII are intact. Patient moves all extremities without difficulty. Course - Re-evaluation Re-evalutation: 01/23/18 06:12 On exam patient looks very well. He is little bit tachycardic but I think this is related to anxiety as patient admits that he got very scared and anxious because his blood pressure was high and she want to get on his medication and was concerned that she was not placed back on his medication something bad would happen. He is completely asymptomatic otherwise. He has no headache, no chest pain, no shortness of breath, no focal weakness or numbness. He looks very well. Informed her we placed him back on his medication. I encouraged him to start taking it. Encouraged him to follow-up closely with his primary care doctor. Encouraged him return to ER if he has chest pain, difficulty breathing, weakness or numbness into his extremities, headache, or if he feels unwell. Patient agrees with plan and will be discharged home. Dictation of this chart was performed using voice recognition software; therefore, there may be some unintended grammatical errors. - Vital Signs Vital signs: Temp Pulse Resp BP Pulse Ox 98.5 F 17 136/59 H 94 01/23/18 04:01 01/23/18 04:01 01/23/18 04:01 01/23/18 04:01 Discharge - Discharge Clinical Impression: Hypertension Qualifiers: Hypertension type: unspecified Qualified Code(s): I10 - Essential (primary) hypertension Disposition: HOME, SELF-CARE Additional Instructions: Please take your medications as prescribed. Please return to the ER if you have chest pain, headaches, or feel unwell. Prescriptions: Atorvastatin Calcium [Lipitor 20 mg Tablet] 20 mg PO QHS #14 tablet Sacubitril/Valsartan [Entresto 24 mg/26 mg Tablet] 1 tab PO Q12 #14 tablet Referrals: ASYA SHORT MD [Primary Care Provider] - Follow up as needed
[2018-01-23 04:19] VITALS: BP 136/59
== END 2018-01-23 04:05 | disposition home or self-care (01) ==
LOC: ER 02:07
DX: R03.0 Elevated blood-pressure reading, without diagnosis of hypertension (principal); I50.9 Heart failure, unspecified; I95.1 Orthostatic hypotension; E78.00 Pure hypercholesterolemia, unspecified; I11.0 Hypertensive heart disease with heart failure; E11.9 Type 2 diabetes mellitus without complications; Z87.891 Personal history of nicotine dependence; I25.2 Old myocardial infarction; Z90.49 Acquired absence of other specified parts of digestive tract
CPT/HCPCS: 99283; J3490

== ENCOUNTER → 2018-01-27 | Outpatient (CLI) | payer MEDICARE, OTHER ==
--- NOTE | 2018-01-27 15:36 | RADIOLOGY REPORT (SQ) ---
EXAM DESCRIPTION: CT CHEST WITHOUT COMPLETED DATE/TIME: 01/27/2018 1:49 pm REASON FOR STUDY: J43.2 CENTRILOBULAR EMPHYSEMA J43.2 CENTRILOBULAR EMPHYSEMA COMPARISON: None. TECHNIQUE: CT scan performed of the chest without intravenous contrast. Images reviewed with lung, soft tissue and bone windows. Reconstructed coronal and sagittal MPR images reviewed. All images st ored on PACS. All CT scanners at this facility use dose modulation, iterative reconstruction, and/or weight based d osing when appropriate to reduce radiation dose to as low as reasonably achievable (ALARA). [facility]: Dose Right [facility]: CareDose [facility]: Dose Right [facility]: Teradose 4D [facility]: Smart true[x] Media RADIATION DOSE: CT Rad equipment meets quality standard of care and radiation dose reduction techniq ues were employed. CTDIvol: 17.1 mGy. DLP: 744 mGy-cm. LIMITATIONS: No technical limitations. FINDINGS: LUNGS AND PLEURA: No evidence for significant centrilobular emphysema. A 4-5 mm nodule i n the right lower lobe, axial image 78, series 4 very tiny perifissural nodules in the lungs. In the left apex of the lung, axial image 26, series 4, a mixed 1.3 cm opacity containing fat and soft tiss ue density lies adjacent to the superior mediastinum, may be on the basis of scar related to post nadeen gical changes. No acute pulmonary consolidation. No pneumothorax or pleural effusion. HILAR AND MEDIASTINAL STRUCTURES: No identified masses or abnormal nodes. No obvious aneurysm. HEART AND VASCULAR STRUCTURES: Cardiomegaly. No aneurysm. No pericardial effusion. Mild atheroscl erotic changes involving the thoracic aorta. Coronary artery calcifications. UPPER ABDOMEN: Prior cholecystectomy. Mild atherosclerotic changes involving the visualized upper a bdominal aorta and branch vessels. Small hiatal hernia. Limited examination. THYROID AND OTHER SOFT TISSUES: The visualized thyroid gland is heterogenous in appearance, stable f inding since the CT neck examination dated 04/11/2013. BONES: No significant finding. HARDWARE: Prior anterior median sternotomy. Cardiac pacemaker. OTHER: No other significant findings. IMPRESSION: 1. No evidence for significant centrilobular emphysema by CT examination. 2. A 4- 5 mm nodule in the right lower lobe and very small subcentimeter perifissural nodules. 3. A mixed fat and soft tissue opacity in the left apex of the lung, adjacent to the superior medias tinum may represent scar related to post surgical changes. 4. Additional stable findings as above. TECHNICAL DOCUMENTATION: JOB ID: [id number] Quality ID # [id number]: Final reports with documentation of one or more dose reduction techniques (e.g., Au tomated exposure control, adjustment of the mA and/or kV according to patient size, use of iterative reconstruction technique) 2010 [employer]- All Rights Reserved Reading location - IP/workstation name: [email or web address]
== END ==
LOC: RAD 13:59
PROVIDERS: ATTEND Internal Medicine Pulmonary Disease
DX: J43.2 Centrilobular emphysema (principal)
CPT/HCPCS: 71250

== ENCOUNTER → 2018-02-27 | Outpatient (CLI) | payer MEDICARE, OTHER ==
[2018-02-27 10:55] LABS: ANION GAP 12 (5-19); BLOOD UREA NITROGEN 60 mg/dL (7-20); CALCIUM 9.7 mg/dL (8.4-10.2); CARBON DIOXIDE 21 mmol/L (22-30); CHLORIDE 107 mmol/L (98-107); GLUCOSE 180 mg/dL (75-110); POTASSIUM 4.8 mmol/L (3.6-5.0); SODIUM 140.2 mmol/L (137-145)
== END ==
LOC: OD 09:24
PROVIDERS: ATTEND Family Medicine
DX: E87.5 Hyperkalemia (principal)
CPT/HCPCS: 36415; 80048

== ENCOUNTER 2018-03-16 03:16 | Emergency (ER) | payer MEDICARE, OTHER ==
--- NOTE | 2018-03-16 03:34 | ER Document Report ---
ED General - General Chief Complaint: Shortness Of Breath Stated Complaint: SHORTNESS OF BREATH Time Seen by Provider: 03/16/18 03:27 Primary Care Provider: FOX BIRD MD [Primary Care Provider] - Follow up as needed Notes: Patient is a 73-year-old male who was brought in by ambulance to the emergency department with a chief complaint of shortness of breath. He states that he has had a cough for 2 days. He also has had some associated nausea and vomiting when he would cough. He also states that he has had some chills, but denies any fever. He was given a DuoNeb treatment by the ambulance. He denies any chest pain. He has a history of hypertension, diabetes, coronary artery disease, COPD, congestive heart failure, atrial fibrillation, pacemaker placement, chronic kidney disease, and CABG. TRAVEL OUTSIDE OF THE [place] IN LAST 30 DAYS: No - Related Data Allergies/Adverse Reactions: adhesive [Adhesive] Adverse Reaction (Severe, Verified 03/16/18 03:37) Blisters Past Medical History - General Information source: Patient - Social History Smoking Status: Former Smoker Family History: Reviewed & Not Pertinent, CAD, Other - Past Medical History Cardiac Medical History: Reports: Hx Congestive Heart Failure, Hx Heart Attack - 2014 Bypass sugery, Hx Hypercholesterolemia, Hx Hypertension Denies: Hx Coronary Artery Disease Pulmonary Medical History: Reports: Hx Respiratory Failure Denies: Hx Asthma, Hx Bronchitis, Hx COPD, Hx Pneumonia Neurological Medical History: Denies: Hx Cerebrovascular Accident, Hx Seizures Endocrine Medical History: Reports: Hx Diabetes Mellitus Type 2 Renal/ Medical History: Denies: Hx Peritoneal Dialysis GI Medical History: Reports: Hx Gastroesophageal Reflux Disease Musculoskeletal Medical History: Denies Hx Arthritis Psychiatric Medical History: Denies: Hx Depression Past Surgical History: Reports: Hx Cardiac Surgery - bypass, pacemaker placed 2016, Hx Cholecystectomy, Hx Coronary Artery Bypass Graft, Hx Open Heart Surgery - CABG, Hx Oral Surgery - Immunizations Hx Diphtheria, Pertussis, Tetanus Vaccination: Yes Hx Pneumococcal Vaccination: 07/11/13 Review of Systems - Review of Systems Notes: REVIEW OF SYSTEMS: CONSTITUTIONAL : Denies recent illness. Denies recent unintentional weight loss. Denies fever, chills, or sweats. EENT: Denies eye, ear, throat, or mouth pain, discharge, or symptoms. Denies nasal or sinus congestion. CARDIOVASCULAR: Denies chest pain. RESPIRATORY: See HPI. GASTROINTESTINAL: See HPI. GENITOURINARY: Denies difficulty urinating, burning, blood in urine, urgency or frequency. MUSCULOSKELETAL: Denies neck and back pain. Denies joint pain or swelling. SKIN: Denies rash, itchiness, or lesions HEMATOLOGIC : Denies easy bruising or bleeding. LYMPHATIC: Denies swollen, painful, enlarged glands. NEUROLOGICAL: Denies no numbness or tingling denies weakness. Denies headache. Denies altered mental status. Denies alteration in speech. PSYCHIATRIC: Denies stress, anxiety, alteration in sleep patterns, or depression. All other systems reviewed and negative. Physical Exam - Vital signs Vitals: Pulse Ox 96 03/16/18 03:17 - Notes Notes: PHYSICAL EXAMINATION: GENERAL: Appears well, healthy, well-nourished, no acute distress. HEAD: Normocephalic, atraumatic. EYES: PERRL, conjunctiva normal, all extraocular movements intact, sclera nonicteric ENT: Moist mucous membranes. Rhinorrhea noted. Erythema noted to oropharynx. NECK: Supple, no noticeable swelling, redness, rash. Normal range of motion. LUNGS: Equal breath sounds bilaterally and clear to auscultation. No wheezes rales or rhonchi in posterior lung charles. Coarse breath sounds noted in the bronchial area. Cough noted. CARDIOVASCULAR: S1-S2, regular rate, regular rhythm. Radial pulses 2+, normal. ABDOMEN: Normoactive bowel sounds. Soft, nontender, no guarding, no rebound tenderness, and no masses palpated. EXTREMITIES: Normal strength and range of motion, no pitting or edema. No cyanosis. NEUROLOGICAL: Moves all extremities upon command. Strength 5/5 in all extremities. PSYCH: Normal mood, normal affect. SKIN: Warm, dry. No rash, lesions, ulcerations noted. Normal skin turgor. Course - Re-evaluation Re-evalutation: 03/16/18 03:30 Patient is on 3 L nasal cannula satting 93%. He does not normally wear oxygen. Chest x-ray will be obtained and labs will be drawn. Differential diagnosis includes pneumonia, COPD exacerbation, URI, and bronchitis. 03/16/18 04:45 I have reevaluated the patient and he is not requiring oxygen anymore. His oxygen saturation is 94% on room air. His lung sounds are still clear. He will be given Tessalon Perles and cetirizine to help with his symptoms. His CBC shows a leukocytosis of 11,000, with a shift to left but this is most likely due to his upper respiratory infection. His blood glucose is 307 on labs, but he states that he did not you very well today due to the [place]. 03/16/18 05:20 I have spoke with the patient in regards to his symptoms and his labs. The plan is to have him follow-up with Dr. Bird in regards to this visit. Verbal discharge instructions were given to the patient. They verbalized understanding. They are stable for discharge. Documentation was completed using voice recognition software, therefore there may be some unintended grammatical or punctual errors. - Vital Signs Vital signs: Temp Pulse Resp BP Pulse Ox 100.3 F 94 23 H 118/64 96 03/16/18 03:36 03/16/18 03:36 03/16/18 05:01 03/16/18 05:01 03/16/18 05:01 - Laboratory Result Diagrams: 03/16/18 03:30 03/16/18 03:30 Laboratory results interpreted by me: 03/16/18 03/16/18 03:30 03:30 WBC 11.6 H RBC 3.88 L Hgb 11.5 L Hct 34.1 L RDW 14.5 H Plt Count 148 L Seg Neuts % (Manual) 92 H Lymphocytes % (Manual) 3 L Abs Neuts (Manual) 10.7 H Abs Lymphs (Manual) 0.3 L BUN 61 H Creatinine 2.18 H Est GFR ( Amer) 36 L Est GFR (Non-Af Amer) 30 L Glucose 307 H ALT 15 L - EKG Interpretation by Me Additional EKG results interpreted by me: 03/16/18 03:40 Sinus rhythm with first-degree heart block and right bundle branch block. Heart rate 97. NC 212; QRS 106; QT 360; QTC 458. PVCs noted. Pacemaker not captured. Discharge - Discharge Clinical Impression: Respiratory distress, Cough Condition: Stable Disposition: HOME, SELF-CARE Additional Instructions: You were seen today in the emergency department for a cough, nausea, vomiting, and chills. Your symptoms are most likely due to an upper respiratory infection. You may take acetaminophen 1000 mg and ibuprofen 600 mg every 6 hours as needed for any fever or body aches. You have been prescribed Tessalon Perles, medication for your cough. You may take 1 every 8 hours as needed for your cough. You have also been prescribed Zyrtec (cetirizine), a medication to help with your drainage. You have also been given an albuterol inhaler. You may take 2 puffs every 4 hours as needed for shortness of breath. Please follow-up with your primary care provider in regards to this visit. If you develop shortness of breath again, or unable to breathe, or have any symptoms that are worrisome to you, please return to the emergency department. Prescriptions: Benzonatate [Tessalon Perles 100 mg Capsule] 100 mg PO Q8HP PRN #40 capsule PRN Reason: Cetirizine HCl [Zyrtec 10 mg Tablet] 1 tab PO DAILY #30 tablet Referrals: FOX BIRD MD [Primary Care Provider] - Follow up as needed
[2018-03-16 03:42] LABS: HEMATOCRIT 34.1 % (37.9-51.0); HEMOGLOBIN 11.5 g/dL (13.5-17.0); MEAN CORPUSCULAR HEMOGLOBIN 29.6 pg (27.0-33.4); MEAN CORPUSCULAR HGB CONC 33.7 g/dL (32.0-36.0); MEAN CORPUSCULAR VOLUME 88 fl (80-97); PLATELET COUNT 148 10^3/uL (150-450); RED BLOOD COUNT 3.88 10^6/uL (4.35-5.55); RED CELL DISTRIBUTION WIDTH 14.5 % (11.5-14.0); WHITE BLOOD COUNT 11.6 10^3/uL (4.0-10.5)
[2018-03-16 03:59] LABS: ABSOLUTE LYMPHOCYTES# (MANUAL) 0.3 10^3/uL (0.5-4.7); ABSOLUTE MONOCYTES # (MANUAL) 0.6 10^3/uL (0.1-1.4); ABSOLUTE NEUTROPHILS# (MANUAL) 10.7 10^3/uL (1.7-8.2); BASOPHILS % (MANUAL) 0 % (0-2); EOSINOPHILS % (MANUAL) 0 % (0-6); LYMPHOCYTES % (MANUAL) 3 % (13-45); MONOCYTES % (MANUAL) 5 % (3-13); SEGMENTED NEUTROPHILS % (MAN) 92 % (42-78); TOTAL CELLS COUNTED 100
[2018-03-16 04:00] LABS: PLATELET COMMENT ADEQUATE; RBC MORPHOLOGY COMMENT NORMO-CYTIC/CHROMIC
[2018-03-16 04:02] LABS: ALANINE AMINOTRANSFERASE 15 U/L (21-72); ALBUMIN 4.3 g/dL (3.5-5.0); ALKALINE PHOSPHATASE 114 U/L (38-126); ANION GAP 13 (5-19); ASPARTATE AMINO TRANSFERASE 21 U/L (17-59); BILIRUBIN,DIRECT 0.4 mg/dL (0.0-0.4); BILIRUBIN,TOTAL 0.7 mg/dL (0.2-1.3); BLOOD UREA NITROGEN 61 mg/dL (7-20); CALCIUM 8.9 mg/dL (8.4-10.2); CARBON DIOXIDE 23 mmol/L (22-30); CHLORIDE 105 mmol/L (98-107); GLUCOSE 307 mg/dL (75-110); SODIUM 140.5 mmol/L (137-145); TOTAL PROTEIN 7.3 g/dL (6.3-8.2)
--- NOTE | 2018-03-16 04:06 | RADIOLOGY REPORT (SQ) ---
CLINICAL HISTORY: cough x5 days COMPARISON: None. TECHNIQUE: XR CHEST 1 VIEW 03/16/2018 3:33 AM ADMINISTRATIVE PROFESSIONAL FINDINGS: The heart is enlarged. Sternotomy was performed. Left AICD is present. Lungs are clear without consolidation, atelectasis, mass or edema. There is no pleural effusion. There is no pneumothorax. There are no acute osseous findings. IMPRESSION: No pneumonia.
[2018-03-16] MEDS ORDERED: CETIRIZINE 10 MG TABLET PO ONE (05:00)
[2018-03-16] MEDS ORDERED: BENZONATATE 100 MG CAPSULE PO ONE (05:00)
[2018-03-16] MEDS ORDERED: ALBUTEROL SULFATE HFA (90 MCG/PUFF) 8 GM MDI (1 MDI/ER DISP) IH PRN (05:09)
[2018-03-16 05:11] VITALS: BP 118/64
--- NOTE | 2018-03-16 06:12 | EKG REPORT ---
SEVERITY:- ABNORMAL ECG - SINUS TACHYCARDIA MULTIFORM VENTRICULAR PREMATURE COMPLEXES CONSIDER ANTERIOR INFARCT NONSPECIFIC T ABNORMALITIES, LATERAL LEADS : Confirmed by: Chapin Shaw MD 16-Mar-2018 06:11:54
== END 2018-03-16 05:41 | disposition home or self-care (01) ==
LOC: ER 03:16
DX: J06.9 Acute upper respiratory infection, unspecified (principal); R06.03 Acute respiratory distress; D72.829 Elevated white blood cell count, unspecified; R06.02 Shortness of breath; R05 Cough; R11.2 Nausea with vomiting, unspecified; R68.83 Chills (without fever); I44.0 Atrioventricular block, first degree; I45.10 Unspecified right bundle-branch block; I49.3 Ventricular premature depolarization; E11.9 Type 2 diabetes mellitus without complications; I10 Essential (primary) hypertension; I25.10 Atherosclerotic heart disease of native coronary artery without angina pectoris; I25.2 Old myocardial infarction; Z95.1 Presence of aortocoronary bypass graft; Z95.0 Presence of cardiac pacemaker; Z87.891 Personal history of nicotine dependence
CPT/HCPCS: 93005; 99285; 36415; 85025; 80053; 84484; 71045; 93010; A9270 ×2; J3490

== ENCOUNTER 2018-03-19 11:19 | Emergency (ER) | payer MEDICARE, OTHER ==
[2018-03-19] MEDS ORDERED: IPRATROPIUM/ALBUTEROL 0.5-2.5 MG/3 ML AMPUL NEB ONE ×2 (12:57→17:00)
--- NOTE | 2018-03-19 12:58 | ER Document Report ---
ED Medical Screen (RME) - General Chief Complaint: Shortness Of Breath Stated Complaint: DIFFICULTY BREATHING Time Seen by Provider: 03/19/18 12:57 Primary Care Provider: FOX BIRD MD [Primary Care Provider] - Follow up as needed Mode of Arrival: Ambulatory Information source: Patient Notes: Patient is a 73-year-old male with past medical history of COPD and CHF who presents the emergency department with complaints of difficulty breathing. Patient reports he was seen here several days ago, diagnosed with an upper respiratory illness. Patient reports he is getting worse and having increased cough and congestion. Patient denies any fevers, does report nausea with some "dry heaves". Denies any diarrhea. Exam: Scattered expiratory wheezes noted, no respiratory distress. I have greeted and performed a rapid initial assessment of this patient. A comprehensive ED assessment and evaluation of the patient, analysis of test results and completion of the medical decision making process will be conducted by additional ED providers. Dictation of this chart was performed using voice recognition software; therefore, there may be some unintended grammatical errors. TRAVEL OUTSIDE OF THE [place] IN LAST 30 DAYS: No - Related Data Allergies/Adverse Reactions: adhesive [Adhesive] Adverse Reaction (Severe, Verified 03/19/18 11:25) Blisters Home Medications: allopurinol. brimonidine tartrate. coreg. colace. eliquis. ASA. entresto. lantus. novolog. ranexa. torsemide. lipitor. benzomate. cetirizine Past Medical History - Social History Chew tobacco use (# tins/day): No Frequency of alcohol use: None Drug Abuse: None - Past Medical History Cardiac Medical History: Reports: Hx Congestive Heart Failure, Hx Heart Attack - 2013 Bypass sugery, Hx Hypercholesterolemia, Hx Hypertension Denies: Hx Coronary Artery Disease Pulmonary Medical History: Reports: Hx Respiratory Failure Denies: Hx Asthma, Hx Bronchitis, Hx COPD, Hx Pneumonia Neurological Medical History: Denies: Hx Cerebrovascular Accident, Hx Seizures Endocrine Medical History: Reports: Hx Diabetes Mellitus Type 2 Renal/ Medical History: Denies: Hx Peritoneal Dialysis GI Medical History: Reports: Hx Gastroesophageal Reflux Disease Musculoskeltal Medical History: Denies Hx Arthritis Psychiatric Medical History: Denies: Hx Depression Past Surgical History: Reports: Hx Cardiac Surgery - bypass, pacemaker placed 2016, Hx Cholecystectomy, Hx Coronary Artery Bypass Graft, Hx Open Heart Surgery - CABG, Hx Oral Surgery - Immunizations Hx Diphtheria, Pertussis, Tetanus Vaccination: Yes History of Influenza Vaccine for 11/2016 - 04/2017 Season: Yes Influenza Administration Date for 11/2016 - 04/2017 Season: 11/10/16 Physical Exam - Vital signs Vitals: Temp Pulse Resp BP Pulse Ox 98.8 F 98 24 H 136/79 H 95 03/19/18 11:25 03/19/18 11:25 03/19/18 11:25 03/19/18 11:25 03/19/18 11:25 Course - Vital Signs Vital signs: Temp Pulse Resp BP Pulse Ox 98.8 F 98 24 H 136/79 H 95 03/19/18 11:25 03/19/18 11:25 03/19/18 11:25 03/19/18 11:25 03/19/18 11:25 Doctor's Discharge - Discharge Referrals: FOX BIRD MD [Primary Care Provider] - Follow up as needed
--- NOTE | 2018-03-19 13:39 | RADIOLOGY REPORT (SQ) ---
EXAM DESCRIPTION: CHEST 2 VIEWS COMPLETED DATE/TIME: 03/19/2018 1:18 pm REASON FOR STUDY: cough, sob COMPARISON: CT chest 01/27/2018 AP chest 03/26/2018, 06/18/2017 EXAM PARAMETERS: NUMBER OF VIEWS: two views TECHNIQUE: Digital Frontal and Lateral radiographic views of the chest acquired. RADIATION DOSE: NA LIMITATIONS: none FINDINGS: LUNGS AND PLEURA: Right lower lobe airspace disease worrisome for acute pneumonia. Lungs are otherwise well inflated and clear. No pleural effusion. No pneumothorax. MEDIASTINUM AND HILAR STRUCTURES: No masses or contour abnormalities. HEART AND VASCULAR STRUCTURES: No cardiomegaly. Old sternotomy for CABG BONES: No acute findings. HARDWARE: Left-sided dual lead pacemaker. Clips right upper quadrant post cholecystectomy OTHER: No other significant finding. IMPRESSION: Right lower lobe pneumonia TECHNICAL DOCUMENTATION: JOB ID: [id number] [employer]- All Rights Reserved Reading location - IP/workstation name: [email or web address]
[2018-03-19 18:40] LABS: HEMATOCRIT 33.3 % (37.9-51.0); HEMOGLOBIN 11.1 g/dL (13.5-17.0); MEAN CORPUSCULAR HEMOGLOBIN 29.3 pg (27.0-33.4); MEAN CORPUSCULAR HGB CONC 33.4 g/dL (32.0-36.0); MEAN CORPUSCULAR VOLUME 88 fl (80-97); RED BLOOD COUNT 3.79 10^6/uL (4.35-5.55); RED CELL DISTRIBUTION WIDTH 14.6 % (11.5-14.0)
[2018-03-19 19:00] LABS: ABSOLUTE LYMPHOCYTES# (MANUAL) 0.6 10^3/uL (0.5-4.7); ABSOLUTE MONOCYTES # (MANUAL) 0.8 10^3/uL (0.1-1.4); ABSOLUTE NEUTROPHILS# (MANUAL) 13.7 10^3/uL (1.7-8.2); ALANINE AMINOTRANSFERASE 20 U/L (21-72); ALBUMIN 4.4 g/dL (3.5-5.0); ALKALINE PHOSPHATASE 86 U/L (38-126); ANION GAP 13 (5-19); ASPARTATE AMINO TRANSFERASE 33 U/L (17-59); BASOPHILS % (MANUAL) 0 % (0-2); BILIRUBIN,DIRECT 0.5 mg/dL (0.0-0.4); BILIRUBIN,TOTAL 1.1 mg/dL (0.2-1.3); BLOOD UREA NITROGEN 69 mg/dL (7-20); CALCIUM 9.3 mg/dL (8.4-10.2); CARBON DIOXIDE 23 mmol/L (22-30); CHLORIDE 104 mmol/L (98-107); EOSINOPHILS % (MANUAL) 0 % (0-6); GLUCOSE 246 mg/dL (75-110); LYMPHOCYTES % (MANUAL) 4 % (13-45); MONOCYTES % (MANUAL) 5 % (3-13); POTASSIUM 5.1 mmol/L (3.6-5.0); SEGMENTED NEUTROPHILS % (MAN) 91 % (42-78); SODIUM 139.8 mmol/L (137-145); TOTAL CELLS COUNTED 100; TOTAL PROTEIN 7.6 g/dL (6.3-8.2)
[2018-03-19 19:02] LABS: ANISOCYTOSIS SLIGHT; OVALOCYTES 1+; PLATELET CLUMPS PRESENT; POIKILOCYTOSIS 1+; POLYCHROMASIA SLIGHT; TEAR DROP CELLS SLIGHT; TOXIC GRANULATION 1+
[2018-03-19 19:03] LABS: PLATELET COUNT 171 10^3/uL (150-450)
[2018-03-19] MEDS ORDERED: DOXYCYCLINE HYCLATE 100 MG TABLET PO ONE (19:05)
--- NOTE | 2018-03-19 19:06 | ER Document Report ---
ED General - General Chief Complaint: Shortness Of Breath Stated Complaint: DIFFICULTY BREATHING Time Seen by Provider: 03/19/18 12:57 Primary Care Provider: FOX BIRD MD [Primary Care Provider] - 03/23/18 Mode of Arrival: Ambulatory Notes: Patient is a 73-year-old male with past medical history of chronic kidney disease, coronary disease, CHF, presents complaining of increasing nonproductive cough and subjective fever. States that he was seen several days ago, diagnosed bronchitis. States he was initially getting better but began to worsen last night with worsening cough, moderate shortness of breath and fever. He notes that the medications with which she was sent home have not improved his symptoms. Nothing has been noted to worsen his symptoms. Denies a history of similar symptoms in the past. Was going to see his primary care physician today but decided to come the emergency department as he was feeling increasingly ill and did not feel he could wait. He denies any chest pain. TRAVEL OUTSIDE OF THE [place] IN LAST 30 DAYS: No - Related Data Allergies/Adverse Reactions: adhesive [Adhesive] Adverse Reaction (Severe, Verified 03/19/18 11:25) Blisters Home Medications: allopurinol. brimonidine tartrate. coreg. colace. eliquis. ASA. entresto. lantus. novolog. ranexa. torsemide. lipitor. benzomate. cetirizine Past Medical History - General Information source: Patient - Social History Smoking Status: Never Smoker Chew tobacco use (# tins/day): No Frequency of alcohol use: None Drug Abuse: None Family History: Reviewed & Not Pertinent, CAD, Other Patient has suicidal ideation: No Patient has homicidal ideation: No - Past Medical History Cardiac Medical History: Reports: Hx Congestive Heart Failure, Hx Heart Attack - 2013 Bypass sugery, Hx Hypercholesterolemia, Hx Hypertension Denies: Hx Coronary Artery Disease Pulmonary Medical History: Reports: Hx Respiratory Failure Denies: Hx Asthma, Hx Bronchitis, Hx COPD, Hx Pneumonia Neurological Medical History: Denies: Hx Cerebrovascular Accident, Hx Seizures Endocrine Medical History: Reports: Hx Diabetes Mellitus Type 2 Renal/ Medical History: Denies: Hx Peritoneal Dialysis GI Medical History: Reports: Hx Gastroesophageal Reflux Disease Musculoskeletal Medical History: Denies Hx Arthritis Psychiatric Medical History: Denies: Hx Depression Past Surgical History: Reports: Hx Cardiac Surgery - bypass, pacemaker placed 2016, Hx Cholecystectomy, Hx Coronary Artery Bypass Graft, Hx Open Heart Surgery - CABG, Hx Oral Surgery - Immunizations Hx Diphtheria, Pertussis, Tetanus Vaccination: Yes Hx Pneumococcal Vaccination: 07/11/13 Review of Systems - Review of Systems Notes: Constitutional: Positive for subjective fever HENT: Negative for sore throat. Eyes: Negative for visual changes. Cardiovascular: Negative for chest pain. Respiratory: Positive for cough and shortness of breath Gastrointestinal: Negative for abdominal pain, vomiting or diarrhea. Genitourinary: Negative for dysuria. Musculoskeletal: Negative for back pain. Skin: Negative for rash. Neurological: Negative for headaches, weakness or numbness. 10 point ROS negative except as marked above and in HPI. Physical Exam - Vital signs Vitals: Temp Pulse Resp BP Pulse Ox 98.8 F 98 24 H 136/79 H 95 03/19/18 11:25 03/19/18 11:25 03/19/18 11:25 03/19/18 11:25 03/19/18 11:25 Interpretation: Normal - Patient is not tachypneic at the time of my evaluation the respiratory rate is 14 Notes: PHYSICAL EXAMINATION: GENERAL: Well-appearing, well-nourished and in no acute distress. HEAD: Atraumatic, normocephalic. EYES: Pupils equal round and reactive to light, extraocular movements intact, sclera anicteric, conjunctiva are normal. ENT: nares patent, oropharynx clear without exudates. Moist mucous membranes. NECK: Normal range of motion, supple without lymphadenopathy LUNGS: Breath sounds clear to auscultation bilaterally and equal. No wheezes rales or rhonchi. HEART: Regular rate and rhythm without murmurs ABDOMEN: Soft, nontender, normoactive bowel sounds. No guarding, no rebound. No masses appreciated. EXTREMITIES: Normal range of motion, no pitting or edema. No cyanosis. NEUROLOGICAL: No focal neurological deficits. Moves all extremities spontaneously and on command. PSYCH: Normal mood, normal affect. SKIN: Warm, Dry, normal turgor, no rashes or lesions noted. Course - Re-evaluation Re-evalutation: 03/19/18 19:10 Presentation of a well-appearing 73-year-old male presents with shortness of breath that is increased from previous visit as well as his cough becoming nonproductive. Also reports subjective fever at home. Repeat chest x-ray today shows a development of a right lower lobe pneumonia not previously seen on his emergency room visit 3 days ago. He has developed a moderate leukocytosis at 15. Renal function unchanged. Curb 65 score is 2 placing him in the moderate risk category. At the time of my evaluation the patient is breathing 14 times a minute, saturating 99-100% on room air. He is not labored in any fashion. No tachycardia or hypotension. I think the patient would be quite appropriate for outpatient management. I did speak directly to his primary care physician Dr. Bird who agrees that outpatient management is a reasonable plan including follow-up with him directly on Friday in the office. The patient is quite comfortable with this as well. Patient has been started on doxycycline twice a day for 10 days. First dose has been given here in the emergency department. At this time will discharge with return precautions and follow-up recommendations. Verbal discharge instructions given a the bedside and op portunity for questions given. Medication warnings reviewed. Patient is in agreement with this plan and has verbalized understanding of return precautions and the need for primary care follow-up in the next 24-72 hours. - Vital Signs Vital signs: Temp Pulse Resp BP Pulse Ox 98.8 F 98 17 130/78 H 100 03/19/18 11:25 03/19/18 11:25 03/19/18 19:53 03/19/18 19:01 03/19/18 19:53 - Laboratory Result Diagrams: 03/19/18 18:10 03/19/18 18:10 Laboratory results interpreted by me: 03/19/18 03/19/18 18:10 18:10 WBC 15.0 H RBC 3.79 L Hgb 11.1 L Hct 33.3 L RDW 14.6 H Seg Neuts % (Manual) 91 H Lymphocytes % (Manual) 4 L Abs Neuts (Manual) 13.7 H Potassium 5.1 H BUN 69 H Creatinine 2.41 H Est GFR ( Amer) 32 L Est GFR (Non-Af Amer) 27 L Glucose 246 H Direct Bilirubin 0.5 H ALT 20 L - Diagnostic Test Radiology reviewed: Image reviewed, Reports reviewed Radiology results interpreted by me: 03/19/18 19:12 Chest x-ray: Right lower lobe pneumonia Discharge - Discharge Clinical Impression: SOB (shortness of breath) Chronic kidney disease Qualifiers: Chronic kidney disease stage: unspecified stage Qualified Code(s): N18.9 - Chronic kidney disease, unspecified Right lower lobe pneumonia Qualifiers: Pneumonia type: due to unspecified organism Qualified Code(s): J18.1 - Lobar pneumonia, unspecified organism Condition: Stable Disposition: HOME, SELF-CARE Additional Instructions: You have been diagnosed with a pneumonia. It is very important that you take all of your antibiotics until they are gone even if you are feeling better. Please return to the emergency department immediately if you began having worsening shortness of breath, your oxygen level falls below 92% on your home pulse oximeter, you become confused, have worsening pain, pass out, have persistent vomiting that prevents you from being able to drink fluids for more than 12 hours, or have any other symptoms that are worrisome to you. Please follow-up with your primary care doctor on Friday. I did speak directly to Dr. Bird and he is in agreement with our plan today and would like to see you on Friday. Prescriptions: Doxycycline Monohydrate 100 mg PO BID #20 capsule Referrals: FOX BIRD MD [Primary Care Provider] - 03/23/18
[2018-03-19 19:07] LABS: PLATELET COMMENT ADEQUATE
[2018-03-19 19:53] VITALS: BP 130/78
== END 2018-03-19 20:01 | disposition home or self-care (01) ==
LOC: ER 11:19
DX: J18.1 Lobar pneumonia, unspecified organism (principal); R06.02 Shortness of breath; R06.00 Dyspnea, unspecified; E11.22 Type 2 diabetes mellitus with diabetic chronic kidney disease; I13.0 Hypertensive heart and chronic kidney disease with heart failure and stage 1 through stage 4 chronic kidney disease, or unspecified chronic kidney disease; N18.9 Chronic kidney disease, unspecified; I50.9 Heart failure, unspecified; E78.00 Pure hypercholesterolemia, unspecified; Z95.1 Presence of aortocoronary bypass graft; I25.2 Old myocardial infarction
CPT/HCPCS: 94640; 99285; 36415; 85025; 80053; 71046; A9270 ×2; J7620

== ENCOUNTER → 2018-04-03 | Outpatient (CLI) | payer MEDICARE, OTHER ==
--- NOTE | 2018-04-03 08:51 | RADIOLOGY REPORT (SQ) ---
EXAM DESCRIPTION: CHEST PA/LATERAL COMPLETED DATE/TIME: 04/03/2018 8:37 am REASON FOR STUDY: PNEUMONIA OF RIGHT LOWER LOBE DUE TO INFECTIIOUS ORGANISM COMPARISON: Two-view chest 03/19/2018, 03/16/2018 CT chest 01/27/2018 EXAM PARAMETERS: NUMBER OF VIEWS: two views TECHNIQUE: Digital Frontal and Lateral radiographic views of the chest acquired. RADIATION DOSE: NA LIMITATIONS: none FINDINGS: LUNGS AND PLEURA: No opacities, masses or pneumothorax. No pleural effusion. MEDIASTINUM AND HILAR STRUCTURES: No masses or contour abnormalities. HEART AND VASCULAR STRUCTURES: Borderline cardiomegaly. Old sternotomy for CABG BONES: No acute findings. HARDWARE: Left-sided dual lead pacemaker OTHER: No other significant finding. IMPRESSION: NO SIGNIFICANT RADIOGRAPHIC FINDING IN THE CHEST. TECHNICAL DOCUMENTATION: JOB ID: [id number] [employer]- All Rights Reserved Reading location - IP/workstation name: [email or web address]
== END ==
LOC: OD 08:24
PROVIDERS: ATTEND Family Medicine
DX: J18.1 Lobar pneumonia, unspecified organism (principal)
CPT/HCPCS: 71046

== ENCOUNTER → 2018-04-14 | Outpatient (CLI) | payer MEDICARE, OTHER ==
[2018-04-14 09:42] LABS: HEMATOCRIT 33.9 % (37.9-51.0); HEMOGLOBIN 11.5 g/dL (13.5-17.0); MEAN CORPUSCULAR HEMOGLOBIN 29.4 pg (27.0-33.4); MEAN CORPUSCULAR HGB CONC 33.8 g/dL (32.0-36.0); MEAN CORPUSCULAR VOLUME 87 fl (80-97); PLATELET COUNT 135 10^3/uL (150-450); RED CELL DISTRIBUTION WIDTH 14.7 % (11.5-14.0); WHITE BLOOD COUNT 6.7 10^3/uL (4.0-10.5)
[2018-04-14 09:46] LABS: APPEARANCE,URINE CLEAR; BILIRUBIN,URINE NEGATIVE (NEGATIVE); COLOR,URINE YELLOW; GLUCOSE, URINE 50 mg/dL (NEGATIVE); KETONES,URINE NEGATIVE (NEGATIVE); LEUKOCYTE ESTERASE,URINE NEGATIVE (NEGATIVE); NITRITE,URINE NEGATIVE (NEGATIVE); PROTEIN,URINE NEGATIVE (NEGATIVE); URINE SPECIFIC GRAVITY 1.015; UROBILINOGEN,URINE NEGATIVE mg/dL (<2.0)
[2018-04-14 10:35] LABS: ANION GAP 11 (5-19); BLOOD UREA NITROGEN 41 mg/dL (7-20); CALCIUM 9.4 mg/dL (8.4-10.2); CARBON DIOXIDE 23 mmol/L (22-30); CHLORIDE 107 mmol/L (98-107); GLUCOSE 171 mg/dL (75-110); POTASSIUM 4.6 mmol/L (3.6-5.0); SODIUM 141.4 mmol/L (137-145); URIC ACID 7.7 mg/dL (3.5-8.5)
== END ==
LOC: OD 08:35
PROVIDERS: ATTEND Internal Medicine Nephrology
DX: I12.9 Hypertensive chronic kidney disease with stage 1 through stage 4 chronic kidney disease, or unspecified chronic kidney disease (principal); N18.3 Chronic kidney disease, stage 3 (moderate); E11.22 Type 2 diabetes mellitus with diabetic chronic kidney disease; M10.00 Idiopathic gout, unspecified site
CPT/HCPCS: 36415; 80048; 81001; 84550; 85027

== ENCOUNTER → 2018-10-20 | Outpatient (CLI) | payer MEDICARE, OTHER ==
[2018-10-20 10:32] LABS: HEMATOCRIT 33.7 % (37.9-51.0); HEMOGLOBIN 11.1 g/dL (13.5-17.0); MEAN CORPUSCULAR HEMOGLOBIN 28.8 pg (27.0-33.4); MEAN CORPUSCULAR VOLUME 87 fl (80-97); PLATELET COUNT 151 10^3/uL (150-450); RED BLOOD COUNT 3.86 10^6/uL (4.35-5.55); RED CELL DISTRIBUTION WIDTH 15.4 % (11.5-14.0); WHITE BLOOD COUNT 7.1 10^3/uL (4.0-10.5)
[2018-10-20 10:39] LABS: APPEARANCE,URINE CLEAR; BILIRUBIN,URINE NEGATIVE (NEGATIVE); COLOR,URINE STRAW; GLUCOSE, URINE NEGATIVE (NEGATIVE); KETONES,URINE NEGATIVE (NEGATIVE); LEUKOCYTE ESTERASE,URINE NEGATIVE (NEGATIVE); NITRITE,URINE NEGATIVE (NEGATIVE); PROTEIN,URINE NEGATIVE (NEGATIVE); URINE SPECIFIC GRAVITY 1.006; UROBILINOGEN,URINE NEGATIVE mg/dL (<2.0)
[2018-10-20 10:59] LABS: ANION GAP 15 (5-19); BLOOD UREA NITROGEN 58 mg/dL (7-20); CALCIUM 9.6 mg/dL (8.4-10.2); CARBON DIOXIDE 20 mmol/L (22-30); CHLORIDE 103 mmol/L (98-107); GLUCOSE 191 mg/dL (75-110); POTASSIUM 4.8 mmol/L (3.6-5.0)
[2018-10-21 14:37] LABS: CREATININE URINE 23.7 mg/dL (Not Estab.); MICROALBUMIN URINE 18.4 ug/mL (Not Estab.)
== END ==
LOC: OD 09:24
PROVIDERS: ATTEND Internal Medicine Nephrology
DX: I12.9 Hypertensive chronic kidney disease with stage 1 through stage 4 chronic kidney disease, or unspecified chronic kidney disease (principal); N18.3 Chronic kidney disease, stage 3 (moderate); E11.22 Type 2 diabetes mellitus with diabetic chronic kidney disease
CPT/HCPCS: 36415; 80048; 81001; 82043; 82570; 85027

== ENCOUNTER → 2019-02-17 | Outpatient (CLI) | payer MEDICARE, OTHER ==
--- NOTE | 2019-02-17 18:45 | RADIOLOGY REPORT (SQ) ---
EXAM DESCRIPTION: CT CHEST WITHOUT COMPLETED DATE/TIME: 02/17/2019 9:53 am REASON FOR STUDY: PULMONARY NODULE (R91.1) R91.1 SOLITARY PULMONARY NODULE COMPARISON: 01/27/2018 TECHNIQUE: CT scan performed of the chest without intravenous contrast. Images reviewed with lung, soft tissue and bone windows. Reconstructed coronal and sagittal MPR images reviewed. All images st ored on PACS. All CT scanners at this facility use dose modulation, iterative reconstruction, and/or weight based d osing when appropriate to reduce radiation dose to as low as reasonably achievable (ALARA). [facility]: Dose Right [facility]: CareDose [facility]: Dose Right [facility]: Teradose 4D [facility]: Smart Triumfant RADIATION DOSE: CT Rad equipment meets quality standard of care and radiation dose reduction techniq ues were employed. CTDIvol: 18.4 mGy. DLP: 801 mGy-cm. mGy. LIMITATIONS: No technical limitations. FINDINGS: LUNGS AND PLEURA: Stable 5 mm right pulmonary nodule on image 74. No new pulmonary nodule . No infiltrate or effusion. HILAR AND MEDIASTINAL STRUCTURES: There multiple small nonspecific mediastinal nodes. The largest of these is about 10 mm. HEART AND VASCULAR STRUCTURES: No aneurysm. No pericardial effusion. Prior CABG. UPPER ABDOMEN: No significant findings. Limited exam. THYROID AND OTHER SOFT TISSUES: No masses. No adenopathy. BONES: No significant finding. HARDWARE: Pacemaker/defibrillator. Sternotomy wires. OTHER: No other significant findings. IMPRESSION: Stable 5 mm right pulmonary nodule. Multiple small nonspecific pulmonary nodes. COMMENT: FLEISCHNER CRITERIA FOR FOLLOW-UP OF PULMONARY NODULES Incidentally detected new nodules in persons 35 or older. HIGH RISK: History of smoking or other known risk factors. <6 mm single solid nodule: LOW RISK: no routine followup. HIGH RISK: optional CT 12 mo. TECHNICAL DOCUMENTATION: JOB ID: [id number] Quality ID # [id number]: Final reports with documentation of one or more dose reduction techniques (e.g., Au tomated exposure control, adjustment of the mA and/or kV according to patient size, use of iterative reconstruction technique) 2010 [employer]- All Rights Reserved Reading location - IP/workstation name: [email or web address]
== END ==
LOC: RAD 09:38
PROVIDERS: ATTEND Internal Medicine Pulmonary Disease
DX: R91.1 Solitary pulmonary nodule (principal); R91.8 Other nonspecific abnormal finding of lung field
CPT/HCPCS: 71250

== ENCOUNTER → 2020-01-05 | Outpatient (CLI) | payer MEDICARE, OTHER ==
[2020-01-05 10:28] LABS: ANION GAP 13 (5-19); BLOOD UREA NITROGEN 74 mg/dL (7-20); CALCIUM 9.5 mg/dL (8.4-10.2); CARBON DIOXIDE 19 mmol/L (22-30); CHLORIDE 108 mmol/L (98-107); GLUCOSE 234 mg/dL (75-110); POTASSIUM 5.4 mmol/L (3.6-5.0)
== END ==
LOC: OD 09:12
PROVIDERS: ATTEND Physician Assistant
DX: E87.5 Hyperkalemia (principal)
CPT/HCPCS: 36415; 80048

== ENCOUNTER → 2020-02-21 | Outpatient (CLI) | payer MEDICARE, OTHER ==
--- NOTE | 2020-02-21 16:20 | RADIOLOGY REPORT (SQ) ---
EXAM DESCRIPTION: CT CHEST WITHOUT IMAGES COMPLETED DATE/TIME: 02/21/2020 3:37 pm REASON FOR STUDY: (R91.1)SOLITARY PULMONARY NODULE R91.1 SOLITARY PULMONARY NODULE COMPARISON: None. TECHNIQUE: CT scan performed of the chest without intravenous contrast. Images reviewed with lung, soft tissue and bone windows. Reconstructed coronal and sagittal MPR images reviewed. All images st ored on PACS. All CT scanners at this facility use dose modulation, iterative reconstruction, and/or weight based d osing when appropriate to reduce radiation dose to as low as reasonably achievable (ALARA). [facility]: Dose Right [facility]: CareDose [facility]: Dose Right [facility]: Teradose 4D [facility]: vzaar RADIATION DOSE: CT Rad equipment meets quality standard of care and radiation dose reduction techniq ues were employed. CTDIvol: 19.2 mGy. DLP: 841 mGy-cm. mGy. LIMITATIONS: No technical limitations. FINDINGS: LUNGS AND PLEURA: Stable 5 mm right pulmonary nodule on image 71. No new pulmonary nodule s. No infiltrate or effusion. HILAR AND MEDIASTINAL STRUCTURES: No identified masses or abnormal nodes. No obvious aneurysm. HEART AND VASCULAR STRUCTURES: No aneurysm. No pericardial effusion. Prior CABG. UPPER ABDOMEN: No significant findings. Limited exam. THYROID AND OTHER SOFT TISSUES: No masses. No adenopathy. BONES: No significant finding. HARDWARE: Pacemaker/defibrillator. Sternotomy wires. OTHER: No other significant findings. IMPRESSION: Stable 5 mm right pulmonary nodule. No other significant findings. COMMENT: FLEISCHNER CRITERIA FOR FOLLOW-UP OF PULMONARY NODULES Incidentally detected new nodules in persons 35 or older. HIGH RISK: History of smoking or other known risk factors. <6 mm single solid nodule: LOW RISK: no routine followup. HIGH RISK: optional CT 12 mo. TECHNICAL DOCUMENTATION: JOB ID: [id number] Quality ID # [id number]: Final reports with documentation of one or more dose reduction techniques (e.g., Au tomated exposure control, adjustment of the mA and/or kV according to patient size, use of iterative reconstruction technique) 2010 [employer]- All Rights Reserved Reading location - IP/workstation name: [email or web address]
== END ==
LOC: RAD 15:15
PROVIDERS: ATTEND Internal Medicine Pulmonary Disease
DX: R91.1 Solitary pulmonary nodule (principal)
CPT/HCPCS: 71250